=== PATIENT | female | born 2005 | race Asian ===

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

== ENCOUNTER 2024-05-10 02:21 | Emergency (ER) | payer OTHER, SELFPAY ==
[2024-05-10 02:21] VITALS: BP 131/88; PULSE 89; RESP 16; TEMP 36.9; O2SAT 100; BMI 20.3
--- NOTE | 2024-05-10 03:05 | EDS_ITS ---
HPI HPI - GI History of Present Illness Chief Complaint: Abd Pain Informant: patient Narrative Narrative: 19-year-old female has been having epigastric and left upper quadrant discomfort and bloating off and on for the past 1.5 weeks, present Saturday night 3 AM. She states is worse tonight. Mainly bloating. The pain is mostly been in the mornings before she eats. Last for less than an hour. No nausea or vomiting. She has a history of chronic constipation, she sometimes has a bowel movement once a week, she had a little one earlier, made some of the bloating less. She feels like she has had some swelling in her left upper quadrant tonight, that has been off and on for a week as well. She denies any problems urinating. Denies . No history of any surgeries in her abdomen. This the first time she has had this evaluated. She had some of these pains off and on before 1.5 weeks ago but it would come and go and was less consistent than now. She does have a history of a stomach ulcer and was H. pylori positive, she thinks this feels different. The bloating is worse directly after eating. PFSH PFSH Medical History Oral ulcer History of Crohn's disease H pylori ulcer Gastric ulcer Abdominal pain H pylori ulcer Piercing Infected pierced ear Pierced navel infection Wears glasses Depression Anxiety Restless legs Back pain Migraine headache Syncope Rectal bleeding Heartburn Asthma Non-smoker Home Medications ?Medication ?Instructions ?Recorded ?Last Taken ?Type dicyclomine 20 mg tablet 20 mg PO Q6H PRN PRN abdomin al 05/10/24 Unknown Rx discomfort #20 tabs Allergy/AdvReac Type Severity Reaction Status Date / Time adhesive tape Allergy Itching Verified 05/10/24 02:21 ciprofloxacin (From Ciprodex) Allergy Swelling Verified 05/10/24 02:21 dexamethasone (From Ciprodex) Allergy Swelling Verified 05/10/24 02:21 Surgical History History of esophagogastroduodenoscopy (EGD) Social History Smoking Status: Never smoker ROS ROS ED Constitutional Constitutional ED: Denies chills or fever(s) Eyes Eyes: Denies change in vision or diplopia ENT ENT ED: Denies rhinorrhea or sore throat Cardiovascular Cardiovascular: Denies chest pain or palpitations Respiratory/Chest Respiratory/Chest: Denies cough or dyspnea Gastrointestinal Gastrointestinal: Reports as per HPI, abdominal pain and constipation; Denies diarrhea, nausea or vomiting Genitourinary Genitourinary ED: Denies dysuria or hematuria Musculoskeletal Musculoskeletal: Denies back pain or neck pain Integumentary Denies abscess or rash Neurologic Neurologic: Denies headache(s), paresthesias or weakness Psychiatric Psychiatric: Denies anxiety or suicidal thoughts EXAM Physical Exam Const Vital Signs: 05/10/24 02:21 Temperature 98.4 F Temperature Source Oral Pulse Rate 89 Respiratory Rate 16 Blood Pressure 131/88 H Blood Pressure Mean 102 Pulse Ox 100 Positive well nourished and well developed Constitutional Narrative: Well-appearing in no distress General Appearance ED: well developed and NAD HEENT Reports moist mucous membranes normocephalic and atraumatic Eyes PERRL and EOMs intact bilaterally Neck full ROM and supple Resp normal respiratory effort and clear to auscultation bilaterally Cardio regular rate, regular rhythm and no murmurs GI non-distended GI Narrative: There is no swelling. She points over the left lower rib cage which is nontender and not swollen or erythematous. Abdomen is flat. Mild tenderness in the left upper quadrant and epigastrium, no guarding or rebound. No other areas of tenderness. Auscultation: normoactive bowel sounds Palpation: soft Back/Spine no CVA tenderness General Back: other FROM Extremity normal to inspection General Extremety ED: Negative for edema, pulses abnormal or tenderness General Extremity: Negative for edema or pulses abnormal Neuro oriented x3, CN's II-XII intact bilaterally and no sensory deficits noted Sensorium / Orientation: awake and alert Motor Exam: strength 5/5 throughout Skin no rashes or lesions noted and no wounds MDM MDM MDM Narrative Medical decision making narrative: I advised this patient that I do not think she needs advanced imaging of the abdomen/pelvis tonight. This sounds like a functional intestinal issue of some sort. Peptic ulcer disease is not out of the question, she is not having any melena, nausea, vomiting making this less likely. In looking at her history which she did not tell me, she has a history of terminal ileitis and has been diagnosed with irritable bowel syndrome with constipation, which I mentioned to her as a possibility here as well. I am happy to run some blood work which I did, and give her Toradol, GI cocktail, pantoprazole, and dicyclomine in the meantime; this helped some. She is comfortable, her vital signs are normal, and her labs are reviewed and unremarkable except for mild hypokalemia which may or may not be related. negative ruling out ectopic. Lipase normal ruling out pancreatitis. In discussing all of this with her, at this point she tells me that she did follow-up with Dr. Silva with GI, and she believes he gave her the diagnosis of IBS. I asked her if she was tried on Linzess, she states she was and she got sick on it so she stopped taking it not sure if it was the medication or not. She does not think she has it anymore. I would follow-up with GI for this, but in the meantime I will give her a prescription for dicyclomine and she is comfortable with that plan.-C Lab Data Attestation: I reviewed the patient's lab results. Labs: Laboratory Results - last 24 hr 05/10/24 02:29 WBC 9.7 RBC 4.42 Hgb 12.6 Hct 37.7 MCV 85.3 MCH 28.5 MCHC 33.4 RDW Std Deviation 38.9 RDW Coeff of Christie 12.6 Plt Count 316 MPV 9.8 Immature Gran % (Auto) 0.300 Neut % (Auto) 50.4 Lymph % (Auto) 42.0 H [place] % (Auto) 6.6 Eos % (Auto) 0.5 Baso % (Auto) 0.2 Absolute Neuts (auto) 4.9 Absolute Lymphs (auto) 4.09 Nucleated RBC % 0 Sodium 139 Potassium 3.2 L Chloride Direct 103 Carbon Dioxide 23.4 Anion Gap 13 BUN 7 Creatinine 0.62 L Estim Creat Clear Calc 103.10 Est GFR (MDRD) Non-Af 130 BUN/Creatinine Ratio 11.4 Glucose 95 Calcium 9.3 Total Bilirubin 0.25 AST 19 ALT 8 Alkaline Phosphatase 78 Total Protein 8.2 Albumin 4.4 Globulin 3.8 Albumin/Globulin Ratio 1.2 Lipase 19 Serum , Qual NEGATIVE Discharge Plan Triage Chief Complaint: Abd Pain ED Provider: Nestor Sr Dx/Rx/DC Orders Clinical Impression: Acute upper abdominal pain, Irritable bowel syndrome with constipation Instructions: ED Constipation (Adult), ED Irritable Bowel Syndrome Prescriptions: New dicyclomine 20 mg tablet 20 mg PO Q6H PRN PRN (Reason: abdominal discomfort) Qty: 20 0RF Primary Care Provider: Care Physician,No Primary Referrals: La Latif DO [Med Staff - Clinical Rehabilitation Coordinator] - Activity Restrictions/Additional Instructions: Consider trying to take care of your constipation to see if that helps your discomfort; 1 version is to dissolve about 1 cup of MiraLAX or generic equivalent in any liquid and drink over the course of the day. Another version is to buy a glass bottle of magnesium citrate and drink half of it along with plenty of fluids and expect to have a good bowel movement along with diarrhea in 6-12 hours. If it does not occur in 24 hours, you may repeat with the other half of the bottle. Print Language: British Disposition Disposition: Home, Self Care
[2024-05-10 03:11] LABS: Absolute Lymphocyte Count 4.09 X10^3/uL (0.83-4.51); Absolute Neutrophil Count 4.9 X10^3/uL (2.0-7.7); Basophil# 0.02 X10^3/uL; Basophil% 0.2 % (0-1); Eosinophil# 0.05 X10^3/uL; Eosinophils% 0.5 % (0-5); Hematocrit 37.7 % (37-47); Hemoglobin 12.6 g/dL (12.0-15.0); Lymphocyte # 4.09 X10^3/ul (0.83-4.51); Mean Corp Hgb Conc 33.4 g/dL (32-36); Mean Corpuscular Hgb 28.5 pg (27.0-32.0); Mean Corpuscular Volume 85.3 fL (81-99); Mean Platelet Vol. 9.8 fl (6.2-12.0); Monocyte# 0.64 X10^3/uL; Monocyte% 6.6 % (0-10); NRBC Flagged by Analyzer 0 % (0-5); Neutrophil # 4.91 X10^3/uL (2.7-7.7); Neutrophil % 50.4 % (47-70); Platelet Count 316 K/mm3 (150-450); RBC Distribution Width CV 12.6 % (11.6-14.6); RBC Distribution Width SD 38.9 fl (35.1-43.9); Red Blood Count 4.42 M/mm3 (4.2-5.4); White Blood Count 9.7 K/mm3 (4.4-11.0)
[2024-05-10] MEDS: Dicyclomine 10 MG Capsule 20 MG PO (03:11)
[2024-05-10] MEDS: Ketorolac 30 MG/ML Syringe IV (03:11)
[2024-05-10] MEDS: Pantoprazole Sodium 40 MG Tablet PO (03:11)
[2024-05-10] MEDS: Lidocaine 2% Viscous15 ML UDC 15 ML PO (03:11)
[2024-05-10] MEDS: Mag Hydrox/Al Hydrox/Simeth 30 ML UDC PO (03:11)
[2024-05-10 03:38] LABS: ALB/GLOB Ratio 1.2 RATIO (0.9-2.4); AST(SGOT) 19 U/L (<=31); Alanine Aminotransfer ALT/SGPT 8 U/L (<=34); Albumin, Serum 4.4 g/dL (3.5-5.0); Alkaline Phosphatase 78 U/L (35-104); Anion Gap 13 (5-15); BUN 7 mg/dL (4-19); BUN/Creat Ratio 11.4 RATIO (10-20); Calcium 9.3 mg/dL (7.6-11.0); Carbon Dioxide 23.4 mmol/L (22.0-29.0); Chloride 103 mmol/L (96-108); Creatinine, Serum 0.62 mg/dL (0.70-1.20); EST Glomerular Filtration Rate 130 (>60); Globulin 3.8 g/dL (2.2-4.2); Glucose 95 mg/dL (70-99); Lipase 19 U/L (13-75); Potassium 3.2 mmol/L (3.3-5.1); Protein, Total 8.2 g/dL (5.9-8.4); Sodium Level 139 mmol/L (133-145); Total Bilirubin 0.25 mg/dL (0.00-1.30)
[2024-05-10 04:12] LABS: Internal QC Validated? YES +Cl - CLEAR BKGD; Pregnancy, Serum, hCG Quali. NEGATIVE Negative
[2024-05-10 04:53] VITALS: BP 118/64; PULSE 61; RESP 18; O2SAT 98
== END 2024-05-10 04:56 | disposition home or self-care (01) ==
PROVIDERS: Emergency Provider Emergency Medicine; Visit Provider Emergency Medicine
DX: K58.9 Irritable bowel syndrome, unspecified (principal); R10.13 Epigastric pain
CPT/HCPCS: 80053; 83690; 84703; 85025; 96374; 96376; 99283; A4216

== ENCOUNTER → 2024-06-05 | Outpatient (CLI) | payer OTHER, SELFPAY ==
--- NOTE | 2024-06-05 12:48 | NM_ITS ---
PROCEDURE: GASTRIC EMPTYING STUDY 06/05/2024 REASON FOR EXAM: EARLY SATIETY History of Crohn's disease. Feels like stomach is swollen. COMPARISON: None. TECHNIQUE: Patient ingested 1.2 mCi of Technetium Sulfur Colloid in oatmeal. Anterior and posterior planar images of the upper abdomen were obtained for 60 minutes. Regions of interest were drawn, and a geometric mean was used to calculate a [id number]. Medications taken in the past 24 hours that may affect gastric emptying: None. FINDINGS: Half-life: 0 Gastroesophageal reflux: None. % Emptying 1 hour 21 % (normal 37-90%) NM/Gastric Emptying Study IMPRESSION: 1. MARKEDLY DELAYED GASTRIC EMPTYING. Reading Location: [place]
== END | disposition home or self-care (01) ==
DX: K58.1 Irritable bowel syndrome with constipation (principal); R10.10 Upper abdominal pain, unspecified
CPT/HCPCS: 78264; A9541

== ENCOUNTER → 2024-06-16 | Outpatient (CLI) | payer OTHER, SELFPAY ==
--- NOTE | 2024-06-16 10:20 | NM_ITS ---
PROCEDURE: GASTRIC EMPTYING STUDY - 4 HR 06/16/2024 REASON FOR EXAM: PROLONGED 1HR GET COMPARISON: 05/28/2024 gastric emptying study. TECHNIQUE: The patient ingested a standard meal of cooked egg whites mixed with 2 slices of, toasted white bread and 6 oz water. Anterior and posterior planar images of the upper abdomen were obtained for 1 minute immediately following the meal at 1h, 2h and 4h if more than 10% of the activity persisted within the stomach. Regions of interest were drawn, and a geometric mean was used to calculate a [id number]. Medications taken in the past 24 hours that may affect gastric emptying: None. RADIOPHARMACEUTICAL: 1.2 mCi Sulfur Colloid FINDINGS: Percent activity remaining in stomach: 1 hour 61 % (normal 37-90%) 2 hours: 29 % (normal 30-60%) 4 hours: 1 % (normal 0-10%) NM/Gastric Emptying Study - 4 HR IMPRESSION: Normal gastric emptying study. Reading Location: [place] [id number]
== END | disposition home or self-care (01) ==
LOC: NM 10:15
DX: K31.84 Gastroparesis (principal)
CPT/HCPCS: 78264; A9541

== ENCOUNTER → 2024-08-14 | Outpatient (CLI) | payer OTHER, SELFPAY ==
[2024-08-17 11:08] LABS: Anti-Centromere B Ab <0.2 AI (0.0-0.9); Anti-Chromatin <0.2 AI (0.0-0.9); Anti-Jo <0.2 AI (0.0-0.9); Anti-Scleroderma-70 AB <0.2 AI (0.0-0.9); Anti-dsDNA Ab <1 IU/mL (0-9); RNP Ab <0.2 AI (0.0-0.9); SJOGREN'S Anti-SS-A test < 0.2 AI (0.0-0.9); SJOGREN'S Anti-SS-B test < 0.2 AI (0.0-0.9); Smith Ab <0.2 AI (0.0-0.9)
[2024-08-17 17:08] LABS: ACCA 24 units (0-90); ALCA 9 units (0-60); AMCA 57 units (0-100); Cytoplasmic Ab (C-ANCA) <1:20 titer (Neg:<1:20); Perinuclear Ab (P-ANCA) <1:20 titer (Neg:<1:20); gASCA 22 units (0-50)
== END | disposition home or self-care (01) ==
LOC: LAB 11:35
DX: K59.00 Constipation, unspecified (principal); R10.9 Unspecified abdominal pain
CPT/HCPCS: 36415; 83516; 86036; 86037; 86225; 86235; 86671

== ENCOUNTER → 2024-08-17 | Outpatient (CLI) | payer OTHER, SELFPAY ==
--- NOTE | 2024-08-17 08:25 | US_ITS ---
PROCEDURE: ABDOMEN LIMITED 08/17/2024 REASON FOR EXAM: PALPABLE MASS LUQ ABDOMEN DISTAL RIB COMPARISON: None FINDINGS: Targeted sonogram of the left upper quadrant was performed. No sonographic abnormality is seen. US/Abdomen Limited IMPRESSION: No sonographic abnormality is seen. Reading Location: [place] [address]
== END | disposition home or self-care (01) ==
DX: R19.02 Left upper quadrant abdominal swelling, mass and lump (principal)
CPT/HCPCS: 76705

== ENCOUNTER → 2024-10-20 | Outpatient (CLI) | payer OTHER, SELFPAY ==
[2024-10-20 12:47] LABS: AST(SGOT) 19 U/L (<=31); Alanine Aminotransfer ALT/SGPT 9 U/L (<=34); Albumin, Serum 4.3 g/dL (3.5-5.0); Alkaline Phosphatase 66 U/L (35-104); Anion Gap 11 (5-15); BUN 10 mg/dL (4-19); BUN/Creat Ratio 15.2 RATIO (10-20); Calcium,Total 9.4 mg/dL (7.6-11.0); Carbon Dioxide 25.0 mmol/L (21.0-32.0); Chloride 103 mmol/L (98-108); Globulin 3.2 g/dL (2.2-4.2); Glucose 81 mg/dL (70-99); Potassium 3.7 mmol/L (3.3-5.1)
[2024-10-20 13:40] LABS: CRP < 3.00 mg/L (0.0-3.0)
[2024-10-21 16:09] LABS: Immunoglobulin A 157 mg/dL (87-352)
== END | disposition home or self-care (01) ==
LOC: LAB 11:11
DX: R10.13 Epigastric pain (principal); R11.0 Nausea; R19.7 Diarrhea, unspecified
CPT/HCPCS: 36415; 80053; 82784; 83516; 86140; 86255

== ENCOUNTER → 2024-10-26 | Outpatient (CLI) | payer OTHER, SELFPAY ==
--- OUTSIDE RECORDS SUMMARY | 2024-10-26 23:16 | XMS RPT_ITS | CCD ---
Author Organization [facility] Care Team Providers Care Quantity Surveyor Name Role Phone YUSRA WALLACE Unavailable Unavailabl e REJI LEE Unavailable Unavailable REJI LEE Unavailable Unavailable La Latif DO Unavailable Marifer Brock LPN Unavailable Unavailable Unavailable Unavailable Gravtre PETERS, Lauryn Unavailable Unavailable Kim Guerra MD Unavailable [phone] Lia PETERS Kendra Unavailable Unavailable Friend, Dr. Thomson Unavailable [phone] La Latif Primary Care Provider [phone] Dr. La Latif Referring Provider Dr. Regis Billingsley Attending Provider [phone] FriendDr. Thomson Attending Provider [phone] Thomson Other Provider [phone] Norma CORE WINDING OPERATOR, CORE WINDING OPERATOR-C Rhiannon Aguila Attending Provider [phone] La Latif DO Unavailable [phone] Kim Guerra MD Unavailable [phone] La Latif Primary Care Provider Dr. La Latif Referring Provider FriendDr. Thomson Attending Provider [phone] Simone Cardenas LPN Unavailable Unavailable Dr. La Latif Primary Care Provider [phone] Dr. La Latif Referring Provider Norma CROOK, CORE WINDING OPERATOR-C Rhiannon Aguila Attending Provider [phone] Alanna PETERS, Kayela Unavailable Unavailable Fran LINE ASSEMBLY UTILITY WORKER, Shelby Unavailable Unavailable Seese DO, Lalo Unavailable Reji Parrish Primary Care Provid er La Latif DO Attending Unavailable Bhavya REARDON, La Consulting Unavailable Slarb LINE ASSEMBLY UTILITY WORKER, Becca Unavailable Unavailable ELVER GROUP EXERCISE INSTRUCTOR-ADA ACCOMMODATION CONSULTANT, LYRIC Primary Care Physician ELVER GROUP EXERCISE INSTRUCTOR-ADA ACCOMMODATION CONSULTANT, LYRIC Attending Unavail able ELVER GROUP EXERCISE INSTRUCTOR-ADA ACCOMMODATION CONSULTANT, LYRIC Primary Care Unavail able Manjit Peña MD, Reji Black Primary Care Pro vider Remberto VELAZQUEZ, Dr. Baez Attending Provider Remberto VELAZQUEZ, Dr. Baez Emergency Provider Care Physician, No Primary Primary Care Provider Unavailable Dr. La Latif DO Referring Provider Dawson CORE WINDING OPERATOR-CXena Attending Provider Dawson CORE WINDING OPERATOR-CXena Referring Provider Care Physician, No Primary Referring Provider Un available Reji Parrish MD Primary Care Pro vider GALILEO, HUONG Referring Unavailable REJI PARRISH Primary Care Jayne vailable GALILEO, HUONG Attending Unavailable REJI PARRISH Primary Care Jayne vailable MARIA D EPPS Attending Unavailable REJI PARRISH Primary Care Jayne vailable JAMES, EDIN P Attending Unavailable JAMESVAZQUEZ SALESEL P Referring Unavailable REJI PARRISH Primary Care Jayne vailable JAMES, EDIN P Attending Unavailable REJI PARRISH Primary Care Jayne vailable JAMES, EDIN P Attending Unavailable REJI PARRISH Primary Care Jayne vailable JAMES, EDIN P Attending Unavailable JAMES, EDIN P Admitting Unavailable Xena Osman Attending Unavailable Xena Osman Referring Unavailable Care Physician, No Primary Primary Care Unava ilable Care Physician, No Primary Referring Unava ilable Xena Osman Attending Unavailable Care Physician, No Primary Primary Care Unava ilable La Latif Referring Unavailable Xena Osman Attending Unavailable Care Physician, No Primary Primary Care Unava ilable Care Physician, No Primary Referring Unava ilable Care Physician, No Primary Primary Care Unava ilable Osman, Xena Attending Unavailable Care Physician, No Primary Referring Unava ilable Osman, Xena Attending Unavailable Care Physician, No Primary Primary Care Unava ilable Osman, Xena Attending Unavailable Care Physician, No Primary Primary Care Unava ilable Osman, Xena Referring Unavailable Osman, Xena Attending Unavailable Care Physician, No Primary Primary Care Unava ilable Osman, Xena Referring Unavailable Nestor Sr Attending Unavailable Care Physician, No Primary Primary Care Unava ilable Osman, Xena Attending Unavailable Osman, Xean Referring Unavailable Care Physician, No Primary Primary Care Unava ilable Care Physician, No Primary Primary Care Provider Unavailable Dawson CORE WINDING OPERATOR-C, Xena Attending Provider [phone] Dawson CORE WINDING OPERATOR-C, Xena Referring Provider [phone] Allergies Allergy Classification Reported Allergen(s) Allergy Type Date of Onset Reaction(s) Facility Ciprofloxacin / Dexamethasone (3 sources) Ciprofloxacin / Dexamethasone; Translations: [Ciprodex *OTIC AGENTS*] Drug Allergy [facility] Work Phone: Comment on above: facial swelling (11 sources) ciprofloxacin / dexamethasone; Translations: [CIPROFLOXACIN-D EXAMETHASONE] Drug Allergy 02-10-20 16 Swelling [facility] Repository (1 source) Environmental allergy; Translations: [ENVIRONMENTAL] Propensity to adverse reactions (disorder) 02-10-20 16 AOF [facility] Repository (1 source) SKIN CLEANSER; Translations: [SKIN CLEANSER] Propensity to adverse reactions to drug (disorder) [facility] SKIN CLEANSER,GENERAL ; Translations: [SKIN CLEANSER,GENERAL ] Propensity to adverse reactions to drug (disorder) 04-09-19 [facility]) Ciprofloxacin / Dexamethasone; Translations: [Ciprodex *OTIC AGENTS*] Drug Allergy Weal (disorder) [facility] Work Phone: Comment on above: facial swelling (13 sources) Ciprofloxacin Drug Allergy 05-31-19 22 Swelling [facility] (20 sources) Dexamethasone; Translations: [DEXAMETHASONE] Drug Allergy 05-31-19 22 Swelling [facility] (5 sources) BANDAID Allergy to substance 05-31-19 Itching [facility] Work Phone: (9 sources) Adhesive Tape; Translations: [adhesive tape] Allergy to substance 02-07-20 Itching [facility] Comment on above: FROM BANDAID (8 sources) Adhesive agent; Translations: [ADHESIVE] Drug Allergy 02-07-20 Itching [facility] (7 sources) Latex Propensity to adverse reactions [facility] Ciprofloxacin Drug Allergy 08-21-19 [facility] (1 source) Dexamethasone Drug Allergy 08-21-19 [facility] Rep[facility] (1 source) Latex Drug allergy (disorder) 08-21-19 [facility] Repository Medications Current Medications Medication Drug Class(es) Dates Sig (Normalized) Sig (Original) dicyclomine hydrochloride 20 mg oral tablet (7 sources) Anticholinergic Start: 05-10-2024 take 1 tablet by mouth every six hours as needed Dicyclomine 20 mg tablet Active 20 mg PO EVERY 6 HOURS NEEDED as needed for abdominal discomfort May 10, 2024 1:00am famotidine 40 mg oral tablet (7 sources) Histamine-2 Receptor Antagonist Start: 05-11-2024 take 1 tablet by mouth at bedtime Famotidine 40 mg tablet Active 40 mg PO AT BEDTIME May 11, 2024 1:00am omeprazole 20 mg delayed release oral capsule (1 source) Proton Pump Inhibitor Start: 03-28-2023 omeprazole 20 mg oral delayed release capsule Dose : 20 mg = 1 cap(s), Oral, qDay, # 30 cap(s), 0 Refill(s), Pharmacy: [facility]/pharmacy #[id number], H/O gastric ulcer, 155, cm, 03/28/23 11:20:00 EST, Height, kg, 03/28/23 11:20:00 EST, Dosing Weight Start Date: 03/28/23 Status: Ordered ondansetron 4 mg disintegrating oral tablet (2 sources) Serotonin-3 Receptor Antagonist Start: 06-20-2021 take 4 mg by mouth every six hours Ondansetron Active 4 MG PO EVERY 6 HOURS June 20, 2021 4:06pm pantoprazole 40 mg delayed release oral tablet (19 sources) Proton Pump Inhibitor Start: 05-11-2024 take 1 tablet by mouth twice daily Pantoprazole 40 mg tablet,delayed release (DR/EC) Active 40 mg PO TWICE A DAY 60 2 May 11, 2024 1:00am Start: 06-13-2021 End: 06-27-2021 take 1 tablet by mouth twice daily Pantoprazole 40 mg tablet,delayed release (DR/EC) Discontinued 40 mg PO TWICE A DAY 28 14 0 June 13, 2021 12:00am June 26, 2021 12:00am June 27, 2021 12:03am polyethylene glycol 3350 47737 mg powder for oral solution (1 source) Osmotic Laxative Start: 03-28-2023 End: 03-28-2024 take 17 doses by mouth once daily MiraLax oral powder for reconstitution Dose : 17 gram(s) =, Oral, qDay, # 238 gram(s), 1 Refill(s), 03/28/24 11:30:00 PM EST, Pharmacy: [facility]/pharmacy #[id number], Constipation, 155, cm, 03/28/23 11:20:00 EST, Height, kg, 03/28/23 11:20:00 EST, Dosing Weight Start Date: 03/28/23 Stop Date: 03/28/24 Status: Ordered Completed/Discontinued Medications Medication Drug Class(es) Dates Sig (Normalized) Sig (Original) amoxicillin 500 mg oral capsule (12 sources) Penicillin-class Antibacterial Start: 06-13-2021 End: 06-27-2021 take 1 capsule by mouth twice daily Amoxicillin 500 mg capsule Discontinued 500 mg PO TWICE A DAY 28 14 0 June 13, 2021 12:00am June 26, 2021 12:00am June 27, 2021 12:03am atomoxetine 10 mg oral capsule (18 sources) Norepinephrine Reuptake Inhibitor Start: 06-28-2022 take 1 capsule by mouth once daily at mealtime atomoxetine 10 mg oral capsule 1 (one) capsule daily for 2 weeks then 25 mg for 0 days Quantity: 14 {Capsule} Refills: 0 Ordered: 28-Jun-2022 Kim Guerra MD Start : 28-Jun-2022 Active Comments: with food Start: 06-28-2022 take 1 capsule by [facility] once daily in the morning atomoxetine 25 mg oral capsule 1 (one) Capsule every morning for 2 weeks than 40 mg for 0 days Quantity: 14 {Capsule} Refills: 0 Ordered: 28-Jun-2022 Kim Guerra MD Start : 28-Jun-2022 Active Start: 06-28-2022 take 1 capsule by mo [facility] in the morning atomoxetine 40 mg oral capsule 1 (one) capsule in am for 0 days Quantity: 30 {Capsule} Refills: 0 Ordered: 28-Jun-2022 Kim Guerra MD Start : 28-Jun-2022 Active Comment on above: with food busPIRone hydrochloride 10 mg oral tablet (11 sources) Start: 3 End: 3 take 1 tablet by mouth twice daily busPIRone 10 mg oral tablet 1 (one) tablet bid for 0 days Quantity: 60 {Tablet} Refills: 1 Ordered: 16-May-2022 La Latif DO, DO, Kathleen Start : 18-Apr-2022 End : 16-May-2022 Discontinued Drospirenone-Ethinyl Estradiol 3-0.03 MG Oral Tablet (20 sources) Progestin, Estrogen Start: 2 take 1 tablet by mouth once daily Drospirenone-Ethinyl Estradiol 3-0.03 MG Oral Tablet 1 (one) Tablet qd for 30 days Quantity: 3 {Packet} Refills: 4 Ordered: 18-Dec-2021 La Latif DO, DO, Kathleen Start : 18-Dec-2021 Active Comments: Mail order. qty is for QS 90 day supply of tablet packets Start: 12-06-2021 take 1 tablet by [facility] once daily Drospirenone-Ethinyl Estradiol 3-0.03 MG Oral Tablet 1 (one) Tablet qd for 30 days Quantity: 30 {Tablet} Refills: 0 Ordered: 06-Dec-2021 La Latif DO, DO, Kathleen Start : 06-Dec-2021 Active Comments: Mail order. pt needs apt for more refills Start: 05-26-2021 End: 05-10-2024 Drospirenone-Estradiol 0.25- 0.5 mg Tablet Discontinued 1 {tbl} PO DAILY May 26, 2021 12:00am May 10, 2024 3:25am Start: 05-26-2021 take 1 tablet by [facility] once daily Drospirenone-Estradiol Active 1 TABLET PO DAILY May 25, 2021 11:00pm Start: 12-19-2020 take 1 tablet by [facility] once daily Drospirenone-Ethinyl Estradiol 3-0.03 MG Oral Tablet 1 (one) Tablet qd for 90 days Quantity: 90 {Tablet} Refills: 3 Ordered: 19-Dec-2020 La Latif DO, DO, Kathleen Start : 19-Dec-2020 Active Comments: Mail order. Start: 12-09-2019 End: 04-13-2024 take 1 tablet by mouth once daily Drospirenone-Ethinyl Estradiol 3-0.03 mg per tablet TAKE 1 TABLET BY MOUTH EVERY DAY 12/09/2019 04/13/2024 Discontinued (Course of therapy completed) Start: 12-09-2019 take 1 tablet by [facility] once daily Drospirenone-Ethinyl Estradiol 3-0.03 mg per tablet TAKE 1 TABLET BY MOUTH EVERY DAY 0 12/09/2019 Active Drospirenone-Eth inyl Estradiol 3-0.03 MG Oral Tablet (3-0.03 MG) Active Comments: regulate period Comment on above: regulate period Mail order. Mail order. pt needs apt for more refills Mail order. qty is f or QS 90 day supply of tablet packets TAKE 1 TABLET BY [facility] TH EVERY DAY FLUoxetine 20 mg oral capsule (20 sources) Serotonin Reuptake Inhibitor Start: End: take 1 capsule by mouth once daily Fluoxetine (Prozac) 20 mg Capsule Discontinued 20 mg PO DAILY May 26, 2021 12:00am May 10, 2024 3:25am Start: 09-13-2020 take 1 capsule by mo [facility] once daily PROzac 20 MG Oral Capsule 1 (one) Capsule daily for 90 days Quantity: 90 {Capsule} Refills: 3 Ordered: 13-Sep-2020 La Latif DO, DO, Kathleen Start : 13-Sep-2020 Active Comments: Mail order. Start: 04-28-2020 End: 05-29-2024 FLUoxetine (PROZAC) 20 mg ca psule 04/28/2020 05/29/2024 Discontinued Comment on above: F41.9 Mail order. Mail order. needs ap t for more refills lubiprostone 0.024 mg oral capsule (11 sources) Chloride Channel Activator Start: 07-07-19 End: 07-25-19 take 1 capsule by mouth twice daily Lubiprostone 24 mcg capsule Discontinued 24 ug PO TWICE A DAY 60 1 July 06, 2021 12:00am July 24, 2021 1:51pm metroNIDAZOLE 500 mg oral tablet (12 sources) Nitroimidazole Antimicrobial Start: 06-14-19 End: 06-28-19 take 1 tablet by mouth three times daily Metronidazole 500 mg tablet Discontinued 500 mg PO THREE TIMES A DAY 42 14 0 June 13, 2021 12:00am June 26, 2021 12:00am June 27, 2021 12:03am multivitamin tablet (3 sources) End: 05-30-19 take 1 tablet by mouth once daily multivitamin tablet Take 1 tablet by mouth once daily. 05/29/2024 Discontinued take 1 tablet by mouth once [facility] multivitamin tablet Take 1 tablet by mouth once daily. Active take 1 tablet by mouth once [facility] multivitamin tablet Take 1 tablet by mouth once daily. 0 Active Comment on above: Take 1 tablet by [place] once daily. plecanatide 3 mg oral tablet (10 sources) Start: 2 End: 2 take 1 tablet by mouth once daily Plecanatide (Trulance) 3 mg tablet Discontinued 3 mg PO DAILY 90 3 August 24, 2021 12:00am December 05, 2021 9:20am tried and failed oneyda marion sertraline 100 mg oral tablet (10 sources) Serotonin Reuptake Inhibitor Start: 3 take 1.5 tablets by mouth once daily sertraline 100 mg oral tablet 1.5 tablet qd for 0 days Quantity: 45 {Tablet} Refills: 1 Ordered: 28-Aug-2022 La Latif DO, DO, Kathleen Start : 28-Aug-2022 Active Comments: wean off Start: 06-28-2022 take 1.5 tablets by mouth once daily sertraline 100 mg oral tablet 1.5 tablet qd for 0 days Quantity: 45 {Tablet} Refills: 1 Ordered: 28-Jun-2022 Kim Guerra MD Start : 28-Jun-2022 Active Comments: wean off Start: 06-13-2022 take 1.5 tablets by mouth once daily sertraline 100 mg oral tablet 1.5 tablet qd for 0 days Quantity: 45 {Tablet} Refills: 1 Ordered: 13-Jun-2022 BhavyaLa bishop DO, DO, Kathleen Start : 13-Jun-2022 Active Start: 05-16-2022 take 1 tablet by [facility] once daily sertraline 100 mg oral tablet 1 (one) tablet qd for 0 days Quantity: 30 {Tablet} Refills: 1 Ordered: 16-May-2022 La Latif DO, DO, Kathleen Start : 16-May-2022 Active Comment on above: wean off sucralfate 1000 mg oral tablet (9 sources) Aluminum Complex Start: 09-15-2021 End: 10-09-2021 take 1 tablet by mouth three times daily 1 hour(s) before mealtime Sucralfate (Carafate) 1 gram tablet Discontinued 1 g PO before meals 90 0 September 15, 2021 12:00am October 09, 2021 9:39am Take three times a day, one hour before meals and two hours away from other medications. Problems Active Problems Problem Classification Problem Date Documented Da te Episodic/Chronic Abdominal pain (20 sources) Generalized abdominal pain; Translations: [Abdominal pain, diffuse] Onset: 05-11-2024 Resolved: 12-18-2021 09-01-2020 Episodic Anxiety disorders (20 sources) Anxiety; Translations: [Anxiety] 08-11-2020 Chronic Attention-deficit, conduct, and disruptive behavior disorders (14 sources) Attention deficit hyperactivity disorder, combined type; Translations: [Attention deficit hyperactivity disorder (ADHD), combined type] 06-28-2022 Chronic Blindness and vision defects (20 sources) Blurring of visual image; Translations: [Blurred vision, bilateral] 04-18-2022 Episodic Comment on above: rec eye exam she mary l set up -- eval dryness , pathology,will try wetting drops in meantime to see if helps Contraceptive and procreative management (20 sources) Patient encounter status; Translations: [ control counseling] 12-19-2020 Episodic Gastroduodenal ulcer (except hemorrhage) (20 sources) Peptic ulcer; Translations: [Peptic ulcer, site unspecified, unspecified as acute or chronic, without hemorrhage or perforation] Chronic Gastrointestinal hemorrhage (20 sources) Rectal hemorrhage; Translations: [Rectal bleed] Resolved: 12-18-2021 03-20-2021 Episodic Malaise and fatigue (20 sources) Fatigue; Translations: [Fatigue] 12-18-2021 Episodic Comment on above: not sexually active Nausea and vomiting (20 sources) Nausea; Translations: [Nausea] Resolved: 04-18-2022 04-18-2022 Episodic Noninfectious gastroenteritis (20 sources) Inflammatory bowel disease; Translations: [Noninfective gastroenteritis and colitis, unspecified] Episodic Nonmalignant breast conditions (3 sources) Lump in upper outer quadrant of right breast; Translations: [Unspecified lump in the right breast, upper outer quadrant] Onset: 07-01-2024 05-29-2024 Episodic Nutritional deficiencies (20 sources) Vitamin D deficiency; Translations: [Vitamin D deficiency] 04-17-2022 Chronic Nutritional deficiencies (20 sources) Cobalamin deficiency; Translations: [Vitamin B12 deficiency] 04-17-2022 Episodic Other disorders of stomach and duodenum (7 sources) Gastroparesis syndrome; Translations: [Gastroparesis] 06-08-2024 Episodic Other gastrointestinal disorders (20 sources) Irritable bowel syndrome characterized by constipation; Translations: [Irritable bowel syndrome with constipation] 08-18-2021 Chronic Other gastrointestinal disorders (5 sources) Irritable bowel syndrome with constipation; Translations: [Irritable bowel syndrome] Onset: 06-09-2024 Chronic Other gastrointestinal disorders (20 sources) Chronic constipation; Translations: [Constipation, chronic] 09-01-2020 Episodic Other gastrointestinal disorders (18 sources) Constipation; Translations: [Constipation, unspecified] 04-23-2021 Episodic Other gastrointestinal disorders (6 sources) Constipation, unspecified; Translations: [Constipation, unspecified] Onset: 08-19-2024 Episodic Other gastrointestinal disorders (10 sources) Abdominal mass; Translations: [Left upper quadrant abdominal swelling, mass and lump] 08-14-2024 Episodic Other gastrointestinal disorders (1 source) Left upper quadrant abdominal swelling, mass and lump; Translations: [Left upper quadrant abdominal swelling, mass and lump] Onset: 08-20-2024 Episodic Other gastrointestinal disorders (2 sources) Diarrhea; Translations: [Diarrhea, unspecified] 10-20-2024 Episodic Other hematologic conditions (20 sources) Increased globulin; Translations: [Elevated serum globulin level] 04-17-2022 Episodic Other nervous system disorders (16 sources) Unable to concentrate ; Translations: [Lack of concentration] 06-13-2022 Chronic Other nutritional; endocrine; and metabolic disorders (20 sources) Decreased body mass index; Translations: [Body mass index (BMI) of less than 5th percentile for age in patient 18 years to less than 21 years of age] 09-01-2020 Episodic Other nutritional; endocrine; and metabolic disorders (20 sources) Body mass index less than 20; Translations: [BMI less than 19,adult] Resolved: 08-20-2022 12-18-2021 Episodic Other screening for suspected conditions (not mental disorders or infectious disease) (7 sources) Cancer cervix screening status; Translations: [Encounter for screening for malignant neoplasm of cervix] Onset: 04-13-2024 04-13-2024 Episodic Other upper respiratory infections (1 source) Sore throat symptom; Translations: [Acute pharyngitis, unspecified] Episodic Regional enteritis and ulcerative colitis (13 sources) Terminal ileitis; Translations: [Crohn's disease of small intestine without complications] Chronic Residual codes; unclassified (20 sources) Non-smoker; Translations: [Non-smoker] 09-01-2020 Episodic Residual codes; unclassified (20 sources) Influenza vaccination declined; Translations: [Influenza vaccination declined (Renamed from Refused influenza vaccine)] 12-18-2021 Episodic Residual codes; unclassified (20 sources) Body mass index 20-24 - normal; Translations: [BMI 21.0-21.9, adult] Resolved: 08-20-2022 05-16-2022 Episodic Unclassified (20 sources) Unclassified (14 sources) Body mass index (BMI) of less than 5th percentile for age in patient 18 years to less than 21 years of age Unclassified (20 sources) Non-smoker Unclassified (14 sources) Constipation, chronic Unclassified (9 sources) Abdominal pain, diffuse Unclassified (5 sources) Rectal bleed Unclassified (5 sources) Abdominal pain, colicky Past or Other Problems Problem Classification Problem Date Documented Date Episodic/Chronic Immunizations and screening for infectious disease (1 source) Encounter for screening for human papillomavirus (HPV); Translations: [Encounter for screening for human papillomavirus (HPV)] Onset: 04-13-2024 Episodic Mood disorders (6 sources) Mood disorders Other disorders of stomach and duodenum (1 source) Gastroparesis; Translations: [Gastroparesis] Onset: 06-20-2024 Episodic Unclassified (6 sources) control counseling Unclassified (6 sources) Encounter for well adult exam with abnormal findings Unclassified (20 sources) Unspecified Diagnosis 03-20-2021 Results Test Name Value Interpretation Reference Range Facility Gastroenterology Visit Repor ton 08-20-2024 Gastroenterology Visit Report [facility] [address] [place] [address] OFFICE VISIT Date of Service: 08/20/24 MR#: [id number] Acct: [id number] Name: PEDRO CUEVAS Rep #: [id number] : 2005 Provider: ARNOLDO stevenson Age/Sex: 19/F Location: [facility] [place] Status: Signed Intake Vital Signs 05/10/24 02:21 Height 5 ft Intake Visit Reasons: US. Results. Chief Complaint: f/u endoscopy Allergies adhesive tape Allergy (Verified 08/20/24 09:32) Itching ciprofloxacin (From Ciprodex) Allergy (Verified 08/20/24 09:32) Swelling dexamethasone (From Ciprodex) Allergy (Verified 08/20/24 09:32) Swelling latex Adverse Reaction (Intermediate, Verified 08/20/24 09:32) Itching Medications ???Medication ???Instructions ???Recorded ???Confirmed ???Type dicyclomine 20 mg tablet 20 mg PO Q6H PRN PRN abdominal 05/0508/20/24 Rx discomfort #20 tabs famotidine 40 mg tablet 40 mg PO QHS #30 tabs 05/11/2403/04 Rx pantoprazole 40 mg tablet,delayed 40 mg PO BID #60 tabs 05/11/24 Rx release Nurse's Note: Patient is here for some results, states she is feeling about the same as to before her procedure. Question they have is wondering about the lump if it was the same kind of lump that was found on her breast or how they will know. [facility] Medical History Oral ulcer History of Crohn's disease H pylori ulcer Gastric ulcer Abdominal pain H pylori ulcer Piercing Infected pierced ear Pierced navel infection Wears glasses Depression Anxiety Restless legs Back pain Migraine headache Syncope Rectal bleeding Heartburn Asthma Non-smoker Surgical History History of esophagogastroduodenosc opy (EGD) Social History Smoking Status: Never smoker HPI HPI Chief Complaint: f/u endoscopy Details: PEDRO CUEVAS, is a 19 F who presents to the office today for FU. 12.05.21 Last OV 3.3. OV for ER FU 05/10 for abdominal pain: epigastric+LUQ+bloating x1.5wks; received Toradol, GI cocktail, pantoprazole, and dicyclomine. PMHx chr constipation,BM wkly,PUD w/H.pylori(resolved per repeat EGD in 08/2021), terminal ileitis, IBS-C. She reports worse abdominal pain in the mornings, states pain as burning and stabbing sensation. Denies knowing if eating makes the pain better or worse. She tried omeprazole OTC dosing for a week with no change in epigastric pain. She reports loose watery stool 1.5 weeks ago with low grade fever of 99.4 that accompanied abdominal distention. Discomfort was in RUQ of abdomen but presents more in the LUQ today as heaviness. She reports BM every 2 to 3 days with complete evacuation and states that she has early satiety, less than novel appetite and gets full on drinking water.. She denies difficulty chewing and swallowing, heartburn, reflux, nausea, vomiting, frequent throat clearing, cough, sinus drainage, excessive gas, hematochezia, and melena. IBS-C -- Trulance caused diarrhea. She tried and failed Linzess 290 mcg. She did not tolerate Amitiza 24 mcg twice daily, it was not effective and it made her queasy. Had work up for possible Crohn's, negative. Had CT enterography that was unremarkable. EGD 05/30/21-gastritis,non-b leeding ulcer;PATH:chronic gastritis,h.pylori NEG c-scope 05/30/21-redundant colon, congested mucosa at terminal ileum EGD 09/05/21-normal 3..25 GET 1hr- 79% remaining 4.8.25 GET 4hr- 1hr 61% remaining, 2hr 29%, 4hr 1% 6.. OV Continues to report daily epigastric abdominal pains, worse in the AM upon waking. She reports that she's taken herself off of the famotidine and pantoprazole because she didn't notice any change in symptoms. KUB not completed. GET 1hr and 4hr completed and reviewed. She reports experiencing nausea 1 to 2 times a week randomly, and having excessive gas with associated bloating. She states her BMs are now every other day, but she continues to strain to pass the firm formed stool. She denies difficulty chewing and swallowing, cough, throat clearing, sinus drainage, heartburn, reflux, emesis, diarrhea, hematochezia, and melena. She recently had a lumpectomy on 08.12.24 from her right breast, 3.1cm connective tissue. 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 She states shortly after finding lump in her right breast, she found a similar consistency mass to her LUQ abdomen. She also reports random joint pains to her left wrist without provocation. 08.17.24 Ltd Abd US No sonographic abnormality is seen 08.20.24 OV She presents for ultrasound results. She reports trying to increase dietary fiber and water intake. Her mother states they just did grocery shopping and bought low FODMAP foods as instructed. IBD panel negative. Abdominal ultrasound could (more content not included)... Normal [facility] CAROLYN Comprehensive Panelon ANTI-DNA (DS)AB <1 Normal 0-9 [facility] Comment on above: Result Comment: Nega tive <5 Equivocal 5 - 9 Positive >9 Performed By: #### L 3100.5440, L3300.1200, L2100.0000 #### [facility] [address] [place], [place], [id number] ANTI-SS-A < 0.2 Normal 0.0-0.9 [facility] Comment on above: Performed By: #### L 3100.5440, L3300.1200, L2100.0000 #### [facility] [address] [place], [address] ANTI-SS-B < 0.2 Normal 0.0-0.9 [facility] Comment on above: Performed By: #### L 3100.5440, L3300.1200, L2100.0000 #### [facility] [address] [place], [address] ANCAon 08-17-2024 Atypical pANCA <1:20 Normal Neg:<1:20 [facility] Comment on above: Result Comment: The atypical pANCA pattern has been observed in a significant percentage of patients with ulcerative colitis, primary sclerosing cholangitis and autoimmune hepatitis. Performed at: [facility] [id number] Hand Coremaker: Luis Carlos Helms MD, Phone: [phone] Performed at: [facility] [id number] Hand Coremaker: Claude Wynn PhD, Phone: [phone] Performed By: #### L 3100.5440, L3300.1200, L2100.0000 ####[facility] [address] [place], [address] Cytoplasmic Ab <1:20 Normal Neg:<1:20 [facility] Comment on above: Performed By: #### L 3100.5440, L3300.1200, L2100.0000 ####[facility] [address] [place], [address] Perinuclear Ab. <1:20 Normal Neg:<1:20 [facility] Comment on above: Result Comment: The presence of positive fluorescence exhibiting P-ANCA or C-ANCA patterns alone is not specific for the diagnosis of Willa's Granulomatosis (WG) or microscopic polyangiitis. Decisions about treatment should not be based solely on ANCA IFA results. The International ANCA [employer] Consensus recommends follow up testing of positive sera with both CO- 3 and MPO-ANCA enzyme immunoassays. As many as 5% serum samples are positive only by EIA. Ref. AM J Clin Pathol 1999;111:507-513. Performed By: #### L 3100.5440, L3300.1200, L2100.0000 ####[facility] [address] [place], [place], [address] Abdomen Limitedon 08-17-2024 Abdomen Limited [facility] Imaging Services [address] [place] [address] Abdomen Limited MR#: [id number] Acct: [id number] Name: PEDRO CUEVAS Rep #: [id number] : 2005 F 19 From: José Miguel navarro MD PCP: Care Physician,No Primary Status: REG CLI Study: Abdomen Limited Date of Exam: 08/17/24 Exam# [id number] Ordering Dr: Xena Osman PROCEDURE: ABDOMEN LIMITED 08/17/2024 REASON FOR EXAM: PALPABLE MASS LUQ ABDOMEN DISTAL RIB COMPARISON: None FINDINGS: Targeted sonogram of the left upper quadrant was performed. No sonographic abnormality is seen. US/Abdomen Limited IMPRESSION: No sonographic abnormality is seen. Reading Location: [place] [address] CC: CORE WINDING OPERATOR-Bhanu Osman; No Primary Care Physician Manager Float: Signed Normal [facility] L2100.0000on 08-17-2024 ACCA 24 units Normal 0-90 [facility] Comment on above: Result Comment: Nega tive: <80 Equivocal: 80-90 Positive: >90 Performed By: #### L 3100.5440, L3300.1200, L2100.0000 #### [facility] [address] [place], [address] ALCA 9 units Normal 0-60 [facility] Comment on above: Result Comment: Nega tive:<55 Equivocal: 55-60 Positive: >60 Performed By: #### L 3100.5440, L3300.1200, L2100.0000 #### [facility] [address] [place], [address] AMCA 57 units Normal 0-100 [facility] Comment on above: Result Comment: Nega tive: <90 Equivocal: 90-100 Positive: >100 This test was developed and its performance characteristics determined by [employer]. It has not been cleared or approved by the Food and Drug Administration. The FDA has determined that such clearance or approval is not necessary. Performed By: #### L 3100.5440, L3300.1200, L2100.0000 #### [facility] [address] [place], [address] Atypical pANCA Negative Normal Negative [facility] Comment on above: Performed By: #### L 3100.5440, L3300.1200, L2100.0000 #### [facility] [address] [place], [address] COMMENT Comment Normal . [facility] Comment on above: Result Comment: María Elena mariela is not suggestive of Inflammatory Bowel Disease Performed By: #### L 3100.5440, L3300.1200, L2100.0000 #### [facility] [address] [place], [address] Gema 22 units Normal 0-50 [facility] Comment on above: Result Comment: Nega tive: <45 Equivocal: 45-50 Positive: >50 Performed By: #### L 3100.5440, L3300.1200, L2100.0000 #### [facility] [address] [place], [address] Chitobioside IgA antibody as sayOrdered By: Xena Osman on 08-14-2024 Chitobioside IgA IA Qn 24 units 0-90 [facility] Comment on above: Negative: <80 Equivo shelley: 80-90 Positive: >90 Gastroenterology Visit Repor ton 08-14-2024 Gastroenterology Visit Report [facility]astroenterology [address] [place] [address] OFFICE VISIT Date of Service: 08/14/24 MR#: [id number] Acct: [id number] Name: PEDRO CUEVAS Rep #: [id number] : 2005 Provider: ARNOLDO stevenson Age/Sex: 19/F Location: [facility] [place] Status: Signed Intake Vital Signs 05/10/24 02:21 Height 5 ft Intake Visit Reasons: Test Result Chief Complaint: f/u endoscopy Allergies adhesive tape Allergy (Verified 08/14/24 10:59) Itching ciprofloxacin (From Ciprodex) Allergy (Verified 08/14/24 10:59) Swelling dexamethasone (From Ciprodex) Allergy (Verified 08/14/24 10:59) Swelling latex Adverse Reaction (Intermediate, Verified 08/14/24 10:59) Itching Medications ???Medication ???Instructions ???Recorded ???Confirmed ???Type dicyclomine 20 mg tablet 20 mg PO Q6H PRN PRN abdominal 05/0505/11/24 Rx discomfort #20 tabs famotidine 40 mg tablet 40 mg PO QHS #30 tabs 05/11/2406/02 Rx pantoprazole 40 mg tablet,delayed 40 mg PO BID #60 tabs 05/11/24 Rx release PFSH Medical History Oral ulcer History of Crohn's disease H pylori ulcer Gastric ulcer Abdominal pain H pylori ulcer Piercing Infected pierced ear Pierced navel infection Wears glasses Depression Anxiety Restless legs Back pain Migraine headache Syncope Rectal bleeding Heartburn Asthma Non-smoker Surgical History History of esophagogastroduodenosc opy (EGD) Social History Smoking Status: Never smoker HPI HPI Chief Complaint: f/u endoscopy Details: PEDRO CUEVAS, is a 19 F who presents to the office today for FU. 12.05.21 Last OV 3.3.25 OV for ER FU 05/10 for abdominal pain: epigastric+LUQ+bloating x1.5wks; received Toradol, GI cocktail, pantoprazole, and dicyclomine. PMHx chr constipation,BM wkly,PUD w/H.pylori(resolved per repeat EGD in 08/2021), terminal ileitis, IBS-C. She reports worse abdominal pain in the mornings, states pain as burning and stabbing sensation. Denies knowing if eating makes the pain better or worse. She tried omeprazole OTC dosing for a week with no change in epigastric pain. She reports loose watery stool 1.5 weeks ago with low grade fever of 99.4 that accompanied abdominal distention. Discomfort was in RUQ of abdomen but presents more in the LUQ today as heaviness. She reports BM every 2 to 3 days with complete evacuation and states that she has early satiety, less than novel appetite and gets full on drinking water.. She denies difficulty chewing and swallowing, heartburn, reflux, nausea, vomiting, frequent throat clearing, cough, sinus drainage, excessive gas, hematochezia, and melena. IBS-C -- Trulance caused diarrhea. She tried and failed Linzess 290 mcg. She did not tolerate Amitiza 24 mcg twice daily, it was not effective and it made her queasy. Had work up for possible Crohn's, negative. Had CT enterography that was unremarkable. EGD 05/30/21-gastritis,non-b leeding ulcer;PATH:chronic gastritis,h.pylori NEG c-scope 05/30/21-redundant colon, congested mucosa at terminal ileum EGD 09/05/21-normal 3.28.25 GET 1hr- 79% remaining 4.8.25 GET 4hr- 1hr 61% remaining, 2hr 29%, 4hr 1% 6.6.25 OV Continues to report daily epigastric abdominal pains, worse in the AM upon waking. She reports that she's taken herself off of the famotidine and pantoprazole because she didn't notice any change in symptoms. KUB not completed. GET 1hr and 4hr completed and reviewed. She reports experiencing nausea 1 to 2 times a week randomly, and having excessive gas with associated bloating. She states her BMs are now every other day, but she continues to strain to pass the firm formed stool. She denies difficulty chewing and swallowing, cough, throat clearing, sinus drainage, heartburn, reflux, emesis, diarrhea, hematochezia, and melena. She recently had a lumpectomy on 08.12.24 from her right breast, 3.1cm connective tissue. 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 She states shortly after finding lump in her right breast, she found a similar consistency mass to her LUQ abdomen. She also reports random joint pains to her left wrist without provocation. ROS Const Constitutional: Positive for fatigue; No chills, fever(s) or weight change Eyes Eyes: No change in vision ENT ENT: No abnormal hearing or difficulty swallowing Resp Respiratory: No cough Cardio Cardiology: No chest pain at rest, chest pain with exertion or leg pain with exertion Gastro GI: Positive for abdominal pain, bloating, constipation, excessive flatus and nausea/dyspepsia; No belching, change in bowel habits, change in stool character, coffee ground emesis, cramping, diarrhea, heartburn, difficulty swall (more content not included)... Normal [facility] Laboratory - Miscellaneous t estsOrdered By: Xena Osman on 08-14-2024 Laboratory comment [place] (Report) Comment . [facility] Comment on above: Pattern is not sugge stive of Inflammatory Bowel Disease Laminaribioside carbohydrate IgG antibody assayOrdered By: Xena Osman on 08-14-2024 Laminaribioside IgG IA Qn 9 units 0-60 [facility] Comment on above: Negative:<55 Equivoc al: 55-60 Positive: >60 Serum DNA double strand anti body assay (units/volume)Ordered By: Xena Osman on 08-14-2024 DNA double strand Ab Qn (S) [IU]/mL 0-9 [facility] Comment on above: Negative <5 Equivoca l 5 - 9 Positive >9 Serum Scl-70 antibody assay (units/volume)Ordered By: Xena Osman on 08-14-2024 SCL-70 extractable nuclear Ab Qn (S) TNP [facility] Comment on above: Test not performed SCL-70 extractable nuclear Ab Qn (S) <0.2 AI 0.0-0.9 [facility] Comment on above: Previous reported re sult: TNP AIEdited by: TOMMY on 08/17/24:1108 AMENDED REPORT 08/17/24 1108 ANTISCLER previously reported as: Test not performed Serum classic neutrophil cyt oplasmic antibody assay (units/volume)Ordered By: Xena Osman on 08-14-2024 Neutrophil cytoplasmic Ab.classic Qn (S) <1:20 titer Neg:<1:20 [facility] Serum or plasma mannobioside IgG antibody assay by immunoassay (units/volume)Ordered By: Xena Osman on 08-14-2024 Mannobioside IgG IA Qn 57 units 0-100 [facility] Comment on above: Negative: <90 Equivo shelley: 90-100 Positive: >100 This test was developed and its performance characteristics determined by [employer]. It has not been cleared or approved by the Food and Drug Administration. The FDA has determined that such clearance or approval is not necessary. Serum perinuclear neutrophil cytoplasmic antibody titer by immunofluorescenceOrdered By: Xena Osman on 08-14-2024 Neutrophil cytoplasmic Ab.perinuclear IF (S) [Titer] <1:20 titer Neg:<1:20 [facility] Comment on above: The presence of posi tive fluorescence exhibiting P-ANCA orC-ANCA patterns alone is not specific for the diagnosis ofWegener's Granulomatosis (WG) or microscopic polyangiitis.Decisions about treatment should not be based solely onANCA IFA results. The International ANCA Group Consensusrecommends follow up testing of positive sera with both CO-3 and MPO-ANCA enzyme immunoassays. As many as 5% serumsamples are positive only by EIA. Ref. AM J Clin Anotpq6915;111:507-513. ANES POSTPROC EVALon 025 ANES POSTPROC EVAL HNO ID: [id number] Author: MELY WHELAN MD Service: ? Author Type: Anesthesiologist Type: Anesthesia Postprocedure Evaluation Filed: 08/12/2024 16:50 Note Text: POST ANESTHESIA EVALUATION NOTE : 2005 Procedure Summary Date: 08/12/24 Room / Location: SD OR / SD OR Anesthesia Start: 1216 Anesthesia Stop: 1319 Procedure: EXCISION BENIGN LESION BREAST 1.1 TO 2.0 CM (Right) Diagnosis: Abnormal mammogram (Abnormal mammogram [R92.8]) Surgeons: Edin Ramirez MD Responsible Provider: Mely Whelan MD Anesthesia Type: general ASA Status: 2 Anesthesia Type: general Airway Type: LMA Last Vitals Vitals Value Taken Time BP 108/63 08/12/24 1413 Temp 36.8 ?C (98.2 ?F) 08/12/24 1326 HR SpO2 69 08/12/24 1413 Resp 16 08/12/24 1413 SpO2 99 % 08/12/24 1413 Post Anesthesia Patient Status Patient Evaluation: bedside. Anticipated Disposition: phase 2 then home. Neurological Status: aware and responsive. Pulmonary Status: breathing comfortably on room air Airway Control: returned to baseline unsupported. Cardiovascular Status: stable. Pain Management: clinically adequate Postoperative Hydration: acceptable. Intraoperative Events: no significant anesthesia events Post Operative Nausea/Vomiting Status: no significant post operative nausea or vomiting Recommendation: continue current plan of care. Anesthesia Observations No Documentation SIGNATURE: Mely Whelan MD PATIENT NAME: Pedro Cuevas DATE: August 12, 2024 TIME: 4:50 PM CSN: [id number] [facility] ANES PRE-OPon 08-12-2024 ANES PRE-OP HNO ID: [id number] Author: MELY WHELAN MD Service: ? Author Type: Anesthesiologist Type: Anesthesia Preprocedure Evaluation Filed: 08/12/2024 11:36 Note Text: ANESTHESIOLOGY DAY OF SURGERY NOTE : 2005 Procedure Information Date/Time: 08/12/24 1156 Procedure: EXCISION BENIGN LESION BREAST 1.1 TO 2.0 CM (Right) Location: SD OR06 / SD OR Surgeons: Edin Ramirez MD Estimated body mass index is 19.88 kg/m? as calculated from the following: Height as of 04/13/24: 152.4 cm (5'). Weight as of 08/10/24: 46.2 kg (101 lb 12.8 oz). Most recent hematocrit and potassium results: Hematocrit 38.3 11/05/2018 Relevant Problems No relevant active problems I - PHYSICAL EVALUATION AIRWAY Patient intubated: No. Tracheostomy tube not present Mallampati: II. TM distance: >3 FB. Neck ROM: full ROM without neurological symptoms. Mouth opening: adequate. Short neck: no. Thick neck: no DENTAL Dental findings: teeth intact. Additional exam findings: yes. CARDIOVASCULAR Rhythm: regular PULMONARY Breath sounds clear to auscultation. II - ANESTHESIA PLAN ASA Score: 2 Anesthetic Plan: general Airway type: LMA The patient is not a current smoker. NPO Status: adequate Beta Destini Monitoring Plan Monitoring plan: standard ASA. Post Procedure Analgesic Plan Postoperative analgesic plan: multimodal analgesia. Informed Consent Anesthetic risks, benefits, alternatives, personnel and consent discussed: yes. Patient / Responsible Alliance Party agrees to proceed: yes Patient / Surrogate agrees to blood products: Yes DNR status not reviewed with patient and/or family prior to surgery. Significant changes in the patient condition since the History and Physical, not otherwise documented in primary service progress note: no. Potential Anesthesia issues that may suggest increased risk of complications or contraindication to planned procedure: none. Vitals Value Taken Time BP 119/70 08/12/24 1055 Pulse Resp 16 08/12/24 1055 Temp 37.1 ?C (98.8 ?F) 08/12/24 1055 SpO2 100 % 08/12/24 1055 Facility-Administered Medications as of 08/12/2024 Medication Dose Route Frequency [COMPLETED] acetaminophen 650 mg tab(s) (TYLENOL) 650 mg ORAL Pre-Op Once [COMPLETED] promethazine 12.5 mg tab(s) (PHENERGAN) 12.5 mg ORAL Pre-Op Once Outpatient Medications as of 08/12/2024 Medication Sig Ibuprofen 200 mg cap Take by mouth every 6 hours as needed. I have interviewed and examined the patient. I have reviewed the medical record and/or the pre-anesthesia evaluation, pertinent labs, and test results. This contains updated information obtained within 48 hours of Surgery/Procedure. SIGNATURE: Mely Whelan MD PATIENT NAME: Pedro Cuevas DATE: August 12, 2024 TIME: 11:35 AM CSN: [id number] [facility] PRE-OP HNO ID: [id number] Author: MELY WHELAN MD Service: ? Author Type: Anesthesiologist Type: Anesthesia Preprocedure Evaluation Filed: 09/23/2024 09:01 Note Text: ANESTHESIOLOGY DAY OF SURGERY NOTE : 2005 Procedure Information Date/Time: 08/12/24 1156 Procedure: EXCISION BENIGN LESION BREAST 1.1 TO 2.0 CM (Right) Location: SD OR06 / SD OR Surgeons: Edin Ramirez MD Estimated body mass index is 19.88 kg/m? as calculated from the following: Height as of 04/13/24: 152.4 cm (5'). Weight as of 08/10/24: 46.2 kg (101 lb 12.8 oz). Most recent hematocrit and potassium results: Hematocrit 38.3 11/05/2018 Relevant Problems No relevant active problems Adult - Exam and Plan Vitals Value Taken Time BP 119/70 08/12/24 1055 Pulse Resp 16 08/12/24 1055 Temp 37.1 ?C (98.8 ?F) 08/12/24 1055 SpO2 100 % 08/12/24 1055 Facility-Administered Medications as of 08/12/2024 Medication Dose Route Frequency - [COMPLETED] acetaminophen 650 mg tab(s) (TYLENOL) 650 mg ORAL Pre-Op Once - [COMPLETED] promethazine 12.5 mg tab(s) (PHENERGAN) 12.5 mg ORAL Pre-Op Once Outpatient Medications as of 08/12/2024 Medication Sig - Ibuprofen 200 mg cap Take by mouth every 6 hours as needed. I have interviewed and examined the patient. I have reviewed the medical record and/or the pre-anesthesia evaluation, pertinent labs, and test results. This contains updated information obtained within 48 hours of Surgery/Procedure. SIGNATURE: Mely Whelan MD PATIENT NAME: Pedro Cuevas DATE: August 12, 2024 TIME: 11:23 AM CSN: [id number] Normal [facility] HISTORY PHYSICALon HISTORY PHYSICAL HNO ID: [id number] Author: EDIN RAMIREZ MD Service: General Surgery Author Type: Physician Type: H&P Filed: 08/12/2024 11:49 Note Text: HISTORY AND PHYSICAL - BREAST COMPLAINT Pedro Cuevas 2005 REFERRING PHYSICIAN: Reji Peña MD, MD CHIEF COMPLAINT: Abnormal mammogram (primary encounter diagnosis) HPI: The patient is a 19 year old female with a complaint of a palpable breast mass. The patient notes a mass in the upper outer quadrant of her right breast. The patient has noticed this mass for 4 mo. The patient had a mammogram with ultrasound on 07/01/2024 which demonstrated 3.1 cm mass at the 9 o'clock position +4 cm. She does perform a self breast exam routinely. She notes no skin changes. She denies nipple discharge. She notes no axillary masses. She notes no family history of breast problems. She notes no significant breast trauma or breast difficulties in the past. Patient underwent an ultrasound-guided right needle core biopsy Right breast, core biopsy - Fibroepithelial lesion, PAST MEDICAL HISTORY No past medical history on file. PAST SURGICAL HISTORY PAST SURGICAL HISTORY Procedure Laterality Date COLONOSCOPY SCREENING 2021 EGD W/O [facility] SPEC VARICIES INJ 2021 CURRENT MEDICATIONS No current outpatient medications on file. No current facility-administered medications for this visit. ALLERGIES: Adhesive, Ciprodex [Ciprofloxacin-Dexameth asone], and Dexamethasone PERSONAL HISTORY: SOCIAL HISTORY Social History Tobacco Use Smoking status: Never Smokeless tobacco: Never Vaping Use Vaping status: Never Used Substance Use Topics Alcohol use: Yes Comment: occasional Drug use: Never FAMILY HISTORY: FAMILY HISTORY FAMILY HISTORY Adopted: Yes REVIEW OF SYMPTOMS: The review of systems data was entered by the nurse and reviewed by me There are no exam notes on file for this visit. PHYSICAL EXAMINATION: General: The patient is 19 year old female, well nourished, well hydrated in no acute distress. The patient is oriented to time, place, and person. VITALS: Blood pressure 115/75, pulse 78, resp. rate 14, weight 46.9 kg (103 lb 8 oz), last menstrual period 05/09/2024, SpO2 99%. Body mass index is 20.21 kg/m?. HEENT: Normal cephalic, ataumatic, pupils are equally round, sclera are anicteric, mucous membranes are moist, oropharynx is clear. Neck has no masses, asymmetry or lymphadenopathy. Thyroid is unremarkable. Respiratory: Clear to auscultation and percussion. Normal respiratory excursion and pattern. Cardiac: Examination is regular rate and rhythm. Abdominal exam: Soft, nontender, with no palpable masses. No hepatosplenomegaly. No palpable hernias. Rectal exam: exam deferred Extremities: no clubbing, cyanosis or edema. No adenopathy. Breast: Visual inspection reveals no retractions, nipple inversion, or skin changes. Palpation of the right breast reveals firm mass 9 o'clock position right breast upper outer quadrant. Palpation of the left breast reveals no dominant or suspicious masses. Axillary exam demonstrates no suspicious masses in either the left or right axilla. There is no nipple discharge expressed from either the left or right breast. LABORATORY VALUES: As Noted RADIOLOGIC STUDIES: As Noted Assessment IMPRESSION: Abnormal mammogram (primary encounter diagnosis) PLAN: I plan to perform a excisional right breast biopsy. the planned surgical procedure was discussed extensively with the patient. The risks, benefits, anticipated outcomes and possible complications were mentioned. My staff has also explained the procedure in understandable terms and the patient was given the option to take printed material concerning the planned procedure. The patient had the opportunity to ask questions concerning the planned procedure. The patient freely consents to the planned procedure. Diagnoses: (R92.8) Abnormal mammogram (primary encounter diagnosis) My findings have been communicated to Dr. Reji Peña MD, MD via shared medical record. This note will be forwarded to Dr. Reji Peña MD, MD. Return to Clinic: The patient is instructed to follow-up with me after the testing has been completed. Edin Ramirez III, MD UPDATED HISTORY AND PHYSICAL EXAMINATION SERVICE DATE: 08/12/2024 SERVICE TIME: 11:49 AM PHYSICAL EXAM MUST BE COMPLETED ON ADMISSION The History and Physical (completed in the past 30 days) has been reviewed and the patient has been examined. The contents accurately reflect the patient's condition with the following additions or revisions since the HANDP was completed. Examination indicates no changes. This HANDP can be found in the attached. SIGNATURE: Edin Ramirez III, MD PATIENT NAME: Pedro Cuevas DATE: August 12, 2024 TIME: 11:49 AM [facility] OPERATIVE NOon 08-12-2024 OPERATIVE NO HNO ID: [id number] Author: EDIN RAMIREZ MD Service: General Surgery Author Type: Physician Type: Operative Report Filed: 08/12/2024 13:16 Note Text: OPERATIVE/PROCEDURE REPORT LOG ID: [id number] SURGERY/PROCEDURE DATE: 08/12/2024 INCISION/PROCEDURE START TIME: 12:35 PM INCISION CLOSE/PROCEDURE END TIME: 1:10 PM SURGEON(S)/PROCEDURALIS T(S) AND TREATER HELPER(S): Surgeons and Role: * Edin Ramirez MD - Primary Physician Studio Director: Jackelin Barber PA-C SURGERY/PROCEDURE(S): Excisional right breast biopsy ANESTHESIA: General SURGERY/PROCEDURE DETAILS: Patient brought the operating room. Placed in the supine position. Under excellent general anesthetic the right breast was sterilely prepped and draped in the usual fashion. The lateral aspect of the circumareolar area was injected with local. Incision was made around the circumareolar area. I used electrocautery dissected all the way down to this fibroepithelial lesion. I was able to remove it in its entirety. I used electrocautery for good hemostasis. I sent it to pathology the size of it measured 3.5 x 2 cm. The wound was then brought together in layers deep layer 2-0 Vicryl deep dermals of 3-0 Vicryl then a running 4-0 Monocryl on the skin. Dermabond was applied. Sterile dressings were applied. The patient tolerated the procedure well. Jackelin Barber PA-C was my paraprofessional education assistant. She assisted with retraction, visualization and performed skin closure. No additional surgeons or qualified residents were available. PRE-OP/PRE-PROCEDURE DIAGNOSIS: Fibroepithelial lesion right breast, abnormal mammogram POST-OP/POST-PROCEDURE DIAGNOSIS: Same as Preop ESTIMATED BLOOD LOSS: < 20 mls SPECIMENS: 3.5 x 2 cm fibroepithelial lesion to right breast IMPLANTABLE DEVICES: NONE DRAINS: None COMPLICATIONS: None CLOSURE TECHNIQUE: Primary PARTICIPATION IN SURGERY/PROCEDURE: I/primary surgeon/proceduralist performed the procedure with assistance. SIGNATURE: Edin Ramirez III, MD PATIENT NAME: Pedro Cuevas DATE: August 12, 2024 TIME: 1:07 PM [facility] Pathology biopsy report [place] (Tiss)on 08-12-2024 AP DISCLAIMER [facility] Comment on above: Order Comment: Speci men Type: TISSUE SPECIMEN Ordering Facility: [facility] Address: [address] [place], [place] [address] Result Comment: Melissa Garcia Test (LDT) Disclaimer: Performance characteristics of immunohistochemical, immunofluorescent, and chromogenic in-situ hybridization tests have been determined by the performing laboratory within [facility]'s [facility]ier Gallardo Pathology and Laboratory Medicine Department ([facility], [facility], [facility], [facility], [facility], [facility], or [facility]) in a manner consistent with CLIA requirements. One or more of these tests may not have been cleared or approved by the FDA. RT-PLM is regulated under CLIA as qualified to perform high-complexity testing. These tests are used for clinical purposes. These should not be regarded as investigational or for research. Positive and negative controls stain appropriately. Performed By: #### 6 6121-5 #### [facility] CLIA [id number] [address] [place] [address] STATES OF [place] [facility] CLIA [id number] [address] [facility] CLIA [id number] [address] [place] [address] STATES OF [place] CASE REPORT Normal [facility] Comment on above: Order Comment: Speci men Type: TISSUE SPECIMEN Ordering Facility: [facility] Address: [address] [place] [address] Result Comment: [facility]urg [facility] Pathology Report Case: [id number] Authorizing Provider: Edin Ramirez MD Collected: 08/12/2024 12:36 PM Ordering Location: [facility] Surgery Received: 08/12/2024 01:49 PM Pathologist: Lola Fitch MD Specimen: Breast, Right, Lumpectomy, excision right breast biopsy Performed By: #### 6 6121-5 #### [facility] CLIA [id number] [address] [place] [address] STATES OF [place] [facility] CLIA [id number] [address] LAB CLIA [id number] [address] [place] [address] [place] CLINICAL HISTORY Normal [facility] Comment on above: Order Comment: Speci men Type: TISSUE SPECIMEN Ordering Facility: [facility] Address: [address] [place] [address] Result Comment: Pre- op diagnosis: Abnormal mammogram [R92.8] Performed By: #### 6 6121-5 #### [facility] CLIA [id number] [address] [place] [address] OF [place] [facility] CLIA [id number] [address] LAB CLIA [id number] [address] [place] [address] OF [place] DIAGNOSIS COMMENT A. 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 Selected matos reviewed by Drs. Souza and Aquiles via e-pathology. [facility] Comment on above: Order Comment: Speci men Type: TISSUE SPECIMEN Ordering Facility: [facility] Address: [address] [place] [address] Performed By: #### 6 6121-5 #### [facility] CLIA [id number] [address] [place] [address] LABORATORY CLIA [id number] [address] LAB CLIA [id number] [address] [place] [address] OF [place] FINAL DIAGNOSIS [facility] Comment on above: Order Comment: Speci men Type: TISSUE SPECIMEN Ordering Facility: [facility] Address: [address] [place] [address] Result Comment: A. R ight breast mass, excision: - Cellular fibroadenoma. See Comment. at 1303 EDT Performed By: #### 6 6121-5 #### [facility] CLIA [id number] [address] [place] [address] OF [place] [facility] CLIA [id number] [address] STATES OF [place] [facility] CLIA [id number] [address] [place] [address] OF [place]EN FINAL PERFORMING LAB [facility] Comment on above: Order Comment: Speci men Type: TISSUE SPECIMEN Ordering Facility: [facility] Address: [address] [place] [address] Result Comment: Diag nostic interpretation performed at: [facility], [address] [place] [address] CLIA# [id number] Air Valve Repairer: Swetha Lind MD Performed By: #### 6 6121-5 #### [facility] CLIA [id number] [address] [place] [address] LABORATORY CLIA [id number] [address] LAB CLIA [id number] [address] [place] [address] OF [place]EVEN GROSS DESCRIPTION Normal [facility] Comment on above: Order Comment: Speci men Type: TISSUE SPECIMEN Ordering Facility: [facility] Address: [address] [place] [address] Result Comment: Marifer annt, Right, Lumpectomy Printed 3 received in formalin, labeled as right breast excision biopsy is a single unoriented white-mckeon nodular tissue weighing 10.0 g and measuring 3.2 x 2.8 x 2.1 cm. The outer surface of the specimen is inked black. Noted on the outer surface protruding from the specimen is a metallic clip. The specimen is x-rayed within surgical pathology to reveal a single ribbon clip. The specimen is serially sectioned perpendicular to the long axis (9 slices) to reveal white-mckeon gritty, rubbery cut surfaces. It extends to all margins. No uninvolved breast parenchyma is present. The time the specimen was removed from the patient is 1246 hrs. on 08/12/2024. The time the specimen was placed in formalin is 1320 hrs. on the same day. Police And Fire Dispatcher sections are submitted as follows: A1 slice 2, tissue containing clip A2 slice 5 A3 slice 9, perpendicular The remainder of the specimen is entirely submitted in cassettes A4-A9 per the request of Dr. Lola Fitch as follows: A4 slice 1, perpendicular A5 slice 3 A6 slice 4 A7 slice 6 A8 slice 7 A9 slice 8 CG August 12, 2024 5:05 PM CG August 14, 2024 10:55 AM Gross examination performed at [facility], [address] [place] [address] Performed By: #### 6 6121-5 #### [facility] CLIA [id number] [address] [place] [address] STATES [place] [facility] CLIA [id number] [address] [place] [facility] CLIA [id number] [address] [place] [address] OF [facility] CNOVon 08-10-2024 CNOV Office Visit (GENSWS ) PEDRO CUEVAS ([id number]) 1 F Date Time Provider Department 08/10/24 1:00 PM EDIN RAMIREZ During your visit today, we recorded the following information about you: Pulse Respiration Blood pressure Weight 74/minute 12/minute 118/76 46.2 kg Edin Ramirez MD 08/11/2024 1:56 PM Signed HISTORY AND PHYSICAL - BREAST COMPLAINT Pedro Cuevas 2005 REFERRING PHYSICIAN: Reji Peña MD, MD CHIEF COMPLAINT: Abnormal mammogram (primary encounter diagnosis) HPI: The patient is a 19 year old female with a complaint of a palpable breast mass. The patient notes a mass in the upper outer quadrant of her right breast. The patient has noticed this mass for 4 mo. The patient had a mammogram with ultrasound on 07/01/2024 which demonstrated 3.1 cm mass at the 9 o'clock position +4 cm. She does perform a self breast exam routinely. She notes no skin changes. She denies nipple discharge. She notes no axillary masses. She notes no family history of breast problems. She notes no significant breast trauma or breast difficulties in the past. Patient underwent an ultrasound-guided right needle core biopsy Right breast, core biopsy - Fibroepithelial lesion, PAST MEDICAL HISTORY No past medical history on file. PAST SURGICAL HISTORY PAST SURGICAL HISTORY Procedure Laterality Date COLONOSCOPY SCREENING 2021 EGD W/O BRSH SPEC VARICIES INJ 2021 CURRENT MEDICATIONS No current outpatient medications on file. No current facility-administered medications for this visit. ALLERGIES: Adhesive, Ciprodex [Ciprofloxacin-Dexameth asone], and Dexamethasone PERSONAL HISTORY: SOCIAL HISTORY Social History Tobacco Use Smoking status: Never Smokeless tobacco: Never Vaping Use Vaping status: Never Used Substance Use Topics Alcohol use: Yes Comment: occasional Drug use: Never FAMILY HISTORY: FAMILY HISTORY FAMILY HISTORY Adopted: Yes REVIEW OF SYMPTOMS: The review of systems data was entered by the nurse and reviewed by me There are no exam notes on file for this visit. PHYSICAL EXAMINATION: General: The patient is 19 year old female, well nourished, well hydrated in no acute distress. The patient is oriented to time, place, and person. VITALS: Blood pressure 115/75, pulse 78, resp. rate 14, weight 46.9 kg (103 lb 8 oz), last menstrual period 05/09/2024, SpO2 99%. Body mass index is 20.21 kg/m?. HEENT: Normal cephalic, ataumatic, pupils are equally round, sclera are anicteric, mucous membranes are moist, oropharynx is clear. Neck has no masses, asymmetry or lymphadenopathy. Thyroid is unremarkable. Respiratory: Clear to auscultation and percussion. Normal respiratory excursion and pattern. Cardiac: Examination is regular rate and rhythm. Abdominal exam: Soft, nontender, with no palpable masses. No hepatosplenomegaly. No palpable hernias. Rectal exam: exam deferred Extremities: no clubbing, cyanosis or edema. No adenopathy. Breast: Visual inspection reveals no retractions, nipple inversion, or skin changes. Palpation of the right breast reveals firm mass 9 o'clock position right breast upper outer quadrant. Palpation of the left breast reveals no dominant or suspicious masses. Axillary exam demonstrates no suspicious masses in either the left or right axilla. There is no nipple discharge expressed from either the left or right breast. LABORATORY VALUES: As Noted RADIOLOGIC STUDIES: As Noted Assessment IMPRESSION: Abnormal mammogram (primary encounter diagnosis) PLAN: I plan to perform a excisional right breast biopsy. the planned surgical procedure was discussed extensively with the patient. The risks, benefits, anticipated outcomes and possible complications were mentioned. My staff has also explained the procedure in understandable terms and the patient was given the option to take printed material concerning the planned procedure. The patient had the opportunity to ask questions concerning the planned procedure. The patient freely consents to the planned procedure. Diagnoses: (R92.8) Abnormal mammogram (primary encounter diagnosis) My findings have been communicated to Dr. Reji Peña MD, MD via shared medical record. This note will be forwarded to Dr. Reji Peña MD, MD. Return to Clinic: The patient is instructed to follow-up with me after the testing has been completed. Edin Ramirez III, MD Referring Provider: EDIN RAMIREZ [[id number]] Allergies As of Date: 08/10/2024 Noted Allergy Reaction ADHESIVE 02/06/2022 9 - Itching CIPRODEX (CIPROFLOXACIN-DEXAMETH A*10/27/2016 7 - Swelling DEXAMETHASONE 05/30/2021 7 - Swelling Date Reviewed: 08/10/2024 Reviewed by: Luli Alston RN - Fully Assessed Reason for Visit: Consult [173] Cmt: For removal of breast tumo (more content not included)... Normal [facility] 07-21-2024 CNPN Telephone (GENSWS) PEDRO CUEVAS ([id number]) 1 F Date Time Provider Department 07/21/24 EDIN RAMIREZ GENSWS During your visit today, we recorded the following information about you: Lyric Pacheco RN 07/21/2024 10:29 AM Signed Patient states that she has received the results of her breast biopsy via [employer] and has some questions. She would like someone from the office to call her back to review the results with her. Please call patient back at: [phone] Melody Mathur LPN 07/27/2024 1:44 PM Signed Patient called into office requesting results from breast core biopsy. Please advise. CHRISTIE Palma Billie, RN 07/28/2024 9:35 AM Signed Gave results and phone number to Dr Ramirez to return patients call.Mohamud Louise RN Allergies As of Date: 07/21/2024 Noted Allergy Reaction ADHESIVE 02/06/2022 9 - Itching CIPRODEX (CIPROFLOXACIN-DEXAMETH A*10/27/2016 7 - Swelling DEXAMETHASONE 05/30/2021 7 - Swelling Date Reviewed: 07/13/2024 Reviewed by: Mohamud Louise RN - Fully Assessed Reason for Visit: Results [95] Prescriptions as of 08/18/2024 - Ibuprofen 200 mg cap Take by mouth every 6 hours as needed. Problem List As Of Date: 07/21/2024 (None) Encounter Status:Closed by LYRIC PACHECO on 08/18/24 Normal [facility] CNOVon 07-13-2024 CNOV Office Visit (MAU ) PEDRO CUEVAS ([id number]) 1 F Date Time Provider Department 07/13/24 1:30 PM EDIN RAMIREZ During your visit today, we recorded the following information about you: Mohamud Louise RN 07/13/2024 1:49 PM Signed The following instructions are important for you related to your office visit today with the [facility] General Surgeons. Instructions After OFFICE BASED BREAST BIOPSY Please do not take aspirin or other blood thinners for the next few days. After the procedure, Steri-Strips and a dressing will be placed on your small incision. The dressing may be removed in two to three days after the procedure. The Steri-Strips should be left in place until they fall off. If you have bleeding from the biopsy site, hold pressure with a clean gauze. If the bleeding continues, contact our office immediately. I recommend taking Advil or Tylenol for the discomfort. You should wear a comfortable but somewhat tight fitting bra. If you have significant bruising, an ice pack may improve your discomfort. Please contact office in 10 days if you haven't heard from us. If you note any additional difficulties, questions, or concerns, you should contact our office immediately @ [phone] and ask to be transferred to the General Surgery department. Mohamud Louise RN 07/13/2024 1:48 PM Signed UNIVERSAL PROTOCOL / SAFETY CHECKLIST Procedure to be Performed: Ultrasound Guided Needle Core Biopsy right breast Sign In: A Moment of CARE was completed. Appropriate PPE (Personal Protective Equipment) worn by all providers involved with the procedure. Special equipment utilized ultrasound. Patient/Surrogate Stated/Verified: Patient name, Date of , Relevant allergies, and The intended procedure Time Out: Relevant labs, photos, and/or imaging studies have been reviewed. Intended patient and procedure match the source document(s) (e.g. consent, HANDP, associated studies [imaging, pathology]) match the intended patient and procedure. Consent obtained and matches the intended procedure. Yes. Correct side/site has been marked and visible. Medications required for this procedure are verified. Fire risk assessed and is not applicable. Implants: breast tissue marker Sign Out: Specimens are all correctly labeled and sent. All instruments, equipment, possible retained foreign bodies are accounted for. Yes. The post-procedure plan of care has been communicated to the patient or surrogate. Edin Ramirez MD 07/13/2024 2:04 PM Signed Preoperative diagnosis: Right breast mass Postoperative diagnosis: The same Procedure: Ultrasound-guided needle core biopsy of abnormal mammogram to right breast Surgeon: James Procedure: Ultrasound of the right breast at the 9 o'clock position revealed the lesion in question. I prepped the skin with Betadine. I injected 1% lidocaine plain. Skin khari was made. I injected local down to the lesion. Under ultrasound guidance 2 needle core biopsies of this lesion were obtained. Under ultrasound guidance a small titanium clip was placed. Steri-Strips were applied sterile dressings were applied and the patient tolerated the procedure well. No postoperative mammogram was obtained Allergies As of Date: 07/13/2024 Noted Allergy Reaction ADHESIVE 02/06/2022 9 - Itching CIPRODEX (CIPROFLOXACIN-DEXAMETH A*10/27/2016 7 - Swelling DEXAMETHASONE 05/30/2021 7 - Swelling Date Reviewed: 07/13/2024 Reviewed by: Mohamud Louise RN - Fully Assessed Reason for Visit: Procedure [88] Cmt: Right breast bx Primary Visit Diagnosis:Abnormal mammogram [R92.8] Order(s):US BREAST BIOPSY RIGHT (POC) SURG USE ONLY [[id number]] Order #: [id number]. #:[id number]: 1 SURGICAL PATHOLOGY [[id number]] Order #: [id number]. #:[id number] Problem List As Of Date: 07/13/2024 (None) Other instructions from your clinician: The following instructions are important for you related to your office visit today with the [facility] General Surgeons. Instructions After OFFICE BASED BREAST BIOPSY Please do not take aspirin or other blood thinners for the next few days. After the procedure, Steri-Strips and a dressing will be placed on your small incision. The dressing may be removed in two to three days after the procedure. The Steri-Strips should be left in place until they fall off. If you have bleeding from the biopsy site, hold pressure with a clean gauze. If the bleeding continues, contact our office immediately. I recommend taking Advil or Tylenol for the discomfort. You should wear a comfortable but somewhat tight fitting bra. If you have significant bruising, an ice pack may improve your discomfort. Please contact office in 10 days if you haven't heard from us. If you note any additional difficulties, questions, or gonzales (more content not included)... Normal [facility] Pathology biopsy report [place] (Tiss)on 07-13-2024 AP DISCLAIMER Normal [facility] Comment on above: Order Comment: Speci men Type: TISSUE SPECIMENOrdering Facility: [facility] Address: [address] [place] [address] Result Comment: Melissa Garcia Test (LDT) Disclaimer: Performance characteristics of immunohistochemical, immunofluorescent, and chromogenic in-situ hybridization tests have been determined by the performing laboratory within [facility]'s Olivier Gallardo Pathology and Laboratory Medicine Department ([facility], [facility], [facility], [facility], [facility], [facility], or [facility]) in a manner consistent with CLIA requirements. One or more of these tests may not have been cleared or approved by the FDA. RT-PLM is regulated under CLIA as qualified to perform high-complexity testing. These tests are used for clinical purposes. These should not be regarded as investigational or for research. Positive and negative controls stain appropriately. Performed By: #### 6 6121-5 ####[facility] [id number] [address] [place] [address] [facility] CASE REPORT Normal [facility] Comment on above: Order Comment: Speci men Type: TISSUE SPECIMENOrdering Facility: [facility] Address: [address] [place] [address] Result Comment: Surg [facility] Pathology Report Case: [id number] Authorizing Provider: Edin Ramirez MD Collected: 07/13/2024 01:47 PM Ordering Location: General Surgery Received: 07/13/2024 04:10 PM Pathologist: Bruno Aguirre MD Specimen: Breast, Right, Core Biopsy, right Performed By: #### 6 6121-5 ####[facility] [id number] [address] [place] [address] [facility] CLINICAL HISTORY Normal [facility] Comment on above: Order Comment: Speci men Type: TISSUE SPECIMENOrdering Facility: [facility] Address: [address] [place] [address] Result Comment: righ t breast core biopsy Comment: right Performed By: #### 6 6121-5 ####[facility] [id number] [address] [place] [address] [facility] FINAL DIAGNOSIS Normal [facility] Comment on above: Order Comment: Speci men Type: TISSUE SPECIMENOrdering Facility: [facility] Address: [address] [place] [address] Result Comment: Righ t breast, core biopsy - Fibroepithelial lesion, (please see comment). PJM/macho/07/15/24 at 1154 EDT Performed By: #### 6 6121-5 ####[facility] [id number] [address] [place] [address] [facility] FINAL PERFORMING LAB Normal [facility] Comment on above: Order Comment: Speci men Type: TISSUE SPECIMENOrdering Facility: [facility] Address: [address] [place] [address] Result Comment: Diag nostic interpretation performed at: [facility], [address] [place] [address], [facility] [place] [address] CLIA# [id number] Air Valve Repairer: Maximus Weinstein MD Performed By: #### 6 [id number] ####[facility] LABCLIA [id number] [address] OF [facility]OSS DESCRIPTION Normal [facility] Comment on above: Order Comment: Speci men Type: TISSUE SPECIMENOrdering Facility: [facility] Address: [address] [place] [address] Result Comment: Marifer watson, Right, Core Biopsy Received in formalin labeled as ???right breast??? are two segments of cylindrical tissue aggregating to 1.9 x 0.4 x 0.2 cm, mckeon-yellow and of a rubbery consistency. The specimen was removed from the patient at 13: 47 on 07/13/2024. On the same day, the specimen was placed in formalin at an unspecified time. Totally submitted in formalin in one cassette. DL July 13, 2024 10:57 PM Gross examination performed at [facility], [address] [place] [address] Performed By: #### 6 [id number] ####[facility] LABCLIA [id number] STATES OF STEVEN US BREAST BIOPSY RIGHT (POC) SURG USE ONLYon 07-13-2024 [facility] CNOVon 07-07-2024 CNOV Office Visit (GENSWS ) PEDRO CUEVAS ([id number]) 1 F Date Time Provider Department 07/07/24 1:00 PM EDIN RAMIREZ During your visit today, we recorded the following information about you: Pulse Respiration Blood pressure Weight 78/minute 14/minute 115/75 46.9 kg Luli Alston, RN 07/07/2024 1:15 PM Signed REVIEW OF SYSTEMS: General: The patient notes fatigue, denies weight loss, denies weight gain, denies feeling hot, and denies feelings of cold. Eyes: The patient denies glaucoma, denies eye injury/surgery, wears glasses or contacts. Ear/Nose/Throat: The patient denies allergies, denies hayfever, denies ear infections, and denies bloody noses. Cardiovascular: The patient denies chest pain, denies heart disease, denies high blood pressure,denies cardiac stent, denies prior heart attack, denies irregular heart beat, denies high cholesterol, denies poor circulation, denies heart failure, other cardiac issues, denies claudication, denies cold feet, denies peripheral arterial stent. Respiratory: The patient denies tuberculosis, denies pneumonia, denies frequent cough, denies pulmonary embolism, denies shortness of breath, and denies coughing up blood. Gastrointestinal: The patient denies difficulty swallowing, notes acid reflux, notes ulcers, denies vomiting, denies jaundice/hepatitis, denies gallbladder problems, denies black or tarry stools, denies hemorrhoids, denies bleeding from rectum, denies diverticulitis, notes constipation, notes diarrhea, denies loss of stool control, and denies hernias. Kidney/Bladder: The patient denies kidney stones, denies urine infections, and denies bloody urine. Skin: The patient denies a history of skin cancer, denies bleeding/changing moles, and denies a history of skin rash. Neurologic: The patient denies a history of epilepsy/convulsions, denies headaches, denies head/spinal injuries, and denies stroke/TIA. Psychiatric: The patient denies psychiatric medications, notes depression denies substance abuse. Endocrine: The patient denies thyroid disorders, denies diabetes, and denies hormonal problems. Hematologic: The patient denies a history of bruising, denies bleeding, and denies anemia, denies blood clots. Infections: The patient denies a history of measles and mumps, denies rheumatic fever, and denies sexually transmitted diseases. Musculoskeletal: The patient denies back pain/injury, denies back problems, denies sciatica, denies knee/foot trouble, denies arthritis, or denies gout. When was patient's last Mammogram screening? N/A Last Colonoscopy: 2021 RADHA Obrien Daniel P, MD 07/07/2024 1:15 PM Signed HISTORY AND PHYSICAL - BREAST COMPLAINT Pedro Cuevas 2005 REFERRING PHYSICIAN: Reji Peña MD, MD CHIEF COMPLAINT: Abnormal mammogram (primary encounter diagnosis) HPI: The patient is a 19 year old female with a complaint of a palpable breast mass. The patient notes a mass in the upper outer quadrant of her right breast. The patient has noticed this mass for 4 mo. The patient had a mammogram with ultrasound on 07/01/2024 which demonstrated 3.1 cm mass at the 9 o'clock position +4 cm. She does perform a self breast exam routinely. She notes no skin changes. She denies nipple discharge. She notes no axillary masses. She notes no family history of breast problems. She notes no significant breast trauma or breast difficulties in the past. The patient is being seen by me today at the request of Dr. Reji Peña MD, MD for my opinion and advice regarding Abnormal mammogram (primary encounter diagnosis). No past medical history on file. PAST SURGICAL HISTORY Procedure Laterality Date COLONOSCOPY SCREENING 2021 EGD W/O [facility] SPEC VARICIES INJ 2021 No current outpatient medications on file. No current facility-administered medications for this visit. ALLERGIES: Adhesive, Ciprodex [Ciprofloxacin-Dexameth asone], and Dexamethasone PERSONAL HISTORY: Social History Tobacco Use Smoking status: Never Smokeless tobacco: Never Vaping Use Vaping status: Never Used Substance Use Topics Alcohol use: Yes Comment: occasional Drug use: Never FAMILY HISTORY: FAMILY HISTORY Adopted: Yes REVIEW OF SYMPTOMS: The review of systems data was entered by the nurse and reviewed by me There are no exam notes on file for this visit. PHYSICAL EXAMINATION: General: The patient is 19 year old female, well nourished, well hydrated in no acute distress. The patient is oriented to time, place, and person. VITALS: Blood pressure 115/75, pulse 78, resp. rate 14, weight 46.9 kg (103 lb 8 oz), last menstrual period 05/09/2024, SpO2 99%. Body mass index is 20.21 kg/m?. HEENT: Normal cephalic, ataumatic, pupils are equally round, sclera are anicteric, mucous membranes are moist, orophary (more content not included)... Normal [facility] [employer] BREAST LTD RTon 07-01 [facility] [employer] BREAST LTD RT * * *Final Report* * * DATE OF EXAM: Jul 01 2024 1:32PM [id number] - [facility] [employer] BREAST [employer] RT / PROCEDURE REASON: Mass of upper outer quadrant of right breast * * * * Physician Interpretation * * * * [place] [address] #[id number] - [facility] [employer] BREAST [employer] RT HISTORY: 19 year-old patient seen for diagnostic evaluation of a palpable abnormality in the right breast. Patient states no personal history of breast cancer. COMPARISON STUDIES: No prior imaging studies are available for comparison. ULTRASOUND TECHNIQUE: Targeted ultrasound of the indicated area was performed. Pompa scale images were saved. ULTRASOUND FINDINGS: There is an oval parallel mass with circumscribed margins measuring 3.1 x 1.8 x 2.9 cm in the right breast at 9 o'clock, 4 cm from the nipple. Internal echotexture is hypoechoic. This resembles a fibroadenoma. IMPRESSION: The 3.1 cm oval parallel mass in the right breast at 9 o'clock, 4 cm from the nipple is suspicious for malignancy. This resembles a fibroadenoma. Ultrasound-guided biopsy is recommended. BI-RADS Category 4A: Suspicious - Low suspicion for malignancy Interpreting Radiologist: Edin Stokes M.D. Electronically signed on: 07/01/2024 Manager Float: PAPI Transcribe Date/Time: Jul 01 2024 1:21P Dictated by : EDIN STOKES MD This examination was interpreted and the report reviewed and electronically signed by: EDIN STOKES MD on Jul 01 2024 1:44PM EST [id number] Normal [facility] Gastric Emptying Study - 4 H Mauricio 06-16-2024 Gastric Emptying Study - 4 HR [facility] Imaging Services [address] [facility] [place] [address] Gastric Emptying Study - 4 HR MR#: [id number] Acct: [id number] Name: PEDRO CUEVAS Rep #: [id number] : 2005 F 19 From: Indra Grijalva MD PCP: Care Physician,No Primary Status: REG CLI Study: Gastric Emptying Study - 4 HR Date of Exam: Exam# [id number] Ordering Dr: Xena Osman PROCEDURE: GASTRIC EMPTYING STUDY - 4 HR 06/16/2024 REASON FOR EXAM: PROLONGED 1HR GET COMPARISON: 05/28/2024 gastric emptying study. TECHNIQUE: The patient ingested a standard meal of cooked egg whites mixed with 2 slices of, toasted white bread and 6 oz water. Anterior and posterior planar images of the upper abdomen were obtained for 1 minute immediately following the meal at 1h, 2h and 4h if more than 10% of the activity persisted within the stomach. Regions of interest were drawn, and a geometric mean was used to calculate a [id number]. Medications taken in the past 24 hours that may affect gastric emptying: None. RADIOPHARMACEUTICAL: 1.2 mCi Sulfur Colloid FINDINGS: Percent activity remaining in stomach: 1 hour 61 % (normal 37-90%) 2 hours: 29 % (normal 30-60%) 4 hours: 1 % (normal 0-10%) NM/Gastric Emptying Study - 4 HR IMPRESSION: Normal gastric emptying study. Reading Location: [place] [address] CC: ARNOLDO Osman; No Primary Care Physician Manager Float: Signed Normal [facility] Gastric Emptying Studyon Gastric Emptying Study [facility] Imaging Services [address] [place], [place] [id number] Gastric Emptying Study MR#: [id number] Acct: [id number] Name: PEDRO CUEVAS Rep #: [id number] : 2005 F 19 From: Indra Grijalva MD PCP: Care Physician,No Primary Status: REG CLI Study: Gastric Emptying Study Date of Exam: 06/05/24 Exam# [id number] Ordering Dr: Xena Osman ADDENDUM by Dr. Indra Grijalva MD on 06/07/24 at 2243 Impression 1. There is 79% gastric retention at 60 minutes, within the NORMAL range. Reading Location: [place] 06/07/24 2244 Date cc: ARNOLDO Osman; No Primary Care Physician * Signed PROCEDURE: GASTRIC EMPTYING STUDY 06/05/2024 REASON FOR EXAM: EARLY SATIETY History of Crohn's disease. Feels like stomach is swollen. COMPARISON: None. TECHNIQUE: Patient ingested 1.2 mCi of Technetium Sulfur Colloid in oatmeal. Anterior and posterior planar images of the upper abdomen were obtained for 60 minutes. Regions of interest were drawn, and a geometric mean was used to calculate a [id number]. Medications taken in the past 24 hours that may affect gastric emptying: None. FINDINGS: Half-life: 0 Gastroesophageal reflux: None. % Emptying 1 hour 21 % (normal 37-90%) NM/Gastric Emptying Study IMPRESSION: 1. MARKEDLY DELAYED GASTRIC EMPTYING. Reading Location: [place] CC: ARNOLDO Osman; No Primary Care Physician Manager Float: Signed Normal [facility] CNOVon 05-29-2024 CNOV Office Visit (OBGYWM ) PEDRO CUEVAS ([id number]) 1 F Date Time Provider Department 05/29/24 10:00 AM HUONG GURROLA OBGYWM During your visit today, we recorded the following information about you: Blood pressure Weight Last Period 118/62 46.2 kg 05/09/24 Huong Gurrola APRN.ADA ACCOMMODATION CONSULTANT 05/29/2024 10:27 AM Signed Patient declined body engineer. Pedro Cuevas is a 19 year old female who presents for problem visit (RT) breast lump for 3 month(s). HPI: Patient reported (RT) breast lump has increased in size, denied pain, nipple discharge with visit. 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 No pertinent past medical history. PAST SURGICAL HISTORY Procedure Laterality Date COLONOSCOPY SCREENING 2021 EGD W/O [facility] SPEC VARICIES INJ 2021 FAMILY HISTORY Adopted: Yes Social History Tobacco Use Smoking status: Never Smokeless tobacco: Never Vaping Use Vaping status: Never Used Substance Use Topics Alcohol use: Yes Comment: occasional Drug use: Never Current Outpatient Medications Medication Sig FLUoxetine (PROZAC) 20 mg capsule (Patient not taking: Reported on 07/15/2022) multivitamin tablet Take 1 tablet by mouth once daily. (Patient not taking: Reported on 04/13/2024) No current facility-administered medications for this visit. Allergies As of Date: 05/29/2024 Allergen Noted Reaction ADHESIVE 02/06/2022 Itching CIPRODEX [CIPROFLOXACIN-DEXAMETH A*10/27/2016 Swelling DEXAMETHASONE 05/30/2021 Swelling Fully Assessed 04/13/2024 REVIEW OF SYSTEMS See HPI. Expanded ROS: N/A Allergies and current medication updated:Yes SENSITIVE EXAM: The sensitive examination was discussed with the Patient or Patient's Authorized Police And Fire Dispatcher. As applicable, any other physician, advance practice provider, medical student, or other health professional student that will be observing or involved in the sensitive examination for educational or training purposes was discussed with the Patient or Authorized Police And Fire Dispatcher. The Patient or Authorized Police And Fire Dispatcher has agreed to proceed with the sensitive examination. (Sensitive examination includes inspection and/or palpation of the breasts, pelvis, prostate and anorectal regions). EXAM: BP 118/62 Wt 101 lb 12.8 oz (46.2kg) LMP 05/09/2024 GENERAL: pleasant, female in no apparent distress HEENT: Normocephalic, atraumatic, mucus membranes moist, and no lesions BREAST: soft, non-tender, symmetric, normal nipple-areolar complex, no lymphadenopathy, no nipple discharge, and dominant mass in the right outer quadrant- 3 x 3 cm mobile mass CHEST: Normal inspiratory effort NEURO: alert and oriented x3,exam grossly non-focal EXTREMITIES: normal ASSESSMENT AND PLAN: Assessment AND Plan Mass of upper outer quadrant of right breast Orders: [employer] RIGHT; Future Huong Gurrola APRN.CNP Medical Decision Making: Problems: Moderate: New problem with uncertain prognosis Data: Unique test(s) ordered: 1 Risk: Low: Low risk from testing/treatment Medical Decision Making Level: 3 - Low Allergies As of Date: 05/29/2024 Noted Allergy Reaction ADHESIVE 02/06/2022 9 - Itching CIPRODEX (CIPROFLOXACIN-DEXAMETH A*10/27/2016 7 - Swelling DEXAMETHASONE 05/30/2021 7 - Swelling Date Reviewed: 04/13/2024 Reviewed by: Maria D Epps MD - Fully Assessed Reason for Visit: Problem Visit [Other] Primary Visit Diagnosis:Mass of upper outer quadrant of right breast [N63.11] Order(s):[employer] RIGHT [[id number]] Order #: [id number] FUTURE Problem List As Of Date: 05/29/2024 (None) Medications Discontinued During This Encounter Prescriptions - FLUoxetine (PROZAC) 20 mg capsule (Discontinued) Reported on 07/15/2022 - multivitamin tablet (Discontinued) Reported on 04/13/2024 Encounter Status:Closed by HUONG GURROLA on 05/29/24 Normal [facility] Gastroenterology Visit Repor ton 05-11-2024 Gastroenterology Visit Report [facility] Gastroenterology [address] [place] [address] OFFICE VISIT Date of Service: 05/11/24 MR#: [id number] Acct: [id number] Name: PEDRO CUEVAS Rep #: [id number] : 2005 Provider: ARNOLDO stevenson Age/Sex: 19/F Location: [facility] Status: Signed Intake Vital Signs 12/05/21 09:04 05/10/24 02:21 Height 5 ft 1 in 5 ft Intake Visit Reasons: Abdominal pain w/fever 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 Required: No Is patient in pain?: No Allergies adhesive tape Allergy (Verified 05/11/24 10:28) Itching ciprofloxacin (From Ciprodex) Allergy (Verified 05/11/24 10:28) Swelling dexamethasone (From Ciprodex) Allergy (Verified 05/11/24 10:28) Swelling latex Adverse Reaction (Intermediate, Verified 05/11/24 10:28) Itching Medications ???Medication ???Instructions ???Recorded ???Confirmed ???Type dicyclomine 20 mg tablet 20 mg PO Q6H PRN PRN abdominal 05/0505/11/24 Rx discomfort #20 tabs famotidine 40 mg tablet 40 mg PO QHS #30 tabs 05/11/2406/02 Rx pantoprazole 40 mg tablet,delayed 40 mg PO BID #60 tabs 05/11/24 Rx release PFSH Medical History Oral ulcer History of Crohn's disease H pylori ulcer Gastric ulcer Abdominal pain H pylori ulcer Piercing Infected pierced ear Pierced navel infection Wears glasses Depression Anxiety Restless legs Back pain Migraine headache Syncope Rectal bleeding Heartburn Asthma Non-smoker Surgical History History of esophagogastroduodenosc opy (EGD) Social History Smoking Status: Never smoker HPI HPI Details: PEDRO CUEVAS, is a 19 F who presents to the office today for FU after ER visit 05/10 for abdominal pain: epigastric+LUQ+bloating x1.5wks; received Toradol, GI cocktail, pantoprazole, and dicyclomine. PMHx chr constipation,BM wkly,PUD w/H.pylori(resolved per repeat EGD in 08/2021), terminal ileitis, IBS-C. EGD 12/12/21-normal EGD 05/30/21-gastritis,non-b leeding ulcer;PATH:chronic gastritis,h.pylori NEG c-scope 05/30/21-redundant colon, congested mucosa at terminal ileum IBS-C -- Trulance caused diarrhea. She tried and failed Linzess 290 mcg. She did not tolerate Amitiza 24 mcg twice daily, it was not effective and it made her queasy. Had work up for possible Crohn's, negative. Had CT enterography that was unremarkable. She reports worse abdominal pain in the mornings, states pain as burning and stabbing sensation. Denies knowing if eating makes the pain better or worse. She tried omeprazole OTC dosing for a week with no change in epigastric pain. She reports loose watery stool 1.5 weeks ago with low grade fever of 99.4 that accompanied abdominal distention. Discomfort was in RUQ of abdomen but presents more in the LUQ today as heaviness. She reports BM every 2 to 3 days with complete evacuation and states that she has early satiety, less than novel appetite and gets full on drinking water.. She denies difficulty chewing and swallowing, heartburn, reflux, nausea, vomiting, frequent throat clearing, cough, sinus drainage, excessive gas, hematochezia, and melena. ROS Const Constitutional: Positive for fatigue and fever(s) (low grade); No chills or weight change Eyes Eyes: No blurry vision or change in vision ENT ENT: No abnormal hearing or difficulty swallowing Resp Respiratory: No cough Cardio Cardiology: No chest pain at rest or chest pain with exertion Gastro GI: Positive for abdominal pain, bloating, constipation, diarrhea, heartburn and nausea/dyspepsia; No belching, change in bowel habits, change in stool character, coffee ground emesis, cramping, difficulty swallowing, feeling full early, excessive flatus, incontinent of stools, Vomiting blood/hematemesis, Blood in stool, loose stools, Black,tarry stools, pain with swallowing, vomiting or other Genitourinary-Female: No difficulty urinating Musc Musculoskeletal: Positive for back pain, muscle cramps and restless legs; No abnormal gait or joint pain Skin Skin: No yellowing of the eye or itchy eyes Neuro Neurology: Positive for restless legs; No abnormal gait or abnormal hearing Psych Psychiatric: Positive for anxiety, Positive for depression, Positive for inattentiveness and Positive for obsessions/compulsions Endo Endocrine: Positive for fatigue; No weight change Aller/Imm Allergy/Immunologic: No food intolerance or itchy eyes Al/Lymp Hematologic/Lymphatic: No easy bleeding or easy bruising Exam Const General: cooperative, healthy appearing, comfortable, no acute distress, well developed and well groomed Nutritional Appearance: average body habitus Orientation: alert and oriented x3 HENMT Head: normal to inspection Ears: heari (more content not included)... Normal [facility] Absolute lymphocyte countOrd ered By: Nestor Sr on 05-10-2024 Lymphocytes Auto (Unsp spec) [#/Vol] 4.09 10*3/uL 0.83-4.51 [facility] Absolute neutrophil countOrd ered By: Nestor Sr on 05-10-2024 Neutrophils (Bld) [#/Vol] 4.9 10*3/uL 2.0-7.7 [facility] Automated lymphocyte count a s percentage of total leukocytesOrdered By: Nestor Sr on 05-10-2024 Lymphocytes/100 WBC Auto (Unsp spec) 42.0 % High 19-41 [facility] BUN/creatinine ratioOrdered By: Nestor Sr on 05-10-2024 Urea nitrogen/Creatinine [Mass ratio] 11.4 mg/mg 10-20 [facility] Basophil percentageOrdered B y: Nestor Sr on 05-10-2024 Basophils/100 WBC (Bld) 0.2 % 0-1 [facility] Beta HCG ( test) Ql Ordered By: Nestor Sr on 05-10-2024 Serum Test, Qualitative Negative [facility] Bilirubin, totalOrdered By: Nestor Sr on 05-10-2024 Bilirubin [Mass/Vol] 0.25 mg/dL 0.00-1.30 [facility] CBC W/Diff, Automatedon Absolute Lymph 4.09 X10 3/uL Normal 0.83-4.51 [facility] Comment on above: Performed By: #### L 700.6800, L100.0100, L500.4050, L501.2450 #### [facility] [address] [place], [place], [id number] Absolute Neut 4.9 X10 3/uL Normal 2.0-7.7 [facility] Comment on above: Performed By: #### L 700.6800, L100.0100, L500.4050, L501.2450 #### [facility] [address] [place], [address] Basophils/100 WBC (Bld) 0.2 % Normal 0-1 [facility] Comment on above: Performed By: #### L 700.6800, L100.0100, L500.4050, L501.2450 #### [facility] [address] [place], [address] Eosinophils/100 WBC (Bld) 0.5 % Normal 0-5 [facility] Comment on above: Performed By: #### L 700.6800, L100.0100, L500.4050, L501.2450 #### [facility] [address] [place], [address] Erythrocyte distribution width (RBC) [Ratio] 12.6 % Normal 11.6-14.6 [facility] Comment on above: Performed By: #### L 700.6800, L100.0100, L500.4050, L501.2450 #### [facility] [address] [place], [address] Hematocrit (Bld) [Volume fraction] 37.7 % Normal 37-47 [facility] Comment on above: Performed By: #### L 700.6800, L100.0100, L500.4050, L501.2450 #### [facility] [address] [place], [address] Hemoglobin (Bld) [Mass/Vol] 12.6 g/dL Normal 12.0-15.0 [facility] Comment on above: Performed By: #### L 700.6800, L100.0100, L500.4050, L501.2450 #### [facility] [address] [place], [address] IG% 0.300 Normal 0.0-0.9 [facility] Comment on above: Result Comment: IG% - Immature Granulocytes (promyelocytes, myelocytes and metamyelocytes) > 1% indicates that a LEFT SHIFT is Present. Performed By: #### L 700.6800, L100.0100, L500.4050, L501.2450 #### [facility] [address] [place], [address] Lymphocytes/100 WBC (Bld) 42.0 % High 19-41 [facility] Comment on above: Performed By: #### L 700.6800, L100.0100, L500.4050, L501.2450 #### [facility] [address] [place], [address] MCH (RBC) [Entitic mass] 28.5 pg Normal 27.0-32.0 [facility] Comment on above: Performed By: #### L 700.6800, L100.0100, L500.4050, L501.2450 #### [facility] [address] [place], [address] MCHC (RBC) [Mass/Vol] 33.4 g/dL Normal 32-36 [facility] Comment on above: Performed By: #### L 700.6800, L100.0100, L500.4050, L501.2450 #### [facility] [address] [place], [address] MCV (RBC) [Entitic vol] 85.3 fL Normal 81-99 [facility] Comment on above: Performed By: #### L 700.6800, L100.0100, L500.4050, L501.2450 #### [facility] [address] [place], [address] Monocytes/100 WBC (Bld) 6.6 % Normal 0-10 [facility] Comment on above: Performed By: #### L 700.6800, L100.0100, L500.4050, L501.2450 #### [facility] [address] [place], [address] Neutrophils/100 WBC (Bld) 50.4 % Normal 47-70 [facility] Comment on above: Performed By: #### L 700.6800, L100.0100, L500.4050, L501.2450 #### [facility] [address] [place], [address] Nucleated RBC (Bld) [#/Vol] 0 10*3/uL Normal 0-5 [facility] Comment on above: Performed By: #### L 700.6800, L100.0100, L500.4050, L501.2450 #### [facility] [address] [place], [address] Platelet mean volume (Bld) [Entitic vol] 9.8 fL Normal 6.2-12.0 [facility] Comment on above: Performed By: #### L 700.6800, L100.0100, L500.4050, L501.2450 #### [facility] [address] [place], [address] Platelets (Bld) [#/Vol] 316 10*3/uL Normal 150-450 [facility] Comment on above: Performed By: #### L 700.6800, L100.0100, L500.4050, L501.2450 #### [facility] [address] [place], [address] RBC (Bld) [#/Vol] 4.42 10*6/uL Normal 4.2-5.4 [facility] Comment on above: Performed By: #### L 700.6800, L100.0100, L500.4050, L501.2450 #### [facility] [address] [place], [address] RDW SD 38.9 fl Normal 35.1-43.9 [facility] Comment on above: Performed By: #### L 700.6800, L100.0100, L500.4050, L501.2450 #### [facility] [address] [place], [address] WBC (Bld) [#/Vol] 9.7 10*3/uL Normal 4.4-11.0 [facility] Comment on above: Performed By: #### L 700.6800, L100.0100, L500.4050, L501.2450 #### [facility] [address] [place], [address] Carbon dioxide measurementOr dered By: Nestor Sr on 05-10-2024 CO2 [Moles/Vol] 23.4 mmol/L 22.0-29.0 [facility] Chloride measurementOrdered By: Nestor Sr on 05-10-2024 Chloride [Moles/Vol] 103 mmol/L 96-108 [facility] Comprehensive Metabolic Prof ilon 05-10-2024 Albumin [Mass/Vol] 4.4 g/dL Normal 3.5-5.0 [facility] Comment on above: Performed By: #### L 700.6800, L100.0100, L500.4050, L501.2450 #### [facility] [address] [place], [address] Albumin/Globulin [Mass ratio] 1.2 {ratio} Normal 0.9-2.4 [facility] Comment on above: Performed By: #### L 700.6800, L100.0100, L500.4050, L501.2450 #### [facility] [address] [place], [address] ALK PHOS 78 U/L Normal 35-104 [facility] Comment on above: Performed By: #### L 700.6800, L100.0100, L500.4050, L501.2450 #### [facility] [address] [place], [address] ALT [Catalytic activity/Vol] 8 U/L Normal <=34 [facility] Comment on above: Performed By: #### L 700.6800, L100.0100, L500.4050, L501.2450 #### [facility] [address] [place], [address] Anion gap [Moles/Vol] 13 mmol/L Normal 5-15 [facility] Comment on above: Performed By: #### L 700.6800, L100.0100, L500.4050, L501.2450 #### [facility] [address] [place], [address] AST [Catalytic activity/Vol] 19 U/L Normal <=31 [facility] Comment on above: Performed By: #### L 700.6800, L100.0100, L500.4050, L501.2450 #### [facility] [address] [place], [address] Bilirubin [Mass/Vol] 0.25 mg/dL Normal 0.00-1.30 [facility] Comment on above: Performed By: #### L 700.6800, L100.0100, L500.4050, L501.2450 #### [facility] [address] [place], [address] BUN/CRE 11.4 RATIO Normal 10-20 [facility] Comment on above: Performed By: #### L 700.6800, L100.0100, L500.4050, L501.2450 #### [facility] [address] [place], [address] Calcium [Mass/Vol] 9.3 mg/dL Normal 7.6-11.0 [facility] Comment on above: Performed By: #### L 700.6800, L100.0100, L500.4050, L501.2450 #### [facility] [address] [place], [address] Chloride [Moles/Vol] 103 mmol/L Normal 96-108 [facility] Comment on above: Performed By: #### L 700.6800, L100.0100, L500.4050, L501.2450 #### [facility] [address] [place], [address] CO2 [Moles/Vol] 23.4 mmol/L Normal 22.0-29.0 [facility] Comment on above: Performed By: #### L 700.6800, L100.0100, L500.4050, L501.2450 #### [facility] [address] [place], [address] Creatinine [Mass/Vol] 0.62 mg/dL Low 0.70-1.20 [facility] Comment on above: Performed By: #### L 700.6800, L100.0100, L500.4050, L501.2450 #### [facility] [address] [place], [address] ECRCL 103.10 ml/min Normal 50-250 [facility] Comment on above: Performed By: #### L 700.6800, L100.0100, L500.4050, L501.2450 #### [facility] [address] [place], [address] GFR/1.73 sq M.predicted among non-blacks MDRD (S/P/Bld) [Vol rate/Area] 130 mL/min/{1.73_m2} Normal >60 [facility] Comment on above: Result Comment: mL/m in/1.73m2 CKD-EPI Creatinine Equation (2020) Performed By: #### L 700.6800, L100.0100, L500.4050, L501.2450 #### [facility] [address] [place], [address] Globulin (S) [Mass/Vol] 3.8 g/dL Normal 2.2-4.2 [facility] Comment on above: Performed By: #### L 700.6800, L100.0100, L500.4050, L501.2450 #### [facility] [address] [place], [address] Glucose [Mass/Vol] 95 mg/dL Normal 70-99 [facility] Comment on above: Performed By: #### L 700.6800, L100.0100, L500.4050, L501.2450 #### [facility] [address] [place], [address] Potassium [Moles/Vol] 3.2 mmol/L Low 3.3-5.1 [facility] Comment on above: Performed By: #### L 700.6800, L100.0100, L500.4050, L501.2450 #### [facility] [address] [place], [address] Sodium [Moles/Vol] 139 mmol/L Normal 133-145 [facility] Comment on above: Performed By: #### L 700.6800, L100.0100, L500.4050, L501.2450 #### [facility] [address] [place], [address] T PROT 8.2 g/dL Normal 5.9-8.4 [facility] Comment on above: Performed By: #### L 700.6800, L100.0100, L500.4050, L501.2450 #### [facility] [address] [place], [address] Urea nitrogen [Mass/Vol] 7 mg/dL Normal 4-19 [facility] Comment on above: Performed By: #### L 700.6800, L100.0100, L500.4050, L501.2450 #### [facility] [address] [place], [address] Emergency Department Summary on 05-10-2024 Emergency Department Summary [facility] Medical Records Department [address] [place] [address] Emergency Department Summary 05/10/24 MR#: [id number] Acct: [id number] Name: PEDRO CUEVAS Rep #: [id number] : 2005 19 From: Nestor Sr MD PCP: Care Physician,No Primary Status:REG ER Location: ED HPI HPI - GI History of Present Illness Chief Complaint: Abd Pain Informant: patient Narrative Narrative: 19-year-old female has been having epigastric and left upper quadrant discomfort and bloating off and on for the past 1.5 weeks, present Saturday night 3 AM. She states is worse tonight. Mainly bloating. The pain is mostly been in the mornings before she eats. Last for less than an hour. No nausea or vomiting. She has a history of chronic constipation, she sometimes has a bowel movement once a week, she had a little one earlier, made some of the bloating less. She feels like she has had some swelling in her left upper quadrant tonight, that has been off and on for a week as well. She denies any problems urinating. Denies . No history of any surgeries in her abdomen. This the first time she has had this evaluated. She had some of these pains off and on before 1.5 weeks ago but it would come and go and was less consistent than now. She does have a history of a stomach ulcer and was H. pylori positive, she thinks this feels different. The bloating is worse directly after eating. PFSH PFSH Medical History Oral ulcer History of Crohn's disease H pylori ulcer Gastric ulcer Abdominal pain H pylori ulcer Piercing Infected pierced ear Pierced navel infection Wears glasses Depression Anxiety Restless legs Back pain Migraine headache Syncope Rectal bleeding Heartburn Asthma Non-smoker Home Medications ???Medication ???Instructions ???Recorded ???Last Taken ???Type dicyclomine 20 mg tablet 20 mg PO Q6H PRN PRN abdominal 03/ 02/25 Unknown Rx discomfort #20 tabs Allergy/AdvReac Type Severity Reaction Status Date / Time adhesive tape Allergy Itching Verified 05/10/24 02:21 ciprofloxacin (From Ciprodex) Allergy Swelling Verified 05/10/24 02:21 dexamethasone (From Ciprodex) Allergy Swelling Verified 05/10/24 02:21 Surgical History History of esophagogastroduodenosc opy (EGD) Social History Smoking Status: Never smoker ROS ROS ED Constitutional Constitutional ED: Denies chills or fever(s) Eyes Eyes: Denies change in vision or diplopia ENT ENT ED: Denies rhinorrhea or sore throat Cardiovascular Cardiovascular: Denies chest pain or palpitations Respiratory/Chest Respiratory/Chest: Denies cough or dyspnea Gastrointestinal Gastrointestinal: Reports as per HPI, abdominal pain and constipation; Denies diarrhea, nausea or vomiting Genitourinary Genitourinary ED: Denies dysuria or hematuria Musculoskeletal Musculoskeletal: Denies back pain or neck pain Integumentary Denies abscess or rash Neurologic Neurologic: Denies headache(s), paresthesias or weakness Psychiatric Psychiatric: Denies anxiety or suicidal thoughts EXAM Physical Exam Const Vital Signs: 05/10/24 02:21 Temperature 98.4 F Temperature Source Oral Pulse Rate 89 Respiratory Rate 16 Blood Pressure 131/88 H Blood Pressure Mean 102 Pulse Ox 100 Positive well nourished and well developed Constitutional Narrative: Well-appearing in no distress General Appearance ED: well developed and NAD HEENT Reports moist mucous membranes normocephalic and atraumatic Eyes PERRL and EOMs intact bilaterally Neck full ROM and supple Resp normal respiratory effort and clear to auscultation bilaterally Cardio regular rate, regular rhythm and no murmurs GI non-distended GI Narrative: There is no swelling. She points over the left lower rib cage which is nontender and not swollen or erythematous. Abdomen is flat. Mild tenderness in the left upper quadrant and epigastrium, no guarding or rebound. No other areas of tenderness. Auscultation: normoactive bowel sounds Palpation: soft Back/Spine no CVA tenderness General Back: other FROM Extremity normal to inspection General Extremety ED: Negative for edema, pulses abnormal or tenderness General Extremity: Negative for edema or pulses abnormal Neuro oriented x3, CN's II-XII intact bilaterally and no sensory deficits noted Sensorium / Orientation: awake and alert Motor Exam: strength 5/5 throughout Skin no rashes or lesions noted and no wounds MDM MDM MDM Narrative Medical decision making narrative: I advised this patient that I do not think she needs advanced imaging of the abdomen/pelvis tonight. This sounds like a functional int (more content not included)... Normal [facility] Eosinophil percentageOrdered By: Nestor Sr on 05-10-2024 Eosinophils/100 WBC (Bld) 0.5 % 0-5 [facility] Erythrocyte distribution wid th ratioOrdered By: Nestor Sr on 05-10-2024 Erythrocyte distribution width (RBC) [Ratio] 12.6 % 11.6-14.6 [facility] Erythrocyte distribution wid th standard deviationOrdered By: Nestor Sr on 05-10-2024 Erythrocyte distribution width (RBC) [Entitic vol] 38.9 fL 35.1-43.9 [facility] Erythrocyte distribution width (RBC) [Ratio] 38.9 fl 35.1-43.9 [facility] Estimation of creatinine cecil aranceOrdered By: Nestor Sr on 05-10-2024 Estimated Creatinine Clearance Calc 103.10 ml/min 50-250 [facility] GFR/1.73 sq M.predicted salomón g non-blacks MDRD (S/P/Bld) [Vol rate/Area]Ordered By: Nestor Sr on 05-10-2024 Estimated GFR (MDRD) Non-Af Amer 130 >60 [facility] Comment on above: mL/min/1.73m2 CKD-EP I Creatinine Equation (2020) Glomerular filtration rate ( GFR) estimation/1.73 sq m using serum, plasma, or whole bOrdered By: Nestor Sr on 05-10-2024 GFR/1.73 sq M.predicted among non-blacks MDRD (S/P/Bld) [Vol rate/Area] 130 mL/min/{1.73_m2} >60 [facility] Comment on above: mL/min/1.73m2 CKD-EP I Creatinine Equation (2020) Hematocrit Auto (Bld) [Volum e fraction]Ordered By: Nestor Sr on 05-10-2024 Hematocrit (Bld) [Volume fraction] 37.7 % 37-47 [facility] Hemoglobin measurementOrdere d By: Nestor Sr on 05-10-2024 Hemoglobin (Bld) [Mass/Vol] 12.6 g/dL 12.0-15.0 [facility] Immature granulocytes/100 WB C Auto (Bld)Ordered By: Nestor Sr on 05-10-2024 Immature granulocytes/100 WBC (Bld) 0.300 % 0.0-0.9 [facility] Comment on above: IG% - Immature Granu locytes (promyelocytes, myelocytes and metamyelocytes) > 1% indicates that a LEFT SHIFT is Present. Laboratory - Chemistry and C hemistry - challengeOrdered By: Nestor Sr on 05-10-2024 AST [Catalytic activity/Vol] 19 U/L <32 [facility] Lipaseon 05-10-2024 Lipase [Catalytic activity/Vol] 19 U/L Normal 13-75 [facility] Comment on above: Result Comment: Miriam diaz note: LIPASE revised reference range effective 22. New Lipase methodology. Expected to produce lower values than the previous assay method. NEW Reference Range: 13 - 75 U/L Performed By: #### L 700.6800, L100.0100, L500.4050, L501.2450 #### [facility] [address] [place], [address] Lipase measurementOrdered By : Nestor Sr on 05-10-2024 Lipase [Catalytic activity/Vol] 19 U/L 13-75 [facility] Comment on above: Please note:LIPASE r evised reference range effective 22. New Lipase methodology. Expected to produce lower values than the previous assay method. NEW Reference Range: 13 - 75 U/L Lymphocytes Auto (Unsp spec) [#/Vol]Ordered By: Nestor Sr on 05-10-2024 Lymphocytes (Bld) [#/Vol] 4.09 10*3/uL 0.83-4.51 [facility] Lymphocytes/100 WBC Auto (Un sp spec)Ordered By: Nestor Sr on 05-10-2024 Lymphocytes/100 WBC (Bld) 42.0 % High 19-41 [facility] MCV (mean corpuscular volume ) determinationOrdered By: Nestor Sr on 05-10-2024 MCV (RBC) [Entitic vol] 85.3 fL 81-99 [facility] Mean corpuscular hemoglobin (MCH) determinationOrdered By: Nestor Sr on 05-10-2024 MCH (RBC) [Entitic mass] 28.5 pg 27.0-32.0 [facility] Mean corpuscular hemoglobin concentration (MCHC) determinationOrdered By: Nestor Sr on 05-10-2024 MCHC (RBC) [Mass/Vol] 33.4 g/dL 32-36 [facility] Mean platelet volume determi nationOrdered By: Nestor Sr on 05-10-2024 Platelet mean volume (Bld) [Entitic vol] 9.8 fL 6.2-12.0 [facility] Monocyte percentageOrdered B y: Nestor Sr on 05-10-2024 Monocytes/100 WBC (Bld) 6.6 % 0-10 [facility] Neutrophil percentageOrdered By: Nestor Sr on 05-10-2024 Neutrophils/100 WBC (Bld) 50.4 % 47-70 [facility] Nucleated red blood cell per centageOrdered By: Nestor Sr on 05-10-2024 Nucleated RBC/100 WBC (Bld) [Ratio] 0 % 0-5 [facility] Platelet countOrdered By: Amanda Sr on 05-10-2024 Platelets (Bld) [#/Vol] 316 10*3/uL 150-450 [facility] ,Serum,hCG Quali.on 05-10-2024 HCG, SERUM QUAL Negative Normal [facility] Comment on above: Performed By: #### L 700.6800, L100.0100, L500.4050, L501.2450 #### [facility] [address] [place], [place], [address] RBC Auto (Bld) [#/Vol]Ordere d By: Nestor Sr on 05-10-2024 RBC (Bld) [#/Vol] 4.42 10*6/uL 4.2-5.4 [facility] Serum beta-hCG test, qualita tiveOrdered By: Nestor Sr on 05-10-2024 Beta HCG ( test) Ql Negative [facility] Serum creatinine measurement (mass/volume)Ordered By: Nestor Sr on 05-10-2024 Creatinine [Mass/Vol] 0.62 mg/dL Low 0.70-1.20 [facility] Serum globulin measurementOr dered By: Nestor Sr on 05-10-2024 Globulin (S) [Mass/Vol] 3.8 g/dL 2.2-4.2 [facility] Serum glucose measurement (m ass/volume)Ordered By: Nestor Sr on 05-10-2024 Glucose [Mass/Vol] 95 mg/dL 70-99 [facility] Serum or plasma alanine myers otransferase (ALT) measurementOrdered By: Nestor Sr on 05-10-2024 ALT [Catalytic activity/Vol] 8 U/L <35 [facility] Serum or plasma albumin denisha urement (mass/volume)Ordered By: Nestor Sr on 05-10-2024 Albumin [Mass/Vol] 4.4 g/dL 3.5-5.0 [facility] Serum or plasma albumin/glob ulin mass ratioOrdered By: Nestor Sr on 05-10-2024 Albumin/Globulin [Mass ratio] 1.2 {ratio} 0.9-2.4 [facility] Serum or plasma alkaline miguel sphatase measurementOrdered By: Nestor Sr on 05-10-2024 ALP [Catalytic activity/Vol] 78 U/L 35-104 [facility] Serum or plasma anion gap de termination (moles/volume)Ordered By: Nestor Sr on 05-10-2024 Anion gap [Moles/Vol] 13 mmol/L 5-15 [facility] Serum or plasma calcium denisha urement (mass/volume)Ordered By: Nestor Sr on 05-10-2024 Calcium [Mass/Vol] 9.3 mg/dL 7.6-11.0 [facility] Serum or plasma potassium me asurementOrdered By: Nestor Sr on 05-10-2024 Potassium [Moles/Vol] 3.2 mmol/L Low 3.3-5.1 [facility] Serum or plasma sodium measu rement (moles/volume)Ordered By: Nestor Sr on 05-10-2024 Sodium [Moles/Vol] 139 mmol/L 133-145 [facility] Serum or plasma urea nitroge n measurement (mass/volume)Ordered By: Nestor Sr on 05-10-2024 Urea nitrogen [Mass/Vol] 7 mg/dL 4-19 [facility] Total proteinOrdered By: Solomon Sr on 05-10-2024 Protein [Mass/Vol] 8.2 g/dL 5.9-8.4 [facility] White blood cell (WBC) count Ordered By: Nestor Sr on 05-10-2024 WBC (Bld) [#/Vol] 9.7 10*3/uL 4.4-11.0 [facility] CNOVon 04-13-2024 CNOV Office Visit (OBGYWM ) PEDRO CUEVAS ([id number]) 1 F Date Time Provider Department 04/13/24 2:20 PM MARIA D EPPS During your visit today, we recorded the following information about you: Blood pressure Weight Height Last Period 100/60 46.3 kg 1.524 m 04/06/24 Maria D Epps MD 04/13/2024 2:40 PM Signed Assistant Refinery Operator offered: Patient declines. Pedro is a 19 year old who presents for an annual gynecologic exam with complaints, pain lump in outer right breast . First notice 2 months ago. Tender just before and during periods. Not changing in size. Does drink a moderated amount of caffeine. Works at [employer] Still get period: Yes LMP: 04/06/2024 Menses: irregular Menstrual flow: Moderate Bleeding amount bothersome: No Sexually active: No Contraception: Abstinence HPV vaccine: Yes HPV:N/A Last pap smear: never Last mammogram: never Sexually active: not currently. No male partners OB History No obstetric history on file. 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 No pertinent past medical history. PAST SURGICAL HISTORY Procedure Laterality Date COLONOSCOPY SCREENING 2021 EGD W/O BRSH SPEC VARICIES INJ 2021 FAMILY HISTORY Adopted: Yes SOCIAL HISTORY Social History Tobacco Use Smoking status: Never Smokeless tobacco: Never Vaping Use Vaping status: Never Used Substance Use Topics Alcohol use: Yes Comment: occasional Drug use: Never REVIEW OF SYSTEMS Abdomen: No abdominal pain, nausea, vomiting, diarrhea, or constipation. No bloating, early satiety, indigestion, or increased flatulence. Bladder: No dysuria, gross hematuria, urinary frequency, urinary urgency, or incontinence. Breast: No nipple d/c, overlying skin changes, redness or skin retraction and Breast lump(s) noted. Allergies and current medication updated:Yes SENSITIVE EXAM: The sensitive examination was discussed with the Patient or Patient's Authorized Police And Fire Dispatcher. As applicable, any other physician, advance practice provider, medical student, or other health professional student that will be observing or involved in the sensitive examination for educational or training purposes was discussed with the Patient or Authorized Police And Fire Dispatcher. The Patient or Authorized Police And Fire Dispatcher has agreed to proceed with the sensitive examination. (Sensitive examination includes inspection and/or palpation of the breasts, pelvis, prostate and anorectal regions). EXAM: BP 100/60 Ht 5' 0 (1.52m) Wt 102 lb (46.3kg) LMP 04/06/2024 BMI 19.92 kg/(m2). GENERAL: pleasant, female in no apparent distress HEENT: Normocephalic, atraumatic, mucus membranes moist, and no lesions NECK: Supple, full range of motion, no adenopathy, and thyroid normal DERMATOLOGY: Normal, without lesions, non-icteric, and non-hirsute BREAST: soft, non-tender, symmetric, no dominant mass, normal nipple-areolar complex, no lymphadenopathy, no nipple discharge, and 2 cm mobile nodule on outer breast. Non tender today CHEST: Normal inspiratory effort ABDOMEN: soft, non-tender, and no masses PELVIC: external genitalia normal, normal Bartholin's glands, urethra, Huey's glands, no vulvar lesions, no cervical lesions, good vaginal support, physiologic discharge present, normal appearing perineal body and perianal region BIMANUAL: uterus normal size, shape and consistency, no adnexal masses, and non-tender RECTOVAGINAL: deferred. NEURO: alert and oriented x3,exam grossly non-focal EXTREMITIES: normal ASSESSMENT/PLAN: 1) Health maintenance: Pap done with reflex HPV. Decrease caffeine intake. Vitamin E and primrose oil to help with breast tenderness 2) Contraception: none. Contraceptive options reviewed and information provided. 3) STD screening: Declined STD check. 4) Follow up one year or sooner as needed Maria D Epps MD Allergies As of Date: 04/13/2024 Noted Allergy Reaction CIPRODEX (CIPROFLOXACIN-DEXAMETH A*10/27/2016 7 - Swelling Date Reviewed: 04/13/2024 Reviewed by: Maria D Epps MD - Fully Assessed Reason for Visit: Well Woman [1463] Primary Visit Diagnosis:Encounter for gynecological examination (general) (routine) without abnormal findings [Z01.419] Other Visit Diagnoses:Screening for cervical cancer [Z12.4] Encounter for screening for human papillomavirus (HPV) [Z11.51] Order(s):PAP TEST [LIU5900] Order #: [id number]. #:[id number] Prescriptions as of 04/13/2024 - FLUoxetine (PROZAC) 20 mg capsule - multivitamin tablet Take 1 tablet by mouth once daily. Problem List As Of Date: 04/13/2024 (None) Medications Discontinued During This Encounter Prescrip (more content not included)... Normal [facility] PAP TESTon 04-13-2024 ADEQUACY Normal [facility] Comment on above: Order Comment: Speci men Type: FLUID SPECIMENOrdering Facility: [facility] Address: [address] [place] [address] Result Comment: Sati sfactory for interpretation. No endocervical component Performed By: #### L [id number] ####[facility]ORATORYCLIA [id number] [address] LABCLIA [id number] [place] [address] [place] CASE REPORT Normal [facility] Comment on above: Order Comment: Speci men Type: FLUID SPECIMENOrdering Facility: [facility] Address: [address] [place] [address] Result Comment: Gyne cologic Cytology Report Case: [id number] Authorizing Provider: Maria D Epps MD Collected: 04/13/2024 02:37 PM Ordering Location: OB/Gynecology Received: 04/13/2024 04:33 PM First Screen: Elinor Hernández, CT, ASCP Pathologist: Swetha Lind MD Specimen: Pap Test, ThinPrep, Cervix Performed By: #### L [id number] ####[facility]ORATORYCLIA [id number] [place] [address] [place] [facility] LABCLIA [id number] [place] [address] [place] CLINICAL HISTORY, CYTOLOGY, PRESCHOOL DISABILITY TEACHER First Pap Smear Normal [facility] Comment on above: Order Comment: Speci men Type: FLUID SPECIMENOrdering Facility: [facility] Address: [address] [place] [address] Performed By: #### L [id number] ####[facility] LABORATORYCLIA [id number] [place] [address] [place] [facility] LABCLIA [id number] [place] [address] [place] FINAL PERFORMING LAB Normal [facility] Comment on above: Order Comment: Speci men Type: FLUID SPECIMENOrdering Facility: [facility] Address: [address] [place] [address] Result Comment: Tech nical component, gynaecological oncologist screening performed at [facility], [address], [place] [id number] CLIA# [id number] Diagnostic interpretation performed at [facility], [address], [place] [id number] CLIA# [id number] Air Valve Repairer: Swetha Lind M.D. Performed By: #### L [id number] ####[facility]ORATORYCLIA [id number] [address] LABCLIA [id number] [place] [address] [place] INTERPRETATION, CYTOLOGY, PRESCHOOL DISABILITY TEACHER Normal [facility] Comment on above: Order Comment: Speci men Type: FLUID SPECIMENOrdering Facility: [facility] Address: [address] [place] [address] Result Comment: Nega tive for intraepithelial lesion or malignancy. at 0924 EST Performed By: #### L [id number] ####[facility] LABORATORYCLIA [id number] [address] LABCLIA [id number] [address] STATES OF [facility] 04/06/2024 Normal [facility] Comment on above: Order Comment: Speci men Type: FLUID SPECIMENOrdering Facility: [facility] Address: [address] [place] [address] Performed By: #### L [id number] ####[facility]ATORYCLIA [id number] [address] LABCLIA [id number] [address] [place] PAP DISCLAIMER COMMENT The Pap Smear is a screening test for cervical cancer. False negative results occur with all screening tests, emphasizing the need for rescreening at recommended intervals, and clinical correlation. Normal [facility] Comment on above: Order Comment: Speci men Type: FLUID SPECIMENOrdering Facility: [facility] Address: [address] [place] [address] Performed By: #### L [id number] ####[facility]ORATORYCLIA [id number] [address] LABCLIA [id number] [place] [address] [place] PAP ENTERPRISE APPLICATION ANALYST COMMENT This specimen has be en analyzed by the ThinPrep Imaging System, an automated imaging and review system, which assists the laboratory in evaluating cells on ThinPrep Pap tests. Following automated imaging, selected matos from every slide are reviewed by a gynaecological oncologist. Normal [facility] Comment on above: Order Comment: Speci men Type: FLUID SPECIMENOrdering Facility: [facility] Address: [address] [place] [address] Performed By: #### L [id number] ####[facility]ORATORYCLIA [id number] [address] LABCLIA [id number] [address] [place] .Auto Diffon 03-28-2023 Basophil, Absolute 0.0 10 3/mcL Normal 0.0-0.3 [facility] ([place]) Comment on above: Performed By: #### C BC, CMP, LIPID, ANEU, ADIFF, GFR #### [address] [address] Basophils/100 WBC (Bld) 0.4 % Normal 0.0-2.5 [facility] ([place]) Comment on above: Performed By: #### C BC, CMP, LIPID, ANEU, ADIFF, GFR #### [address] [address] Eosinophil, Absolute 0.0 10 3/mcL Normal 0.0-0.7 [facility] ([place]) Comment on above: Performed By: #### C BC, CMP, LIPID, ANEU, ADIFF, GFR #### [address] [address] Eosinophils/100 WBC (Bld) 0.4 % Normal 0.0-6.0 [facility] ([place]) Comment on above: Performed By: #### C BC, CMP, LIPID, ANEU, ADIFF, GFR #### [address] [address] Lymphocyte, Absolute 2.3 10 3/mcL Normal 0.9-4.3 [facility] ([place]) Comment on above: Performed By: #### C BC, CMP, LIPID, ANEU, ADIFF, GFR #### [address] [address] Lymphocytes/100 WBC (Bld) 33.7 % Normal 20.0-40.0 [facility] ([place]) Comment on above: Performed By: #### C BC, CMP, LIPID, ANEU, ADIFF, GFR #### [address] [address] Monocyte, Absolute 0.4 10 3/mcL Normal 0.1-1.4 [facility] ([place]) Comment on above: Performed By: #### C BC, CMP, LIPID, ANEU, ADIFF, GFR #### [address] [address] Monocytes/100 WBC (Bld) 5.4 % Normal 2.0-13.0 [facility] ([place]) Comment on above: Performed By: #### C BC, CMP, LIPID, ANEU, ADIFF, GFR #### [address] [address] Neutrophils/100 WBC (Bld) 60.1 % Normal 50.0-75.0 [facility] ([place]) Comment on above: Performed By: #### C BC, CMP, LIPID, ANEU, ADIFF, GFR #### [address] [address] .GFRon 03-28-2023 GFR >60 Normal [facility] ([place]) Comment on above: Result Comment: GFR Population mean for , Non- Americans Ages 20-29 = 116 mL/min/1.73 sq.m. Ages 30-39 = 107 mL/min/1.73 sq.m. Ages 40-49 = 99 mL/min/1.73 sq.m. Ages 50-59 = 93 mL/min/1.73 sq.m. Ages 60-69 = 85 mL/min/1.73 sq.m. Ages 70+ = 75 mL/min/1.73 sq.m. Chronic Kidney Disease: Less than 60 mL/min/1.73 square meters End Stage Renal Disease: Less than 15 mL/min/1.73 square meters Performed By: #### C BC, CMP, LIPID, ANEU, ADIFF, GFR #### [address] [address] GFR Non- >60 Normal [facility] ([place]) Comment on above: Result Comment: GFR Population mean for , Non- Americans Ages 20-29 = 116 mL/min/1.73 sq.m. Ages 30-39 = 107 mL/min/1.73 sq.m. Ages 40-49 = 99 mL/min/1.73 sq.m. Ages 50-59 = 93 mL/min/1.73 sq.m. Ages 60-69 = 85 mL/min/1.73 sq.m. Ages 70+ = 75 mL/min/1.73 sq.m. Chronic Kidney Disease: Less than 60 mL/min/1.73 square meters End Stage Renal Disease: Less than 15 mL/min/1.73 square meters Performed By: #### C BC, CMP, LIPID, ANEU, ADIFF, GFR #### [place] [address] .NEUABSon 03-28-2023 Neutrophil, Absolute 4.2 10 3/mcL Normal 2.3-8.1 [facility] ([place]) Comment on above: Performed By: #### C BC, CMP, LIPID, ANEU, ADIFF, GFR #### [address] [address] CBCon 03-28-2023 Erythrocyte distribution width (RBC) [Ratio] 13.5 % Normal 11.5-15.5 [facility] ([place]) Comment on above: Performed By: #### C BC, CMP, LIPID, ANEU, ADIFF, GFR #### [address] [address] Hematocrit (Bld) [Volume fraction] 39.1 % Normal 34.0-46.0 [facility] ([place]) Comment on above: Performed By: #### C BC, CMP, LIPID, ANEU, ADIFF, GFR #### [address] [address] Hgb 12.9 G/dL Normal 12.0-16.0 [facility] ([place]) Comment on above: Performed By: #### C BC, CMP, LIPID, ANEU, ADIFF, GFR #### [place] [address] MCH (RBC) [Entitic mass] 28.1 pg Normal 27.0-33.0 [facility] ([place]) Comment on above: Performed By: #### C BC, CMP, LIPID, ANEU, ADIFF, GFR #### [place] [address] MCHC 32.9 G/dL Normal 32.0-36.0 [facility] ([place]) Comment on above: Performed By: #### C BC, CMP, LIPID, ANEU, ADIFF, GFR #### [place] [address] MCV (RBC) [Entitic vol] 85.4 fL Normal 80.0-99.0 [facility] ([place]) Comment on above: Performed By: #### C BC, CMP, LIPID, ANEU, ADIFF, GFR #### [place] [address] Platelet 296 10 3/mcL Normal 150-450 [facility] ([place]) Comment on above: Performed By: #### C BC, CMP, LIPID, ANEU, ADIFF, GFR #### [place] [address] Platelet mean volume (Bld) [Entitic vol] 8.2 fL Normal 6.6-10.5 [facility] ([place]) Comment on above: Performed By: #### C BC, CMP, LIPID, ANEU, ADIFF, GFR #### [place] [address] RBC 4.58 10 6/mcL Normal 4.10-5.30 [facility] ([place]) Comment on above: Performed By: #### C BC, CMP, LIPID, ANEU, ADIFF, GFR #### [place] [address] WBC 7.0 10 3/mcL Normal 4.5-10.8 [facility] ([place]) Comment on above: Performed By: #### C BC, CMP, LIPID, ANEU, ADIFF, GFR #### [address] [address] CMPon 03-28-2023 Albumin Level 4.0 G/dL Normal 3.2-4.8 [facility] ([place]) Comment on above: Performed By: #### C BC, CMP, LIPID, ANEU, ADIFF, GFR #### [address] [address] Albumin/Globulin [Mass ratio] 1.0 {ratio} Normal 0.9-1.6 [facility] ([place]) Comment on above: Performed By: #### C BC, CMP, LIPID, ANEU, ADIFF, GFR #### [address] [address] ALP [Catalytic activity/Vol] 85 U/L Normal 28-126 [facility] ([place]) Comment on above: Performed By: #### C BC, CMP, LIPID, ANEU, ADIFF, GFR #### [address] [address] ALT [Catalytic activity/Vol] 8 U/L Low 10-49 [facility] ([place]) Comment on above: Performed By: #### C BC, CMP, LIPID, ANEU, ADIFF, GFR #### [address] [address] AST [Catalytic activity/Vol] 18 U/L Normal 8-34 [facility] ([place]) Comment on above: Performed By: #### C BC, CMP, LIPID, ANEU, ADIFF, GFR #### [address] [address] Bili Total 0.50 mg/dL Normal 0.20-1.20 [facility] ([place]) Comment on above: Result Comment: Use of this assay is not recommended for patients undergoing treatment with eltrombopag due to the potential for falsely elevated results. Performed By: #### C BC, CMP, LIPID, ANEU, ADIFF, GFR #### [address] [address] BUN/Creatinine Ratio 22.8 ratio High 10.0-22.0 [facility] ([place]) Comment on above: Performed By: #### C BC, CMP, LIPID, ANEU, ADIFF, GFR #### [address] [address] Calcium [Mass/Vol] 9.6 mg/dL Normal 8.7-10.4 [facility] ([place]) Comment on above: Performed By: #### C BC, CMP, LIPID, ANEU, ADIFF, GFR #### [address] [address] Chloride [Moles/Vol] 109 mmol/L Normal 98-110 [facility] ([place]) Comment on above: Performed By: #### C BC, CMP, LIPID, ANEU, ADIFF, GFR #### [address] [address] CO2 [Moles/Vol] 28 mmol/L Normal 22-32 [facility] ([place]) Comment on above: Performed By: #### C BC, CMP, LIPID, ANEU, ADIFF, GFR #### [address] [address] Creatinine [Mass/Vol] 0.57 mg/dL Normal 0.50-1.20 [facility] ([place]) Comment on above: Performed By: #### C BC, CMP, LIPID, ANEU, ADIFF, GFR #### [address] [address] Electrolyte Balance 3.0 mEq/L Low 4.0-15.0 [facility] ([place]) Comment on above: Performed By: #### C BC, CMP, LIPID, ANEU, ADIFF, GFR #### [address] [address] Globulin 3.9 G/dL High 1.5-3.8 [facility] ([place]) Comment on above: Performed By: #### C BC, CMP, LIPID, ANEU, ADIFF, GFR #### [place] [id number] Glucose [Mass/Vol] 87 mg/dL Normal 70-110 [facility] ([place]) Comment on above: Performed By: #### C BC, CMP, LIPID, ANEU, ADIFF, GFR #### [address] [address] Potassium [Moles/Vol] 4.5 mmol/L Normal 3.5-5.0 [facility] ([place]) Comment on above: Performed By: #### C BC, CMP, LIPID, ANEU, ADIFF, GFR #### [address] [address] Sodium [Moles/Vol] 140 mmol/L Normal 136-145 [facility] ([place]) Comment on above: Performed By: #### C BC, CMP, LIPID, ANEU, ADIFF, GFR #### [address] [address] Total Protein 7.9 G/dL Normal 5.7-8.2 [facility] ([place]) Comment on above: Result Comment: No te - New Reference Range in effect 19 Performed By: #### C BC, CMP, LIPID, ANEU, ADIFF, GFR #### [address] [address] Urea nitrogen [Mass/Vol] 13.0 mg/dL Normal 8.0-22.0 [facility] ([place]) Comment on above: Performed By: #### C BC, CMP, LIPID, ANEU, ADIFF, GFR #### [address] [address] LABORATORYOrdered By: SYSTEM SYSTEM on 03-28-2023 Albumin BCP dye [Mass/Vol] 4.0 G/dL Normal 3.2 - 4.8 G/dL ADM SS Albumin/Globulin [Mass ratio] 1.0 {ratio} Normal 0.9 - 1.6 ratio ADM SS ALP [Catalytic activity/Vol] 85 U/L Normal 28 - 126 U/L ADM SS ALT No additional P-5'-P [Catalytic activity/Vol] 8 U/L Low 10 - 49 U/L ADM SS AST [Catalytic activity/Vol] 18 U/L Normal 8 - 34 U/L ADM SS Basophils (Bld) [#/Vol] 0.0 103/mcL Normal 0.0 - 0.3 10^3/mcL AH Workflow SS Basophils/100 WBC (Bld) 0.4 % Normal 0.0 - 2.5 % AH Workflow SS Bilirubin [Mass/Vol] 0.50 mg/dL Normal 0.20 - 1.20 mg/dL ADM SS Comment on above: Interpretive Data: U se of this assay is not recommended for patients undergoing treatment with eltrombopag due to the potential for falsely elevated results. Calcium [Mass/Vol] 9.6 mg/dL Normal 8.7 - 10. 4 mg/dL ADM SS Chloride [Moles/Vol] 109 mmol/L Normal 98 - 11 0 mEq/L ADM SS CO2 [Moles/Vol] 28 mmol/L Normal 22 - 32 mEq/L ADM SS Creatinine [Mass/Vol] 0.57 mg/dL Normal 0.50 - 1.20 mg/dL ADM SS Electrolyte Balance 3.0 mEq/L Low 4.0 - 15 .0 mEq/L ADM SS Eosinophils (Bld) [#/Vol] 0.0 103/mcL Normal 0.0 - 0.7 10^3/mcL Workflow SS Eosinophils/100 WBC (Bld) 0.4 % Normal 0.0 - 6.0 % Workflow SS Erythrocyte distribution width (RBC) [Ratio] 13.5 % Normal 11.5 - 15.5 % Workflow SS GFR/1.73 sq M.predicted among blacks MDRD (S/P/Bld) [Vol rate/Area] ml/min/1.73sqm Invalid Interpretation Code Chemistry S Comment on above: Interpretive Data: GFR Population mean for , Non- Americans Ages 20-29 = 116 mL/min/1.73 sq.m. Ages 30-39 = 107 mL/min/1.73 sq.m. Ages 40-49 = 99 mL/min/1.73 sq.m. Ages 50-59 = 93 mL/min/1.73 sq.m. Ages 60-69 = 85 mL/min/1.73 sq.m. Ages 70+ = 75 mL/min/1.73 sq.m. Chronic Kidney Disease: Less than 60 mL/min/1.73 square meters End Stage Renal Disease: Less than 15 mL/min/1.73 square meters GFR/1.73 sq M.predicted among non-blacks MDRD (S/P/Bld) [Vol rate/Area] ml/min/1.73sqm Invalid Interpretation Code Chemistry S Comment on above: Interpretive Data: GFR Population mean for , Non- Americans Ages 20-29 = 116 mL/min/1.73 sq.m. Ages 30-39 = 107 mL/min/1.73 sq.m. Ages 40-49 = 99 mL/min/1.73 sq.m. Ages 50-59 = 93 mL/min/1.73 sq.m. Ages 60-69 = 85 mL/min/1.73 sq.m. Ages 70+ = 75 mL/min/1.73 sq.m. Chronic Kidney Disease: Less than 60 mL/min/1.73 square meters End Stage Renal Disease: Less than 15 mL/min/1.73 square meters Globulin 3.9 G/dL High 1.5 - 3.8 G/dL AH ADM SS Glucose [Mass/Vol] 87 mg/dL Normal 70 - 110 mg/dL ADM SS Hematocrit (Bld) [Volume fraction] 39.1 % Normal 34.0 - 46.0 % AH Workflow SS Hemoglobin (Bld) [Mass/Vol] 12.9 G/dL Normal 12.0 - 16.0 G/dL AH Workflow SS Lymphocytes (Bld) [#/Vol] 2.3 103/mcL Normal 0.9 - 4.3 10^3/mcL AH Workflow SS Lymphocytes/100 WBC (Bld) 33.7 % Normal 20.0 - 40.0 % AH Workflow SS MCH (RBC) [Entitic mass] 28.1 pg Normal 27.0 - 33.0 pg AH Workflow SS MCHC 32.9 G/dL Normal 32.0 - 36.0 G/dL AH Workflow SS MCV (RBC) [Entitic vol] 85.4 fL Normal 80.0 - 99.0 fL AH Workflow SS Monocytes (Bld) [#/Vol] 0.4 103/mcL Normal 0.1 - 1.4 10^3/mcL AH Workflow SS Monocytes/100 WBC (Bld) 5.4 % Normal 2.0 - 13.0 % AH Workflow SS Neutrophils (Bld) [#/Vol] 4.2 103/mcL Normal 2.3 - 8.1 10^3/mcL AH Workflow SS Neutrophils/100 WBC (Bld) 60.1 % Normal 50.0 - 75.0 % AH Workflow SS Platelet mean volume (Bld) [Entitic vol] 8.2 fL Normal 6.6 - 10.5 fL AH Workflow SS Platelets (Bld) [#/Vol] 296 103/mcL Normal 150 - 450 10^3/mcL AH Workflow SS Potassium [Moles/Vol] 4.5 mmol/L Normal 3.5 - 5.0 mEq/L ADM SS Protein [Mass/Vol] 7.9 G/dL Normal 5.7 - 8.2 G/dL ADM SS Comment on above: Interpretive Data: * *Note - New Reference Range in effect 19 RBC (Bld) [#/Vol] 4.58 106/mcL Normal 4.10 - 5.30 10^6/mcL Workflow SS Sodium [Moles/Vol] 140 mmol/L Normal 136 - 145 mEq/L ADM SS TSH Qn 0.739 mIU/mL Normal 0.480 - 4.170 mIU/mL ADM SS Comment on above: Interpretive Data: * *Note - New Reference Range in effect 19 Urea nitrogen [Mass/Vol] 13.0 mg/dL Normal 8.0 - 22.0 mg/dL ADM SS Urea nitrogen/Creatinine [Mass ratio] 22.8 ratio High 10.0 - 22.0 ratio ADM SS WBC (Bld) [#/Vol] 7.0 103/mcL Normal 4.5 - 10.8 10^3/mcL Workflow SS LABORATORYOrdered By: Bradford Fowler on 03-28-2023 Cholesterol [Mass/Vol] 186 mg/dL Normal 50 - 199 mg/dL ADM SS Comment on above: Interpretive Data: C holesterol Reference Interval: Less than 200 Desirable 200-239 Borderline high risk 240 and above High risk Cholesterol in HDL [Mass/Vol] 84 mg/dL High 40 - 59 mg/dL ADM SS Cholesterol in LDL [Mass/Vol] 90 mg/dL Normal 0 - 129 mg/dL ADM SS Triglyceride [Mass/Vol] 62 mg/dL Normal 3 - 149 mg/dL ADM SS LIPIDon 03-28-2023 Cholesterol [Mass/Vol] 186 mg/dL Normal 50-199 [facility] ([place]) Comment on above: Result Comment: Chol esterol Reference Interval: Less than 200 Desirable 200-239 Borderline high risk 240 and above High risk Performed By: #### C BC, CMP, LIPID, ANEU, ADIFF, GFR #### [address] [address] Cholesterol in HDL [Mass/Vol] 84 mg/dL High 40-59 [facility] ([place]) Comment on above: Performed By: #### C BC, CMP, LIPID, ANEU, ADIFF, GFR #### [address] [address] Cholesterol in LDL [Mass/Vol] 90 mg/dL Normal 0-129 [facility] ([place]) Comment on above: Performed By: #### C BC, CMP, LIPID, ANEU, ADIFF, GFR #### [address] [address] Triglyceride [Mass/Vol] 62 mg/dL Normal 3-149 A [facility] ([place]) Comment on above: Performed By: #### C BC, CMP, LIPID, ANEU, ADIFF, GFR #### [address] [address] TSHon 03-28-2023 TSH 0.739 mIU/mL Normal 0.480-4.17 0 [facility] ([place]) Comment on above: Result Comment: No te - New Reference Range in effect 19 Performed By: #### T SH #### [address] [address] XR ABDOMEN SERIES W/CHEST 1 VIEWon 03-28-2023 XR ABDOMEN SERIES W/CHEST 1 VIEW ORIGINAL EXAMINATION: TWO XRAY VIEWS OF THE ABDOMEN AND SINGLE XRAY VIEW OF THE CHEST03/28/2023 12:56 pm ABDOMEN, AAS COMPARISON: None HISTORY: ORDERING SYSTEM PROVIDED HISTORY: Reason for Exam: pain FINDINGS: CHEST: The cardiomediastinal contours are normal. There is no consolidation, vascular congestion, pleural effusion, or pneumothorax. ABDOMEN: The abdominal bowel gas pattern is nonobstructive. Moderate stool seen in the colon. No dilated bowel or air-fluid levels are identified. No pneumoperitoneum. Dextroconvex curvature seen of the thoracolumbar spine. Growth centers at the iliac crests are unfused. IMPRESSION: 1. No acute cardiopulmonary process. 2. Nonobstructive bowel gas pattern. Moderate stool in the colon Interpreted by: Edward Moore MD Preliminary Report By: Edward Moore MD Electronically signed By Edward Moore MD Dictated Date: 03/28/2023 2:04:20 PM Prelim Date: 03/28/2023 2:05:37 PM Sign Date: 03/28/2023 2:05:37 PM Ordering Provider: LYRIC RAYA [facility] ([place]) STREP A MOLECULAR (POC)on Procedural Control Valid [facility] Strep A (POCT) Negative Negative [facility] Laboratory - Chemistry and C hemistry - challengeOrdered By: Dr. Latif on 05-14-2022 Cobalamin (Vitamin B12) [Mass/Vol] 1053 pg/mL 211-911 [facility] No Panel InformationOrdered By: Dr. Latif on 05-14-2022 Vitamin D 25-Hydroxy 34.9 ng/mL [facility] Comment on above: Vitamin D 25(OH) Sta tus Range Deficiency <20 ng/mL (50nmol/L) Insufficiency 20 - 30 ng/mL (50 - 75 nmol/L) Sufficiency 30 - 100 ng/mL (75 - 250 nmol/L) Toxicity >100 ng/mL (>250 nmol/L) Serum Protein Electrophoresi s (SPEP) (60389)Ordered By: Highway Administrative Engineer on 01-25-2022 Albumin [Mass/Vol] 3.8 g/dL Normal 2.9-4.4 [facility]; [facility] Work Phone: Comment on above: PATIENT NOT FASTINGP ERFORMED BY: АНДРЕЙ [id number] [facility] [id number] Albumin/Globulin [Mass ratio] 0.9 {ratio} Normal 0.7-1.7 [facility]; [facility] Work Phone: Comment on above: PATIENT NOT FASTINGP ERFORMED BY: [email or web address] [place] [facility] SystemsNov[facility] [id number] Alpha 1 globulin Elph [Mass/Vol] 0.3 g/dL Normal 0.0-0.4 [facility]; [facility] Work Phone: Comment on above: PATIENT NOT FASTINGP ERFORMED BY: АНДРЕЙ [facility] [id number] [address]ley RoadDublin [place] [id number] Alpha 2 globulin Elph [Mass/Vol] 1.0 g/dL Normal 0.4-1.0 [facility]; [facility] Work Phone: Comment on above: PATIENT NOT FASTINGP ERFORMED BY: CB [facility] [id number] [address]ley RoadDublin [place] [id number] Beta globulin Elph [Mass/Vol] 1.3 g/dL Normal 0.7-1.3 [facility]; [facility] Work Phone: Comment on above: PATIENT NOT FASTINGP ERFORMED BY: [facility] [id number] [address]ley RoadDuin [place] [id number] Gamma globulin Elph [Mass/Vol] 1.8 g/dL Normal 0.4-1.8 [facility]; [facility] Work Phone: Comment on above: PATIENT NOT FASTINGP ERFORMED BY: [facility] [id number] [facility] [place] [id number] Globulin (S) [Mass/Vol] 4.4 g/dL Abnormal 2.2-3.9 C o[facility]rehens[facility]; [facility] Work Phone: Comment on above: PATIENT NOT FASTINGP ERFORMED BY: CB [facility] [id number] [facility] [place] [id number] Laboratory comment [place] (Report) [facility] Normal [facility]; [facility] Work Phone: Comment on above: Protein electrophore sis scan will follow via computer, mail, orcourier delivery. PATIENT NOT FASTINGP ERFORMED BY: [facility] Xirrky5[address] RoadDublin [place] [id number] Laboratory report . Normal Compreh [facility]; [facility] Work Phone: Comment on above: PATIENT NOT FASTINGP ERFORMED BY: CB [facility] [id number] [facility] [place] [id number] Protein [Mass/Vol] 8.2 g/dL Normal 6.0-8.5 [facility]; [facility] Work Phone: Comment on above: PATIENT NOT FASTINGP ERFORMED BY: CB [facility] [id number] [address] [facility] HospitalDublin [place] [id number] Protein.monoclonal Elph [Mass/Vol] Not Observed Normal [facility]; [facility] Work Phone: Comment on above: PATIENT NOT FASTINGP ERFORMED BY: CB [facility] [id number] [address] [facility] [place] [id number] Basophil percentageOrdered B y: Dr. Latif on 01-18-2022 Bilirubin [Mass/Vol] 0.20 mg/dL 0.20-1.00 [facility] Comment on above: For patients on eltr ombopag therapy, use of Dimension [place] TBIL is not recommended. Chloride [Moles/Vol] 107 mmol/L 98-107 [facility] Glucose [Mass/Vol] 87 mg/dL 74-106 [facility] Potassium [Moles/Vol] 3.8 mmol/L 3.5-5.1 [facility] Protein [Mass/Vol] 8.3 g/dL 6.4-8.2 [facility] Sodium [Moles/Vol] 140 mmol/L 136-145 [facility] WBC (Bld) [#/Vol] 6.4 10*3/uL 4.5-13.0 [facility] Blood erythrocytes count (nu mber/volume)Ordered By: Dr. Latif on 01-18-2022 RBC (Bld) [#/Vol] 4.32 10*6/uL 4.1-4.8 [facility] Blood hemoglobin measurement (mass/volume)Ordered By: Dr. Latif on 01-18-2022 Hemoglobin (Bld) [Mass/Vol] 12.2 g/dL 12.0-15.0 [facility] Blood platelet mean volumeOr dered By: Dr. Latif on 01-18-2022 Platelet mean volume (Bld) [Entitic vol] 10.1 fL 6.2-12.0 [facility] Determination of erythrocyte mean corpuscular volume (MCV)Ordered By: Dr. Latif on 01-18-2022 MCV (RBC) [Entitic vol] 85.2 fL 78-96 [facility] Erythrocyte sedimentation ra teOrdered By: Dr. Latif on 01-18-2022 ESR (Bld) [Velocity] 28 mm/h 0-30 [facility] Hematocrit Auto (Bld) [Volum e fraction]Ordered By: Dr. Latif on 01-18-2022 Hematocrit (Bld) [Volume fraction] 36.8 % 37-46 [facility] Laboratory - Chemistry and C hemistry - challengeOrdered By: Dr. Latif on 01-18-2022 ALP [Catalytic activity/Vol] 60 U/L 47-119 [facility] ALT [Catalytic activity/Vol] 14 U/L 13-56 [facility] CO2 [Moles/Vol] 24.0 mmol/L 21.0-32.0 [facility] Cobalamin (Vitamin B12) [Mass/Vol] 370 pg/mL 211-911 [facility] Globulin (S) [Mass/Vol] 4.9 g/dL 2.2-4.2 [facility] Urea nitrogen/Creatinine [Mass ratio] 19.0 mg/mg 10-20 [facility] Laboratory - Hematology and Cell countsOrdered By: Dr. Latif on 01-18-2022 Erythrocyte distribution width (RBC) [Entitic vol] 40.6 fL 35.1-43.9 [facility] Erythrocyte distribution width (RBC) [Ratio] 13.1 % 11.6-14.6 [facility] MCH (RBC) [Entitic mass] 28.2 pg 25.0-35.0 [facility] MCHC Auto (RBC) [Mass/Vol]Or dered By: Dr. Latif on 01-18-2022 MCHC (RBC) [Mass/Vol] 33.2 g/dL 32-36 [facility] No Panel InformationOrdered By: Dr. Latif on 01-18-2022 Anti-Nuclear Antibody Screen Negative Negative [facility] Comment on above: Performed at: [address], [place], [place] [id number] Director: Claude Wynn PhD, Phone: [phone] Estimated GFR (MDRD) Amer 156 mL/min >60 [facility] Comment on above: GFR Calc Estimated GFR (MDRD) Non-Af Amer 129 mL/min >60 [facility] Comment on above: Non- GFR Calc Thyroid Stimulating Hormone (TSH) 1.07 uIU/mL 0.358-3.74 [facility] Vitamin D 25-Hydroxy 11.2 ng/mL [facility] Comment on above: Vitamin D 25(OH) Sta tus Range Deficiency <20 ng/mL (50nmol/L) Insufficiency 20 - 30 ng/mL (50 - 75 nmol/L) Sufficiency 30 - 100 ng/mL (75 - 250 nmol/L) Toxicity >100 ng/mL (>250 nmol/L) Platelets bldOrdered By: Dr. Latif on 01-18-2022 Platelets (Bld) [#/Vol] 363 10*3/uL 150-450 [facility] Serum or plasma C reactive p rotein measurement (mass/volume)Ordered By: Dr. Latif on 01-18-2022 CRP [Mass/Vol] mg/L 0.0-3.0 [facility] Comment on above: C-Reactive Protein ( CRP) provides useful information for thediagnosis, therapy and monitoring of inflammatory processesand associated diseases. For the evaluation of Relative Riskfor Cardiovascular Disease, a High Sensitivity CRP (HSCRP)should be ordered. Serum or plasma albumin denisha urement (mass/volume)Ordered By: Dr. Latif on 01-18-2022 Albumin [Mass/Vol] 3.4 g/dL 3.2-5.0 [facility] Serum or plasma albumin/glob ulin mass ratioOrdered By: Dr. Latif on 01-18-2022 Albumin/Globulin [Mass ratio] 0.7 {ratio} 0.9-2.4 [facility] Serum or plasma calcium denisha urement (mass/volume)Ordered By: Dr. Latif on 01-18-2022 Calcium [Mass/Vol] 8.8 mg/dL 8.5-10.1 [facility] Serum or plasma creatinine m easurement (mass/volume)Ordered By: Dr. Latif on 01-18-2022 Creatinine [Mass/Vol] 0.63 mg/dL 0.55-1.02 [facility] Comment on above: The validity of the calculated GFR & GFRAA in patients over 70 years has not been determined. Clinical correlation is essential. Serum or plasma urea nitroge n measurement (mass/volume)Ordered By: Dr. Latif on 01-18-2022 Urea nitrogen [Mass/Vol] 12 mg/dL 7-18 [facility] Thin prep Papanicolaou smear with manual screeningOrdered By: Dr. Latif on 01-18-2022 Thin prep Papanicolaou smear with manual screening 18 U/L 15-37 [facility] Thin prep Papanicolaou smear with manual screening 9 5-15 [facility] Laboratory - Chemistry and C hemistry - challengeon 09-05-2021 HCG ( test) Ql (U) Negative [facility] Work Phone: Comment on above: Very dilute urine sp ecimens, as indicated by a low specificgravity, may not contain outside sales representative levels of hCG. If is still suspected, a first morning urinespecimen should be collected 48 hours later and tested. Serum or plasma gastrin denisha urement (mass/volume)on 08-17-2021 Gastrin [Mass/Vol] 26 pg/mL 0-115 [facility] Work Phone: Comment on above: Siemens Immulite 200 0 Immunochemiluminometric assay (ICMA)Values obtained with different assay methods or kits cannotbe used interchangeably. Results cannot be interpreted asabsolute evidence of the presence or absence of malignantdisease.Performed at: BN - [facility] [address] [id number] Director: Luis Carlos Helms MD, Phone: [phone] Stool Helicobacter pylori an tigen detection by immunoassayon 08-17-2021 H. pylori Ag IA Ql (Stl) Negative Negative [facility] Work Phone: Comment on above: Performed at: [facility] - [facility] [address] [id number] Director: Luis Carlos Helms MD, Phone: [phone] Absolute lymphocyte counton 06-13-2021 Lymphocytes Auto (Unsp spec) [#/Vol] 2.45 10*3/uL 0.83-4.51 [facility] Work Phone: Basophil percentageon 2021 Basophil percentage < 0.2 AI 0.0-0.9 [facility] Work Phone: Basophils/100 WBC (Bld) 0.5 % 0-1 [facility] Work Phone: Bilirubin [Mass/Vol] 0.20 mg/dL 0.20-1.00 [facility] Work Phone: Comment on above: For patients on eltr ombopag therapy, use of Dimension [place] TBIL is not recommended. Chloride [Moles/Vol] 107 mmol/L 98-107 [facility] Work Phone: Eosinophils/100 WBC (Bld) 0.8 % 0-3 [facility] Work Phone: Glucose [Mass/Vol] 81 mg/dL 74-106 [facility] Work Phone: Neutrophils (Bld) [#/Vol] 3.7 10*3/uL 2.0-7.7 [facility] Work Phone: Neutrophils/100 WBC (Bld) 56.0 % 34-64 [facility] Work Phone: Potassium [Moles/Vol] 3.9 mmol/L 3.5-5.1 [facility] Work Phone: Protein [Mass/Vol] 8.6 g/dL 6.4-8.2 [facility] Work Phone: Sodium [Moles/Vol] 136 mmol/L 136-145 [facility] Work Phone: WBC (Bld) [#/Vol] 6.6 10*3/uL 4.5-13.0 [facility] Work Phone: Blood erythrocytes count (nu mber/volume)on 06-13-2021 RBC (Bld) [#/Vol] 4.39 10*6/uL 4.1-4.8 [facility] Work Phone: Blood hemoglobin measurement (mass/volume)on 06-13-2021 Hemoglobin (Bld) [Mass/Vol] 12.0 g/dL 12.0-15.0 [facility] Work Phone: Blood lymphocytes/100 leukoc yteson 06-13-2021 Lymphocytes/100 WBC (Bld) 37.3 % 25-45 [facility] Work Phone: Blood monocytes/100 leukocyt eson 06-13-2021 Monocytes/100 WBC (Bld) 5.2 % 3-6 [facility] Work Phone: Blood platelet mean volumeon 06-13-2021 Platelet mean volume (Bld) [Entitic vol] 10.0 fL 6.2-12.0 [facility] Work Phone: Determination of erythrocyte mean corpuscular volume (MCV)on 06-13-2021 MCV (RBC) [Entitic vol] 83.4 fL 78-96 [facility] Work Phone: Erythrocyte sedimentation ra emperatriz 06-13-2021 ESR (Bld) [Velocity] 14 mm/h 0-30 [facility] Work Phone: Giardia lamblia ag stool EIA on 06-13-2021 G. lamblia Ag IA Ql (Stl) Negative Negative [facility] Work Phone: Comment on above: Performed at: [address] [id number] Director: Claude Wynn PhD, Phone: [phone] Hematocrit Auto (Bld) [Volum e fraction]on 06-13-2021 Hematocrit (Bld) [Volume fraction] 36.6 % 37-46 [facility] Work Phone: Iron measurement (mass/mass) on 06-13-2021 Iron (Unsp spec) [Mass/Mass] 81 ug/dL 50-170 [facility] Work Phone: Laboratory - Chemistry and C hemistry - challengeon 06-13-2021 ALP [Catalytic activity/Vol] 66 U/L 47-119 [facility] Work Phone: ALT [Catalytic activity/Vol] 13 U/L 13-56 [facility] Work Phone: CO2 [Moles/Vol] 27.0 mmol/L 21.0-32.0 [facility] Work Phone: Globulin (S) [Mass/Vol] 5.2 g/dL 2.2-4.2 [facility] Work Phone: Urea nitrogen/Creatinine [Mass ratio] 16.4 mg/mg 10-20 [facility] Work Phone: Laboratory - Hematology and Cell countson 06-13-2021 Erythrocyte distribution width (RBC) [Entitic vol] 37.9 fL 35.1-43.9 [facility] Work Phone: Erythrocyte distribution width (RBC) [Ratio] 12.4 % 11.6-14.6 [facility] Work Phone: Immature granulocytes/100 WBC (Bld) 0.200 % 0.0-0.9 [facility] Work Phone: Comment on above: IG% - Immature Granu locytes (promyelocytes, myelocytes and metamyelocytes) > 1% indicates that a LEFT SHIFT is Present. MCH (RBC) [Entitic mass] 27.3 pg 25.0-35.0 [facility] Work Phone: Nucleated RBC/100 WBC (Bld) [Ratio] 0 % 0-5 [facility] Work Phone: MCHC Auto (RBC) [Mass/Vol]on 06-13-2021 MCHC (RBC) [Mass/Vol] 32.8 g/dL 32-36 [facility] Work Phone: No Panel Informationon 06-13 Enteric Bacteriology [facility] Work Phone: Stool Calprotectin 73 ug/g 0-120 [facility] Work Phone: Comment on above: Concentration Interp retation Follow-Up<16 - 50 ug/g Normal None>50 -120 ug/g Borderline Re-evaluate in 4-6 weeks >120 ug/g Abnormal Repeat as clinically indicatedPerformed at: - [facility] [address] [id number] Director: Luis Carlos Helms MD, Phone: [phone] Centromere B Antibody <0.2 AI 0.0-0.9 [facility] Work Phone: Estimated GFR (MDRD) Amer 133 mL/min >60 [facility] Work Phone: Comment on above: GFR Calc Estimated GFR (MDRD) Non-Af Amer 110 mL/min >60 [facility] Work Phone: Comment on above: Non- GFR Calc Miscellaneous Test See comment Wo[facility] Work Phone: Comment on above: Scanned image report available in EMR MICROPHONE OPERATOR Antibody <0.2 AI 0.0-0.9 [facility] Work Phone: Thyroid Stimulating Hormone (TSH) 1.16 uIU/mL 0.358-3.74 [facility] Work Phone: Total Iron Binding Capacity 462 ug/dL 250-450 [facility] Work Phone: Platelets bldon 06-13-2021 Platelets (Bld) [#/Vol] 336 10*3/uL 150-450 [facility] Work Phone: Serum DNA double strand anti body assay (units/volume)on 06-13-2021 DNA double strand Ab Qn (S) [IU]/mL 0-9 [facility] Work Phone: Comment on above: Negative <5 Equivoca l 5 - 9 Positive >9 Serum Maria Guadalupe-1 antibody assay (u nits/volume)on 06-13-2021 Maria Guadalupe-1 extractable nuclear Ab Qn (S) <0.2 AI 0.0-0.9 [facility] Work Phone: Serum Scl-70 extractable nuc lear antibody assay (units/volume)on 06-13-2021 SCL-70 extractable nuclear Ab Qn (S) <0.2 AI 0.0-0.9 [facility] Work Phone: Serum Mathur extractable nucl ear antibody detectionon 06-13-2021 Mathur extractable nuclear Ab Ql (S) <0.2 AI 0.0-0.9 [facility] Work Phone: Serum or plasma C reactive p rotein measurement (mass/volume)on 06-13-2021 CRP [Mass/Vol] 4.23 mg/L 0.0-3.0 [facility] Work Phone: Comment on above: C-Reactive Protein ( CRP) provides useful information for thediagnosis, therapy and monitoring of inflammatory processesand associated diseases. For the evaluation of Relative Riskfor Cardiovascular Disease, a High Sensitivity CRP (HSCRP)should be ordered. Serum or plasma albumin denisha urement (mass/volume)on 06-13-2021 Albumin [Mass/Vol] 3.4 g/dL 3.2-5.0 [facility] Work Phone: Serum or plasma albumin/glob ulin mass ratioon 06-13-2021 Albumin/Globulin [Mass ratio] 0.7 {ratio} 0.9-2.4 [facility] Work Phone: Serum or plasma calcium denisha urement (mass/volume)on 06-13-2021 Calcium [Mass/Vol] 9.1 mg/dL 8.5-10.1 [facility] Work Phone: Serum or plasma creatinine m easurement (mass/volume)on 06-13-2021 Creatinine [Mass/Vol] 0.73 mg/dL 0.55-1.02 [facility] Work Phone: Comment on above: The validity of the calculated GFR & GFRAA in patients over 70 years has not been determined. Clinical correlation is essential. Serum or plasma ferritin svetlana surement (mass/volume)on 06-13-2021 Ferritin [Mass/Vol] 23 ng/mL 8-252 [facility] Work Phone: Serum or plasma iron saturat ion measurement (mass fraction)on 06-13-2021 Iron saturation [Mass fraction] 17.5 % 15.0-55.0 [facility] Work Phone: Serum or plasma urea nitroge n measurement (mass/volume)on 06-13-2021 Urea nitrogen [Mass/Vol] 12 mg/dL 7-18 [facility] Work Phone: Thin prep Papanicolaou smear with manual screeningon 06-13-2021 Thin prep Papanicolaou smear with manual screening 15 U/L 15-37 [facility] Work Phone: Thin prep Papanicolaou smear with manual screening 2 5-15 [facility] Work Phone: Laboratory - Chemistry and C hemistry - challengeon 05-30-2021 HCG ( test) Ql (U) Negative [facility] Work Phone: Comment on above: Very dilute urine sp ecimens, as indicated by a low specificgravity, may not contain outside sales representative levels of hCG. If is still suspected, a first morning urinespecimen should be collected 48 hours later and tested. CAROLYN (ANTINUCLEAR ANTIBODY) ( [id number])Ordered By: Highway Administrative Engineer on 09-01-2020 Nuclear Ab Ql (S) Negative Normal Compreh ens[facility]; [facility] Work Phone: Comment on above: PATIENT NOT FASTINGP ERFORMED BY: [email or web address] [place] [id number] C-REACTIVE PROTEIN ([id number])Or dered By: Highway Administrative Engineer on 09-01-2020 CRP [Mass/Vol] 2 mg/L Normal 0-9 Comprehens la nena [facility]; [facility] Work Phone: Comment on above: PATIENT NOT FASTINGP ERFORMED BY: [email or web address] [place] [id number] CBC (Auto) ([id number])Ordered By : Highway Administrative Engineer on 09-01-2020 Erythrocyte distribution width (RBC) [Ratio] 12.8 % Normal 11.7-15.4 [facility]; [facility] Work Phone: Comment on above: PATIENT NOT FASTINGP ERFORMED BY: CB [facility] [id number] [address] RoadDublin [place] [id number]; OV 7 Hematocrit (Bld) [Volume fraction] 39.7 % Normal 34.0-46.6 [facility]; [facility] Work Phone: Comment on above: PATIENT NOT FASTINGP ERFORMED BY: CB [facility] [id number] [address] RoadDublin [place] [id number]; OV 7/15 Hemoglobin (Bld) [Mass/Vol] 13.1 g/dL Normal 11.1-15.9 [facility]; [facility] Work Phone: Comment on above: PATIENT NOT FASTINGP ERFORMED BY: CB [facility] [id number] [address] RoadDublin [place] [id number]; OV 715 MCH (RBC) [Entitic mass] 27.1 pg Normal 26.6-33.0 [facility]; [facility] Work Phone: Comment on above: PATIENT NOT FASTINGP ERFORMED BY: CB [facility] [id number] [address] RoadDublin [place] [id number]; OV 7/15 MCHC (RBC) [Mass/Vol] 33.0 g/dL Normal 31.5-35.7 [facility] prehensive Internal Medicine; [facility] Work Phone: Comment on above: PATIENT NOT FASTINGP ERFORMED BY: CB [facility] [id number] [address] RoadDublin [place] [id number]; OV 7/15 MCV (RBC) [Entitic vol] 82 fL Normal 79-97 C omprehensive [facility]; [facility] Work Phone: Comment on above: PATIENT NOT FASTINGP ERFORMED BY: CB [facility] [id number] [address] RoadDublin [place] [id number]; OV 7/15 Platelets (Bld) [#/Vol] 399 10*3/uL Normal 150-450 [facility]; [facility] Work Phone: Comment on above: PATIENT NOT FASTINGP ERFORMED BY: CB [facility] [id number] [address] RoadDublin [place] [id number]; OV 09/22 RBC (Bld) [#/Vol] 4.83 10*6/uL Normal 3.77-5.28 Compr ehensive [facility]; [facility] Work Phone: Comment on above: PATIENT NOT FASTINGP ERFORMED BY: CB [facility] [id number] [address] RoadDublin [place] [id number]; OV 7 WBC (Bld) [#/Vol] 5.0 10*3/uL Normal 3.4-10.8 Compre [facility]; [facility] Work Phone: Comment on above: PATIENT NOT FASTINGP ERFORMED BY: CB [facility] [id number] [address] RoadDublin [place] [id number]; OV 09/22 Celiac Disease Comphrehensiv e Profile ([id number])Ordered By: Highway Administrative Engineer on 09-01-2020 Endomysium IgA Ql (S) Negative Normal Com prehensive [facility]; [facility] Work Phone: Comment on above: PATIENT NOT FASTINGP ERFORMED BY: CB [facility] [id number] [address] RoadDublin [place] [id number] Gliadin peptide IgA Qn (S) 3 {units} Normal 0-19 [facility]; [facility] Work Phone: Comment on above: Negative 0 - 19 Weak Positive 20 - 30 Moderate to Strong Positive >30 PATIENT NOT FASTINGP ERFORMED BY: CB [facility] [id number] [address] RoadDublin [place] [id number] Gliadin peptide IgG Qn (S) 2 {units} Normal 0-19 [facility]; [facility] Work Phone: Comment on above: Negative 0 - 19 Weak Positive 20 - 30 Moderate to Strong Positive >30 PATIENT NOT FASTINGP ERFORMED BY: CB [facility] [id number] [address]Dublin [place] [id number] IgA [Mass/Vol] 160 mg/dL Normal 87-352 Comprehens la nena [facility]; [facility] Work Phone: Comment on above: PATIENT NOT FASTINGP ERFORMED BY: АНДРЕЙ [facility] [id number] [address] [facility] [place] [id number] tTG IgA Qn (S) <2 Normal 0-3 [facility]; [facility] Work Phone: Comment on above: Negative 0 - 3 Weak Positive 4 - 10 Positive >10 . Tissue Transglutaminase (tTG) has been identified as the endomysial antigen. Studies have demonstr- ated that endomysial IgA antibodies have over 99% specificity for gluten sensitive enteropathy. PATIENT NOT FASTINGP ERFORMED BY: АНДРЕЙ [facility] [id number] [address] [facility] [id number] tTG IgG Qn (S) <2 Normal 0-5 [facility]; [facility] Work Phone: Comment on above: Negative 0 - 5 Weak Positive 6 - 9 Positive >9 PATIENT NOT FASTINGP ERFORMED BY: АНДРЕЙ [facility] [id number] [facility] [id number] Metabolic Panel, [facility] ve ([id number])Ordered By: Highway Administrative Engineer on 09-01-2020 Albumin [Mass/Vol] 4.7 g/dL Normal 3.9-5.0 [facility]; [facility] Work Phone: Comment on above: PATIENT NOT FASTINGP ERFORMED BY: АНДРЕЙ [facility] [id number] [address] [facility] [id number] Albumin/Globulin [Mass ratio] 1.2 {ratio} Normal 1.2-2.2 [facility]; [facility] Work Phone: Comment on above: PATIENT NOT FASTINGP ERFORMED BY: АНДРЕЙ [facility] [id number] [address] [facility]in [place] [id number] ALP [Catalytic activity/Vol] 71 U/L Normal 50-113 [facility]; [facility] Work Phone: Comment on above: PATIENT NOT FASTINGP ERFORMED BY: АНДРЕЙ [facility] [id number] [address] [facility] [id number] ALT [Catalytic activity/Vol] 11 U/L Normal 0-24 [facility]; [facility] Work Phone: Comment on above: PATIENT NOT FASTINGP ERFORMED BY: CB [facility] [id number] [address]Dublin [place] [id number] AST [Catalytic activity/Vol] 19 U/L Normal 0-40 [facility]; [facility] Work Phone: Comment on above: PATIENT NOT FASTINGP ERFORMED BY: CB [facility] [id number] [address]Dublin [place] [id number] Bilirubin [Mass/Vol] 0.2 mg/dL Normal 0.0-1.2 Comp rehensive [facility] Medicine; [facility] Work Phone: Comment on above: PATIENT NOT FASTINGP ERFORMED BY: CB [facility] [id number] [address]Dublin [place] [id number] Calcium [Mass/Vol] 9.6 mg/dL Normal 8.9-10.4 [facility]; [facility] Work Phone: Comment on above: PATIENT NOT FASTINGP ERFORMED BY: CB [facility] [id number] [address]Dublin [place] [id number] Chloride [Moles/Vol] 103 mmol/L Normal 96-106 [facility]; [facility] Work Phone: Comment on above: PATIENT NOT FASTINGP ERFORMED BY: CB [facility] [id number] [address] [place] [id number] CO2 [Moles/Vol] 22 mmol/L Normal 20-29 [facility]; [facility] Work Phone: Comment on above: PATIENT NOT FASTINGP ERFORMED BY: CB [facility] [id number] [address]Dublin [place] [id number] Creatinine [Mass/Vol] 0.75 mg/dL Normal 0.57-1.00 [facility]; [facility] Work Phone: Comment on above: PATIENT NOT FASTINGP ERFORMED BY: CB [facility] [id number] [address]Dublin [place] [id number] Globulin (S) [Mass/Vol] 3.8 g/dL Normal 1.5-4.5 [facility]; [facility] Work Phone: Comment on above: PATIENT NOT FASTINGP ERFORMED BY: АНДРЕЙ [facility] Maynard6370 [address]Dublin [place] [id number] Glucose [Mass/Vol] 85 mg/dL Normal 65-99 [facility]parkive [facility]; [facility] Work Phone: Comment on above: PATIENT NOT FASTINGP ERFORMED BY: CB [facility] Yasddp12[address] RoadDublin [place] [id number] Potassium [Moles/Vol] 4.3 mmol/L Normal 3.5-5.2 [facility]; [facility] Work Phone: Comment on above: PATIENT NOT FASTINGP ERFORMED BY: АНДРЕЙ Bishoplin[address]Dublin [place] [id number] Protein [Mass/Vol] 8.5 g/dL Normal 6.0-8.5 [facility]; [facility] Work Phone: Comment on above: PATIENT NOT FASTINGP ERFORMED BY: АНДРЕЙ LabCosrinivasa BishopDdfuep9[address]Dublin [place] [id number] Sodium [Moles/Vol] 138 mmol/L Normal 134-144 [facility]; [facility] Work Phone: Comment on above: PATIENT NOT FASTINGP ERFORMED BY: АНДРЕЙ LabDora Unvzip[address]Dublin [place] [id number] Urea nitrogen [Mass/Vol] 10 mg/dL Normal 5-18 [facility]; [facility] Work Phone: Comment on above: PATIENT NOT FASTINGP ERFORMED BY: АНДРЕЙ [facility] [id number]Dublin [place] [id number] Urea nitrogen/Creatinine [Mass ratio] 13 mg/mg Normal 10-22 [facility]; [facility] Work Phone: Comment on above: PATIENT NOT FASTINGP ERFORMED BY: АНДРЕЙ [facility] [id number]Dublin [place] [id number] Sed Rate Erythrocyte (69811) Ordered By: Highway Administrative Engineer on 09-01-2020 ESR (Bld) [Velocity] 32 mm/h Normal 0-32 Comp rehensive Internal Medicine; [facility] Work Phone: Comment on above: PATIENT NOT FASTINGP ERFORMED BY: [id number] [facility] [id number] TSH ([id number])Ordered By: Zak m Computer Typesetter Keyliner on 09-01-2020 TSH Qn 1.320 {uIU/mL} Normal 0.450-4.50 0 [facility]; [facility] Work Phone: Comment on above: PATIENT NOT FASTINGP ERFORMED BY: [facility] [id number] [facility] EnergyNov[facility] [id number] Progress Noteon 10-12-2019 Pie Cutter Authentication Interface Message Text Patient ID: Pedro Cuevas is a 14 y.o. female. Her chief complaint(s) include: 14 YEAR WELL CHILD (periods) Assessment 1. Encounter for routine child health examination without abnormal findings 2. Exercise counseling 3. Encounter for dietary counseling and surveillance 4. Need for vaccination 5. Dysmenorrhea in adolescent 6. Adjustment disorder with anxiety Plan Pedro was seen today for 14 year well child. Diagnoses and all orders for this visit: Encounter for routine child health examination without abnormal findings - Hearing Screening - PHQ9 Assessment With Score - Health Risk Assessment - CRAFFT Exercise counseling Encounter for dietary counseling and surveillance Need for vaccination - Hepatitis A Ped/Adol <= 18y - Meningococcal ACWY (MENACTRA) Dysmenorrhea in adolescent - drospirenone-ethinyl estradiol (CAMILO) 3-0.03 MG per tablet; Take 1 Tab by mouth daily for 360 days Adjustment disorder with anxiety - FLUoxetine (PROZAC) 10 MG capsule; Take 1 Cap (10 mg) by mouth daily Return in about 1 year (around 10/11/2020) for well check. Discussed restarting prozac. Discussed anxiety and starting better coping skills. Discussed school this coming year. The use of the oral contraceptive has been fully discussed with the patient. This includes the proper method to initiate (i.e. Saturday start after next normal menstrual onset) and continue the pills, the need for regular compliance to ensure adequate contraceptive effect, the physiology which make the pill effective, the instructions for what to do in event of a missed pill, and warnings about anticipated minor side effects such as breakthrough spotting, nausea, breast tenderness, weight changes, acne, headaches, etc. She has been told of the more serious potential side effects such as ID, stroke, and deep vein thrombosis, all of which are very unlikely. She has been asked to report any signs of such serious problems immediately. She should back up the pill with a condom during any cycle in which antibiotics are prescribed, and during the first cycle as well. The need for additional protection, such as a condom, to prevent exposure to sexually transmitted diseases has also been discussed- the patient has been clearly reminded that OCP's cannot protect her against diseases such as HIV and others. She understands and wishes to take the medication as prescribed Subjective HPI Comments: Not taking medicine. Anxiety seemed to get worse with covid. Stopped taking it 01/2019. 35-42 Lots of clotting sometimes. Lots of cramping. Changing every 2-4 hours. Taking tylenol She is accompanied by her mother. 14 YEAR WELL CHILD Home: Pedro eats meals with family, has an adult to turn to for help and is permitted and able to make independent decisions. Education: Pedro is in 11th grade and is meeting expectations, is in gifted program, is doing well, is adjusting adequately and earns A's & B's. Eating: Pedro limits fast food and has a calcium source. Pedro does not eat regular meals including fruits and vegetables, does not eat breakfast and does not drink non-sweetened liquids. Activities & Sports: Pedro performs at least 1 hour of physical activity daily and has drivers license. Pedro has no friends. Recreational sports: permit. Drugs: Pedro does not use tobacco, does not use drugs, does not use alcohol and does not vape. Safety: Pedro has a violence free home, has peer relationships free from violence and uses seat belt. Pedro does not use phone/text while driving. Sex: The patient has never had a sexual partner. The patient has never had sex. Suicidality: Pedro has anxiety. Pedro has no problems with sleep, has no depression, has no suicidal ideation and has no homicidal ideation. Menstruation Last Menstrual period: LMP from Vitals Patient's last menstrual period was 09/30/2019 (exact date).. Menstruation: irregular periods and moderate cramping Output Urine and Stool Pattern: Urine and Stool Pattern: Normal stool pattern, normal urine pattern. Sleep Sleeping Difficulty: no difficulty sleeping Hours of sleep at a time: 7 Teen Anticipatory Guidance The following anticipatory guidance was reviewed during the visit: Nutrition: limit junk food/fast food and soft drinks. Safety: home safety. Social: avoid or limit screen time and bullying. Health: age appropriate dental care, avoid situations where drugs and alcohol are present, identify adult who can give accurate information about sex, practice abstinence- the safest way to prevent and STDs, puberty/sexual development/contracepti ons/STDs, talk with trusted adult if feeling sad or nervous, be responsible for attendance/ homework/ course selection, learn about self and strengths, limit sun exposure/use sunscreen and self breast exam. Screenings Previous Vaccine Reactions: No. Life events information was reviewed-no referral needed Hearing Vision Concerns: Patient wears glasses or contact lenses. The caregiver has no concerns about the patient's hearing. The caregiver has no concerns about the patient's vision. Patient is being seen by writing center director or civil engineer. Anxiety Onset: Gradual Characterized by: Anxiety Course: Gradually Worsening Symptoms: feeling anxious and feeling nervous Symptoms: no visual hallucinations and no auditory hallucinations Associated Symptoms: no increased sleep and no decreased sleep Contributing Factors: change in family situation Contributing Factors comment: Covid Previous Treatments: SSRI Current Treatments: None HEEADSS: Home: Pedro eats meals with family, has an adult to turn to for help and is permitted and able to make independent decisions. Education: She is in 11th grade and is meeting expectations, is in gifted program, is doing well, is adjusting adequately and earns A's & B's. Eating: Pedro limits fast food and has a calcium source. Pedro no eats regular meals including fruits and vegetables, no eats breakfast and does not drink non-sweetened liquids. Activities & Sports: She performs at least 1 hour of physical activity daily and has drivers license. She has no friends. Recreational sports: permit. Drugs: She does not use tobacco, does not use drugs, does not use alcohol and does not vape. Safety: She has a violence free home, has peer relationships free from violence and uses seat belt. She does not use phone/text while driving. Suicidality: She has anxiety. Follow-Up: not taking medication as prescribed Medication side effects: no dry mouth, no constipation, no GI distress and no restlessness Starting PHQ-9 Score: 10 Primary Care Review of Systems Objective Vital Signs 10/12/19 1104 BP: 125/78 Pulse: 82 Weight: (!) 42.2 kg Height: 154 cm Body mass index is 17.79 kg/m . Physical Exam Constitutional: She appears well. She is active. No distress. HENT: Head: Atraumatic. Ears: Right Ear: Tympanic membrane and external ear normal. Left Ear: Tympanic membrane and external ear normal. Nose: Nose normal. Mouth/Throat: Mucous membranes are moist. Dentition is normal. Oropharynx is clear. Eyes: Conjunctivae and EOM are normal. No strabismus. Pupils are equal, round, and reactive to light. Neck: Normal range of motion. Neck supple. Thyroid normal. Cardiovascular: Normal rate, regular rhythm, S1 normal and S2 normal. Pulses are palpable. Heart murmur not heard. Pulmonary/Chest: Breath sounds normal. No respiratory distress. Exhibits no deformity. Abdominal: Soft. Bowel sounds are normal. She exhibits no distension and no mass. There is no hepatosplenomegaly. There is no abdominal tenderness. Musculoskeletal: Normal range of motion. Back: She exhibits no scoliosis. Neurological: She is alert. She has normal strength. She exhibits normal muscle tone. Gait normal. Skin: Skin is warm and not pale. Findings: No rash. Vitals reviewed: Blood pressure 125/78, pulse 82, height 154 cm, weight (!) 42.2 kg, last menstrual period 09/30/2019. Pedro Cuevas is a 14 y.o. female patient. Health Risk Assessment - CRAFFT Authorized by: Reji Parrish MD CRAFFT Results: 1. Drink more than a few sips of beer, wine, or any drink containing alcohol? Put 0 if none.: 0 2. Use any marijuana (weed, oil, or hash by smoking, vaping, or in food) or synthetic marijuana (like K2, Spice)? Put 0 if none.: 0 3. Use anything else to get high (like other illegal drugs, prescription or [id number] medications, and things that you sniff, mathur, or vape)? Put 0 if none.: 0 4. Use any tobacco or nicotine products (for example, cigarettes, e-cigarettes, hookahs or smokeless tobacco)?: 0 5. Have you ever ridden in a CAR driven by someone (including yourself) who was high or had been using alcohol or drugs?: No Electronically signed by: Reji Peña MD [facility] Progress Noteon 11-21-2018 Pie Cutter Authentication Interface Message Text Patient ID: Pedro Cuevas is a 13 y.o. female. Her chief complaint(s) include: Follow Up (Left underam lymph node swelling) Assessment 1. Lymph node enlargement 2. Hematuria, microscopic Plan Pedro was seen today for follow up. Diagnoses and all orders for this visit: Lymph node enlargement Hematuria, microscopic - Urinalysis, Complete [Chemistry & Micro] (Lab Collect); Future No follow-ups on file. Discussed monitoring closely. Discussed ultrasound of axilla. Subjective HPI Comments: Patient had lymph node swelling for a long time. Did not get larger. Patient seen for back ache, fever and headache a couple weeks ago. All cleared at this time. Did notice trace blood in urine. Today noticed lymph node in L axilla. Sore. Not red. She is accompanied by her mother. Follow Up This problem is new. The duration has been 2 weeks. The onset has been acute. The course is improving. The patient's symptoms have included no fever, no congestion, no cough, no headaches, no diarrhea, no rash and no vomiting. The previous interventions do not include medications. Primary Care Review of Systems Objective Vital Signs 11/21/18 1458 Temp: 36.6 C (97.9 F) TempSrc: Temporal Weight: 42.5 kg There is no height or weight on file to calculate BMI. Physical Exam Constitutional: She appears well. She is active. No distress. HENT: Head: Atraumatic. Right Ear: Tympanic membrane and external ear normal. Left Ear: Tympanic membrane and external ear normal. Nose: Nose normal. Mouth/Throat: Mucous membranes are moist. Dentition is normal. Eyes: Conjunctivae and EOM are normal. Pupils are equal, round, and reactive to light. Neck: Neck supple. Neck adenopathy (mobile) present. Cardiovascular: Normal rate, regular rhythm, S1 normal and S2 normal. Pulses are palpable. Pulmonary/Chest: Effort normal and breath sounds normal. Abdominal: Soft. Bowel sounds are normal. She exhibits no distension and no mass. There is no tenderness. Musculoskeletal: No deformity. Lymphadenopathy: She has axillary adenopathy (L minimally tender, mobile). Neurological: She is alert. She has normal strength. She exhibits normal muscle tone. Skin: No rash noted. There is no cyanosis or pallor. Skin is warm. Vitals reviewed: Temperature 36.6 C (97.9 F), temperature source Temporal, weight 42.5 kg. Normal [facility] Crithidia Ab Titer (IFA)on Crithidia Ab Titer (IFA) <1:10 Normal TTL10 [facility] Comment on above: Result Comment: The reference range is <1:10 IgGon 12-13-2016 IgG 1550 mg/dL High 697-1042 [facility] IgMon 12-13-2016 IgM 169 mg/dL High 33-68 [facility] Basic Metabolic Panelon 10-0 Calcium 9.4 mg/dL Normal 8-10.5 [facility] Chloride 103 mmol/L Normal 95-106 [facility] CO2 27 mmol/L Normal 24-35 [facility] Creatinine 0.58 mg/dL Normal 0.40-1.10 [facility] Glucose mass conc 82 mg/dL Normal 60-115 [facility] Potassium molar conc 3.7 mmol/L Normal 3.7-5.6 [facility] Sodium 142 mmol/L Normal 135-145 [facility] Urea nitrogen 16 mg/dL Normal 5-18 [facility] CBC Auto Diff Reflex Manualo n 12-12-2016 Basophils/100 WBC Auto (Bld) 0 % Normal 0-1 [facility] Differential Type Automated Normal [facility] Eosinophils/100 leukocytes 1 % Normal 1-4 [facility] Erythrocyte distribution width Auto Ratio (RBC) 12.8 % Normal 10-14.1 [facility] Erythrocytes (RBC) 4.21 10*6/uL Normal 4.1-5.1 [facility] Hematocrit (HCT) 35.2 % Low 36-48 [facility] Hemoglobin mass conc (Bld) 11.7 g/dL Low 12-16 [facility] Lymphocytes/100 leukocytes 47 % Normal 28-48 [facility] MCH 27.8 pg Normal 25-35 [facility] MCHC mass conc (RBC) 33.2 % Normal 31.0-37.0 [facility] 83.6 fL Normal 78-102 [facility] Monocytes/100 leukocytes 7 % Normal 2-8 [facility] Neutrophils 3.41 10*3/mm3 Normal [facility] Comment on above: Result Comment: Auto mated Absolute Neutrophil Count (ANC) is directly measured using a hematology instrument. ANC determined from manual differential cell count may differ. Neutrophils/100 leukocytes 45 % Normal 39-75 [facility] Platelet mean volume (PMV) 10.2 fL Normal 9.3-13.0 [facility] Platelets 312 10*3/uL Normal 140-440 [facility] WBC (Leukocytes) 7.6 10*3/uL Normal 4.5-13.5 [facility] ESRon 12-12-2016 Erythrocyte sedimentation rate 30 mm/h High 0-13 [facility] Protein/Creatinine Ratioon 1 Creatinine, Urine 145.4 mg/dL Normal [facility] Protein, Urine 8.1 mg/dL Normal [facility] Protein/Creat Ratio Result 0.06 mg Prot/mg Creat Normal 0.04-0.38 [facility] Urinalysis w/ Reflex Culture on 12-12-2016 Bilirubin (total) Negative Normal NEG [facility] Epithelial Cells, Squamous 1 /HPF Normal [facility] Erythrocytes (RBC) 3 /HPF High 0-2 [facility] Glucose mass conc Negative Normal NEG [facility] Microscopic, Urine Microscopic Normal [facility] Occult Blood Negative Normal NEG [facility] pH of blood 6.0 [pH] Normal 4.5-8.0 [facility] Protein Negative Normal NEG [facility] Specific [place], Urine 1.027 Normal 1.00 7-1.03 0 [facility] Specimen Appearance Clear Normal [facility] Specimen Color Yellow Normal [facility] Urine, ketones presence Negative Normal NEG N [facility] Urine, leukocyte esterase presence Negative Normal NEG [facility] Urine, mucus presence in sediment Present Normal [facility] Urine, nitrite presence Negative Normal NEG N [facility] Urine, urobilinogen Negative Normal <1.1 [facility] WBC (Leukocytes) 10*3/uL Normal <6 [facility] Source Clean catch midstrea m urine Normal [facility] Vitamin D 25 Hydroxyon 12-12 Vitamin D 25 Hydroxy 27 ng/mL Low 30-120 [facility] Comment on above: Result Comment: Effe ctive July 25, 2016, Vitamin D results are generated off a re-standardized assay which may result in lower results, especially for values >50 ng/mL. Please contact Laboratory Client Services at with any questions. (NOTE) <20 considered deficient. 21-29 considered insufficient. Reference ranges are based on Endocrine Society criteria. Vital Signs Date Time Vital Sign Value Performing Clinician Facility 10-16-2024 10:06040 Body height 152.4 cm No Primary Care Physician [facility] 08-10-2024 12:55-0400 Body mass index (BMI) [Ratio] 19.88 kg/m2 Edin Ramirez MD Work Phone: [facility] 08-10-2024 12:55-0400 Body weight 46.18 kg Edin Ramirez MD Work Phone: [facility] 08-10-2024 12:55-0400 Diastolic blood pressure 76 mm[Hg] Edin Ramirez MD Work Phone: [facility] 08-10-2024 12:55-0400 Heart rate 74 /min Edin Ramirez MD Work Phone: [facility] 08-10-2024 12:55-0400 Respiratory rate 12 /min Edin Ramirez MD Work Phone: [facility] 08-10-2024 12:55-0400 SaO2% (BldA) [Mass fraction] 96 % Edin Ramirez MD Work Phone: [facility] 08-10-2024 12:55-0400 Systolic blood pressure 118 mm[Hg] Edin Ramriez MD Work Phone: [facility] 07-07-2024 12:55-0400 Body mass index (BMI) [Ratio] 20.21 kg/m2 Edin Ramirez MD Work Phone: [facility] 07-07-2024 12:55-0400 Body weight 46.95 kg Edin Ramirez MD Work Phone: [facility] 07-07-2024 12:55-0400 Diastolic blood pressure 75 mm[Hg] Edin Ramirez MD Work Phone: [facility] 07-07-2024 12:55-0400 Heart rate 78 /min Edin Ramirez MD Work Phone: [facility] 07-07-2024 12:55-0400 Respiratory rate 14 /min Edin Ramirez MD Work Phone: [facility] 07-07-2024 12:55-0400 SaO2% (BldA) [Mass fraction] 99 % Edin Ramirez MD Work Phone: [facility] 07-07-2024 12:55-0400 Systolic blood pressure 115 mm[Hg] Edin Ramirez MD Work Phone: [facility] 05-29-2024 09:59-0400 Body mass index (BMI) [Ratio] 19.88 kg/m2 Huogn Williams GROUP EXERCISE INSTRUCTOR.ADA ACCOMMODATION CONSULTANT Work Phone: [facility] 05-29-2024 09:59-0400 Body weight 46.18 kg Huong Galileo GROUP EXERCISE INSTRUCTOR.ADA ACCOMMODATION CONSULTANT Work Phone: [facility] 05-29-2024 09:59-0400 Diastolic blood pressure 62 mm[Hg] Huong Williams GROUP EXERCISE INSTRUCTOR.ADA ACCOMMODATION CONSULTANT Work Phone: [facility] 05-29-2024 09:59-0400 Systolic blood pressure 118 mm[Hg] Huong Galileo GROUP EXERCISE INSTRUCTOR.ADA ACCOMMODATION CONSULTANT Work Phone: [facility] 05-10-2024 04:53-0500 Diastolic blood pressure 64 mm[Hg] Dr. Nestor Sr MD Work Phone: [facility] 05-10-2024 04:53-0500 Heart rate 61 /min Dr. Nestor Sr MD Work Phone: [phone] [place] [address] 05-10-2024 04:53-0500 Respiratory rate 18 /min Dr. Nestor Sr MD Work Phone: [facility] 05-10-2024 04:53-0500 SaO2% (BldA) [Mass fraction] 98 % Dr. Nestor Sr MD Work Phone: [facility] 05-10-2024 04:53-0500 Systolic blood pressure 118 mm[Hg] Dr. Nestor Sr MD Work Phone: [phone] [place] [address] 05-10-2024 02:21-0500 Body height 152.[address] Nestor Sr MD Work Phone: [facility] 05-10-2024 02:21-0500 Body mass index (BMI) [Ratio] 20.3 kg/m2 Dr. Nestor Sr MD Work Phone: [facility] 05-10-2024 02:21-0500 Body temperature 98.4 [degF] Dr. Nestor Sr MD Work Phone: [facility] 05-10-2024 02:21-0500 Body weight 47.[address] Nestor Sr MD Work Phone: [facility] 04-13-2024 14:11-0500 Body height 152.4 cm Maria D Epps MD Work Phone: [facility] 04-13-2024 14:11-0500 Body mass index (BMI) [Ratio] 19.92 kg/m2 Maria D Epps MD Work Phone: [facility] 04-13-2024 14:11-0500 Body weight 46.27 kg Maria D Epps MD Work Phone: [facility] 04-13-2024 14:11-0500 Diastolic blood pressure 60 mm[Hg] Maria D Epps MD Work Phone: [facility] 04-13-2024 14:11-0500 Systolic blood pressure 100 mm[Hg] Maria D Epps MD Work Phone: [facility] 07-15-2022 12:20-0400 Body temperature 97.39 [degF] Randal Tip GROUP EXERCISE INSTRUCTOR.ADA ACCOMMODATION CONSULTANT Work Phone: [facility] 07-15-2022 12:20-0400 Body weight 48.99 kg Randal Tip GROUP EXERCISE INSTRUCTOR.ADA ACCOMMODATION CONSULTANT Work Phone: [facility] 07-15-2022 12:20-0400 Diastolic blood pressure 70 mm[Hg] Randal Tip GROUP EXERCISE INSTRUCTOR.ADA ACCOMMODATION CONSULTANT Work Phone: [facility] 07-15-2022 12:20-0400 Heart rate 88 /min Randal Tip GROUP EXERCISE INSTRUCTOR.ADA ACCOMMODATION CONSULTANT Work Phone: [facility] 07-15-2022 12:20-0400 Respiratory rate 16 /min Randal Tip GROUP EXERCISE INSTRUCTOR.ADA ACCOMMODATION CONSULTANT Work Phone: [facility] 07-15-2022 12:20-0400 SaO2% (BldA) [Mass fraction] 99 % Randal Tip GROUP EXERCISE INSTRUCTOR.ADA ACCOMMODATION CONSULTANT Work Phone: [facility] 07-15-2022 12:20-0400 Systolic blood pressure 108 mm[Hg] Randal Tip GROUP EXERCISE INSTRUCTOR.ADA ACCOMMODATION CONSULTANT Work Phone: [facility] 06-28-2022 11:40-0400 Body height 152.4 cm Shelby Peters LPN [facility]; [facility] Work Phone: 06-28-2022 11:40-0400 Body mass index (BMI) [Ratio] 20.6 kg/m2 Shelby Peters LPN [facility]; [facility] Work Phone: 06-28-2022 11:40-0400 Body surface area Derived from formula 1.42 m2 Shelby Peters LPN [facility]; [facility] Work Phone: 06-28-2022 11:40-0400 Body temperature 97.9 [degF] Shelby Peters LPN [facility]; [facility] Work Phone: 06-28-2022 11:40-0400 Body weight 47.85 kg Shelby Peters LPN [facility]; [facility] Work Phone: 06-28-2022 11:40-0400 Diastolic blood pressure 80 mm[Hg] Shelby Peters LPN [facility]; [facility] Work Phone: Comment on above: Patient Position: Sitting; Cuff Location : Left Arm; Cuff Size: Standard 06-28-2022 11:40-0400 Heart rate 86 /min Shelby Peters LPN [facility]; [facility] Work Phone: Comment on above: Pattern: Regular 06-28-2022 11:40-0400 Respiratory rate 16 /min Shelby Peters LPN [facility]; [facility] Work Phone: Comment on above: Pattern: Unlabored 06-28-2022 11:40-0400 SaO2% (BldA) [Mass fraction] 99 % Shelby Peters LPN [facility]; [facility] Work Phone: Comment on above: Room air 06-28-2022 11:40-0400 Systolic blood pressure 120 mm[Hg] Shelby Peters LPN [facility]; [facility] Work Phone: Comment on above: Patient Position: Sitting; Cuff Location : Left Arm; Cuff Size: Standard 06-13-2022 11:47-0400 Body height 152.4 cm [facility]; [facility] Work Phone: 06-13-2022 11:47-0400 Body mass index (BMI) [Ratio] 20.9 kg/m2 [facility]; [facility] Work Phone: 06-13-2022 11:47-0400 Body surface area Derived from formula 1.43 m2 [facility]; [facility] Work Phone: 06-13-2022 11:47-0400 Body temperature 97.7 [degF] [facility]; [facility] Work Phone: 06-13-2022 11:47-0400 Body weight 48.54 kg Sam [facility]; [facility] Work Phone: 06-13-2022 11:47-0400 Diastolic blood pressure 68 mm[Hg] [facility]; [facility] Work Phone: Comment on above: Patient Position: Sitting; Cuff Location : Left Arm; Cuff Size: Standard 06-13-2022 11:47-0400 Heart rate 81 /[facility]; [facility] Work Phone: Comment on above: Pattern: Regular 06-13-2022 11:47-0400 Respiratory rate 16 /min [facility]; [facility] Work Phone: Comment on above: Pattern: Unlabored 06-13-2022 11:47-0400 SaO2% (BldA) [Mass fraction] 97 % [facility]; [facility] Work Phone: Comment on above: Room air 06-13-2022 11:47-0400 Systolic blood pressure 110 mm[Hg] [facility]; [facility] Work Phone: Comment on above: Patient Position: Sitting; Cuff Location : Left Arm; Cuff Size: Standard 05-16-2022 09:42-0500 Body height 152.4 cm Shelby Peters [facility]; [facility] Work Phone: 05-16-2022 09:42-0500 Body mass index (BMI) [Ratio] 21.14 kg/m2 Shelby Peters [facility]; [facility] Work Phone: 05-16-2022 09:42-0500 Body surface area Derived from formula 1.44 m2 Shelby Peters LPN [facility]; [facility] Work Phone: 05-16-2022 09:42-0500 Body temperature 97.9 [degF] Shelby Peters LPN [facility]; [facility] Work Phone: 05-16-2022 09:42-0500 Body weight 49.1 kg Shelby Peters LPN [facility]; [facility] Work Phone: 05-16-2022 09:42-0500 Diastolic blood pressure 72 mm[Hg] Shelby Peters LPN [facility]; [facility] Work Phone: Comment on above: Patient Position: Sitting; Cuff Location : Left Arm; Cuff Size: Standard 05-16-2022 09:42-0500 Heart rate 76 /min Shelby Peters LPN [facility]; [facility] Work Phone: Comment on above: Pattern: Regular 05-16-2022 09:42-0500 Respiratory rate 16 /min Shelby Peters LPN [facility]; [facility] Work Phone: Comment on above: Pattern: Unlabored 05-16-2022 09:42-0500 SaO2% (BldA) [Mass fraction] 99 % Shelby Peters LPN [facility]; [facility] Work Phone: Comment on above: Room air 05-16-2022 09:42-0500 Systolic blood pressure 102 mm[Hg] Shelby Peters LPN [facility]; [facility] Work Phone: Comment on above: Patient Position: Sitting; Cuff Location : Left Arm; Cuff Size: Standard 04-18-2022 13:23-0500 Body height 152.4 cm [facility]; [facility] Work Phone: 04-18-2022 13:23-0500 Body mass index (BMI) [Ratio] 19.92 kg/m2 [facility]; [facility] Work Phone: 04-18-2022 13:23-0500 Body surface area Derived from formula 1.4 m2 Sam Mondragon [facility]; [facility] Work Phone: 04-18-2022 13:23-0500 Body temperature 97.2 [degF] Sam Mondragon [facility]; [facility] Work Phone: 04-18-2022 13:23-0500 Body weight 46.27 kg Sam Mondragon [facility]; [facility] Work Phone: 04-18-2022 13:23-0500 Diastolic blood pressure 66 mm[Hg] Sam Mondragon [facility]; [facility] Work Phone: Comment on above: Patient Position: Sitting; Cuff Location : Left Arm; Cuff Size: Standard 04-18-2022 13:23-0500 Heart rate 90 /min Sam Mondragon [facility]; [facility] Work Phone: Comment on above: Pattern: Regular 04-18-2022 13:23-0500 Respiratory rate 16 /min Sam Mondragon [facility]; [facility] Work Phone: Comment on above: Pattern: Unlabored 04-18-2022 13:23-0500 SaO2% (BldA) [Mass fraction] 99 % Sam Mondragon [facility]; [facility] Work Phone: Comment on above: Room air 04-18-2022 13:23-0500 Systolic blood pressure 112 mm[Hg] Sam Mondragon [facility]; [facility] Work Phone: Comment on above: Patient Position: Sitting; Cuff Location : Left Arm; Cuff Size: Standard 01-25-2022 09:45-0500 Body height 152.4 cm Sam Mondragon [facility]; [facility] Work Phone: 01-25-2022 09:45-0500 Body mass index (BMI) [Ratio] 19.92 kg/m2 [facility]; [facility] Work Phone: 01-25-2022 09:45-0500 Body surface area Derived from formula 1.4 m2 Sam Mondragon [facility]; [facility] Work Phone: 01-25-2022 09:45-0500 Body temperature 97.1 [degF] Sam Mondragon [facility]; [facility] Work Phone: 01-25-2022 09:45-0500 Body weight 46.27 kg Sam Mondragon [facility]; [facility] Work Phone: 01-25-2022 09:45-0500 Diastolic blood pressure 68 mm[Hg] [facility]; [facility] Work Phone: Comment on above: Patient Position: Sitting; Cuff Location : Left Arm; Cuff Size: Standard 01-25-2022 09:45-0500 Heart rate 73 /min Sam Mondragon [facility]; [facility] Work Phone: Comment on above: Pattern: Regular 01-25-2022 09:45-0500 Respiratory rate 16 /min Sam Mondragon [facility]; [facility] Work Phone: Comment on above: Pattern: Unlabored 01-25-2022 09:45-0500 SaO2% (BldA) [Mass fraction] 98 % [facility]; [facility] Work Phone: Comment on above: Room air 01-25-2022 09:45-0500 Systolic blood pressure 114 mm[Hg] Sam Mondragon [facility]; [facility] Work Phone: Comment on above: Patient Position: Sitting; Cuff Location : Left Arm; Cuff Size: Standard 12-18-2021 14:36-0400 Body height 152.4 cm [facility]; [facility] Work Phone: 12-18-2021 14:36-0400 Body mass index (BMI) [Ratio] 19.92 kg/m2 Lauryn [facility]; [facility] Work Phone: 12-18-2021 14:36-0400 Body surface area Derived from formula 1.4 m2 Lauryn Conteh CMA [facility]; [facility] Work Phone: 12-18-2021 14:36-0400 Body temperature 97.3 [degF] Lauryn Conteh CMA [facility]; [facility] Work Phone: Comment on above: Method: Infrared 12-18-2021 14:36-0400 Body weight 46.27 kg Lauryn Conteh CMA [facility]; [facility] Work Phone: 12-18-2021 14:36-0400 Diastolic blood pressure 78 mm[Hg] Lauryn Conteh CMA [facility]; [facility] Work Phone: Comment on above: Patient Position: Sitting; Cuff Location : Left Arm; Cuff Size: Standard 12-18-2021 14:36-0400 Heart rate 82 /min Lauryn Conteh [facility] RN [facility]; [facility] Work Phone: Comment on above: Pattern: Regular 12-18-2021 14:36-0400 Respiratory rate 18 /min Lauryn Conteh CMA [facility]; [facility] Work Phone: Comment on above: Pattern: Unlabored 12-18-2021 14:36-0400 SaO2% (BldA) [Mass fraction] 98 % Lauryn Conteh [facility]; [facility] Work Phone: Comment on above: Room air 12-18-2021 14:36-0400 Systolic blood pressure 103 mm[Hg] Lauryn Conteh CMA [facility]; [facility] Work Phone: Comment on above: Patient Position: Sitting; Cuff Location : Left Arm; Cuff Size: Standard 12-05-2021 09:04-0400 Body height 154.[address] La Latif Work Phone: [facility] Work Phone: 12-05-2021 09:04-0400 Body mass index (BMI) [Percentile] Per age and sex 18.2 % Dr. La Latif Work Phone: [facility] Work Phone: 12-05-2021 09:04-0400 Body mass index (BMI) [Ratio] 19.1 kg/m2 Dr. La Latif Work Phone: [facility] Work Phone: 12-05-2021 09:04-0400 Body weight 45.[address] La Latif Work Phone: [facility] Work Phone: 12-05-2021 09:04-0400 Diastolic blood pressure 76 mm[Hg] Dr. La Latif Work Phone: [facility] Work Phone: 12-05-2021 09:04-0400 Heart rate 73 /min Dr. La Latif Work Phone: [facility] Work Phone: 12-05-2021 09:04-0400 SaO2% (BldA) [Mass fraction] 98 % Dr. La Latif Work Phone: [facility] Work Phone: 12-05-2021 09:04-0400 Systolic blood pressure 109 mm[Hg] Dr. La Latif Work Phone: [facility] Work Phone: 10-09-2021 09:27-0400 Body mass index (BMI) [Percentile] Per age and sex 12.9 % Dr. La Latif Work Phone: [facility] Work Phone: 10-09-2021 09:27-0400 Body mass index (BMI) [Ratio] 18.6 kg/m2 Dr. La Latfi Work Phone: [facility] Work Phone: 10-09-2021 09:27-0400 Body weight 44.[address] La Latif Work Phone: [facility] Work Phone: 10-09-2021 09:27-0400 Diastolic blood pressure 74 mm[Hg] Dr. La Latif Work Phone: [facility] Work Phone: 10-09-2021 09:27-0400 Heart rate 79 /min Dr. La Latif Work Phone: [facility] Work Phone: 10-09-2021 09:27-0400 SaO2% (BldA) [Mass fraction] 98 % Dr. La aLtif Work Phone: [facility] Work Phone: 10-09-2021 09:27-0400 Systolic blood pressure 110 mm[Hg] Dr. La Latif Work Phone: [facility] Work Phone: 09-05-2021 14:15-0400 Body temperature 97.6 [degF] Dr. La Latif Work Phone: [facility] Work Phone: 09-05-2021 14:15-0400 Diastolic blood pressure 68 mm[Hg] Dr. La Latif Work Phone: [facility] Work Phone: 09-05-2021 14:15-0400 Heart rate 76 /min Dr. La Latif Work Phone: [facility] Work Phone: 09-05-2021 14:15-0400 Respiratory rate 16 /min Dr. La Latif Work Phone: [facility] Work Phone: 09-05-2021 14:15-0400 SaO2% (BldA) [Mass fraction] 100 % Dr. La Latif Work Phone: [facility] Work Phone: 09-05-2021 14:15-0400 Systolic blood pressure 100 mm[Hg] Dr. La Latif Work Phone: [facility] Work Phone: 09-05-2021 12:56-0400 Body height 154.[address] La Latif Work Phone: [facility] Work Phone: 09-05-2021 12:56-0400 Body mass index (BMI) [Percentile] Per age and sex 10.1 % Dr. La Latif Work Phone: [facility] Work Phone: 09-05-2021 12:56-0400 Body mass index (BMI) [Ratio] 18.3 kg/m2 Dr. La Latif Work Phone: [facility] Work Phone: 09-05-2021 12:56-0400 Body weight 43.[address] La Latif Work Phone: [facility] Work Phone: 08-17-2021 14:02-0400 Body mass index (BMI) [Percentile] Per age and sex 8.4 % Dr. La Latif Work Phone: [facility] Work Phone: 08-17-2021 14:02-0400 Body mass index (BMI) [Ratio] 18.1 kg/m2 Dr. aL Latif Work Phone: [facility] Work Phone: 08-17-2021 14:02-0400 Body weight 43.[address] La Latif Work Phone: [facility] Work Phone: 08-17-2021 14:02-0400 Diastolic blood pressure 73 mm[Hg] Dr. La Latif Work Phone: [facility] Work Phone: 08-17-2021 14:02-0400 Heart rate 65 /min Dr. La Latif Work Phone: [facility] Work Phone: 08-17-2021 14:02-0400 SaO2% (BldA) [Mass fraction] 99 % Dr. La Latif Work Phone: [facility] Work Phone: 08-17-2021 14:02-0400 Systolic blood pressure 108 mm[Hg] Dr. La Latif Work Phone: [facility] Work Phone: 08-17-2021 14:02-0400 Body height 154.[address] La Latif Work Phone: [facility] Work Phone: 08-17-2021 14:02-0400 Body mass index (BMI) [Ratio] 18.1 kg/m2 Dr. La Latif Work Phone: [facility] Work Phone: 08-17-2021 14:02-0400 Body weight 43.[address] La Latif Work Phone: [facility] Work Phone: 08-17-2021 14:02-0400 Diastolic blood pressure 73 mm[Hg] Dr. La Latif Work Phone: [facility] Work Phone: 08-17-2021 14:02-0400 Heart rate 65 /min Dr. La Latif Work Phone: [facility] Work Phone: 08-17-2021 14:02-0400 SaO2% (BldA) [Mass fraction] 99 % Dr. La Latif Work Phone: [facility] Work Phone: 08-17-2021 14:02-0400 Systolic blood pressure 108 mm[Hg] Dr. La Latif Work Phone: [facility] Work Phone: 07-06-2021 14:12-0400 Body mass index (BMI) [Percentile] Per age and sex 22.1 % Dr. La Latif Work Phone: [facility] Work Phone: 07-06-2021 14:12-0400 Body mass index (BMI) [Ratio] 19.3 kg/m2 Dr. La Latif Work Phone: [facility] Work Phone: 07-06-2021 14:12-0400 Body weight 46.[address] La Latif Work Phone: [facility] Work Phone: 07-06-2021 14:12-0400 Diastolic blood pressure 67 mm[Hg] Dr. La Latif Work Phone: [facility] Work Phone: 07-06-2021 14:12-0400 Heart rate 83 /min Dr. La Latif Work Phone: [facility] Work Phone: 07-06-2021 14:12-0400 SaO2% (BldA) [Mass fraction] 97 % Dr. La Latif Work Phone: [facility] Work Phone: 07-06-2021 14:12-0400 Systolic blood pressure 107 mm[Hg] Dr. La Latif Work Phone: [facility] Work Phone: 07-06-2021 14:12-0400 Body mass index (BMI) [Ratio] 19.3 kg/m2 Dr. La Latif Work Phone: [facility] Work Phone: 07-06-2021 14:12-0400 Body weight 46.[address] La Latif Work Phone: [facility] Work Phone: 07-06-2021 14:12-0400 Diastolic blood pressure 67 mm[Hg] Dr. La Latif Work Phone: [facility] Work Phone: 07-06-2021 14:12-0400 Heart rate 83 /min Dr. La Latif Work Phone: [facility] Work Phone: 07-06-2021 14:12-0400 SaO2% (BldA) [Mass fraction] 97 % Dr. La Latif Work Phone: [facility] Work Phone: 07-06-2021 14:12-0400 Systolic blood pressure 107 mm[Hg] Dr. La Latif Work Phone: [facility] Work Phone: 06-13-2021 09:18-0400 Body mass index (BMI) [Percentile] Per age and sex 19.7 % Dr. La Latif Work Phone: [facility] Work Phone: 06-13-2021 09:18-0400 Body mass index (BMI) [Ratio] 19.1 kg/m2 Dr. La Latif Work Phone: [facility] Work Phone: 06-13-2021 09:18-0400 Body weight 45.[address] La Latif Work Phone: [facility] Work Phone: 06-13-2021 09:18-0400 Diastolic blood pressure 70 mm[Hg] Dr. La Latif Work Phone: [facility] Work Phone: 06-13-2021 09:18-0400 Heart rate 69 /min Dr. La Latif Work Phone: [facility] Work Phone: 06-13-2021 09:18-0400 SaO2% (BldA) [Mass fraction] 96 % Dr. La Latif Work Phone: [facility] Work Phone: 06-13-2021 09:18-0400 Systolic blood pressure 102 mm[Hg] Dr. La Latif Work Phone: [facility] Work Phone: 06-13-2021 09:18-0400 Body height 154.[address] La Latif Work Phone: [facility] Work Phone: 06-13-2021 09:18-0400 Body mass index (BMI) [Ratio] 19.1 kg/m2 Dr. La Latif Work Phone: [facility] Work Phone: 06-13-2021 09:18-0400 Body weight 45.[address] La Latif Work Phone: [facility] Work Phone: 06-13-2021 09:18-0400 Diastolic blood pressure 70 mm[Hg] Dr. La Latif Work Phone: [facility] Work Phone: 06-13-2021 09:18-0400 Heart rate 69 /min Dr. La Latif Work Phone: [facility] Work Phone: 06-13-2021 09:18-0400 SaO2% (BldA) [Mass fraction] 96 % Dr. La Latif Work Phone: [facility] Work Phone: 06-13-2021 09:18-0400 Systolic blood pressure 102 mm[Hg] Dr. La Latif Work Phone: [facility] Work Phone: 05-30-2021 14:22-0400 Body temperature 98.2 [degF] Dr. La Latif Work Phone: [facility] Work Phone: 05-30-2021 14:22-0400 Diastolic blood pressure 77 mm[Hg] Dr. La Latif Work Phone: [facility] Work Phone: 05-30-2021 14:22-0400 Heart rate 68 /min Dr. La Latif Work Phone: [facility] Work Phone: 05-30-2021 14:22-0400 Respiratory rate 16 /min Dr. La Latif Work Phone: [facility] Work Phone: 05-30-2021 14:22-0400 SaO2% (BldA) [Mass fraction] 100 % Dr. La Latif Work Phone: [facility] Work Phone: 05-30-2021 14:22-0400 Systolic blood pressure 107 mm[Hg] Dr. La Latif Work Phone: [facility] Work Phone: 05-30-2021 12:44-0400 Body height 154.[address] La Latif Work Phone: [facility] Work Phone: 05-30-2021 12:44-0400 Body mass index (BMI) [Percentile] Per age and sex 10.8 % Dr. La Latif Work Phone: [facility] Work Phone: 05-30-2021 12:44-0400 Body mass index (BMI) [Ratio] 18.3 kg/m2 Dr. La Latif Work Phone: [facility] Work Phone: 05-30-2021 12:44-0400 Body weight 43.[address] La Latif Work Phone: [facility] Work Phone: 03-20-2021 11:04-0500 Body height 152.4 cm Lauryn Conteh [facility]; [facility] Work Phone: 03-20-2021 11:04-0500 Body mass index (BMI) [Ratio] 19.14 kg/m2 Lauryn Conteh [facility]; [facility] Work Phone: 03-20-2021 11:04-0500 Body surface area Derived from formula 1.38 m2 Lauryn Conteh [facility]; [facility] Work Phone: 03-20-2021 11:04-0500 Body temperature 97.3 [degF] Lauryn Conteh [facility]; [facility] Work Phone: Comment on above: Method: Infrared 03-20-2021 11:04-0500 Body weight 44.45 kg Lauryn Conteh [facility]; [facility] Work Phone: 03-20-2021 11:04-0500 Diastolic blood pressure 62 mm[Hg] Lauryn Conteh [facility]; [facility] Work Phone: Comment on above: Patient Position: Sitting; Cuff Location : Left Arm; Cuff Size: Standard 03-20-2021 11:04-0500 Heart rate 83 /min Lauryn Conteh [facility]; [facility] Work Phone: Comment on above: Pattern: Regular 03-20-2021 11:04-0500 Respiratory rate 18 /min Lauryn Conteh [facility] C[facility] RN [facility]; [facility] Work Phone: Comment on above: Pattern: Unlabored 03-20-2021 11:04-0500 SaO2% (BldA) [Mass fraction] 96 % Lauryn Conteh [facility]; [facility] Work Phone: Comment on above: Room air 03-20-2021 11:04-0500 Systolic blood pressure 103 mm[Hg] Lauryn Conteh [facility]; [facility] Work Phone: Comment on above: Patient Position: Sitting; Cuff Location : Left Arm; Cuff Size: Standard 12-19-2020 14:55-0400 Body height 152.4 cm Kendra Fitzgerald [facility]; [facility] Work Phone: Comment on above: patient unable to take vitals 12-19-2020 14:55-0400 Body mass index (BMI) [Ratio] 18.16 kg/m2 Kendra Fitzgerald [facility]; [facility] Work Phone: Comment on above: patient unable to take vitals 12-19-2020 14:55-0400 Body surface area Derived from formula 1.35 m2 [facility]; [facility] Work Phone: Comment on above: patient unable to take vitals 12-19-2020 14:55-0400 Body weight 42.18 kg Kendra [facility] [facility]; [facility] Work Phone: Comment on above: patient unable to take vitals 09-01-2020 09:23-0400 Body height 152.4 cm Lauryn Conteh [facility] Comprehensive [facility] Medicine; [facility] Work Phone: 09-01-2020 09:23-0400 Body mass index (BMI) [Ratio] 18.16 kg/m2 Lauryn Conteh [facility] Medicine; [facility] Work Phone: 09-01-2020 09:23-0400 Body surface area Derived from formula 1.35 m2 Lauryn Conteh [facility] Comprehensive [facility] Medicine; [facility] Work Phone: 09-01-2020 09:23-0400 Body temperature 97.2 [degF] Lauryn Conteh [facility] Comprehensiv e Internal Medicine; [facility] Work Phone: Comment on above: Method: Infrared 09-01-2020 09:23-0400 Body weight 42.18 kg Lauryn Conteh [facility] Comprehensive [facility] Medicine; [facility] Work Phone: 09-01-2020 09:23-0400 Diastolic blood pressure 62 mm[Hg] Lauryn Conteh [facility] C[facility] RN [facility]; [facility] Work Phone: Comment on above: Patient Position: Sitting; Cuff Location : Left Arm; Cuff Size: Standard 09-01-2020 09:23-0400 Heart rate 70 /min Lauryn Conteh [facility] Comprehensive [facility] Medicine; [facility] Work Phone: Comment on above: Pattern: Regular 09-01-2020 09:23-0400 Respiratory rate 16 /min Lauryn Conteh CMA Comprehensiv e Internal Medicine; [facility] Work Phone: Comment on above: Pattern: Unlabored 09-01-2020 09:23-0400 SaO2% (BldA) [Mass fraction] 98 % Lauryn Conteh [facility]; [facility] Work Phone: Comment on above: Room air 09-01-2020 09:23-0400 Systolic blood pressure 101 mm[Hg] Lauryn Conteh [facility] Comprehensive [facility] Medicine; [facility] Work Phone: Comment on above: Patient Position: Sitting; Cuff Location : Left Arm; Cuff Size: Standard Encounters Encounter Date Encounter Type Care Provider Facility Start: 10-20-2024 End: 10-20-2024 ambulatory No Primary Care Physician Facility:[facility] [place] Start: 10-20-2024 End: 10-20-2024 Patient encounter procedure Xena MCLAUGHLIN -[facility] Work Phone: Start: 08-20-2024 End: 08-20-2024 Patient encounter procedure Xena MCLAUGHLIN -[facility] Work Phone: Start: 08-20-2024 End: 08-20-[address] Nestor Sr MD Work Phone: [facility] Work Phone: Start: 08-17-2024 End: 08-17-[address] Nestor Sr MD Work Phone: [facility] Work Phone: Start: 08-17-2024 End: 08-17-2024 Patient encounter procedure Xena MCLAUGHLIN -[facility] Work Phone: Start: 08-17-2024 End: 08-17-2024 ambulatory Xena Osman Facility:[facility] Start: 08-14-2024 End: 08-14-2024 Patient encounter procedure Xena MCLAUGHLIN -[facility] Work Phone: Start: 08-14-2024 End: 08-14-[address] Nestor Sr MD Work Phone: [facility] Work Phone: Start: 08-14-2024 End: 08-14-2024 ambulatory Xena Osman Facility:[facility] Start: 08-12-2024 End: 08-12-2024 ambulatory EDIN RAMIREZ Facility:[facility] Start: 08-10-2024 End: 08-10-2024 Patient encounter procedure Edin Ramirez MD Work Phone: General Surgery Comment on above: Abnormal mammogram ( Primary Dx) Start: 08-10-2024 End: 08-10-2024 ambulatory EDIN RAMIREZ Facility:[facility] Start: 07-21-2024 End: 08-18-2024 Telephone encounter Edin Ramirez MD Work Phone: General Surgery Comment on above: Results Start: 07-13-2024 End: 07-13-2024 Patient encounter procedure Edin Ramirez MD Work Phone: General Surgery Comment on above: Abnormal mammogram ( Primary Dx) Start: 07-13-2024 End: 07-13-2024 ambulatory EDIN RAMIREZ Facility:[facility] Start: 07-07-2024 End: 07-07-2024 Patient encounter procedure Edin Ramirez MD Work Phone: General Surgery Comment on above: Abnormal mammogram ( Primary Dx) Start: 07-07-2024 End: 07-07-2024 ambulatory EDIN RAMIREZ Facility:[facility] Start: 07-01-2024 ambulatory [facility] Facility: [facility] Start: 06-16-2024 End: 06-16-[address] Nestor Sr MD Work Phone: [facility] Work Phone: Start: 06-16-2024 End: 06-16-2024 Patient encounter procedure Xena PITTMANC -Nuclear Medicine, [facility] Work Phone: Start: 06-16-2024 End: 06-16-2024 ambulatory Xena Osman Facility:[facility] Start: 06-05-2024 End: 06-05-[address] Nestor Sr MD Work Phone: [facility] Work Phone: Start: 06-05-2024 End: 06-05-2024 Patient encounter procedure Xena PITTMANC -Nuclear Medicine, [facility] Work Phone: Start: 06-05-2024 End: 06-05-2024 ambulatory Xena Osman Facility:[facility] Start: 05-29-2024 End: 05-29-2024 ambulatory HUONG [place] Facility:[facility] Start: 05-29-2024 End: 05-29-2024 Patient encounter procedure Huong Williams GROUP EXERCISE INSTRUCTOR.ADA ACCOMMODATION CONSULTANT Work Phone: OB/Gynecology Comment on above: Mass of upper outer quadrant of right breast (Primary Dx) Start: 05-11-2024 End: 05-11-2024 Patient encounter procedure Xena PITTMANC -[facility] Work Phone: Start: 05-11-2024 End: 05-11-2024 ambulatory La Latif Facility:[facility] [place] Start: 05-10-2024 End: 05-10-2024 Emergency department patient visit Dr. Nestor Sr MD -Emergency Department Work Phone: Start: 04-26-2024 End: 06-26-2024 Follow-up encounter Maria D Epps MD Work Phone: OB/Gynecology Start: 04-13-2024 End: 04-13-2024 Initial preventive medicine new pt age 18-39yrs Maria D Epps MD Work Phone: OB/Gynecology Comment on above: Encounter for gyneco logical examination (general) (routine) without abnormal findings (Primary Dx); Screening for cervical cancer; Encounter for screening for human papillomavirus (HPV) Start: 04-13-2024 End: 04-13-2024 Patient encounter status Maria D Epps MD Work Phone: [facility] Start: 04-13-2024 End: 04-13-2024 ambulatory MARIA D EPPS Facility:[facility] Start: 04-13-2024 Encounter for gynecological examination (general) (routine) without abnormal findings MARIA D EPPS [facility] Start: 03-28-2023 End: 03-29-2023 ambulatory LYRIC RAYA GROUP EXERCISE INSTRUCTOR-ADA ACCOMMODATION CONSULTANT Facility:[facility] Start: 03-28-2023 End: 03-28-2023 Patient encounter procedure LYRIC RAYA GROUP EXERCISE INSTRUCTOR-ADA ACCOMMODATION CONSULTANT [facility] Start: 08-20-2022 Review La Fearo n DO Work Phone: [facility] Start: 07-18-2022 ambulatory La Bhavya DO Comp re[facility]ive Internal Med Start: 07-15-2022 End: 07-15-2022 Patient encounter procedure Randal Whelan APRN.ADA ACCOMMODATION CONSULTANT Work Phone: [facility] Comment on above: Sore throat (Primary Dx) Start: 06-28-2022 End: 06-28-2022 Office outpatient visit 25 minutes La Bhavya DO Work Phone: [facility] Start: 06-13-2022 Review La Fearo n DO Work Phone: [facility] Start: 06-13-2022 End: 06-13-2022 Office outpatient visit 10 minutes La Bhavya DO Work Phone: [facility] Start: 05-16-2022 End: 05-16-2022 Office outpatient visit 10 minutes La Bhavya DO Work Phone: [facility] Start: 05-14-2022 End: 05-14-2022 ambulatory [facility] Work Phone: Start: 05-14-2022 End: 05-14-2022 Patient encounter procedure [facility] Start: 04-18-2022 End: 04-18-2022 Office outpatient visit 15 minutes La Bhavya DO Work Phone: [facility] Start: 01-31-2022 End: 02-05-2022 Office outpatient visit 5 minutes La Bhavya DO Work Phone: [facility] Start: 01-25-2022 End: 01-25-2022 Office outpatient visit 15 minutes La Bhavya DO Work Phone: [facility] Start: 01-18-2022 End: 01-18-[address] La Latif Work Phone: [facility] Work Phone: Start: 01-18-2022 End: 01-18-[address] La Latif Work Phone: [facility] Start: 12-18-2021 Review La Vieirao n DO Work Phone: [facility] Start: 12-18-2021 End: 12-18-2021 Office outpatient visit 15 minutes La Bhavya DO Work Phone: [facility] Start: 12-05-2021 End: 12-05-[address] La Latif Work Phone: [facility] Start: 10-09-2021 End: 10-09-[address] La Latif Work Phone: [facility] Start: 09-05-2021 Non-patient / Non-visit Dr. Kevin Latif Work Phone: [facility] Start: 09-05-2021 End: 09-05-2021 Admission to same day surgery center Dr. La Latif Work Phone: [facility]-Endoscopy Start: 08-21-2021 End: 08-21-[address] La Latif Work Phone: [facility]-Laboratory, Specimen Start: 08-17-2021 End: 08-17-[address] La Latif Work Phone: [facility] Start: 07-21-2021 End: 07-21-[address] La Latif Work Phone: [facility] Start: 07-06-2021 End: 07-06-[address] La Latif Work Phone: [facility] Start: 06-13-2021 End: 06-13-[address] La Latif Work Phone: [facility]-Laboratory Start: 06-13-2021 End: 06-13-[address] La Latif Work Phone: [facility] Start: 05-30-2021 Non-patient / Non-visit Dr. Kevin Latif Work Phone: [facility] Start: 05-30-2021 End: 05-30-2021 Admission to same day surgery center Dr. La Latif Work Phone: [facility]-Endoscopy Start: 04-20-2021 End: 04-20-[address] La Latif Work Phone: [facility] Start: 03-20-2021 End: 03-20-2021 Phone Encounter La Bhavya DO Work Phone: [facility] Start: 03-20-2021 End: 03-20-[address] La Latif Work Phone: [facility] Start: 03-20-2021 End: 03-20-2021 Office outpatient visit 15 minutes La Bhavya DO Work Phone: [facility] Start: 12-19-2020 End: 12-19-2020 Patient encounter status La Bhavya DO Work Phone: [facility] Start: 12-19-2020 End: 12-19-2020 Periodic preventive med est patient 18-39 yrs La Latif DO Work Phone: [facility] Start: 09-01-2020 End: 09-05-2020 Office outpatient visit 15 minutes La Latif DO Work Phone: [facility] Start: 08-11-2020 End: 08-11-2020 Annotation/Addendum La Latif DO Work Phone: [facility] Start: 12-12-2016 End: 12-12-2016 [facility] Patient encounter status River Latif DO Work Phone: [facility]; [facility] Work Phone: Patient encounter status Lauryn Drummond MA [facility]; [facility] Work Phone: Patient encounter status Lauryn Drummond MA [facility]; [facility] Work Phone: Patient encounter status Sam Drummond MA [facility]; [facility] Work Phone: Patient encounter status Sam Drummond MA [facility]; [facility] Work Phone: Patient encounter status Sam Drummond MA [facility]; [facility] Work Phone: Patient encounter status Shelby Murray [facility]; [facility] Work Phone: Procedures Date Procedure Procedure Detail Performing Clinician Start: 08-17-[address] Nestor Sr MD Work Phone: Start: 08-14-[address] Nestor Sr MD Work Phone: Comment on above: *Additional results available. Contact l aboratory/see report*The atypical pANCA pattern has been observed in asignificant percentage of patients with ulcerative colitis,primary sclerosing cholangitis and autoimmune hepatitis.Performed at: - [facility] [id number] Director: Luis Carlos Helms MD, Phone: [phone] at: [facility] [id number] Director: Claude Wynn PhD, Phone: [phone] Start: 08-14-2024 Antibody to centromere measurement Dr. Nestor Sr MD Work Phone: Comment on above: Test not performed Previous reported re sult: TNP AIEdited by: TOMMY on 08/17/24:1108 AMENDED REPORT 08/17/24 1108 ANTI-CENT B previously reported as: Test not performed Start: 08-14-2024 Antibody to extractable nuclear antigen measurement Dr. Nestor Sr MD Work Phone: Comment on above: Test not performed Previous reported re sult: TNP AIEdited by: TOMMY on 08/17/24:1108 AMENDED REPORT 08/17/24 1108 MATHUR Ab previously reported as: Test not performed Start: 08-14-2024 Antibody to MARIA GUADALUPE-[address] Nestor Sr MD Work Phone: Comment on above: Test not performed Previous reported re sult: TNP AIEdited by: TOMMY on 08/17/24:1108 AMENDED REPORT 08/17/24 1108 ANTI-MARIA GUADALUPE previously reported as: Test not performed Start: 08-14-2024 Antibody to lupus La protein measurement Dr. Nestor Sr MD Work Phone: Start: 08-14-2024 Antibody to SS-A measurement Dr. Nestor Sr MD Work Phone: Start: 08-14-[address] Nestor Sr MD Work Phone: Comment on above: Test not performed Previous reported re sult: TNP AIEdited by: TOMMY on 08/17/24:1108 AMENDED REPORT 08/17/24 1108 ANTICHROMATIN previously reported as: Test not performed Start: 08-14-2024 Measurement of fungal antibody Dr. Joanne Sr MD Work Phone: Comment on above: Negative: <45 Equivocal: 45-50 Positive: >50 Start: 08-14-2024 MICROPHONE OPERATOR antibody [address] Nestor Sr MD Work Phone: Comment on above: Test not performed Previous reported re sult: TNP AIEdited by: TOMMY on 08/17/24:1108 AMENDED REPORT 08/17/24 110 MICROPHONE OPERATOR Ab previously reported as: Test not performed Start: 07-13-2024 US BREAST BIOPSY RIGHT (POC) SURG USE ONLY Edin Ramirez MD Work Phone: Start: 06-16-[address] Nestor Sr MD Work Phone: Start: 06-05-2024 [address] gastric emptying study Dr. Nestor Sr MD Work Phone: Start: 05-10-[address] Joanne Sr MD Work Phone: Start: 07-15-2022 STREP A MOLECULAR (POC) Randal Whelan APRN.CNP Work Phone: Start: 12-05-2021 End: 12-05-2021 Gastroenterology Visit Report Procedure Note: See Note ; NOTES: [facility] [address] [place] [address] OFFICE VISIT Date of Service: 12/05/21 MR#: [id number] Acct: [id number] Name: PEDRO CUEVAS Rep #: [id number] : 2005 Provider: ARNOLDO Green Age/Sex: 16/F Location: [facility] [place] Status: Signed Intake Vital Signs 12/05/21 09:04 Height 5 ft 1 in Weight: 101 lb BMI 19.1 BP 109/76 L Blood Pressure Location Rt brachial Position Sitting Pulse 73 Pulse Oximetry (%) 98 Oxygen Delivery Method room air Intake Visit Reasons: 2 MO FU Allergies ciprofloxacin [From Ciprodex] Allergy (Verified 12/05/21 09:02) Swelling dexamethasone [From Ciprodex] Allergy (Verified 12/05/21 09:02) Swelling BANDAID Allergy (Uncoded 12/05/21 09:02) Itching Medications drospirenone 0.25 mg-estradiol 0.5 mg tablet 1 tab PO DAILY 05/26/21 [History Confirmed 12/05/21] fluoxetine 20 mg capsule (Prozac) 20 mg PO DAILY 05/26/21 [History Confirmed 12/05/21] PFSH Medical History Abdominal pain Anxiety Asthma Back pain Depression Gastric ulcer H pylori ulcer H pylori ulcer Heartburn History of Crohn's disease Infected pierced ear Migraine headache Non-smoker Oral ulcer Pierced navel infection Piercing Rectal bleeding Restless legs Syncope Wears glasses Surgical History History of esophagogastroduodenoscopy (EGD) Social History Smoking Status: Never smoker HPI HPI Details: PEDRO CUEVAS, is a 16 F who presents to the office today for f/u IBS w/ constipation. She had tried and failed Trulance, Amitiza and Linzess. At last visit we discussed trying nightly miralax, and maybe prunes and/or mineral oil--she didn't need to try any of those measures. Currently no treatment for the bowels. She is having BM every other day, not having to strain. Some bloating but not bothersome. Definitely less abd pain now. Her only concern today is fatigue. IBS-C -- Trulance caused diarrhea. She tried and failed linzess 290 mcg. She did not tolerate Amitiza 24 mcg twice daily, it was not effective and it made her queasy. Abd pain, intermittent, can last all day. Feels like gas pains. Not spasms. No epigastric pain. Hx gastric ulcer/H pylori -- resolved per repeat EGD in 08/2021 We worked her up for possible Crohn's, negative w/u.??? We did CT enterography that was unremarkable.??? On colonoscopy she had terminal ileitis. 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 The Prometheus test results were not consistent with IBD. ROS Const Constitutional: Positive for fatigue ENT ENT: No difficulty swallowing Cardio Cardiology: Positive for leg pain with exertion Gastro GI: Positive for abdominal pain, bloating, heartburn, excessive flatus and nausea/dyspepsia; No belching, change in bowel habits, change in stool character, coffee ground emesis, constipation, cramping, diarrhea, difficulty swallowing, feeling full early, incontinent of stools, Vomiting blood/hematemesis, Blood in stool, loose stools, Black,tarry stools, pain with swallowing, vomiting or other Musc Musculoskeletal: Positive for restless legs and leg pain with exertion; No joint pain Skin Skin: No yellowing of the eye or itchy eyes Neuro Neurology: Positive for restless legs Psych Psychiatric: Positive for anxiety, No depression, Positive for Compulsive Behavior, Positive for hyperactivity, Positive for inattentiveness and Positive for obsessions/compulsions Endo Endocrine: Positive for fatigue Aller/Imm Allergy/Immunologic: No itchy eyes Al/Lymp Hematologic/Lymphatic: No easy bleeding or easy bruising Exam Const General: cooperative, comfortable and no acute distress Nutritional Appearance: thin Orientation: alert, awake and oriented x3 Quality Reporting Tobacco Screening ([facility] 138) Smoking Status: Never smoker Assessment and Plan Assessment and Plan (1) Irritable bowel syndrome with constipation: Status: Acute Plan: Pedro's main concern today is fatigue; I told her I would send my note to Dr Latif, and encouraged her to schedule an appt with Dr Latif IBS better now w/o taking any meds--having regular BM and no significant pain She can f/u prn Medications: Discontinued plecanatide (Trulance) tried and failed amitiza, linzess Discontinued Reason: Pt no longer taking 3 mg PO DAILY 90 tabs 3RF Coding Level of Care Code Off vis,est,level 2 Diagnoses Irritable bowel syndrome with constipation K58.1 12/05/21 0924 <Electronically signed by Rhiannon MCLAUGHLIN> Date Rhiannon MCLAUGHLIN Cosigner Signature: Date (if applicable) CC: Dr. La Latif, DO La Latif DO Work Phone: Start: 10-09-2021 End: 10-09-2021 Gastroenterology Visit Report Procedure Note: See Note ; NOTES: [facility] [address] [place] [address] OFFICE VISIT Date of Service: 10/09/21 MR#: [id number] Acct: [id number] Name: PEDRO CUEVAS Rep #: [id number] : 2005 Provider: ARNOLDO Green Age/Sex: 16/F Location: [facility] [place].[facility] Status: Signed Intake Vital Signs 08/17/21 14:02 09/05/21 12:56 10/09/21 09:27 Height 5 ft 1 in 5 ft 1 in 5 ft 1 in Weight: 98 lb 6 oz BMI 18.6 BP 110/74 Blood Pressure Location Rt brachial Position Sitting Pulse 79 Pulse Oximetry (%) 98 Oxygen Delivery Method room air Intake Visit Reasons: FU Chief Complaint: f/u endoscopy Allergies ciprofloxacin [From Ciprodex] Allergy (Verified 10/09/21 09:26) Swelling dexamethasone [From Ciprodex] Allergy (Verified 10/09/21 09:26) Swelling BANDAID Allergy (Uncoded 10/09/21 09:26) Itching Medications drospirenone 0.25 mg-estradiol 0.5 mg tablet 1 tab PO DAILY 05/26/21 [History Confirmed 10/09/21] fluoxetine 20 mg capsule (Prozac) 20 mg PO DAILY 05/26/21 [History Confirmed 10/09/21] plecanatide 3 mg tablet (Trulance) 3 mg PO DAILY #90 tabs 08/24/21 [Rx Confirmed 10/09/21] PFSH Medical History Abdominal pain Anxiety Asthma Back pain Depression Gastric ulcer H pylori ulcer H pylori ulcer Heartburn History of Crohn's disease Infected pierced ear Migraine headache Non-smoker Oral ulcer Pierced navel infection Piercing Rectal bleeding Restless legs Syncope Wears glasses Surgical History History of esophagogastroduodenoscopy (EGD) Social History Smoking Status: Never smoker HPI HPI Chief Complaint: f/u endoscopy Details: PEDRO CUEVAS, is a 16 F who presents to the office today for f/u EGD. This was a repeat EGD to f/u gastric ulcer. The gastric ulcer has resolved; normal appearance of esophagus, stomach and duodenum. Biopsy negative for H pylori. Her prior EGD in 05/2021 was positive for H pylori, we treated that. Biopsy positive for chronic gastritis. She was prescribed sucralfate 3 wks ago but has significant worsening of constipation so we'll stop it. She ran out of Trulance, but it caused diarrhea so not a viable assisted option for treating her constipation. IBS-C -- Trulance caused diarrhea. She tried and failed linzess 290 mcg. She did not tolerate Amitiza 24 mcg twice daily, it was not effective and it made her queasy. Abd pain , intermittent, can last all day. Feels like gas pains. Not spasms. No epigastric pain. We worked her up for possible Crohn's, negative w/u.??? We did CT enterography that was unremarkable.??? On colonoscopy she had terminal ileitis. 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 The Prometheus test results were not consistent with IBD. She graduated from high school, is working at [employer], plans to work for a year before going back to school. 09/05/21 EGD Impression: ? - Normal esophagus. ? - Normal stomach. Biopsied. ? - Normal second portion of the duodenum. MICROSCOPIC DIAGNOSIS Gastric greater curvature, biopsy: Chronic gastritis Negative H Pylorir ROS Const Constitutional: Positive for fatigue ENT ENT: No difficulty swallowing Gastro GI: Positive for abdominal pain, bloating, change in bowel habits, constipation, diarrhea, heartburn, excessive flatus and nausea/dyspepsia; No belching, change in stool character, coffee ground emesis, cramping, difficulty swallowing, feeling full early, incontinent of stools, Vomiting blood/hematemesis, Blood in stool, loose stools, Black,tarry stools, pain with swallowing, vomiting or other Musc Musculoskeletal: Positive for back pain and restless legs; No joint pain Skin Skin: No yellowing of the eye or itchy eyes Neuro Neurology: Positive for restless legs Psych Psychiatric: Positive for anxiety, Positive for depression, Positive for Compulsive Behavior, Positive for hyperactivity and Positive for inattentiveness Endo Endocrine: Positive for fatigue Aller/Imm Allergy/Immunologic: No itchy eyes Al/Lymp Hematologic/Lymphatic: No easy bleeding or easy bruising Exam Const General: cooperative, healthy appearing and comfortable Nutritional Appearance: thin Quality Reporting Tobacco Screening ([facility] 138) Smoking Status: Never smoker Assessment and Plan Assessment and Plan (1) Irritable bowel syndrome with constipation: Status: Acute Plan: We reviewed her repeat EGD results, everything normal in appearance, gastric ulcer has healed, H pylori is resolved. D/c sucralfate since it exacerbated her constipation. She didn't tolerate Trulance which was the most recent medication we tried for IBS???C. She also tried and failed Amitiza and Linzess. She we will try nightly MiraLAX 1/2-1 capful mixed in water or juice, and she can also take prunes at that time or 1 teaspoon of oil such as mineral oil, castor oil, or olive oil. She can let me know how that regimen works in a couple of weeks, and we can tailor it depending on efficacy. We will plan on office follow-up in 2 months. We could consider a sits marker study in order to see if this is more of a pelvic floor issue versus slow transit. Medications: Discontinued sucralfate (Carafate) Take three times a day, one hour before meals and two hours away from other medications. Discontinued Reason: Order Changed 1 g PO QAC 90 tabs 0RF Coding Level of Care Code Off vis,est,level 3 Diagnoses Irritable bowel syndrome with constipation K58.1 10/09/21 1113 <Electronically signed by Rhiannon Green NP CORE WINDING OPERATOR-C> Date Rhiannon Green NP CORE WINDING OPERATOR-C Cosigner Signature: Date (if applicable) CC: Dr. La Latif, DO La Latif DO Work Phone: Start: 09-05-2021 End: 12-12-2021 EGD Report Comments: See Note; NOTES: [facility] Medical Records Department [address] [place] [address] EGD Report MR#: [id number] Acct: [id number] Name: PEDRO CUEVAS Rep #: [id number] : 2005 16 From: Berto Friend DO PCP: Dr. La Latif DO Status:[facility] Patient Name: Pedro Cuevas Procedure Date: 09/05/2021 1:41 PM Date of : 2005 Age: 16 Procedure: Upper GI endoscopy Indications: Epigastric abdominal pain, Chronic gastric ulcer Providers: Berto Silva DO Referring MD: La Latif Medicines: Monitored Anesthesia Care Patient Profile: This is an 16 year old female. Refer to note in patient chart for documentation of history and physical. Patient has symptoms of chronic chest pain. Complications: No immediate complications. Procedure: Pre-Anesthesia Assessment: - Prior to the procedure, a History and Physical was performed, and patient medications and allergies were reviewed. The patient is competent. The risks and benefits of the procedure and the sedation options and risks were discussed with the patient. All questions were answered and informed consent was obtained. Patient identification and proposed procedure were verified by the physician in the pre-procedure area. Mental Status Examination: alert and oriented. Airway Examination: normal oropharyngeal airway and neck mobility. Respiratory Examination: clear to auscultation. CV Examination: normal. Prophylactic Antibiotics: The patient does not require prophylactic antibiotics. Prior Anticoagulants: The patient has taken no previous anticoagulant or antiplatelet agents. ASA Grade Assessment: II - A patient with mild systemic disease. After reviewing the risks and benefits, the patient was deemed in satisfactory condition to undergo the procedure. The anesthesia plan was to use moderate sedation / analgesia (conscious sedation). Immediately prior to administration of medications, the patient was re-assessed for adequacy to receive sedatives. The heart rate, respiratory rate, oxygen saturations, blood pressure, adequacy of pulmonary ventilation, and response to care were monitored throughout the procedure. The physical status of the patient was re-assessed after the procedure. After obtaining informed consent, the endoscope was passed under direct vision. Throughout the procedure, the patient's blood pressure, pulse, and oxygen saturations were monitored continuously. The gastroscope was introduced through the mouth, and advanced to the second part of duodenum. The upper GI endoscopy was accomplished without difficulty. The patient tolerated the procedure well. Scope In: 1:48:47 PM Scope Out: 1:53:59 PM Total Procedure Duration Time 0 hours 5 minutes 12 seconds Findings: The examined esophagus was normal. The entire examined stomach was normal. Biopsies were taken with a cold forceps for histology. Verification of patient identification for the specimen was done. Estimated blood loss was minimal. The second portion of the duodenum was normal. Impression: - Normal esophagus. - Normal stomach. Biopsied. - Normal second portion of the duodenum. Recommendation: - Discharge patient to home. - Resume previous diet. - Continue present medications. - Await pathology results. Procedure Code(s): --- Professional --- 29299, Esophagogastroduodenoscopy, flexible, transoral; with biopsy, single or multiple CPT copyright 2017 [employer]. All rights reserved. The codes documented in this report are preliminary and upon high climber review may be revised to meet current compliance requirements. Berto Silva DO 09/05/2021 2:01:09 PM This report has been signed electronically. Number of Addenda: 0 Note Initiated On: 09/05/2021 1:41 PM 09/05/21 1401 Date Berto Silva DO Cosigner Signature: Date (if indicated) CC: Dr. La Latif DO; Berto Silva DO Date Dictated: 09/05/21 1341 Date Transcribed: Manager Float: VALENTINA Signed La Latif DO Work Phone: Start: 09-05-[address] La Latif Work Phone: Start: 09-05-2021 End: 09-05-2021 History and Physical Exam Comments: See Note; NOTES: [facility] Medical Records Department [address] [place] [address] History Physical Exam 09/05/21 1335 MR#: [id number] Acct: [id number] Name: MASONPEDRO ERIC CHANTE Rep #: [id number] : 2005 16 From: Berto Silva DO PCP: Dr. La Latif DO Status:[facility] Location: [place] [address] History and Physical Date of Admission: 09/05/21 Details: PEDRO CUEVAS, is an 16 F who presents to the office today for f/u constipation IBS-C -- She didn't oyster picker samples of trulance since she was busy with high school graduation, however she will try them now.??? She tried and failed linzess 290 mcg. She did not tolerate Amitiza 24 mcg twice daily, it was not effective and it made her queasy. She notes increased diarrhea, loose stool that seems to be in addition to constipation. Increased abd pain, intermittent, can last all day. Feels like gas pains. Not spasms. No epigastric pain. We worked her up for possible Crohn's, negative w/u.??? We did CT enterography that was unremarkable.??? On colonoscopy she had terminal ileitis. 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 The Prometheus test results were not consistent with IBD. Needs EGD to f/u gastric ulcer, was positive for H pylori which we treated. Need to test for cure of H pylori.??? We still need to get her gastrin level. She graduated from high school, is working at [employer], plans to work for a year before going back to school. 05/30/21 EGD and Colonoscopy Impression: ? - Normal esophagus. ? - Gastritis. ? - Non-bleeding gastric ulcer with no stigmata ? of bleeding. Biopsied. ? - Normal first portion of the duodenum. ? Biopsied. Impression: ? - Decreased sphincter tone found on digital ? rectal exam. ? - Redundant colon. ? - Congested mucosa in the terminal ileum. ? Biopsied. MICROSCOPIC DIAGNOSIS A.??? Gastric ulcer, biopsy:Moderate gastritis.See microscopic description and comment. B.??? Terminal ileum, biopsy:Focal chronic active enteritis.See microscopic description and comment. B.??? The specimen shows fragments of small intestinal mucosa with acute and chronic inflammatory cells infiltrate in the lamina propria, .??? A few granulomas are also noted.??? Mild granular distortion is also present C.??? Colon, random biopsy:Fragments of colonic mucosa, no pathologic diagnosis H pylori positive ROS Const Constitutional: Positive for fatigue ENT ENT: No difficulty swallowing Gastro GI: Positive for abdominal pain, bloating, change in bowel habits, constipation, diarrhea, heartburn and excessive flatus; No belching, change in stool character, coffee ground emesis, cramping, difficulty swallowing, feeling full early, incontinent of stools, Vomiting blood/hematemesis, Blood in stool, loose stools, Black,tarry stools, nausea/dyspepsia, pain with swallowing, vomiting or other Musc Musculoskeletal: Positive for back pain and restless legs; No joint pain Skin Skin: No yellowing of the eye or itchy eyes Neuro Neurology: Positive for restless legs Psych Psychiatric: Positive for anxiety, Positive for depression, Positive for Compulsive Behavior, Positive for hyperactivity and Positive for obsessions/compulsions Endo Endocrine: Positive for fatigue Aller/Imm Allergy/Immunologic: No itchy eyes Al/Lymp Hematologic/Lymphatic: No easy bleeding or easy bruising Exam Const General: cooperative, comfortable, well developed and well groomed Quality Reporting Tobacco Screening ([facility] 138) Smoking Status: Never smoker Assessment and Plan Assessment and Plan (1) H pylori ulcer: ?Status:???Acute (2) Irritable bowel syndrome with constipation: ?Status:???Acute (3) Gastric ulcer: ?Status:???Acute ?Plan - Rhiannon Green CORE WINDING OPERATOR, CORE WINDING OPERATOR-C: 16 yr old female with IBS-Constipation, hx of gastric ulcer with H pylori. Test for cure of H pylori, check gastrin level, schedule repeat EGD to ensure resolution of ulcer, f/u 2 wks after EGD. Try Trulance, samples provided, she'll call me with update in about a week. Tried and failed amitiza and linzess. I have re-examined the patient. There are no clinical changes since date of exam. 09/05/21 1336 <Electronically signed by Berto Silva DO> Cosigner Signature (if applicable): CC: Dr. La Latif DO; Berto Silva DO Signed La Latif DO Work Phone: Start: 08-17-2021 End: 08-18-2021 Gastroenterology Visit Report Comments: See Note; NOTES: [facility] Gastroenterology [address] [place] [address] OFFICE VISIT Date of Service: 08/17/21 MR#: [id number] Acct: [id number] Name: MASONPEDRO LAINEZA Rep #: [id number] : 2005 Provider: ARNOLDO Green Age/Sex: 16/F Location: [facility] [place] Status: Signed Intake Vital Signs 08/17/21 14:02 Height 5 ft 1 in Weight: 96 lb BMI 18.1 BP 108/73 L Blood Pressure Location Lt radial Position Sitting Pulse 65 Pulse Oximetry (%) 99 Intake Visit Reasons: 6 WK FU Allergies ciprofloxacin [From Ciprodex] Allergy (Verified 08/17/21 14:02) Swelling dexamethasone [From Ciprodex] Allergy (Verified 08/17/21 14:02) Swelling BANDAID Allergy (Uncoded 08/17/21 14:02) Itching Medications drospirenone-estradiol 1 tab PO DAILY 05/26/21 [History Confirmed 08/17/21] fluoxetine [Prozac] 20 mg PO DAILY 05/26/21 [History Confirmed 08/17/21] ondansetron 4 mg disintegrating tablet 4 mg PO Q6H PRN #28 tab 06/20/21 [Rx Confirmed 08/17/21] PFSH Medical History (Updated 08/18/21 @ 10:07 by Rhiannon Green CORE WINDING OPERATOR, ARMAAN-C) Abdominal pain Anxiety Asthma Back pain Depression Gastric ulcer H pylori ulcer Heartburn Infected pierced ear Migraine headache Non-smoker Pierced navel infection Piercing Rectal bleeding Restless legs Syncope Wears glasses Surgical History No history of previous surgery Social History Smoking Status: Never smoker HPI HPI Details: PEDRO CUEVAS, is an 16 F who presents to the office today for f/u constipation IBS-C -- She didn't oyster picker samples of trulance since she was busy with high school graduation, however she will try them now. She tried and failed linzess 290 mcg. She did not tolerate Amitiza 24 mcg twice daily, it was not effective and it made her queasy. She notes increased diarrhea, loose stool that seems to be in addition to constipation. Increased abd pain, intermittent, can last all day. Feels like gas pains. Not spasms. No epigastric pain. We worked her up for possible Crohn's, negative w/u. We did CT enterography that was unremarkable. On colonoscopy she had terminal ileitis. 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 The Prometheus test results were not consistent with IBD. Needs EGD to f/u gastric ulcer, was positive for H pylori which we treated. Need to test for cure of H pylori. We still need to get her gastrin level. She graduated from high school, is working at [employer], plans to work for a year before going back to school. 05/30/21 EGD and Colonoscopy Impression: - Normal esophagus. - Gastritis. - Non-bleeding gastric ulcer with no stigmata of bleeding. Biopsied. - Normal first portion of the duodenum. Biopsied. Impression: - Decreased sphincter tone found on digital rectal exam. - Redundant colon. - Congested mucosa in the terminal ileum. Biopsied. MICROSCOPIC DIAGNOSIS A. Gastric ulcer, biopsy:Moderate gastritis.See microscopic description and comment. B. Terminal ileum, biopsy:Focal chronic active enteritis.See microscopic description and comment. B. The specimen shows fragments of small intestinal mucosa with acute and chronic inflammatory cells infiltrate in the lamina propria, . A few granulomas are also noted. Mild granular distortion is also present C. Colon, random biopsy:Fragments of colonic mucosa, no pathologic diagnosis H pylori positive ROS Const Constitutional: Positive for fatigue ENT ENT: No difficulty swallowing Gastro GI: Positive for abdominal pain, bloating, change in bowel habits, constipation, diarrhea, heartburn and excessive flatus; No belching, change in stool character, coffee ground emesis, cramping, difficulty swallowing, feeling full early, incontinent of stools, Vomiting blood/hematemesis, Blood in stool, loose stools, Black,tarry stools, nausea/dyspepsia, pain with swallowing, vomiting or other Musc Musculoskeletal: Positive for back pain and restless legs; No joint pain Skin Skin: No yellowing of the eye or itchy eyes Neuro Neurology: Positive for restless legs Psych Psychiatric: Positive for anxiety, Positive for depression, Positive for Compulsive Behavior, Positive for hyperactivity and Positive for obsessions/compulsions Endo Endocrine: Positive for fatigue Aller/Imm Allergy/Immunologic: No itchy eyes Al/Lymp Hematologic/Lymphatic: No easy bleeding or easy bruising Exam Const General: cooperative, comfortable, well developed and well groomed Quality Reporting Tobacco Screening ([facility] 138) Smoking Status: Never smoker Assessment and Plan Assessment and Plan (1) H pylori ulcer: Status: Acute (2) Irritable bowel syndrome with constipation: Status: Acute (3) Gastric ulcer: Status: Acute Plan - Rhiannon Green CORE WINDING OPERATOR, CORE WINDING OPERATOR-C: 16 yr old female with IBS-Constipation, hx of gastric ulcer with H pylori. Test for cure of H pylori, check gastrin level, schedule repeat EGD to ensure resolution of ulcer, f/u 2 wks after EGD. Try Trulance, samples provided, she'll call me with update in about a week. Tried and failed amitiza and linzess. Coding Level of Care Code Off vis,est,level 3 Diagnoses H pylori ulcer K27.9; B96.81 Irritable bowel syndrome with constipation K58.1 Gastric ulcer K25.9 08/18/21 1014 <Electronically signed by Rhiannon Green CORE WINDING OPERATOR CORE WINDING OPERATOR-C> Date Rhiannon Green CORE WINDING OPERATOR CORE WINDING OPERATOR-C Cosigner Signature: Date (if applicable) CC: Dr. La Latif, DO La Latif DO Work Phone: Start: 07-21-2021 End: 07-22-2021 Abdomen/Pelvis WITH Contrast Comments: See Note; NOTES: [facility] Imaging Services [address] [place] [address] Abdomen/Pelvis WITH Contrast MR#: [id number] Acct: [id number] Name: MASONPEDRO SHARIF Rep #: [id number] : 2005 F 16 From: Daniel Sharma PCP: Dr. La Latif, Status: REG CLI Study: Abdomen/Pelvis WITH Contrast Date of Exam: Exam# [id number] Ordering Dr: Rhiannon Green NP CORE WINDING OPERATOR-C STUDY: CT ENTEROGRAPHY WITH CONTRAST REASON FOR EXAM: Female, 16 years old. terminal ileitis, cryptitis, abd pain -- enterography RADIATION DOSAGE (If Supplied By Facility): CTDIvol = ( 8.75 ) mGy, DLP = ( 595.09 ) mGycm TECHNIQUE: Transaxial images were obtained from the dome of the diaphragm to the symphysis pubis with oral contrast. 450ml of Volumen was administered orally at 60 minutes and 40 minutes and 225ml of Volumen was administered 20 minutes and 10 minutes prior to scanning, to a total of 1,350ml. Oral and IV BREEZA NEUTRAL and 75mL Isovue-370 was administered intravenously. Sagittal and coronal images were reconstructed. TECHNICAL QUALITY: Image Quality: Satisfactory Small Bowel Distension: Adequate. Individualized dose optimization techniques were used for this CT. COMPARISON: None. FINDINGS: Bowel: Bowel wall thickening: Absent. Skip lesions: None. Vascularity: Normal. Enhancement: Normal. Fistula: None. Abscess: None. Other Findings: The lung bases are unremarkable. The visualized portions of the heart are within normal limits Normal liver. Normal gallbladder and extrahepatic biliary system. Normal spleen. Normal pancreas. Normal bilateral adrenal glands. Normal right kidney. Normal left kidney. Normal visualized stomach. Normal colon. The appendix is visualized and appears normal. Normal abdominal aorta. Normal interior vena cava. Normal retroperitoneum. Normal urinary bladder. Normal abdominal wall. Normal osseous structures. CT/Abdomen/Pelvis WITH Contrast IMPRESSION: Normal CT enterography. Electronically Signed: Daniel Morrison MD at 7:29 EDT , CC: CORE WINDING OPERATORLance Green; Dr. La Latif DO Manager Float: Signed La Latif DO Work Phone: Start: 07-21-2021 Computed tomography of abdomen and pelvis with contrast Dr. La Latif Work Phone: Start: 07-06-2021 End: 07-06-2021 Gastroenterology Visit Report Comments: See Note; NOTES: [facility] Gastroenterology [address] [place] [address] OFFICE VISIT Date of Service: 07/06/21 MR#: [id number] Acct: [id number] Name: PEDRO CUEVAS Rep #: [id number] : 2005 Provider: ARNOLDO Green Age/Sex: 16/F Location: [facility] [place] Status: Signed Intake Vital Signs 07/06/21 14:12 Height 5 ft 1 in Weight: 102 lb BMI 19.3 BP 107/67 L Blood Pressure Location Lt brachial Position Sitting Pulse 83 Pulse Oximetry (%) 97 Oxygen Delivery Method room air Intake Visit Reasons: 2 WK FU Allergies ciprofloxacin [From Ciprodex] Allergy (Verified 07/06/21 14:17) Swelling dexamethasone [From Ciprodex] Allergy (Verified 07/06/21 14:17) Swelling BANDAID Allergy (Uncoded 07/06/21 14:17) Itching Medications drospirenone-estradiol 1 tab PO DAILY 05/26/21 [History Confirmed 07/06/21] fluoxetine [Prozac] 20 mg PO DAILY 05/26/21 [History Confirmed 07/06/21] ondansetron 4 mg disintegrating tablet 4 mg PO Q6H PRN #28 tab 06/20/21 [Rx Confirmed 07/06/21] lubiprostone 24 mcg capsule 24 mcg PO BID #60 cap 07/06/21 [Rx Confirmed 07/06/21] PFSH Medical History (Updated 07/06/21 @ 14:57 by Rhiannon Green CORE WINDING OPERATOR, CORE WINDING OPERATOR-C) Abdominal pain Anxiety Asthma Back pain Depression H pylori ulcer Heartburn Infected pierced ear Migraine headache Non-smoker Pierced navel infection Piercing Rectal bleeding Restless legs Syncope Wears glasses Surgical History No history of previous surgery Social History Smoking Status: Never smoker HPI HPI Details: PEDRO CUEVAS, is a 16 F who presents to the office today for possible Crohn's disease and s/p treatment for H pylori She established w/ our office in 04/2021 for intermittent blood per rectum since 2018 and chronic constipation. 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 The Prometheus test results were not consistent with IBD. Imaging so far is abd x-rays showing abundance of fecal material throughout. Her chronic constipation is slightly better since taking antibiotics for H pylori that was found on biopsy of gastric ulcer. She tolerated the treatment for H pylori but had some nausea and vomiting. Having a BM daily since the treatment, but usually only has BM 1-2x per week. She failed the 290 mcg dose of Linzess. 05/30/21 EGD and Colonoscopy Impression: - Normal esophagus. - Gastritis. - Non-bleeding gastric ulcer with no stigmata of bleeding. Biopsied. - Normal first portion of the duodenum. Biopsied. Impression: - Decreased sphincter tone found on digital rectal exam. - Redundant colon. - Congested mucosa in the terminal ileum. Biopsied. MICROSCOPIC DIAGNOSIS A. Gastric ulcer, biopsy:Moderate gastritis.See microscopic description and comment. B. Terminal ileum, biopsy:Focal chronic active enteritis.See microscopic description and comment. B. The specimen shows fragments of small intestinal mucosa with acute and chronic inflammatory cells infiltrate in the lamina propria, . A few granulomas are also noted. Mild granular distortion is also present C. Colon, random biopsy:Fragments of colonic mucosa, no pathologic diagnosis H pylori positive ROS Const Constitutional: Positive for fatigue Gastro GI: Positive for abdominal pain, bloating, change in bowel habits, constipation, excessive flatus and nausea/dyspepsia Musc Musculoskeletal: Positive for restless legs Neuro Neurology: Positive for restless legs Endo Endocrine: Positive for fatigue Exam Const General: comfortable, well developed and well groomed Resp Effort Inspection: normal respiratory effort GI Inspection: normal to inspection Psych Mental Status: mental status grossly normal Mood: congruent mood Quality Reporting Tobacco Screening ([facility] 138) Smoking Status: Never smoker Assessment and Plan Assessment and Plan (1) Terminal ileitis: Status: Acute (2) Abdominal pain: Status: Acute (3) Intestinal cryptitis: Status: Acute (4) H pylori ulcer: Status: Acute Orders: Orders: Abdomen/Pelvis WITH Contrast Today K50.00, R10.9, K52.89 Plan - Rhiannon Green CORE WINDING OPERATOR, CORE WINDING OPERATOR-C: Discussed with Pedro and her mom the evidence that leads in the direction of Crohn's disease, but we need to get imaging still--CT enteroscopy is ordered. We will call her w/ results. We discussed we might need to do capsule endoscopy. In the meantime, for chronic constipation/IBS-C we will next try Amitiza 24 mcg bid. She completed treatment for H pylori, we can test for cure of H pylori at least 4 wks after end of treatment. She will need a repeat EGD to ensure healing of the gastric ulcer. Plan Details Other Medications: New: lubiprostone 24 mcg PO BID 60 caps 1RF Coding Level of Care Code Off vis,est,level 4 Diagnoses Terminal ileitis K50.00 Abdominal pain R10.9 Intestinal cryptitis K52.89 H pylori ulcer K27.9; B96.81 07/06/21 1524 <Electronically signed by Rhiannon Green NP CORE WINDING OPERATOR-C> Date Rhiannon Green NP CORE WINDING OPERATOR-C Cosigner Signature: Date (if applicable) CC: Dr. La Latif, DO La Latif DO Work Phone: Start: 06-13-[address] La Latif Work Phone: Start: 06-13-[address] La Latif Work Phone: Start: 06-13-2021 End: 06-13-[address] La Latif Work Phone: Start: 06-13-2021 End: 06-13-[address] [address] parasites [address] La Latif Work Phone: Start: 06-13-2021 End: 06-13-2021 Gastroenterology Visit Report Comments: See Note; NOTES: [facility] Gastroenterology [address] [place] [address] OFFICE VISIT Date of Service: 06/13/21 MR#: [id number] Acct: [id number] Name: PEDRO CUEVAS Rep #: [id number] : 2005 Provider: ARNOLDO Green Age/Sex: 16/F [facility] [facility] Status: Signed Intake Vital Signs 06/13/21 09:18 Height 5 ft 1 in Weight: 101 lb BMI 19.1 BP 102/70 L Blood Pressure Location Rt brachial Position Sitting Pulse 69 Pulse Oximetry (%) 96 Oxygen Delivery Method room air Intake Visit Reasons: 2 Week f/u Allergies ciprofloxacin [From Ciprodex] Allergy (Verified 05/30/21 12:44) Swelling dexamethasone [From Ciprodex] Allergy (Verified 05/30/21 12:44) Swelling BANDAID Allergy (Uncoded 05/30/21 12:44) Itching Medications drospirenone-estradiol 1 tab PO DAILY 05/26/21 [History Confirmed 06/13/21] fluoxetine [Prozac] 20 mg PO DAILY 05/26/21 [History Confirmed 06/13/21] amoxicillin 500 mg capsule 500 mg PO BID 14 Days #28 cap 06/13/21 [Rx Confirmed 06/13/21] metronidazole 500 mg tablet 500 mg PO TID 14 Days #42 tab 06/13/21 [Rx Confirmed 06/13/21] pantoprazole 40 mg tablet,delayed release 40 mg PO BID 14 Days #28 tab 06/13/21 [Rx Confirmed 06/13/21] PFSH Medical History (Updated 06/13/21 @ 09:51 by Rhiannon Green CORE WINDING OPERATOR, CORE WINDING OPERATOR-C) Anxiety Asthma Back pain Depression H pylori ulcer Heartburn Infected pierced ear Migraine headache Non-smoker Pierced navel infection Piercing Rectal bleeding Restless legs Syncope Wears glasses Surgical History (Reviewed 06/13/21 @ 09:24 by Rhiannon Green CORE WINDING OPERATOR, CORE WINDING OPERATOR-C) No history of previous surgery Social History Smoking Status: Never smoker HPI HPI Details: PEDRO CUEVAS, is a 16 F who presents to the office today for f/u EGD and colonoscopy which were done for lower GI bleeding and constipation. 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 She was referred by PCP for evaluation of lower abdominal pain, constipation primarily with some infrequent diarrhea, bloating and intermittent rectal bleeding. Onset many years with bleeding onset 2018. BM frequency 2-3 days or 1-2 times a week with straining and pain with defecation. Has attempted fiber supplement with worsening of bleeding. Also attempted dairy which improved discomfort but did not change stools. Laxatives attempted with onset of diarrhea. Gluten avoidance which was not noted to be helpful. X-Ray of abd 03.20.21 found abundance of fecal material throughout colon without additional acute or chronic disease. Medical history includes anxiety and depression, she takes medication and feels she is doing well this these. 05/30/21 EGD and Colonoscopy Impression: - Normal esophagus. - Gastritis. - Non-bleeding gastric ulcer with no stigmata of bleeding. Biopsied. - Normal first portion of the duodenum. Biopsied. Impression: - Decreased sphincter tone found on digital rectal exam. - Redundant colon. - Congested mucosa in the terminal ileum. Biopsied. MICROSCOPIC DIAGNOSIS A. Gastric ulcer, biopsy:Moderate gastritis.See microscopic description and comment. B. Terminal ileum, biopsy:Focal chronic active enteritis.See microscopic description and comment. C. Colon, random biopsy:Fragments of colonic mucosa, no pathologic diagnosis H pylori positive ROS Const Constitutional: Positive for fatigue ENT ENT: No difficulty swallowing Gastro GI: Positive for abdominal pain, bloating, change in bowel habits, constipation, heartburn, excessive flatus and Blood in stool; No belching, change in stool character, coffee ground emesis, cramping, diarrhea, difficulty swallowing, feeling full early, incontinent of stools, Vomiting blood/hematemesis, loose stools, Black,tarry stools, nausea/dyspepsia, pain with swallowing, vomiting or other Musc Musculoskeletal: Positive for restless legs; No joint pain Skin Skin: Positive for dry skin; No yellowing of the eye or itchy eyes Neuro Neurology: Positive for restless legs Psych Psychiatric: Positive for anxiety, Positive for depression, Positive for difficulty concentrating, Positive for Compulsive Behavior and Positive for hyperactivity Endo Endocrine: Positive for fatigue Aller/Imm Allergy/Immunologic: No itchy eyes Al/Lymp Hematologic/Lymphatic: No easy bleeding or easy bruising Exam Const General: cooperative, comfortable and well groomed Nutritional Appearance: thin Quality Reporting Tobacco Screening (CMS 138) Smoking Status: Never smoker Assessment and Plan Assessment and Plan (1) IBD (inflammatory bowel disease): Status: Acute Orders: Orders: Comprehensive Metabolic Profil Today Thyroid Stim Hormone (TSH) Today CBC W/Diff, Automated Today Miscellaneous Lab Procedure Today CRP Today Ferritin Today Iron+Iron Binding Capacity Today Erythrocyte Sed Rate Today CAROLYN Comprehensive Panel Today Calprotectin, Stool Today Ova and Parasites 8623 Today CDIFF (PCR) Today ENTERIC PATHOGEN PANEL STOOL Today Stool Lactoferrin/WBC Today Giardia Lamblia, Stool EIA Today Plan - Rhiannon Green CORE WINDING OPERATOR, CORE WINDING OPERATOR-C: Long discussion with pt and her mom Kelly about endoscopy/pathology results Labs: Prometheus for IBD, inflammatory markers in blood and stool, stool for infection, eval for anemia, thyroid Discussed strong suspicion for Crohn's disease with histologic findings in terminal ileum on endoscopy If Crohn's ruled in, then we will need to test for immunity of hep B, MMR etc and check Quantiferon TB; consider if imaging needed Recommend Crohn's and Colitis Foundation website f/u 2 wks to go over results, discuss diagnosis more, and treatment options (2) Constipation: Status: Acute Plan - Rhiannon Green CORE WINDING OPERATOR, CORE WINDING OPERATOR-C: Lifelong constipation. Failed highest dose of linzess 290 mcg daily. We can try samples of lubiprostone (Amitiza) 8 mcg bid, can provide at f/u visit, she will have completed treatment for H pylori by then. (3) H pylori ulcer: Status: Acute Plan - Rhiannon Green CORE WINDING OPERATOR, CORE WINDING OPERATOR-C: Discussed diagnosis, treatment with PPI, 2 antibiotics, and OTC pepto bismol 1 chewable tablet QID x 2 wks Will need repeat EGD to ensure healing of gastric ulcer Can test for cure of H pylori at least 4 wks after end of treatment Plan Details Other Medications: New: pantoprazole 40 mg PO BID 14 days 28 tabs 0RF amoxicillin 500 mg PO BID 14 days 28 caps 0RF metronidazole 500 mg PO TID 14 days 42 tabs 0RF Coding Level of Care Code Off vis,est,level 4 Diagnoses IBD (inflammatory bowel disease) K52.9 Constipation K59.00 H pylori ulcer K27.9; B96.81 06/13/21 1244 <Electronically signed by Rhiannon Green NP CORE WINDING OPERATOR-C> Date Rhiannon Green NP CORE WINDING OPERATOR-C Cosigner Signature: Date (if applicable) CC: Dr. La Latif, DO La Latif DO Work Phone: Start: 05-30-2021 End: 12-06-2021 Colonoscopy Report Comments: See Note; NOTES: [facility] Medical Records Department [address] [place] [id number] Colonoscopy Report MR#: [id number] Acct: [id number] Name: PEDRO CUEVAS Rep #: [id number] : 2005 16 From: Berto Silva DO PCP: Dr. La Latif DO Status:[facility] Patient Name: Pedro Cuevas Procedure Date: 05/30/2021 1:37 PM Date of : 2005 Age: 16 Procedure: Colonoscopy Indications: Lower abdominal pain Providers: Berto Sivla DO Referring MD: La Latif Medicines: See the Anesthesia note for documentation of the administered medications Patient Profile: This is an 16 year old female. Refer to note in patient chart for documentation of history and physical. Patient has symptoms of acute epigastric abdominal pain. Last Colonoscopy: none. The patient's first colonoscopy is today. Complications: No immediate complications. Procedure: Pre-Anesthesia Assessment: - Prior to the procedure, a History and Physical was performed, and patient medications and allergies were reviewed. The risks and benefits of the procedure and the sedation options and risks were discussed with the patient. All questions were answered and informed consent was obtained. Patient identification and proposed procedure were verified by the physician in the pre-procedure area. Mental Status Examination: alert and oriented. Airway Examination: normal oropharyngeal airway and neck mobility. Respiratory Examination: clear to auscultation. CV Examination: normal. Prophylactic Antibiotics: The patient does not require prophylactic antibiotics. Prior Anticoagulants: The patient has taken no previous anticoagulant or antiplatelet agents. ASA Grade Assessment: II - A patient with mild systemic disease. After reviewing the risks and benefits, the patient was deemed in satisfactory condition to undergo the procedure. The anesthesia plan was to use moderate sedation / analgesia (conscious sedation). Immediately prior to administration of medications, the patient was re-assessed for adequacy to receive sedatives. The heart rate, respiratory rate, oxygen saturations, blood pressure, adequacy of pulmonary ventilation, and response to care were monitored throughout the procedure. The physical status of the patient was re-assessed after the procedure. After I obtained informed consent, the scope was passed under direct vision. Throughout the procedure, the patient's blood pressure, pulse, and oxygen saturations were monitored continuously. The Colonoscope was introduced through the anus and advanced to the terminal ileum. The colonoscopy was performed without difficulty. The patient tolerated the procedure well. The quality of the bowel preparation was good. Moderate Sedation: Moderate (conscious) sedation was administered by the endoscopy nurse and supervised by the endoscopist. The following parameters were monitored: oxygen saturation, heart rate, blood pressure, and response to care. Total physician intraservice time was 15 minutes. Scope In: 1:42:04 PM Scope Withdrawal Time 0 hours 10 minutes 49 seconds Scope Out: 2:01:44 PM Total Procedure Duration Time 0 hours 19 minutes 40 seconds Findings: The digital rectal exam findings include decreased sphincter tone. The sigmoid colon was mildly redundant. Biopsies for histology were taken with a cold forceps from the ascending colon, right colon, left colon, transverse colon, right transverse colon, left transverse colon, descending colon, sigmoid colon and rectum for evaluation of microscopic colitis. Verification of patient identification for the specimen was done. Estimated blood loss was minimal. A localized area of the terminal ileum was congested. Biopsies were taken with a cold forceps for histology. Verification of patient identification for the specimen was done. Estimated blood loss was minimal. Impression: - Decreased sphincter tone found on digital rectal exam. - Redundant colon. - Congested mucosa in the terminal ileum. Biopsied. Recommendation: - Written discharge instructions were provided to the patient. - The signs and symptoms of potential delayed complications were discussed with the patient. - Patient has a contact number available for emergencies. - Return to normal activities tomorrow. - Resume previous diet. - Continue present medications. - Await pathology results. - Repeat colonoscopy is recommended for surveillance. The colonoscopy date will be determined after pathology results from today's exam become available for review. Procedure Code(s): --- Professional --- 14225, Colonoscopy, flexible; with biopsy, single or multiple 04792, 59, Moderate sedation services provided by the same physician or other qualified health landcare facilitator performing the diagnostic or therapeutic service that the sedation supports, requiring the presence of an independent trained observer to assist in the monitoring of the patient's level of consciousness and physiological status; initial 15 minutes of intraservice time, patient age 5 years or older CPT copyright 2017 [employer]. All rights reserved. The codes documented in this report are preliminary and upon high climber review may be revised to meet current compliance requirements. Berto Silva DO 05/30/2021 2:23:36 PM This report has been signed electronically. Number of Addenda: 0 Note Initiated On: 05/30/2021 1:37 PM 05/30/21 1423 Date Berto Silva DO Cosigner Signature: Date (if indicated) CC: Dr. La Latif DO; Berto Silva DO Date Dictated: 05/30/21 1337 Date Transcribed: Manager Float: VALENTINA Signed La Latif DO Work Phone: Start: 05-30-2021 End: 12-06-2021 EGD Report Comments: See Note; NOTES: [facility] Medical Records Department [address] [place] [address] EGD Report MR#: [id number] Acct: [id number] Name: PEDRO CUEVAS Rep #: [id number] : 2005 16 From: Berto Silva DO PCP: Dr. La Latif DO Status:[facility] Patient Name: Pedro Cuevas Procedure Date: 05/30/2021 1:25 PM Date of : 2005 Age: 16 Procedure: Upper GI endoscopy Indications: Epigastric abdominal pain Providers: Berto Silva DO Referring MD: La Latif Medicines: General Anesthesia, See the Anesthesia note for documentation of the administered medications Patient Profile: This is an 16 year old female. Refer to note in patient chart for documentation of history and physical. Patient has symptoms of acute epigastric abdominal pain. Complications: No immediate complications. Procedure: Pre-Anesthesia Assessment: - Prior to the procedure, a History and Physical was performed, and patient medications and allergies were reviewed. The risks and benefits of the procedure and the sedation options and risks were discussed with the patient. All questions were answered and informed consent was obtained. Patient identification and proposed procedure were verified by the physician in the pre-procedure area. Mental Status Examination: alert and oriented. Airway Examination: normal oropharyngeal airway and neck mobility. Respiratory Examination: clear to auscultation. CV Examination: normal. Prophylactic Antibiotics: The patient does not require prophylactic antibiotics. Prior Anticoagulants: The patient has taken no previous anticoagulant or antiplatelet agents. ASA Grade Assessment: II - A patient with mild systemic disease. After reviewing the risks and benefits, the patient was deemed in satisfactory condition to undergo the procedure. The anesthesia plan was to use moderate sedation / analgesia (conscious sedation). Immediately prior to administration of medications, the patient was re-assessed for adequacy to receive sedatives. The heart rate, respiratory rate, oxygen saturations, blood pressure, adequacy of pulmonary ventilation, and response to care were monitored throughout the procedure. The physical status of the patient was re-assessed after the procedure. After obtaining informed consent, the endoscope was passed under direct vision. Throughout the procedure, the patient's blood pressure, pulse, and oxygen saturations were monitored continuously. The Colonoscope was introduced through the mouth, and advanced to the second part of duodenum. The upper GI endoscopy was accomplished without difficulty. The patient tolerated the procedure well. Moderate Sedation: Moderate (conscious) sedation was administered by the endoscopy nurse and supervised by the endoscopist. The patient's oxygen saturation, heart rate, blood pressure and response to care were monitored. Total physician intraservice time was 15 minutes. Scope In: 1:29:41 PM Scope Out: 1:37:13 PM Total Procedure Duration Time 0 hours 7 minutes 32 seconds Findings: The examined esophagus was normal. Diffuse moderate inflammation characterized by congestion (edema) was found in the stomach. One non-bleeding superficial gastric ulcer with no stigmata of bleeding was found in the gastric body. The lesion was 3 mm in largest dimension. This was biopsied with a cold forceps for histology. Verification of patient identification for the specimen was done. Estimated blood loss was minimal. The first portion of the duodenum was normal. Biopsies were taken with a cold forceps for histology. Verification of patient identification for the specimen was done. Estimated blood loss was minimal. Impression: - Normal esophagus. - Gastritis. - Non-bleeding gastric ulcer with no stigmata of bleeding. Biopsied. - Normal first portion of the duodenum. Biopsied. Recommendation: - Discharge patient to home. - Resume previous diet. - Continue present medications. - Await pathology results. Procedure Code(s): --- Professional --- 38276, Esophagogastroduodenoscopy, flexible, transoral; with biopsy, single or multiple 35666, 59, Moderate sedation services provided by the same physician or other qualified health landcare facilitator performing the diagnostic or therapeutic service that the sedation supports, requiring the presence of an independent trained observer to assist in the monitoring of the patient's level of consciousness and physiological status; initial 15 minutes of intraservice time, patient age 5 years or older CPT copyright 2017 [employer]. All rights reserved. The codes documented in this report are preliminary and upon high climber review may be revised to meet current compliance requirements. Berto Silva DO 05/30/2021 2:17:05 PM This report has been signed electronically. Number of Addenda: 0 Note Initiated On: 05/30/2021 1:25 PM 05/30/21 1417 Date Berto Silva DO Vikigner Signature: Date (if indicated) CC: Dr. La Latif DO; Berto Silva DO Date Dictated: 05/30/21 1325 Date Transcribed: Manager Float: VALENTINA Signed La Latif DO Work Phone: Start: 05-30-2021 End: 05-30-2021 History and Physical Exam Comments: See Note; NOTES: [facility] Medical Records Department [address] [place] [address] History Physical Exam 05/30/21 1312 MR#: [id number] Acct: [id number] Name: PEDRO CUEVAS Rep #: [id number] : 2005 16 From: Berto Silva DO PCP: Dr. La Latif DO Status:[facility] Location: [place] [address] History and Physical Date of Admission: 05/30/21 PEDRO CUEVAS, is a 16 F who presents to the office today for lower GI bleeding and constipation. She was referred by PCP for evaluation of lower abdominal pain, constipation primarily with some infrequent diarrhea, bloating and intermittent rectal bleeding. Onset many years with bleeding onset 2018. BM frequency 2-3 days or 1-2 times a week with straining and pain with defecation. Has attempted fiber supplement with worsening of bleeding. Also attempted dairy which improved discomfort but did not change stools. Laxatives attempted with onset of diarrhea. Gluten avoidance which was not noted to be helpful. X-Ray of abd 03.20.21 found abundance of fecal material throughout colon without additional acute or chronic disease. Medical history includes anxiety and depression, she takes medication and feels she is doing well this these. ROS Gastro GI: Positive for change in stool character, constipation and Blood in stool Exam Const General: cooperative and comfortable Nutritional Appearance: average body habitus and well nourished HENIN Head: normal to inspection Ears: hearing grossly normal bilaterally Nose: external nose normal Face and sinus: normal facial exam Mouth: oral mucosae normal Throat: posterior oropharynx normal Eyes General: appearance normal, both eyes and all related structures Neck Neck: normal visual inspection Chest Chest palpation inspection: normal inspection of the chest and normal palpation of entire chest wall Resp Effort Inspection: normal respiratory effort Auscultation: Bilateral: Clear to Auscultation Cardio Palpation: normal PMI Rate: regular rate Rhythm: regular rhythm GI Inspection: normal to inspection Auscultation: normal bowel sounds Percussion: normal to percussion Palpation: no hepatosplenomegaly Skin General: no rashes or lesions noted Neuro General: patient alert Extrem General: normal to inspection Psych Affect: normal affect Quality Reporting Tobacco Screening ([facility] 138) Smoking Status: Never smoker Assessment and Plan Assessment and Plan (1) Constipation: Status: Acute Plan - Dr. Berto Silva DO: The differential diagnosis for her constipation does include slow transit constipation versus pelvic floor dysfunction(this is less likely in a young female who has not had any pelvic surgeries or pr egnancies), chronic idiopathic constipation. We will evaluate her lower GI tract for any structural abnormalities. She does have very small caliber stools and I suspect she has elements of anal stenosis. I did not do a physical examination due to the fact that she did not want to do it at this time. That is very understandable. We will do it under anesthesia when she undergoes a colonoscopy. I suspect that she does have a small anal fissure. I will give her Linzess 145 mcg once a day to see how her motility of her lower GI tract responds. Plan Details Additional Comments: Colonoscopy. Linzess 145mcg. I have re-examined the patient. There are no clinical changes since date of exam. 05/30/21 1313 <Electronically signed by Berto Silva DO> Cosigner Signature (if applicable): CC: Dr. La Latif DO; Berto Silva DO Signed La Latif DO Work Phone: Start: 05-30-[address] La Latif Work Phone: Start: 04-20-2021 End: 04-23-2021 Gastroenterology Visit Report Comments: See Note; NOTES: [facility] [address] [place] [address] OFFICE VISIT Date of Service: 04/20/21 MR#: [id number] Acct: [id number] Name: PEDRO CUEVAS Rep #: [id number] : 2005 Provider: Berto Silva DO Age/Sex: 16/F Location: [facility] [place] Status: Signed Intake Intake Visit Reasons: disscuss possible colonoscopy PFSH Social History Smoking Status: Never smoker HPI HPI Details: PEDRO CUEVAS, is a 16 F who presents to the office today for lower GI bleeding and constipation. She was referred by PCP for evaluation of lower abdominal pain, constipation primarily with some infrequent diarrhea, bloating and intermittent rectal bleeding. Onset many years with bleeding onset 2018. BM frequency 2-3 days or 1-2 times a week with straining and pain with defecation. Has attempted fiber supplement with worsening of bleeding. Also attempted dairy which improved discomfort but did not change stools. Laxatives attempted with onset of diarrhea. Gluten avoidance which was not noted to be helpful. X-Ray of abd 03.20.21 found abundance of fecal material throughout colon without additional acute or chronic disease. Medical history includes anxiety and depression, she takes medication and feels she is doing well this these. ROS Gastro GI: Positive for change in stool character, constipation and Blood in stool Exam Const General: cooperative and comfortable Nutritional Appearance: average body habitus and well nourished [facility] Head: normal to inspection Ears: hearing grossly normal bilaterally Nose: external nose normal Face and sinus: normal facial exam Mouth: oral mucosae normal Throat: posterior oropharynx normal Eyes General: appearance normal, both eyes and all related structures Neck Neck: normal visual inspection Chest Chest palpation inspection: normal inspection of the chest and normal palpation of entire chest wall Resp Effort Inspection: normal respiratory effort Auscultation: Bilateral: Clear to Auscultation Cardio Palpation: normal PMI Rate: regular rate Rhythm: regular rhythm GI Inspection: normal to inspection Auscultation: normal bowel sounds Percussion: normal to percussion Palpation: no hepatosplenomegaly Skin General: no rashes or lesions noted Neuro General: patient alert Extrem General: normal to inspection Psych Affect: normal affect Quality Reporting Tobacco Screening ([facility] 138) Smoking Status: Never smoker Assessment and Plan Assessment and Plan (1) Constipation: Status: Acute Plan - Dr. Thomson Friend, DO: The differential diagnosis for her constipation does include slow transit constipation versus pelvic floor dysfunction(this is less likely in a young female who has not had any pelvic surgeries or pregnancies), chronic idiopathic constipation. We will evaluate her lower GI tract for any structural abnormalities. She does have very small caliber stools and I suspect she has elements of anal stenosis. I did not do a physical examination due to the fact that she did not want to do it at this time. That is very understandable. We will do it under anesthesia when she undergoes a colonoscopy. I suspect that she does have a small anal fissure. I will give her Linzess 145 mcg once a day to see how her motility of her lower GI tract responds. Plan Details Additional Comments: Colonoscopy. Linzess 145mcg. Coding Level of Care Code Off vis,new,level 3 Diagnoses Constipation K59.00 04/23/21 1556 <Electronically signed by Berto Silva DO> Date Berto Silva DO Cosigner Signature: Date (if applicable) CC: DO La Brock DO Work Phone: Start: 03-20-2021 End: 03-20-2021 [facility] Comments: See Note; NOTES: [facility] [address] [place] [address] [facility] MR#: [id number] Acct: [id number] Name: PEDRO CUEVAS Rep #: [id number] : 2005 F 15 From: José Miguel navarro MD PCP: Dr. La Latif DO Status: DEP AMB Study: [facility] Date of Exam: 03/20/21 Exam# [id number] Ordering Dr: La Latif DO STUDY: X-RAY - ACUTE ABDOMINAL SERIES REASON FOR EXAM: Female, 15 years old. Constipation and abdominal discomfort. TECHNIQUE: Single view of the chest. Supine, and erect view(s) of the abdomen were obtained. COMPARISON: None. FINDINGS: The lungs are clear and expanded. Normal size heart. Normal mediastinum and oswaldo. Normal visualized pulmonary arteries. Normal visualized aortic arch and descending thoracic aorta. There is an abundance of fecal material throughout the colon. The soft tissue structures of the abdomen and pelvis are unremarkable. Normal visualized osseous structures. RAD/[facility] IMPRESSION: Large amount of fecal material is seen in the colon. Electronically Signed: José Miguel Tom MD at 13:08 EST , Service support , CC: Dr. La Latif DO Manager Float: Signed La Latif DO Work Phone: Start: 03-20-2021 Diagnostic radiography of abdomen Dr. La Latif Work Phone: [facility] OR parasites identification Dr. La Latif Work Phone: Plan of Treatment Date Care Activity Detail Author Start: 04-13-2027 Screening for malignant neoplasm of cervix Cervical Cancer Screening [facility] Start: 05-22-2025 Urine microalbumin profile DTaP,Tdap,Td Vaccine (7 - Td or Tdap) [facility] Start: 11-09-2024 Influenza vaccination Influenza Vaccine (Season Ended) [facility] Start: 08-14-2024 [facility] Start: 08-12-2024 End: 08-12-2024 Admission to same day surgery center 08/12/2024 11:56 AM EDT - 08/12/2024 1:10 PM EDT Surgery [facility] [address] [place] [address] Edin Ramirez MD [address] [place] [address] EXCISION BENIGN LESION BREAST 1.1 TO 2.0 CM [facility] Comment on above: EXCISION BENIGN LESION BREAST 1.1 TO 2.0 CM Start: 08-12-2024 End: 08-12-2024 Anesthesia consultation 08/12/2024 11:56 AM EDT Anesthesia Event [facility] [address] [place] [address] Lorie Bradley, LATRELL [facility] Start: 08-12-2024 End: 08-12-2024 Exc b9 lesion mrgn xcp sk tg t/a/l 1.1-2.0 cm EXCISION BENIGN LESION BREAST 1.1 TO 2.0 CM Abnormal mammogram 08/12/2024 11:56 AM EDT [facility] OR Start: 08-12-2024 Subsequent hospital visit by physician 08/12/2024 11:56 AM EDT Hospital Encounter [facility] [address] [place] [address] Edin Ramirez MD [address] [place] [address] Abnormal mammogram [R92.8] [facility] Comment on above: Abnormal mammogram [R92.8] Start: 07-13-2024 End: 07-13-2024 Patient encounter procedure 07/13/2024 1:30 PM EDT Office Visit General Surgery [address] [place] [address] Edin Ramirez MD [address] [place] [address] us right breast bx General Surgery Comment on above: us right breast bx Start: 07-01-2024 End: 07-01-2024 Patient encounter procedure Radiology Comment on above: Dx: Mass of upper outer quadrant of righ t breast [N63.11] Start: 05-10-2024 [facility] Start: 05-10-2024 [facility] Start: 2024 Screening for malignant neoplasm of cervix Cervical Cancer Screening [facility] Start: 11-10-2023 Covid-19 Vaccine ( season) Covid-19 Vaccine ( season) [facility] Start: 11-10-2023 Influenza vaccination Influenza Vaccine (#1) [facility] Start: 11-09-2022 Influenza vaccination INFLUENZA (Season Ended) [facility] Start: 08-20-2022 Procedure Education Eprescribed prescriptions (G8553) [facility] Work Phone: Start: 06-28-2022 Procedure Education Eprescribed prescriptions (G8553) [facility] Work Phone: Start: 06-13-2022 Procedure Education Eprescribed prescriptions (G8553) [facility] Work Phone: Start: 06-13-2022 Provider Instructions for Treatment Follow up in 4 weeks [facility] Work Phone: Start: 05-16-2022 Procedure Education Eprescribed prescriptions (G8553) [facility] Work Phone: Start: 05-16-2022 Provider Instructions for Treatment Follow up in 4 weeks [facility] Work Phone: Start: 05-14-2022 Urine protein electrophoresis [facility] Start: 04-18-2022 Procedure Education Eprescribed prescriptions (G8553) [facility] Work Phone: Start: 04-18-2022 Provider Instructions for Treatment [facility] Work Phone: Start: 2022 Urine microalbumin profile DTAP,TDAP,TD (1 - Tdap) [facility] Start: 03-11-2022 DEPRESSION ASSESSMENT DEPRESSION ASSESSMENT [facility] Start: 01-25-2022 Procedure Education Eprescribed prescriptions (G8553) [facility] Work Phone: Start: 01-25-2022 Provider Instructions for Treatment Reviewed Lab [facility] Work Phone: Start: 01-25-2022 Protein electrophoretic fractj&quantj serum Urine Protein Electrophoresis (UPEP) (65534) [facility] Work Phone: Start: 01-25-2022 Cyanocobalamin vitamin b-12 VITAMIN B-12 (CYANOCOBALAMIN) (75044) [facility]; [facility] Work Phone: Start: 01-25-2022 25 hydroxy includes fractions if performed CALCIFEDIOL (14809) [facility] Work Phone: Start: 12-18-2021 25 hydroxy includes fractions if performed CALCIFIDIOL (42724) VIT D 25 [facility]; [facility] Work Phone: Start: 12-18-2021 Cyanocobalamin vitamin b-12 VITAMIN B-12 (CYANOCOBALAMIN) (54635) [facility]; [facility] Work Phone: Start: 12-18-2021 Assay of thyroid stimulating hormone tsh TSH (94622) [facility]; [facility] Work Phone: Start: 12-18-2021 Sedimentation rate rbc non-automated SED RATE ERYTHROCYTE (38484) [facility]; [facility] Work Phone: Start: 12-18-2021 Comprehensive metabolic panel METABOLIC PANEL, COMPREHENSIVE (89520) [facility] Work Phone: Start: 12-18-2021 C-reactive protein C-REACTIVE PROTEIN (21694) [facility]; [facility] Work Phone: Start: 12-18-2021 Blood count complete automated CBC (AUTO) (21849) [facility] Work Phone: Start: 12-18-2021 Antinuclear antibodies carolyn CAROLYN (ANTINUCLEAR ANTIBODY) (39788) [facility]; [facility] Work Phone: Start: 12-18-2021 Procedure Education Eprescribed prescriptions (G8553) [facility]; [facility] Work Phone: Start: 12-18-2021 Provider Instructions for Treatment *fatigue education [facility] Work Phone: Start: 09-05-2021 Patient discharge [facility] Work Phone: Start: 05-30-2021 Colonoscopy w/biopsy single/multiple COLONOSCOPY AND BIOPSY [facility] Work Phone: Start: 05-30-2021 Egd transoral biopsy single/multiple EGD BIOPSY SINGLE/MULTIPLE [facility] Work Phone: Start: 05-30-2021 Patient discharge [facility] Work Phone: Start: 2021 Anxiety Screening Anxiety Screening [facility] Start: 2021 CHLAMYDIA SCREENING (18-24) CHLAMYDIA SCREENING (18-24) [facility] Start: 2021 Depression Screening Depression Screening [facility] Start: 2021 GC (GONORRHEA) SCREENING (18-24) GC (GONORRHEA) SCREENING (18-24) [facility] Start: 2021 HEPATITIS C SCREENING HEPATITIS C SCREENING [facility] Start: 2021 Hepatitis C screening Hepatitis C Screening [facility] Start: 2021 HIV SCREENING HIV SCREENING [facility] Start: 2021 HIV screening HIV Screening [facility] Start: 2021 Screening for Chlamydia trachomatis Chlamydia Screening (18) [facility] Start: 03-20-2021 Procedure Education Eprescribed prescriptions (G8553) [facility] Work Phone: Start: 03-20-2021 Provider Instructions for Treatment Reviewed Lab [facility]; [facility] Work Phone: Start: 12-19-2020 Procedure Education Eprescribed prescriptions (G8553) [facility]; [facility] Work Phone: Start: 09-01-2020 Procedure Education Eprescribed prescriptions (G8553) [facility]; [facility] Work Phone: Start: 09-01-2020 Provider Instructions for Treatment *Abd Pain Red Flags [facility]; [facility] Work Phone: Start: 08-25-2020 COVID-19 VACCINE (3 - Booster for Pfizer series) COVID-19 VACCINE (3 - Booster for Pfizer series) [facility] Start: 2019 Meningococcal B Vaccine (1 of 2 - Standard) Meningococcal B Vaccine (1 of 2 - Standard) [facility] Start: 2019 Meningococcal B Vaccine: Consider Based On Risk (1 of 2 - Patient Seeks Protection) Meningococcal B Vaccine: Consider Based On Risk (1 of 2 - Patient Seeks Protection) [facility] Start: 2017 PEDS TO ADULT TRANSITION ANNUAL ASSESSMENT PEDS TO ADULT TRANSITION ANNUAL ASSESSMENT [facility] Start: 2015 PEDS TO ADULT TRANSITION INITIAL DISCUSSION PEDS TO ADULT TRANSITION INITIAL DISCUSSION [facility] Start: 2014 HPV VACCINE (1 - 2-dose series) HPV VACCINE (1 - 2-dose series) [facility] Start: 2013 MENINGOCOCCAL B: Consider based on risk (1 of 2 - Risk Bexsero 2-dose series) MENINGOCOCCAL B: Consider based on risk (1 of 2 - Risk Bexsero 2-dose series) [facility] Start: 2003 HEPATITIS B (1 of 3 - 3-dose series) HEPATITIS B (1 of 3 - 3-dose series) [facility] Albumin/Globulin [Ma ss Ratio] in Serum or Plasma by Electrophoresis [facility] Antibody to lupus La protein measurement [facility] Antibody to SS-A measurement [facility] C reactive protein [Mass/volume] in Serum or Plasma [facility] Celiac disease screen [facility] Chitobioside IgA Ab [Units/volume] in Serum or Plasma by Immunoassay [facility] Comprehensive metabo lic 2000 panel - Serum or Plasma [facility] DNA double strand Ab [Units/volume] in Serum [facility] Elastase.pancreatic [Presence] in Stool [facility] Electrophoresis: albumin [facility] Electrophoresis: [id number] [facility] Electrophoresis: [id number] [facility] Electrophoresis: anibal ma globulin [facility] Fluid sample globuli n level [facility] Globulin measurement [facility] Helicobacter pylori Ag [Presence] in Stool by Immunoassay [facility] Laminaribioside IgG Ab [Units/volume] in Serum or Plasma by Immunoassay [facility] Mannobioside IgG Ab [Units/volume] in Serum or Plasma by Immunoassay [facility] Measurement of funga l antibody [facility] Measurement of monoc lonal protein concentration [facility] Neutrophil cytoplasm ic Ab.classic [Units/volume] in Serum [facility] Neutrophil cytoplasm ic Ab.perinuclear.atypical [Titer] in Serum by Immunofluorescence [facility] P-ANCA measurement [facility] PAP TEST PAP TEST Lab [facility] Encounter for gynecological examination (general) (routine) without abnormal findings Screening for cervical cancer Encounter for screening for human papillomavirus (HPV) 04/13/2024 2:37 PM EST [facility] Work Phone: Patient Education ED Constipatio n (Adult) ED Irritable Bowel Syndrome [facility] Work Phone: Patient referral [facility] Work Phone: Protein [Mass/volume ] in Urine [facility] Protein electrophore sis panel - Serum or Plasma [facility] Protein measurement [facility] Protein measurement, urine [facility] Serum protein electrophoresis [facility] Tissue Pathology bio psy report SURGICAL PATHOLOGY Lab Routine Abnormal mammogram 07/13/2024 1:47 PM EDT [facility] Work Phone: Total globulins measurement [facility] Urine albumin measurement [facility] US Abdomen limited [facility] End: 06-28-2025 US Breast - right limited US BREAST LTD RIGHT Radiology Routine Mass of upper outer quadrant of right breast 1 Occurrences starting 05/29/2024 until 06/28/2025 [facility] Work Phone: Comment on above: 1 Occurrences starting 05/29/2024 until 06/28/2025 XR Abdomen Single view [facility] Work Phone: [facility] Work Phone: [facility] Work Phone: [facility] Work Phone: Immunizations Immunization Date Immunization Notes Care Provider Anupama fleming 06-30-2020 SARS-CoV-2 mRNA (tozinameran) vaccine LYRIC OLVERAARD [employer] EXERCISE INSTRUCTOR-ADA ACCOMMODATION CONSULTANT [facility] Comment on above: Result Comment: 2023: TPVALL 06-09-2020 COVID-19 (Pfizer) La wong DO Work Phone: [facility] Work Phone: Comment on above: Result Comment: 2023: TPVALL 10-12-2019 hepatitis A vaccine, pediatric dosage, unspecified formulation LYRIC OLVERAARD [employer]ERCISE INSTRUCTOR-ADA ACCOMMODATION CONSULTANT [facility] 10-12-2019 hepatitis A vaccine, pediatric/adolescent dosage, 2 dose schedule Maria D Epps MD Work Phone: [facility] 10-12-2019 meningococcal polysaccharide (groups A, C, Y and W-135) diphtheria toxoid conjugate vaccine (MCV4P) LYRIC RAYA [employer] EXERCISE INSTRUCTOR-ADA ACCOMMODATION CONSULTANT [facility] 04-05-2017 hepatitis A vaccine, pediatric dosage, unspecified formulation LYRIC OLVERAARD [employer] EXERCISE INSTRUCTOR-ADA ACCOMMODATION CONSULTANT [facility] 04-05-2017 hepatitis A vaccine, pediatric/adolescent dosage, 2 dose schedule Maria D Epps MD Work Phone: [facility] 04-05-2017 Human Papillomavirus 9-valent vaccine Maria D Epps MD Work Phone: [facility] 04-05-2017 Human Papillomavirus Quadval LYRIC OLVERAARD [employer] EXERCISE INSTRUCTOR-ADA ACCOMMODATION CONSULTANT [facility] 05-23-2015 Human Papillomavirus 9-valent vaccine Maria D Epps MD Work Phone: [facility] 05-23-2015 Human Papillomavirus Quadval LYRIC OLVERAARD [employer] EXERCISE INSTRUCTOR-ADA ACCOMMODATION CONSULTANT [facility] 05-23-2015 meningococcal polysaccharide (groups A, C, Y and W-135) diphtheria toxoid conjugate vaccine (MCV4P) LYRIC ELVER [facility] 05-23-2015 tetanus toxoid, redu larissa diphtheria toxoid, and acellular pertussis vaccine, adsorbed LYRIC RAYA [facility] 08-16-2008 diphtheria, tetanus toxoids and acellular pertussis vaccine, unspecified formulation Maria D Epps MD Work Phone: [facility] 08-16-2008 measles, mumps and rubella virus vaccine Maria D Epps MD Work Phone: [facility] 08-16-2008 measles/mumps/rubell a virus vaccine LYRIC RAYA [facility] 08-16-2008 poliovirus vaccine, inactivated LYRIC RAYA [facility] 08-16-2008 varicella virus vaccine CHRISTIE MORSE [facility] 02-05-2005 influenza virus vaccine, whole virus Maria D Epps MD Work Phone: [facility] 02-05-2005 influenza virus vaccine, unspecified formulation Maria D Epps MD Work Phone: [facility] 01-03-2005 influenza virus vaccine, whole virus Maria D Epps MD Work Phone: [facility] 10-04-2004 diphtheria, tetanus toxoids and acellular pertussis vaccine, unspecified formulation Maria D Epps MD Work Phone: [facility] 10-04-2004 haemophilus influenz ae type b vaccine, PRP-T conjugate LYRIC RAYA [facility] 10-04-2004 pneumococcal conjuga te vaccine, 7 valent Maria D Epps MD Work Phone: [facility] 05-12-2004 haemophilus influenz ae type b vaccine, PRP-T conjugate LYRIC RAYA [employer] EXERCISE INSTRUCTOR-ADA ACCOMMODATION CONSULTANT [facility] 04-21-2004 measles, mumps and rubella virus vaccine Maria D Epps MD Work Phone: [facility] 04-21-2004 measles/mumps/rubell a virus vaccine LYRIC RAYA [employer] EXERCISE INSTRUCTOR-ADA ACCOMMODATION CONSULTANT [facility] 04-21-2004 pneumococcal conjuga te vaccine, 7 valent Maria D Epps MD Work Phone: [facility] 04-21-2004 varicella virus vaccine CHRISTIEJANAE MORSE GROUP EXERCISE INSTRUCTOR-ADA ACCOMMODATION CONSULTANT [facility] 02-24-2004 poliovirus vaccine, inactivated LYRIC RAYA [employer] EXERCISE INSTRUCTOR-ADA ACCOMMODATION CONSULTANT [facility] 01-15-2004 meningococcal polysaccharide vaccine (MPSV4) Maria D Epps MD Work Phone: [facility] 2003 hepatitis B pediatri c vaccine LYRIC RAYA [employer] EXERCISE INSTRUCTOR-[facility] 2003 hepatitis B vaccine, pediatric or pediatric/adolescent dosage Maria D Epps MD Work Phone: [facility] 2003 bacillus calmette-aman vaccine LYRIC RAYA [employer] EXERCISE INSTRUCTOR-ADA ACCOMMODATION CONSULTANT [facility] 2003 diphtheria, tetanus toxoids and acellular pertussis vaccine, unspecified formulation Maria D Epps MD Work Phone: [facility] 2003 poliovirus vaccine, inactivated LYRIC RAYA [employer] EXERCISE INSTRUCTOR-ADA ACCOMMODATION CONSULTANT [facility] 2003 diphtheria, tetanus toxoids and acellular pertussis vaccine, unspecified formulation Maria D Epps MD Work Phone: [facility] 2003 hepatitis B pediatri c vaccine LYRIC RAYA [employer] EXERCISE INSTRUCTOR-ADA ACCOMMODATION CONSULTANT [facility] 2003 hepatitis B vaccine, pediatric or pediatric/adolescent dosage Maria D Epps MD Work Phone: [facility] 2003 poliovirus vaccine, inactivated LYRIC ELVER [employer] EXERCISE INSTRUCTOR-ADA ACCOMMODATION CONSULTANT [facility] 2003 diphtheria, tetanus toxoids and acellular pertussis vaccine, unspecified formulation Maria D Epps MD Work Phone: [facility] 2003 hepatitis B pediatri c vaccine LYRIC ELVER [employer] EXERCISE INSTRUCTOR-ADA ACCOMMODATION CONSULTANT [facility] 2003 hepatitis B vaccine, pediatric or pediatric/adolescent dosage Maria D Epps MD Work Phone: [facility] 2003 poliovirus vaccine, inactivated LYRIC ELVER [employer] EXERCISE INSTRUCTOR-ADA ACCOMMODATION CONSULTANT [facility] Payers Date Payer Category Payer Self-pay [id number] 2019 Private Health Insurance MMO SUP ERMED O [id number] 2019 Unknown 2015 Unknown [id number] 2003 Unknown [id number] [id number] 2003 Unknown [id number]. 627 Unknown [id number]. 462 Unknown [id number]. 462 Unknown [id number]. 462 Unknown [id number]. 462 Unknown [id number]. 462 Unknown [id number]. 462 Unknown [id number]. 462 Unknown [id number]. 462 Unknown [id number]. 462 Social History Date Type Detail Facility Start: 04-13-2024 End: 05-29-2024 Caffeine Use Caffeine Use [facility] Work Phone: Comment on above: 1 per day Start: 05-26-2021 End: 12-05-2021 Tobacco smoking status MEIS Unknown if ever smoked [facility] Start: 2005 Sex Assigned At Female [facility] Start: 07-15-2022 End: 10-16-2024 Tobacco smoking status MEIS Never smoked tobacco [facility] Work Phone: Start: 07-15-2022 Tobacco use and exposure Smokeless tobacco non-user [facility] Work Phone: Start: 2005 Sex Assigned At Not on file [facility] Start: 04-13-2024 End: 07-09-2024 Alcoholic beverage intake Current drinker of alcohol (finding) [facility] Start: 04-13-2024 End: 05-29-2024 Tobacco use panel [facility] National Score (1-100), lower number is lower risk 64 [facility] Start: 04-13-2024 Alcohol Comment occasional [facility] Start: 06-09-2024 End: 06-20-2024 Sex Female (finding) [facility] Goals Date Patient Goal Desired Activity /State Mental Status Date Assessment Result Facility 09-05-2021 Cognitive function Touch/Shaking [facility] Work Phone: 05-30-2021 Cognitive function Voice/Name [facility] Work Phone: 05-30-2021 Cognitive function Patient Orien tation Person;Place;Time [facility] [facility] Work Phone: Clinical Notes 07-15-2022 to 08-17-2024 Note Date & Type Note Facility 08-17-2024 Radiology Diagnostic study note [facility] Imaging Services [address] [place], [place] [address] Abdomen Limited MR#: [id number] Acct: [id number] Name: PEDRO CUEVAS Rep #: [id number] : 2005 F 19 From: Dajuan Tom MD PCP: Care Physician,No Primary Status: REG CLI Study:Abdomen Limited Date of Exam: 12/03 Exam# [id number] Ordering Dr: Wang Osman PROCEDURE: ABDOMEN LIMITED 08/17/2024 REASON FOR EXAM: PALPABLE MASS LUQ ABDOMEN DISTAL RIB COMPARISON: None FINDINGS: Targeted sonogram of the left upper quadrant was performed. No sonographic abnormality is seen. US/Abdomen Limited IMPRESSION: No sonographic abnormality is seen. [facility]: ARNOLDO Osman; No Primary Care Physician ~ Manager Float: Signed [facility] 08-14-2024 Evaluation note Diagnosis Onset Date Resolution Abdominal mass, LUQ (left upper quadrant) acute August 14, 2024 10:51am Abdominal pain acute August 14, 2024 10:51am Constipation chronic August 14 10:51am Nausea chronic August 20 9:30am Abdominal pain acute October 10:16am Diarrhea acute October 20 10:16am Nausea chronic October 20 10:16am [facility] Work Phone: 1(956) 921-578206-04-2025 NoteHNO ID: [id number] Author: ?, ?, ? Service: Pharmacy Author Type: ? Type: Plan of Care Filed: 08/12/2024 14:36 Note Text: PHARMACY BEDSIDE DELIVERY SERVICE Patient Name: Pedro Cuevas The marked outpatient medications were Filled at: [facility] and delivered to the patient's bedside to pharm p/u Medication List START taking these medications oxyCODONE-acetaminophen 5-325 mg tablet Commonly known as: PERCOCET Take 1 tablet by mouth every 6 hours as needed for up to 5 days. X CONTINUE taking these medications Ibuprofen 200 mg Cap You might also be taking other medications not listed above. If you have questions about any of your other medications, talk to the person who prescribed them or your Primary Care Provider. 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 Author Type: Physician Type: Progress Notes Filed: 08/11/2024 13:56 Note Text: HISTORY AND PHYSICAL - BREAST COMPLAINT Pedro Cuevas 2005 REFERRING PHYSICIAN: Reji Peña MD, MD CHIEF COMPLAINT: Abnormal mammogram (primary encounter diagnosis) HPI: The patient is a 19 year old female with a complaint of a palpable breast mass. The patient notes a mass in the upper outer quadrant of her right breast. The patient has noticed this mass for 4 mo. The patient had a mammogram with ultrasound on 07/01/2024 which demonstrated 3.1 cm mass at the 9 o'clock position +4 cm. She does perform a self breast exam routinely. She notes no skin changes. She denies nipple discharge. She notes no axillary masses. She notes no family history of breast problems. She notes no significant breast trauma or breast difficulties in the past. Patient underwent an ultrasound-guided right needle core biopsy Right breast, core biopsy - Fibroepithelial lesion, PAST MEDICAL HISTORY No past medical history on file. PAST SURGICAL HISTORY PAST SURGICAL HISTORY Procedure Laterality Date [facility] CURRENT MEDICATIONS No current outpatient medications on file. No current facility-administered medications for this visit. ALLERGIES: Adhesive, Ciprodex [Ciprofloxacin-Dexamethasone], and Dexamethasone PERSONAL HISTORY: SOCIAL HISTORY Social History Tobacco Use Smoking status: Never Smokeless tobacco: Never Vaping Use Vaping status: Never Used Substance Use Topics Alcohol use: Yes Comment: occasional Drug use: Never FAMILY HISTORY: FAMILY HISTORY FAMILY HISTORY Adopted: Yes REVIEW OF SYMPTOMS: The review of systems data was entered by the nurse and reviewed by me There are no exam notes on file for this visit. PHYSICAL EXAMINATION: General: The patient is 19 year old female, well nourished, well hydrated in no acute distress. The patient is oriented to time, place, and person. VITALS: Blood pressure 115/75, pulse 78, resp. rate 14, weight 46.9 kg (103 lb 8 oz), last menstrual period 05/09/2024, SpO2 99%. Body mass index is 20.21 kg/m?. HEENT: Normal cephalic, ataumatic, pupils are equally round, sclera are anicteric, mucous membranes are moist, oropharynx is clear. Neck has no masses, asymmetry or lymphadenopathy. Thyroid is unremarkable. Respiratory: Clear to auscultation and percussion. Normal respiratory excursion and pattern. Cardiac: Examination is regular rate and rhythm. Abdominal exam: Soft, nontender, with no palpable masses. No hepatosplenomegaly. No palpable hernias. Rectal exam: exam deferred Extremities: no clubbing, cyanosis or edema. No adenopathy. Breast: Visual inspection reveals no retractions, nipple inversion, or skin changes. Palpation of the right breast reveals firm mass 9 o'clock position right breast upper outer quadrant. Palpation of the left breast reveals no dominant or suspicious masses. Axillary exam demonstrates no suspicious masses in either the left or right axilla. There is no nipple discharge expressed from either the left or right breast. LABORATORY VALUES: As Noted RADIOLOGIC STUDIES: As Noted Assessment IMPRESSION: Abnormal mammogram (primary encounter diagnosis) PLAN: I plan to perform a excisional right breast biopsy. the planned surgical procedure was discussed extensively with the patient. The risks, benefits, anticipated outcomes and possible complications were mentioned. My staff has also explained the procedure in understandable terms and the patient was given the option to take printed material concerning the planned procedure. The patient had the opportunity to ask questions concerning the planned procedure. The patient freely consents to the planned procedure. Diagnoses: (R92.8) Abnormal mammogram (primary encounter diagnosis) My findings have been communicated to Dr. Reji Peña MD, MD via shared medical record. This note will be forwarded to Dr. Reji Peña MD, MD. Return to Clinic: The patient is instructed to follow-up with me after the testing has been completed. Edin Ramirez III [facility]06-02-2025 History of Present illness Narrative* Edin Ramirez MD - 08/10/2024 1:13 PM EDT HISTORY AND PHYSICAL - BREAST COMPLAINT Pedro Cuevas 2005 REFERRING PHYSICIAN: Reji Peña MD, MD CHIEF COMPLAINT: Abnormal mammogram (primary encounter diagnosis) HPI: The patient is a 19 year old female with a complaint of a palpable breast mass. The patient notes a mass in the upper outer quadrant of her right breast. The patient has noticed this mass for 4 mo. The patient had a mammogram with ultrasound on 07/01/2024 which demonstrated 3.1 cm mass at the 9o'clock position +4 cm. She does perform a self breast exam routinely. She notes no skin changes. She denies nipple discharge. She notes no axillary masses. She notes no family history of breast problems. She notes no significant breast trauma or breast difficulties in the past. Patient underwent an ultrasound-guided right needle core biopsy Right breast, core biopsy - Fibroepithelial lesion, PAST MEDICAL HISTORY No past medical history on file. PAST SURGICAL HISTORY PAST SURGICAL HISTORY Procedure Laterality Date COLONOSCOPY SCREENING 2021 EGD W/O [facility] SPEC VARICIES INJ 2021 CURRENT MEDICATIONS No current outpatient medications on file. No current facility-administered medications for this visit. ALLERGIES: Adhesive, Ciprodex [Ciprofloxacin-Dexamethasone], and Dexamethasone PERSONAL HISTORY: SOCIAL HISTORY Social History Tobacco Use Smoking status: Never Smokeless tobacco: Never Vaping Use Vaping status: Never Used Substance Use Topics Alcohol use: Yes Comment: occasional Drug use: Never FAMILY HISTORY: FAMILY HISTORY FAMILY HISTORY Adopted: Yes REVIEW OF SYMPTOMS: The review of systems data was entered by the nurse and reviewed by me There are no exam notes on file for this visit. PHYSICAL EXAMINATION: General: The patient is 19 year old female, well nourished, well hydrated in no acute distress. Thepatient is oriented to time, place, and person. VITALS: Blood pressure 115/75, pulse 78, resp. rate 14, weight 46.9 kg (103 lb 8 oz), last menstrual period 05/09/2024, SpO2 99%. Body mass index is 20.21 kg/m . HEENT: Normal cephalic, ataumatic, pupils are equally round, sclera are anicteric, mucous membranesare moist, oropharynx is clear. Neck has no masses, asymmetry or lymphadenopathy. Thyroid is unremarkable. Respiratory: Clear to auscultation and percussion. Normal respiratory excursion and pattern. Cardiac: Examination is regular rate and rhythm. Abdominal exam: Soft, nontender, with no palpable masses. No hepatosplenomegaly. No palpable hernias. Rectal exam: exam deferred Extremities: no clubbing, cyanosis or edema. No adenopathy. Breast: Visual inspection reveals no retractions, nipple inversion, or skin changes. Palpation of the right breast reveals firm mass 9 o'clock position right breast upper outer quadrant. Palpation ofthe left breast reveals no dominant or suspicious masses. Axillary exam demonstrates no suspicious masses in either the left or right axilla. There is no nipple discharge expressed from either the left or right breast. LABORATORY VALUES: As Noted RADIOLOGIC STUDIES: As Noted Assessment IMPRESSION: Abnormal mammogram (primary encounter diagnosis) PLAN: I plan to perform a excisional right breast biopsy. the planned surgical procedure was discussed extensively with the patient. The risks, benefits, anticipated outcomes and possible complications were mentioned. My staff has also explained the procedure in understandable terms and the patientwas given the option to take printed material concerning the planned procedure. The patient had theopportunity to ask questions concerning the planned procedure. The patient freely consents to the planned procedure. Diagnoses: (R92.8) Abnormal mammogram (primary encounter diagnosis) My findings have been communicated to Dr. Reji Peña MD, MD via shared medical record. This note will be forwarded to Dr. Reji Peña MD, MD. Return to Clinic: The patient is instructed to follow-up with me after the testing has been completed. Edin Ramirez III, MD documented in this encounterAs[facility] Telephone encounter Note * Telephone Encounter - Mohamud Louise RN - 07/28/2024 9:35 AM EDT Gave results and phone number to Dr Ramirez to return patients call.Mohamud Louise RN [facility]05-20-2025 Miscellaneous Notes* Telephone Encounter - Mohamud Louise RN - 07/28/2024 9:35 AM EDT Gave results and phone number to Dr Ramirez to return patients call.Mohamud Louise RN * Telephone Encounter - Melody Mathur LPN - 07/27/2024 1:43 PM EDT Patient called into office requesting results from breast core biopsy. Please advise. Melody Mathur LPN * Telephone Encounter - Lyric Pacheco RN - 07/21/2024 10:25 AM EDT Patient states that she has received the results of her breast biopsy via mychart and has some questions. She would like someone from the office to call her back to review the results with her. Please call patient back at: [phone] documented in this encounterAshtabula [facility]05-19-2025 Telephone encounter Note * Telephone Encounter - Melody Mathur LPN - 07/27/2024 1:43 PM EDT Patient called into office requesting results from breast core biopsy. Please advise. Melody Mathur LPN [facility] Work Phone: 1(295) 924-337605-13-2025 Telephone encounter Note* Telephone Encounter - Lyric Pacheco RN - 07/21/2024 10:25 AM EDT Patient states that she has received the results of her breast biopsy via mychart and has some questions. She would like someone from the office to call her back to review the results with her. Please call patient back at: [phone] [facility]05-05-2025 NoteSelect slides have been reviewed in consultation with Dr. Souza, of the [facility] breast pathology department, who concurs. [facility] on above:Order Comment: Specimen Type: TISSUE SPECIMENOrdering Facility: [facility] Address: [address] [place], [place] [address]Performed By: #### [id number] ####[facility] LABCLIA [id number] [address]05-05-2025 NoteHNO ID: [id number] Author: EDIN RAMIREZ MD Service: ? Author Type: Physician Type: Progress Notes Filed: 07/13/2024 14:04 Note Text: Preoperative diagnosis: Right breast mass Postoperative diagnosis: The same Procedure: Ultrasound-guided needle core biopsy of abnormal mammogram to right breast Surgeon: James Procedure: Ultrasound of the right breast at the 9 o'clock position revealed the lesion in question. I prepped the skin with Betadine. I injected 1% lidocaine plain. Skin khari was made. I injected local down to the lesion. Under ultrasound guidance 2 needle core biopsies of this lesion were obtained. Under ultrasound guidance a small titanium clip was placed. Steri-Strips were applied sterile dressings were applied and the patient tolerated the procedure well. No postoperative mammogram was obtainedK[facility]25 History of Present illness Narrative* Edin Ramirez MD - 07/13/2024 1:38 PM EDT Preoperative diagnosis: Right breast mass Postoperative diagnosis: The same Procedure: Ultrasound-guided needle core biopsy of abnormal mammogram to right breast Surgeon: James Procedure: Ultrasound of the right breast at the 9 o'clock position revealed the lesion in question. I prepped the skin with Betadine. I injected 1% lidocaine plain. Skin khari was made. I injected local down to the lesion. Under ultrasound guidance 2 needle core biopsies of this lesion were obtained. Under ultrasound guidance a small titanium clip was placed. Steri-Strips were applied sterile dressings were applied and the patient tolerated the procedure well. No postoperative mammogram was obtained documented in this encounterAshtabula [facility] Center05-05-2025 NoteHNO ID: [id number] Author: MOHAMUD LOUISE RN Service: ? Author Type: Registered Nurse Type: Procedures Filed: 07/13/2024 13:48 Note Text: UNIVERSAL PROTOCOL / SAFETY CHECKLIST Procedure to be Performed: Ultrasound Guided Needle Core Biopsy right breast Sign In: A Moment of CARE was completed. Appropriate PPE (Personal Protective Equipment) worn by all providers involved with the procedure. Special equipment utilized ultrasound. Patient/Surrogate Stated/Verified: Patient name, Date of , Relevant allergies, and The intended procedure Time Out: Relevant labs, photos, and/or imaging studies have been reviewed. Intended patient and procedure match the source document(s) (e.g. consent, HANDP, associated studies [imaging, pathology]) match the intended patient and procedure. Consent obtained and matches the intended procedure. Yes. Correct side/site has been marked and visible. Medications required for this procedure are verified. Fire risk assessed and is not applicable. Implants: breast tissue marker Sign Out: Specimens are all correctly labeled and sent. All instruments, equipment, possible retained foreign bodies are accounted for. Yes. The post-procedure plan of care has been communicated to the patient or surrogate.[facility]05-05-20[facility] Procedure note* Mohamud Louise RN - 07/13/2024 1:28 PM EDT UNIVERSAL PROTOCOL / SAFETY CHECKLIST Procedure to be Performed: Ultrasound Guided Needle Core Biopsy right breast Sign In: A Moment of CARE was completed. Appropriate PPE (Personal Protective Equipment) worn by all providers involved with the procedure. Special equipment utilized ultrasound. Patient/Surrogate Stated/Verified: Patient name, Date of , Relevant allergies, and The intended procedure Time Out: Relevant labs, photos, and/or imaging studies have been reviewed. Intended patient and procedure match the source document(s) (e.g. consent, H&P, associated studies [imaging, pathology]) match the intended patient and procedure. Consent obtained and matches the intended procedure. Yes. Correct side/site has been marked and visible. Medications required for this procedure are verified. Fire risk assessed and is not applicable. Implants: breast tissue marker Sign Out: Specimens are all correctly labeled and sent. All instruments, equipment, possible retained foreign bodies are accounted for. Yes. The post-procedure plan of care has been communicated to the patient or surrogate. [facility]05-05-2025 Instructions* Patient Instructions* Mohamud Louise RN - 07/13/2024 1:28 PM EDT The following instructions are important for you related to your office visit today with the [facility] General Surgeons. Instructions After OFFICE BASED BREAST BIOPSY Please do not take aspirin or other blood thinners for the next few days. After the procedure, Steri-Strips and a dressing will be placed on your small incision. The dressing may be removed in two tothree days after the procedure. The Steri-Strips should be left in place until they fall off. If you have bleeding from the biopsy site, hold pressure with a clean gauze. If the bleeding continues, contact our office immediately. I recommend taking Advil or Tylenol for the discomfort. You should wear a comfortable but somewhat tight fitting bra. If you have significant bruising, an ice packmay improve your discomfort. Please contact office in 10 days if you haven't heard from us. If you note any additional difficulties, questions, or concerns, you should contact our office immediately @ [phone] and ask to be transferred to the General Surgery department. documented in this encounterAshtabula [facility]05-05-2025 Procedure note* Mohamud Louise RN - 07/13/2024 1:28 PM EDT UNIVERSAL PROTOCOL / SAFETY CHECKLIST Procedure to be Performed: Ultrasound Guided Needle Core Biopsy right breast Sign In: A Moment of CARE was completed. Appropriate PPE (Personal Protective Equipment) worn by all providers involved with the procedure. Special equipment utilized ultrasound. Patient/Surrogate Stated/Verified: Patient name, Date of , Relevant allergies, and The intended procedure Time Out: Relevant labs, photos, and/or imaging studies have been reviewed. Intended patient and procedure match the source document(s) (e.g. consent, H&P, associated studies [imaging, pathology]) match the intended patient and procedure. Consent obtained and matches the intended procedure. Yes. Correct side/site has been marked and visible. Medications required for this procedure are verified. Fire risk assessed and is not applicable. Implants: breast tissue marker Sign Out: Specimens are all correctly labeled and sent. All instruments, equipment, possible retained foreign bodies are accounted for. Yes. The post-procedure plan of care has been communicated to the patient or surrogate. documented in this encounterAshtabula [facility]04-29-2025 NoteHNO ID: [id number] Author: EDIN RAMIREZ MD Service: ? Author Type: Physician Type: Progress Notes Filed: 07/07/2024 13:15 Note Text: HISTORY AND PHYSICAL - BREAST COMPLAINT Pedro Aguila Mason 2005 REFERRING PHYSICIAN: Reji Peña MD, MD CHIEF COMPLAINT: Abnormal mammogram (primary encounter diagnosis) HPI: The patient is a 19 year old female with a complaint of a palpable breast mass. The patient notes a mass in the upper outer quadrant of her right breast. The patient has noticed this mass for 4 mo. The patient had a mammogram with ultrasound on 07/01/2024 which demonstrated 3.1 cm mass at the 9 o'clock position +4 cm. She does perform a self breast exam routinely. She notes no skin changes. She denies nipple discharge. She notes no axillary masses. She notes no family history of breast problems. She notes no significant breast trauma or breast difficulties in the past. The patient is being seen by me today at the request of Dr. Reji Peña MD, MD for my opinion and advice regarding Abnormal mammogram (primary encounter diagnosis). No past medical history on file. PAST SURGICAL HISTORY Procedure Laterality Date [facility]ING [facility] No current outpatient medications on file. No current facility-administered medications for this visit. ALLERGIES: Adhesive, Ciprodex [Ciprofloxacin-Dexamethasone], and Dexamethasone PERSONAL HISTORY: Social History Tobacco Use Smoking status: Never Smokeless tobacco: Never Vaping Use Vaping status: Never Used Substance Use Topics Alcohol use: Yes Comment: occasional Drug use: Never FAMILY HISTORY: FAMILY HISTORY Adopted: Yes REVIEW OF SYMPTOMS: The review of systems data was entered by the nurse and reviewed by me There are no exam notes on file for this visit. PHYSICAL EXAMINATION: General: The patient is 19 year old female, well nourished, well hydrated in no acute distress. The patient is oriented to time, place, and person. VITALS: Blood pressure 115/75, pulse 78, resp. rate 14, weight 46.9 kg (103 lb 8 oz), last menstrual period 05/09/2024, SpO2 99%. Body mass index is 20.21 kg/m?. HEENT: Normal cephalic, ataumatic, pupils are equally round, sclera are anicteric, mucous membranes are moist, oropharynx is clear. Neck has no masses, asymmetry or lymphadenopathy. Thyroid is unremarkable. Respiratory: Clear to auscultation and percussion. Normal respiratory excursion and pattern. Cardiac: Examination is regular rate and rhythm. Abdominal exam: Soft, nontender, with no palpable masses. No hepatosplenomegaly. No palpable hernias. Rectal exam: exam deferred Extremities: no clubbing, cyanosis or edema. No adenopathy. Breast: Visual inspection reveals no retractions, nipple inversion, or skin changes. Palpation of the right breast reveals firm mass 9 o'clock position right breast upper outer quadrant. Palpation of the left breast reveals no dominant or suspicious masses. Axillary exam demonstrates no suspicious masses in either the left or right axilla. There is no nipple discharge expressed from either the left or right breast. LABORATORY VALUES: As Noted RADIOLOGIC STUDIES: As Noted Assessment IMPRESSION: Abnormal mammogram (primary encounter diagnosis) PLAN: I plan to perform a ultrasound guided core biopsy of the right breast. The planned surgical procedure was discussed extensively with the patient. The risks, benefits, anticipated outcomes and possible complications were mentioned. My staff has also explained the procedure in understandable terms and the patient was given the option to take printed material concerning the planned procedure. The patient had the opportunity to ask questions concerning the planned procedure. The patient freely consents to the planned procedure. Diagnoses: (R92.8) Abnormal mammogram (primary encounter diagnosis) My findings have been communicated to Dr. Reji Peña MD, MD via shared medical record. This note will be forwarded to Dr. Reji Peña MD, MD. Return to Clinic: The patient is instructed to follow-up with me after the testing has been completed. Edin Ramirez III, [facility]04-29-2025 History of Present illness Narrative* Edin Ramirez MD - 07/07/2024 1:10 PM EDT HISTORY AND PHYSICAL - BREAST COMPLAINT Pedro Aguila Mason 2005 REFERRING PHYSICIAN: Reji Peña MD, MD CHIEF COMPLAINT: Abnormal mammogram (primary encounter diagnosis) HPI: The patient is a 19 year old female with a complaint of a palpable breast mass. The patient notes a mass in the upper outer quadrant of her right breast. The patient has noticed this mass for 4 mo. The patient had a mammogram with ultrasound on 07/01/2024 which demonstrated 3.1 cm mass at the 9o'clock position +4 cm. She does perform a self breast exam routinely. She notes no skin changes. She denies nipple discharge. She notes no axillary masses. She notes no family history of breast problems. She notes no significant breast trauma or breast difficulties in the past. The patient is being seen by me today at the request of Dr. Reji Peña MD, MD for my opinion and advice regarding Abnormal mammogram (primary encounter diagnosis). No past medical history on file. PAST SURGICAL HISTORY Procedure Laterality Date COLONOSCOPY SCREENING 2021 EGD W/O [facility] SPEC VARICIES INJ 2021 No current outpatient medications on file. No current facility-administered medications for this visit. ALLERGIES: Adhesive, Ciprodex [Ciprofloxacin-Dexamethasone], and Dexamethasone PERSONAL HISTORY: Social History Tobacco Use Smoking status: Never Smokeless tobacco: Never Vaping Use Vaping status: Never Used Substance Use Topics Alcohol use: Yes Comment: occasional Drug use: Never FAMILY HISTORY: FAMILY HISTORY Adopted: Yes REVIEW OF SYMPTOMS: The review of systems data was entered by the nurse and reviewed by me There are no exam notes on file for this visit. PHYSICAL EXAMINATION: General: The patient is 19 year old female, well nourished, well hydrated in no acute distress. Thepatient is oriented to time, place, and person. VITALS: Blood pressure 115/75, pulse 78, resp. rate 14, weight 46.9 kg (103 lb 8 oz), last menstrual period 05/09/2024, SpO2 99%. Body mass index is 20.21 kg/m . HEENT: Normal cephalic, ataumatic, pupils are equally round, sclera are anicteric, mucous membranesare moist, oropharynx is clear. Neck has no masses, asymmetry or lymphadenopathy. Thyroid is unremarkable. Respiratory: Clear to auscultation and percussion. Normal respiratory excursion and pattern. Cardiac: Examination is regular rate and rhythm. Abdominal exam: Soft, nontender, with no palpable masses. No hepatosplenomegaly. No palpable hernias. Rectal exam: exam deferred Extremities: no clubbing, cyanosis or edema. No adenopathy. Breast: Visual inspection reveals no retractions, nipple inversion, or skin changes. Palpation of the right breast reveals firm mass 9 o'clock position right breast upper outer quadrant. Palpation ofthe left breast reveals no dominant or suspicious masses. Axillary exam demonstrates no suspicious masses in either the left or right axilla. There is no nipple discharge expressed from either the left or right breast. LABORATORY VALUES: As Noted RADIOLOGIC STUDIES: As Noted Assessment IMPRESSION: Abnormal mammogram (primary encounter diagnosis) PLAN: I plan to perform a ultrasound guided core biopsy of the right breast. The planned surgical procedure was discussed extensively with the patient. The risks, benefits, anticipated outcomes and possible complications were mentioned. My staff has also explained the procedure in understandable terms and the patient was given the option to take printed material concerning the planned procedure. The patient had the opportunity to ask questions concerning the planned procedure. The patient freely consents to the planned procedure. Diagnoses: (R92.8) Abnormal mammogram (primary encounter diagnosis) My findings have been communicated to Dr. Reji Peña MD, MD via shared medical record. This note will be forwarded to Dr. Reji Peña MD, MD. Return to Clinic: The patient is instructed to follow-up with me after the testing has been completed. Edin Ramirez III, MD * Luli Alston, RN - 07/07/2024 12:58 PM EDT REVIEW OF SYSTEMS: General: The patient notes fatigue, denies weight loss, denies weight gain, denies feeling hot, anddenies feelings of cold. Eyes: The patient denies glaucoma, denies eye injury/surgery, wears glasses or contacts. Ear/Nose/Throat: The patient denies allergies, denies hayfever, denies ear infections, and denies bloody noses. Cardiovascular: The patient denies chest pain, denies heart disease, denies high blood pressure,denies cardiac stent, denies prior heart attack, denies irregular heart beat, denies high cholesterol, denies poor circulation, denies heart failure, other cardiac issues, denies claudication, denies cold feet, denies peripheral arterial stent. Respiratory: The patient denies tuberculosis, denies pneumonia, denies frequent cough, denies pulmonary embolism, denies shortness of breath, and denies coughing up blood. Gastrointestinal: The patient denies difficulty swallowing, notes acid reflux, notes ulcers, deniesvomiting, denies jaundice/hepatitis, denies gallbladder problems, denies black or tarry stools, denies hemorrhoids, denies bleeding from rectum, denies diverticulitis, notes constipation, notes diarrhea, denies loss of stool control, and denies hernias. Kidney/Bladder: The patient denies kidney stones, denies urine infections, and denies bloody urine. Skin: The patient denies a history of skin cancer, denies bleeding/changing moles, and denies a history of skin rash. Neurologic: The patient denies a history of epilepsy/convulsions, denies headaches, denies head/spinal injuries, and denies stroke/TIA. Psychiatric: The patient denies psychiatric medications, notes depression denies substance abuse. Endocrine: The patient denies thyroid disorders, denies diabetes, and denies hormonal problems. Hematologic: The patient denies a history of bruising, denies bleeding, and denies anemia, denies blood clots. Infections: The patient denies a history of measles and mumps, denies rheumatic fever, and denies sexually transmitted diseases. Musculoskeletal: The patient denies back pain/injury, denies back problems, denies sciatica, deniesknee/foot trouble, denies arthritis, or denies gout. When was patient's last Mammogram screening? N/A Last Colonoscopy: 2021 Luli Alston RN [facility] NoteHNO ID: [id number] Author: LULI ALSTON RN Service: ? Author Type: Registered Nurse Type: Progress Notes Filed: 07/07/2024 13:15 Note Text: REVIEW OF SYSTEMS: General: The patient notes fatigue, denies weight loss, denies weight gain, denies feeling hot, and denies feelings of cold. Eyes: The patient denies glaucoma, denies eye injury/surgery, wears glasses or contacts. Ear/Nose/Throat: The patient denies allergies, denies hayfever, denies ear infections, and denies bloody noses. Cardiovascular: The patient denies chest pain, denies heart disease, denies high blood pressure,denies cardiac stent, denies prior heart attack, denies irregular heart beat, denies high cholesterol, denies poor circulation, denies heart failure, other cardiac issues, denies claudication, denies cold feet, denies peripheral arterial stent. Respiratory: The patient denies tuberculosis, denies pneumonia, denies frequent cough, denies pulmonary embolism, denies shortness of breath, and denies coughing up blood. Gastrointestinal: The patient denies difficulty swallowing, notes acid reflux, notes ulcers, denies vomiting, denies jaundice/hepatitis, denies gallbladder problems, denies black or tarry stools, denies hemorrhoids, denies bleeding from rectum, denies diverticulitis, notes constipation, notes diarrhea, denies loss of stool control, and denies hernias. Kidney/Bladder: The patient denies kidney stones, denies urine infections, and denies bloody urine. Skin: The patient denies a history of skin cancer, denies bleeding/changing moles, and denies a history of skin rash. Neurologic: The patient denies a history of epilepsy/convulsions, denies headaches, denies head/spinal injuries, and denies stroke/TIA. Psychiatric: The patient denies psychiatric medications, notes depression denies substance abuse. Endocrine: The patient denies thyroid disorders, denies diabetes, and denies hormonal problems. Hematologic: The patient denies a history of bruising, denies bleeding, and denies anemia, denies blood clots. Infections: The patient denies a history of measles and mumps, denies rheumatic fever, and denies sexually transmitted diseases. Musculoskeletal: The patient denies back pain/injury, denies back problems, denies sciatica, denies knee/foot trouble, denies arthritis, or denies gout. When was patient's last Mammogram screening? N/A Last [facility]oscopy: [facility] NoteHNO ID: [id number] Author: ANIYA ROSA RDMS Service: ? Author Type: Auditing Coder Type: Progress Notes Filed: 07/01/2024 14:58 Note Text: Radiology Service Progress Note PATIENT NAME: Pedro Cuevas DATE OF SERVICE: July 01, 2024 TIME: 2:58 PM PATIENT IDENTITY VERIFICATION COMPLETED USING TWO (2) IDENTIFIERS: Name and Date of confirmed by patient verbally. FALL SCREENING: Has the patient had 2 falls in the last year or 1 fall with injury or currently using an Ambulatory Assistive Device (Walker, Cane, Wheelchair, Crutches, etc.)? No PATIENT GENDER DATA: Assigned female at . status: : No status: NO. PATIENT RELEVANT IMPLANT DATA REVIEWED: Not Applicable PATIENT PRESENTS WITH AN IMPLANTABLE OR ATTACHED APPLIED RESEARCH DIRECTOR: No RADIOLOGY DEPARTMENT: Ultrasound PERIPHERAL IV DATA: Not applicable SIGNED BY: Aniya Rosa RDMS July 01, 2024 2:58 [facility]04-10-2025 Nuclear medicine Diagnostic study note [facility] Imaging Services [address] [place] [address] Gastric Emptying Study - 4 HR MR#: [id number] Acct: [id number] Name: PEDRO CUEVAS Rep #: [id number] : 2005 F 19 From: Argelia Grijalva MD PCP: Care Physician,No Primary Status: REG CLI Study:Gastric Emptying Study - 4 HR Date of E xam: 06/16/24 Exam# [id number] Ordering Dr: Wang Osman CORE WINDING OPERATOR-C PROCEDURE: GASTRIC EMPTYING STUDY - 4 HR 06/16/2024 REASON FOR EXAM: PROLONGED 1HR GET COMPARISON: 05/28/2024 gastric emptying study. TECHNIQUE: The patient ingested a standard meal of cooked egg whites mixed with 2 slices of, toasted white bread and 6 oz water. Anterior and posterior planar images of the upper abdomen were obtained for 1 minute immediately following the meal at 1h, 2h and 4h if more than 10% of the activity persisted within the stomach. Regions of interest were drawn, and a geometric mean was used to calculate a [id number]. Medications taken in the past 24 hours that may affect gastric emptying: None. RADIOPHARMACEUTICAL: 1.2 mCi Sulfur Colloid FINDINGS: Percent activity remaining in stomach: 1 hour 61 % (normal 37-90%) 2 hours: 29 % (normal 30-60%) 4 hours: 1 % (normal 0-10%) NM/Gastric Emptying Study - 4 HR IMPRESSION: Normal gastric emptying study. Reading Location: [place] [address] CC: ARNOLDO Osman; No Primary Care Physician ~ Manager Float: Signed [facility]03-30-2025 Nuclear medicine Diagnostic study note [facility] Imaging Services [address] [place] [id number] Gastric Emptying Study MR#: [id number] Acct: [id number] Name: PEDRO CUEVAS Rep #: [id number] : 2005 F 19 From: Argelia Grijalva MD PCP: Care Physician,No Primary Status: REG CLI Study:Gastric Emptying Study Date of Exam: 06/05/24 Exam# [id number] Ordering Dr: Wang Osman CORE WINDING OPERATOR-C ADDENDUM by Dr. Indra Grijalva MD on 06/07/24 at 0425 Impression 1. There is 79% gastric retention at 60 minutes, within the NORMAL range. Reading Location: [place] 06/07/24 6368 Date cc: ARNOLDO Osman; No Primary Care Physician ~* Signed PROCEDURE: GASTRIC EMPTYING STUDY 06/05/2024 REASON FOR EXAM: EARLY SATIETY History of Crohn's disease. Feels like stomach is swollen. COMPARISON: None. TECHNIQUE: Patient ingested 1.2 mCi of Technetium Sulfur Colloid in oatmeal. Anterior and posterior planar images of the upper abdomen were obtained for 60 minutes. Regions of interest were drawn, and a geometric mean was used to calculate a gobx-[id number]-gimch. Medications taken in the past 24 hours that may affect gastric emptying: None. FINDINGS: Half-life: 0 Gastroesophageal reflux: None. % Emptying 1 hour 21 % (normal 37-90%) NM/Gastric Emptying Study IMPRESSION: 1. MARKEDLY DELAYED GASTRIC EMPTYING. Reading Location: [place] CC: ARNOLDO Osman; No Primary Care Physician ~ Manager Float: Signed [facility]03-21-2025 NoteHNO ID: [id number] Author: HUONG GURROLA APRN.ADA ACCOMMODATION CONSULTANT Service: ? Author Type: Nurse Practitioner Type: Progress Notes Filed: 05/29/2024 10:27 Note Text: Patient declined body engineer. Pedro Cuevas is a 19 year old female who presents for problem visit (RT) breast lump for 3 month(s). HPI: Patient reported (RT) breast lump has increased in size, denied pain, nipple discharge with visit. 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 No pertinent past medical history. PAST SURGICAL HISTORY Procedure Laterality Date COLONOSCOPY SCREENING 2021 EGD W/O [facility] SPEC VARICIES INJ 2021 FAMILY HISTORY Adopted: Yes Social History Tobacco Use Smoking status: Never Smokeless tobacco: Never Vaping Use Vaping status: Never Used Substance Use Topics Alcohol use: Yes Comment: occasional Drug use: Never Current Outpatient Medications Medication Sig FLUoxetine (PROZAC) 20 mg capsule (Patient not taking: Reported on 07/15/2022) multivitamin tablet Take 1 tablet by mouth once daily. (Patient not taking: Reported on 04/13/2024) No current facility-administered medications for this visit. Allergies As of Date: 05/29/2024 Allergen Noted Reaction ADHESIVE 02/06/2022 Itching CIPRODEX [CIPROFLOXACIN-DEXAMETHA*10/27/2016 Swelling DEXAMETHASONE 05/30/2021 Swelling Fully Assessed 04/13/2024 REVIEW OF SYSTEMS See HPI. Expanded ROS: N/A Allergies and current medication updated:Yes SENSITIVE EXAM: The sensitive examination was discussed with the Patient or Patient's Authorized Police And Fire Dispatcher. As applicable, any other physician, advance practice provider, medical student, or other health professional student that will be observing or involved in the sensitive examination for educational or training purposes was discussed with the Patient or Authorized Police And Fire Dispatcher. The Patient or Authorized Police And Fire Dispatcher has agreed to proceed with the sensitive examination. (Sensitive examination includes inspection and/or palpation of the breasts, pelvis, prostate and anorectal regions). EXAM: BP 118/62 Wt 101 lb 12.8 oz (46.2kg) LMP 05/09/2024 GENERAL: pleasant, female in no apparent distress HEENT: Normocephalic, atraumatic, mucus membranes moist, and no lesions BREAST: soft, non-tender, symmetric, normal nipple-areolar complex, no lymphadenopathy, no nipple discharge, and dominant mass in the right outer quadrant- 3 x 3 cm mobile mass CHEST: Normal inspiratory effort NEURO: alert and oriented x3,exam grossly non-focal EXTREMITIES: normal ASSESSMENT AND PLAN: Assessment AND Plan Mass of upper outer quadrant of right breast Orders: BREAST LTD RIGHT; Future Huong Gurrola APRN.CNP Medical Decision Making: Problems: Moderate: New problem with uncertain prognosis Data: Unique test(s) ordered: 1 Risk: Low: Low risk from testing/treatment Medical Decision Making Level: [facility] History of Present illness Narrative* Huong Gurrola APRN.CNP - 05/29/2024 9:53 AM EDT Patient declined body engineer. Pedro Cuevas is a 19 year old female who presents for problem visit (RT) breast lump for 3 month(s). HPI: Patient reported (RT) breast lump has increased in size, denied pain, nipple discharge with visit. 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 No pertinent past medical history. PAST SURGICAL HISTORY Procedure Laterality Date COLONOSCOPY SCREENING 2021 EGD W/O [facility] SPEC VARICIES INJ 2021 FAMILY HISTORY Adopted: Yes Social History Tobacco Use Smoking status: Never Smokeless tobacco: Never Vaping Use Vaping status: Never Used Substance Use Topics Alcohol use: Yes Comment: occasional Drug use: Never Current Outpatient Medications Medication Sig FLUoxetine (PROZAC) 20 mg capsule (Patient not taking: Reported on 07/15/2022) multivitamin tablet Take 1 tablet by mouth once daily. (Patient not taking: Reported on 04/13/2024) No current facility-administered medications for this visit. Allergies As of Date: 05/29/2024 Allergen Noted Reaction ADHESIVE 02/06/2022 Itching CIPRODEX [CIPROFLOXACIN-DEXAMETHA*10/27/2016 Swelling DEXAMETHASONE 05/30/2021 Swelling Fully Assessed 04/13/2024 REVIEW OF SYSTEMS See HPI. Expanded ROS: N/A Allergies and current medication updated:Yes SENSITIVE EXAM: The sensitive examination was discussed with the Patient or Patient's Authorized Police And Fire Dispatcher. As applicable, any other physician, advance practice provider, medical student, or other health professional student that will be observing or involved in the sensitive examination for educational or training purposes was discussed with the Patient or Authorized Police And Fire Dispatcher. The Patient or Authorized Police And Fire Dispatcher has agreed to proceed with the sensitive examination. (Sensitive examination includes inspection and/or palpation of the breasts, pelvis, prostate and anorectal regions). EXAM: BP 118/62 Wt 101 lb 12.8 oz (46.2kg) LMP 05/09/2024 GENERAL: pleasant, female in no apparent distress HEENT: Normocephalic, atraumatic, mucus membranes moist, and no lesions BREAST: soft, non-tender, symmetric, normal nipple-areolar complex, no lymphadenopathy, no nipple discharge, and dominant mass in the right outer quadrant- 3 x 3 cm mobile mass CHEST: Normal inspiratory effort NEURO: alert and oriented x3,exam grossly non-focal EXTREMITIES: normal ASSESSMENT AND PLAN: Assessment & Plan Mass of upper outer quadrant of right breast Orders: US BREAST LTD RIGHT; Ihsan Gurrola APRN.CNP Medical Decision Making: Problems: Moderate: New problem with uncertain prognosis Data: Unique test(s) ordered: 1 Risk: Low: Low risk from testing/treatment Medical Decision Making Level: 3 - Low documented in this encounterAs[facility] Evaluation note* Diagnosis Onset Date Resolution Status Admit Date Irritable bowel syndrome wit h constipation acute May 11, 2024 10:22am Acute upper abdominal pain inactive May 11, 2024 10:22am [facility] Work Phone: 1(212) 611-980203-03-2025 Evaluation note* Diagnosis Onset Date Resolution Status Admit Date Irritable bowel syndrome wit h constipation acute May 11, 2024 10:22am Acute upper abdominal pain inactive May 11, 2024 10:22am Abdominal mass, LUQ (left up per quadrant) acute August 14, 2024 1 0:51am Abdominal pain acute August 14, 2024 10:51am Constipation acute August 14 10:51am [facility] Work Phone: [phone]) [phone] Evaluation note* Diagnosis Onset Date Resolution Status Admit Date Irritable bowel syndrome wit h constipation acute May 11, 2024 10:22am Acute upper abdominal pain inactive May 11, 2024 10:22am Abdominal mass, LUQ (left up per quadrant) acute August 14, 2024 1 0:51am Abdominal pain acute August 14, 2024 10:51am Constipation chronic August 14 10:51am [facility] Work Phone: [phone]) 995-760103-03-2025 Evaluation note* Diagnosis Onset Date Resolution Status Admit Date Irritable bowel syndrome wit h constipation acute May 11, 2024 10:22am Acute upper abdominal pain inactive May 11, 2024 10:22am Abdominal mass, LUQ (left up per quadrant) acute August 14, 2024 1 0:51am Abdominal pain acute August 14, 2024 10:51am Constipation chronic August 14 10:51am Nausea chronic August 20 9:30am [facility] Work Phone: 1(416) 463-795602-03-2025 NoteHNO ID: [id number] Author: MARIA D EPPS MD Service: ? Author Type: Physician Type: Progress Notes Filed: 04/13/2024 14:40 Note Text: Assistant Refinery Operator offered: Patient declines. Pedro is a 19 year old who presents for an annual gynecologic exam with complaints, pain lump in outer right breast . First notice 2 months ago. Tender just before and during periods. Not changing in size. Does drink a moderated amount of caffeine. Works at [employer] Still get period: Yes LMP: 04/06/2024 Menses: irregular Menstrual flow: Moderate Bleeding amount bothersome: No Sexually active: No Contraception: Abstinence HPV vaccine: Yes HPV:N/A Last pap smear: never Last mammogram: never Sexually active: not currently. No male partners OB History No obstetric history on file. 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 No pertinent past medical history. PAST SURGICAL HISTORY Procedure Laterality Date COLONOSCOPY SCREENING 2021 EGD W/O [facility] SPEC VARICIES INJ 2021 FAMILY HISTORY Adopted: Yes SOCIAL HISTORY Social History Tobacco Use Smoking status: Never Smokeless tobacco: Never Vaping Use Vaping status: Never Used Substance Use Topics Alcohol use: Yes Comment: occasional Drug use: Never REVIEW OF SYSTEMS Abdomen: No abdominal pain, nausea, vomiting, diarrhea, or constipation. No bloating, early satiety, indigestion, or increased flatulence. Bladder: No dysuria, gross hematuria, urinary frequency, urinary urgency, or incontinence. Breast: No nipple d/c, overlying skin changes, redness or skin retraction and Breast lump(s) noted. Allergies and current medication updated:Yes SENSITIVE EXAM: The sensitive examination was discussed with the Patient or Patient's Authorized Police And Fire Dispatcher. As applicable, any other physician, advance practice provider, medical student, or other health professional student that will be observing or involved in the sensitive examination for educational or training purposes was discussed with the Patient or Authorized Police And Fire Dispatcher. The Patient or Authorized Police And Fire Dispatcher has agreed to proceed with the sensitive examination. (Sensitive examination includes inspection and/or palpation of the breasts, pelvis, prostate and anorectal regions). EXAM: BP 100/60 Ht 5' 0 (1.52m) Wt 102 lb (46.3kg) LMP 04/06/2024 BMI 19.92 kg/(m2). GENERAL: pleasant, female in no apparent distress HEENT: Normocephalic, atraumatic, mucus membranes moist, and no lesions NECK: Supple, full range of motion, no adenopathy, and thyroid normal DERMATOLOGY: Normal, without lesions, non-icteric, and non-hirsute BREAST: soft, non-tender, symmetric, no dominant mass, normal nipple-areolar complex, no lymphadenopathy, no nipple discharge, and 2 cm mobile nodule on outer breast. Non tender today CHEST: Normal inspiratory effort ABDOMEN: soft, non-tender, and no masses PELVIC: external genitalia normal, normal Bartholin's glands, urethra, Huey's glands, no vulvar lesions, no cervical lesions, good vaginal support, physiologic discharge present, normal appearing perineal body and perianal region BIMANUAL: uterus normal size, shape and consistency, no adnexal masses, and non-tender RECTOVAGINAL: deferred. NEURO: alert and oriented x3,exam grossly non-focal EXTREMITIES: normal ASSESSMENT/PLAN: 1) Health maintenance: Pap done with reflex HPV. Decrease caffeine intake. Vitamin E and primrose oil to help with breast tenderness 2) Contraception: none. Contraceptive options reviewed and information provided. 3) STD screening: Declined STD check. 4) Follow up one year or sooner as needed [facility] History of Present illness Narrative* Maria D Epps MD - 04/13/2024 2:07 PM EST Assistant Refinery Operator offered: Patient declines. Pedro is a 19 year old who presents for an annual gynecologic exam with complaints, pain lump in outer right breast . First notice 2 months ago. Tender just before and during periods. Not changing in size. Does drink a moderated amount of caffeine. Works at [employer] Still get period: Yes LMP: 04/06/2024 Menses: irregular Menstrual flow: Moderate Bleeding amount bothersome: No Sexually active: No Contraception: Abstinence HPV vaccine: Yes HPV:N/A Last pap smear: never Last mammogram: never Sexually active: not currently. No male partners OB History No obstetric history on file. 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 No pertinent past medical history. PAST SURGICAL HISTORY Procedure Laterality Date COLONOSCOPY SCREENING 2021 EGD W/O BRSH SPEC VARICIES INJ 2021 FAMILY HISTORY Adopted: Yes SOCIAL HISTORY Social History Tobacco Use Smoking status: Never Smokeless tobacco: Never Vaping Use Vaping status: Never Used Substance Use Topics Alcohol use: Yes Comment: occasional Drug use: Never REVIEW OF SYSTEMS Abdomen: No abdominal pain, nausea, vomiting, diarrhea, or constipation. No bloating, early satiety, indigestion, or increased flatulence. Bladder: No dysuria, gross hematuria, urinary frequency, urinary urgency, or incontinence. Breast: No nipple d/c, overlying skin changes, redness or skin retraction and Breast lump(s) noted. Allergies and current medication updated:Yes SENSITIVE EXAM: The sensitive examination was discussed with the Patient or Patient's Authorized Police And Fire Dispatcher. As applicable, any other physician, advance practice provider, medical student, or other health professional student that will be observing or involved in the sensitive examination for educational or training purposes was discussed with the Patient or Authorized Police And Fire Dispatcher. The Patient or Authorized Police And Fire Dispatcher has agreed to proceed with the sensitive examination. (Sensitive examination includes inspection and/or palpation of the breasts, pelvis, prostate and anorectal regions). EXAM: BP 100/60 Ht 5' 0 (1.52m) Wt 102 lb (46.3kg) LMP 04/06/2024 BMI 19.92 kg/(m^2). GENERAL: pleasant, female in no apparent distress HEENT: Normocephalic, atraumatic, mucus membranes moist, and no lesions NECK: Supple, full range of motion, no adenopathy, and thyroid normal DERMATOLOGY: Normal, without lesions, non-icteric, and non-hirsute BREAST: soft, non-tender, symmetric, no dominant mass, normal nipple-areolar complex, no lymphadenopathy, no nipple discharge, and 2 cm mobile nodule on outer breast. Non tender today CHEST: Normal inspiratory effort ABDOMEN: soft, non-tender, and no masses PELVIC: external genitalia normal, normal Bartholin's glands, urethra, Huey's glands, no vulvar lesions, no cervical lesions, good vaginal support, physiologic discharge present, normal appearing perineal body and perianal region BIMANUAL: uterus normal size, shape and consistency, no adnexal masses, and non-tender RECTOVAGINAL: deferred. NEURO: alert and oriented x3,exam grossly non-focal EXTREMITIES: normal ASSESSMENT/PLAN: 1) Health maintenance: Pap done with reflex HPV. Decrease caffeine intake. Vitamin E and primrose oil to help with breast tenderness 2) Contraception: none. Contraceptive options reviewed and information provided. 3) STD screening: Declined STD check. 4) Follow up one year or sooner as needed [facility] ORIGINAL EXAMINATION: TWO XRAY VIEWS OF THE ABDOMEN AND SINGLE XRAY VIEW OF THE CHEST03/28/2023 12:56 pm ABDOMEN, AAS COMPARISON: None HISTORY: ORDERING SYSTEM PROVIDED HISTORY: Reason for Exam: pain FINDINGS: CHEST: The cardiomediastinal contours are normal. There is no consolidation, vascular congestion, pleural effusion, or pneumothorax. ABDOMEN: The abdominal bowel gas pattern is nonobstructive. Moderate stool seen in the colon. No dilated bowel or air-fluid levels are identified. No pneumoperitoneum. Dextroconvex curvature seen of the thoracolumbar spine. Growth centers at the iliac crests are unfused. IMPRESSION: 1. No acute cardiopulmonary process. 2. Nonobstructive bowel gas pattern. Moderate stool in the colon Interpreted by: Edward Moore MD Preliminary Report By: Edward Moore MD Electronically signed By Edward Moore MD Dictated Date: 03/28/2023 2:04:20 PM Prelim Date: 03/28/2023 2:05:37 PM Sign Date: 03/28/2023 2:05:37 PM Ordering Provider: [facility]05-07-2023 History of Present illness Narrative* Randal Whelan APRN.ADA ACCOMMODATION CONSULTANT - 07/15/2022 12:42 PM EDT Subjective HPI HPI Pedro Cuevas is a 17 year old female who presents today for CC of st. This started 2 days ago.Has tried otc medication for relief. Symptoms are worsened by nothing. No known sick exposure. Denies possibility of being . nonsmoker. .Patient presents with: Sore Throat: swollen tonsils x 2 days No past medical history on file. No past surgical history on file. ALLERGIES Ciprodex [Ciprofloxacin-Dexamethasone] MEDICATIONS Drospirenone-Ethinyl Estradiol 3-0.03 mg per tablet TAKE 1 TABLET BY MOUTH EVERY DAY multivitamin tablet Take 1 tablet by mouth once daily. FLUoxetine (PROZAC) 20 mg capsule (Patient not taking: Reported on 07/15/2022) No family history on file. Social History Tobacco Use Smoking status: Never Smokeless tobacco: Never Review of Systems Constitutional: Negative for fever. HENT: Positive for sore throat. Negative for congestion, ear pain and nosebleeds. Respiratory: Negative for cough, shortness of breath and wheezing. Musculoskeletal: Negative for neck pain. Objective Blood pressure 108/70, pulse 88, temperature 36.3 C (97.4 F), resp. rate 16, weight 49 kg (108 lb),last menstrual period 10/21/2018, SpO2 99 %. Physical Exam Constitutional: General: She is not in acute distress. Appearance: She is not toxic-appearing or diaphoretic. HENT: Head: Normocephalic and atraumatic. Nose: Nose normal. Mouth/Throat: Pharynx: Uvula midline. Posterior oropharyngeal erythema present. No pharyngeal swelling, oropharyngeal exudate or uvula swelling. Eyes: General: Lids are normal. No scleral icterus. Right eye: No discharge. Left eye: No discharge. Conjunctiva/sclera: Conjunctivae normal. Pupils: Pupils are equal, round, and reactive to light. Neck: Trachea: Trachea normal. Cardiovascular: Rate and Rhythm: Normal rate and regular rhythm. Heart sounds: Normal heart sounds. Pulmonary: Effort: Pulmonary effort is normal. Breath sounds: Normal breath sounds. Musculoskeletal: Cervical back: Normal range of motion and neck supple. Lymphadenopathy: Cervical: No cervical adenopathy. Right cervical: No superficial cervical adenopathy. Left cervical: No superficial cervical adenopathy. Skin: Findings: No rash. Neurological: Mental Status: She is alert and oriented to person, place, and time. ASSESSMENT/PLAN: 1. Sore throat - ICD9: 462, ICD10: J02.9 - suspect viral - Alere Strep Test neg, no culture pending - antibiotic as written - Discussed supportive care treatment with fluids, rest and analgesia. - The patient should follow up in 3-5 days if symptoms persist or worsen -declines prednisone/viscous lidocain - STREP A MOLECULAR (POC) Randal Whelan APRN.CNP [facility] Future Appointments Appointment Date:03/30/2024 10:00:00 AM Scheduled Provider:LYRIC RAYA Location:[facility] Appointment Type: Wellness Annual [facility] evaluation note* Diagnosis Onset Date Resolution Status Constipation acute [facility] Work Phone: evaluation note* Diagnosis Onset Date Resolution Status Constipation acute Constipation acute H pylori ulcer acute IBD (inflammatory bowel disease) acute [facility] Work Phone: evaluation note* Diagnosis Onset Date Resolution Status Constipation acute H pylori ulcer acute Abdominal pain acute H pylori ulcer acute Intestinal cryptitis acute Terminal ileitis acute Gastric ulcer acute H pylori ulcer acute Irritable bowel syndrome with constipation acute [facility] Work Phone: evaluation note* Diagnosis Onset Date Resolution Status Irritable bowel syndrome with constipation acute Irritable bowel syndrome with constipation acute [facility] Work Phone: evalunolyz noteNo assessment information available [facility] Work Phone: evaluation note* Diagnosis Sore throat- Primary Acute pharyngitis documented in [facility]* Diagnosis Encounter for gynecological examination (general) (routine) without abnormal findings- Primary Screening for cervical cancer Screening for malignant neoplasm of the cervix Encounter for screening for human papillomavirus (HPV) Special screening examination for human papillomavirus (HPV) documented in this encounter [facility] note* Diagnosis Mass of upper outer quadrant of right breast- Primary documented in this encounter [facility] note* Diagnosis Abnormal mammogram- Primary Abnormal mammogram, unspecified documented in this encounter [facility] note* Diagnosis Abnormal mammogram- Primary Abnormal mammogram, unspecified [facility] Diagnosis Abnormal mammogram- Primary Abnormal mammogram, unspecified Abnormal mammogram Abnormal mammogram, unspecified documented in this encounter [facility] course Narrative No data available for this section [facility] Hospital Discharge instructions No data available for this section [facility] Instructions* Name Dates Details Patient Instructions Indication:Non-smoker Start:01-Sep-2020 Instruction Type:Provider Instructions for Treatment How to Access Health Informa tion Online using Patient Portal and [employer] Apps Indication:Non-smoker Start:01-Sep-2020 Instruction Type:Patient Education [facility]; [facility] Work Phone: instructions* Name Dates Details Patient Instructions Indication:Non-smoker Start:01-Sep-2020 Instruction Type:Provider Instructions for Treatment How to Access Health Informa tion Online using Patient Portal and [employer] Apps Indication:Non-smoker Start:01-Sep-2020 Instruction Type:Patient Education [facility]; [facility] Work Phone: instructions* Name Dates Details Patient Instructions Indication:Non-smoker Start:19-Dec-2020 Instruction Type:Provider Instructions for Treatment How to Access Health Informa tion Online using Patient Portal and [employer] Apps Indication:Non-smoker Start:19-Dec-2020 Instruction Type:Patient Education Patient Instructions Indication:Non-smoker Start:01-Sep-2020 Instruction Type:Provider Instructions for Treatment How to Access Health Informa tion Online using Patient Portal and [employer] Apps Indication:Non-smoker Start:01-Sep-2020 Instruction Type:Patient Education [facility]; [facility] Work Phone: instructions* Name Dates Details Patient Instructions Indication:Body mass index (BMI) of less than 5th percentile for age in patient 18 years to less than 21 years of age Start:20-Mar-2021 Instruction Type:Provider Instructions for Treatment How to Access Health Informa tion Online using Patient Portal and [employer] Apps Indication:Body mass index (BMI) of less than 5th percentile for age in patient 18 years to less than 21 years of age Start:20-Mar-2021 Instruction Type:Patient Education Patient Instructions Indication:Non-smoker Start:19-Dec-2020 Instruction Type:Provider Instructions for Treatment How to Access Health Informa tion Online using Patient Portal and [employer] Apps Indication:Non-smoker Start:19-Dec-2020 Instruction Type:Patient Education Patient Instructions Indication:Non-smoker Start:01-Sep-2020 Instruction Type:Provider Instructions for Treatment How to Access Health Informa tion Online using Patient Portal and [employer] Apps Indication:Non-smoker Start:01-Sep-2020 Instruction Type:Patient Education [facility]; [facility] Work Phone: [employer]Blue Mount [employer]ions* Name Dates Details Patient Instructions Indication:Body mass index (BMI) of less than 5th percentile for age in patient 18 years to less than 21 years of age Start:20-Mar-2021 Instruction Type:Provider Instructions for Treatment How to Access Health Informa tion Online using Patient Portal and [employer] Apps Indication:Body mass index (BMI) of less than 5th percentile for age in patient 18 years to less than 21 years of age Start:20-Mar-2021 Instruction Type:Patient Education Patient Instructions Indication:Non-smoker Start:19-Dec-2020 Instruction Type:Provider Instructions for Treatment How to Access Health Informa tion Online using Patient Portal and [employer] Apps Indication:Non-smoker Start:19-Dec-2020 Instruction Type:Patient Education Patient Instructions Indication:Non-smoker Start:01-Sep-2020 Instruction Type:Provider Instructions for Treatment How to Access Health Informa tion Online using Patient Portal and [employer] Apps Indication:Non-smoker Start:01-Sep-2020 Instruction Type:Patient Education [facility]; [facility] Work Phone: instructions* Name Dates Details Patient Instructions Indication:Body mass index (BMI) of less than 5th percentile for age in patient 18 years to less than 21 years of age Start:20-Mar-2021 Instruction Type:Provider Instructions for Treatment How to Access Health Informa tion Online using Patient Portal and [employer] Apps Indication:Body mass index (BMI) of less than 5th percentile for age in patient 18 years to less than 21 years of age Start:20-Mar-2021 Instruction Type:Patient Education Patient Instructions Indication:Non-smoker Start:19-Dec-2020 Instruction Type:Provider Instructions for Treatment How to Access Health Informa tion Online using Patient Portal and [employer] Apps Indication:Non-smoker Start:19-Dec-2020 Instruction Type:Patient Education Patient Instructions Indication:Non-smoker Start:01-Sep-2020 Instruction Type:Provider Instructions for Treatment How to Access Health Informa tion Online using Patient Portal and [employer] Apps Indication:Non-smoker Start:01-Sep-2020 Instruction Type:Patient Education [facility]; [facility] Work Phone: [employer]ions* Name Dates Details Patient Instructions Indication:Body mass index (BMI) of less than 5th percentile for age in patient 18 years to less than 21 years of age Start:20-Mar-2021 Instruction Type:Provider Instructions for Treatment How to Access Health Informa tion Online using Patient Portal and [employer] Apps Indication:Body mass index (BMI) of less than 5th percentile for age in patient 18 years to less than 21 years of age Start:20-Mar-2021 Instruction Type:Patient Education Patient Instructions Indication:Non-smoker Start:19-Dec-2020 Instruction Type:Provider Instructions for Treatment How to Access Health Informa tion Online using Patient Portal and [employer] Apps Indication:Non-smoker Start:19-Dec-2020 Instruction Type:Patient Education Patient Instructions Indication:Non-smoker Start:01-Sep-2020 Instruction Type:Provider Instructions for Treatment How to Access Health Informa tion Online using Patient Portal and [employer] Apps Indication:Non-smoker Start:01-Sep-2020 Instruction Type:Patient Education [facility]; [facility] Work Phone: [employer]* Name Dates Details Patient Instructions Indication:Body mass index (BMI) of less than 5th percentile for age in patient 18 years to less than 21 years of age Start:20-Mar-2021 Instruction Type:Provider Instructions for Treatment How to Access Health Informa tion Online using Patient Portal and [employer] Apps Indication:Body mass index (BMI) of less than 5th percentile for age in patient 18 years to less than 21 years of age Start:20-Mar-2021 Instruction Type:Patient Education Patient Instructions Indication:Non-smoker Start:19-Dec-2020 Instruction Type:Provider Instructions for Treatment How to Access Health Informa tion Online using Patient Portal and [employer] Apps Indication:Non-smoker Start:19-Dec-2020 Instruction Type:Patient Education Patient Instructions Indication:Non-smoker Start:01-Sep-2020 Instruction Type:Provider Instructions for Treatment How to Access Health Informa tion Online using Patient Portal and [employer] Apps Indication:Non-smoker Start:01-Sep-2020 Instruction Type:Patient Education [facility]; [facility] Work Phone: instructions* Name Dates Details Patient Instructions Indication:BMI less than 19,adult Start:18-Dec-2021 Instruction Type:Provider Instructions for Treatment How to Access Health Informa tion Online using Patient Portal and [employer] Apps Indication:BMI less than 19,adult Start:18-Dec-2021 Instruction Type:Patient Education Patient Instructions Indication:Body mass index (BMI) of less than 5th percentile for age in patient 18 years to less than 21 years of age Start:20-Mar-2021 Instruction Type:Provider Instructions for Treatment How to Access Health Informa tion Online using Patient Portal and [employer] Apps Indication:Body mass index (BMI) of less than 5th percentile for age in patient 18 years to less than 21 years of age Start:20-Mar-2021 Instruction Type:Patient Education Patient Instructions Indication:Non-smoker Start:19-Dec-2020 Instruction Type:Provider Instructions for Treatment How to Access Health Informa tion Online using Patient Portal and [employer] Apps Indication:Non-smoker Start:19-Dec-2020 Instruction Type:Patient Education Patient Instructions Indication:Non-smoker Start:01-Sep-2020 Instruction Type:Provider Instructions for Treatment How to Access Health Informa tion Online using Patient Portal and [employer] Apps Indication:Non-smoker Start:01-Sep-2020 Instruction Type:Patient Education [facility]; [facility] Work Phone: [employer]* Name Dates Details Patient Instructions Indication:BMI less than 19,adult Start:18-Dec-2021 Instruction Type:Provider Instructions for Treatment How to Access Health Informa tion Online using Patient Portal and [employer] Apps Indication:BMI less than 19,adult Start:18-Dec-2021 Instruction Type:Patient Education Patient Instructions Indication:Body mass index (BMI) of less than 5th percentile for age in patient 18 years to less than 21 years of age Start:20-Mar-2021 Instruction Type:Provider Instructions for Treatment How to Access Health Informa tion Online using Patient Portal and [employer] Apps Indication:Body mass index (BMI) of less than 5th percentile for age in patient 18 years to less than 21 years of age Start:20-Mar-2021 Instruction Type:Patient Education Patient Instructions Indication:Non-smoker Start:19-Dec-2020 Instruction Type:Provider Instructions for Treatment How to Access Health Informa tion Online using Patient Portal and [employer] Apps Indication:Non-smoker Start:19-Dec-2020 Instruction Type:Patient Education Patient Instructions Indication:Non-smoker Start:01-Sep-2020 Instruction Type:Provider Instructions for Treatment How to Access Health Informa tion Online using Patient Portal and [employer] Apps Indication:Non-smoker Start:01-Sep-2020 Instruction Type:Patient Education [facility]; [facility] Work Phone: Instructions* Name Dates Details Patient Instructions Indication:Non-smoker Start:18-Apr-2022 Instruction Type:Provider Instructions for Treatment How to Access Health Informa tion Online using Patient Portal and [employer] Apps Indication:Non-smoker Start:18-Apr-2022 Instruction Type:Patient Education Patient Instructions Indication:BMI less than 19,adult Start:25-Jan-2022 Instruction Type:Provider Instructions for Treatment How to Access Health Informa tion Online using Patient Portal and [employer] Apps Indication:BMI less than 19,adult Start:25-Jan-2022 Instruction Type:Patient Education Patient Instructions Indication:BMI less than 19,adult Start:18-Dec-2021 Instruction Type:Provider Instructions for Treatment How to Access Health Informa tion Online using Patient Portal and [employer] Apps Indication:BMI less than 19,adult Start:18-Dec-2021 Instruction Type:Patient Education Patient Instructions Indication:Body mass index (BMI) of less than 5th percentile for age in patient 18 years to less than 21 years of age Start:20-Mar-2021 Instruction Type:Provider Instructions for Treatment How to Access Health Informa tion Online using Patient Portal and [employer] Apps Indication:Body mass index (BMI) of less than 5th percentile for age in patient 18 years to less than 21 years of age Start:20-Mar-2021 Instruction Type:Patient Education Patient Instructions Indication:Non-smoker Start:19-Dec-2020 Instruction Type:Provider Instructions for Treatment How to Access Health Informa tion Online using Patient Portal and [employer] Apps Indication:Non-smoker Start:19-Dec-2020 Instruction Type:Patient Education Patient Instructions Indication:Non-smoker Start:01-Sep-2020 Instruction Type:Provider Instructions for Treatment How to Access Health Informa tion Online using Patient Portal and [employer] Apps Indication:Non-smoker Start:01-Sep-2020 Instruction Type:Patient Education [facility]; [facility] Work Phone: Instructions* Name Dates Details Patient Instructions Indication:BMI 21.0-21.9, adult Start:16-May-2022 Instruction Type:Provider Instructions for Treatment How to Access Health Informa tion Online using Patient Portal and [employer] Apps Indication:BMI 21.0-21.9, adult Start:16-May-2022 Instruction Type:Patient Education Patient Instructions Indication:Non-smoker Start:18-Apr-2022 Instruction Type:Provider Instructions for Treatment How to Access Health Informa tion Online using Patient Portal and [employer] Apps Indication:Non-smoker Start:18-Apr-2022 Instruction Type:Patient Education Patient Instructions Indication:BMI less than 19,adult Start:25-Jan-2022 Instruction Type:Provider Instructions for Treatment How to Access Health Informa tion Online using Patient Portal and [employer] Apps Indication:BMI less than 19,adult Start:25-Jan-2022 Instruction Type:Patient Education Patient Instructions Indication:BMI less than 19,adult Start:18-Dec-2021 Instruction Type:Provider Instructions for Treatment How to Access Health Informa tion Online using Patient Portal and [employer] Apps Indication:BMI less than 19,adult Start:18-Dec-2021 Instruction Type:Patient Education Patient Instructions Indication:Body mass index (BMI) of less than 5th percentile for age in patient 18 years to less than 21 years of age Start:20-Mar-2021 Instruction Type:Provider Instructions for Treatment How to Access Health Informa tion Online using Patient Portal and [employer]rd [employer] Apps Indication:Body mass index (BMI) of less than 5th percentile for age in patient 18 years to less than 21 years of age Start:20-Mar-2021 Instruction Type:Patient Education Patient Instructions Indication:Non-smoker Start:19-Dec-2020 Instruction Type:Provider Instructions for Treatment How to Access Health Informa tion Online using Patient Portal and [employer]rd [employer] Apps Indication:Non-smoker Start:19-Dec-2020 Instruction Type:Patient Education Patient Instructions Indication:Non-smoker Start:01-Sep-2020 Instruction Type:Provider Instructions for Treatment How to Access Health Informa tion Online using Patient Portal and [employer]rd [employer] Apps Indication:Non-smoker Start:01-Sep-2020 Instruction Type:Patient Education [facility] Work Phone: Instructions* Name Dates Details Patient Instructions Indication:BMI 20.0-20.9, adult Start:13-Jun-2022 Instruction Type:Provider Instructions for Treatment How to Access Health Informa tion Online using Patient Portal and 3rd [employer] Apps Indication:BMI 20.0-20.9, adult Start:13-Jun-2022 Instruction Type:Patient Education Patient Instructions Indication:BMI 21.0-21.9, adult Start:16-May-2022 Instruction Type:Provider Instructions for Treatment How to Access Health Informa tion Online using Patient Portal and 3rd [employer] Apps Indication:BMI 21.0-21.9, adult Start:16-May-2022 Instruction Type:Patient Education Patient Instructions Indication:Non-smoker Start:18-Apr-2022 Instruction Type:Provider Instructions for Treatment How to Access Health Informa tion Online using Patient Portal and [employer]rd [employer] Apps Indication:Non-smoker Start:18-Apr-2022 Instruction Type:Patient Education Patient Instructions Indication:BMI less than 19,adult Start:25-Jan-2022 Instruction Type:Provider Instructions for Treatment How to Access Health Informa tion Online using Patient Portal and [employer]rd [employer] Apps Indication:BMI less than 19,adult Start:25-Jan-2022 Instruction Type:Patient Education Patient Instructions Indication:BMI less than 19,adult Start:18-Dec-2021 Instruction Type:Provider Instructions for Treatment How to Access Health Informa tion Online using Patient Portal and 3rd [employer] Apps Indication:BMI less than 19,adult Start:18-Dec-2021 Instruction Type:Patient Education Patient Instructions Indication:Body mass index (BMI) of less than 5th percentile for age in patient 18 years to less than 21 years of age Start:20-Mar-2021 Instruction Type:Provider Instructions for Treatment How to Access Health Informa tion Online using Patient Portal and [employer]rd [employer] Apps Indication:Body mass index (BMI) of less than 5th percentile for age in patient 18 years to less than 21 years of age Start:20-Mar-2021 Instruction Type:Patient Education Patient Instructions Indication:Non-smoker Start:19-Dec-2020 Instruction Type:Provider Instructions for Treatment How to Access Health Informa tion Online using Patient Portal and [employer]rd [employer] Apps Indication:Non-smoker Start:19-Dec-2020 Instruction Type:Patient Education Patient Instructions Indication:Non-smoker Start:01-Sep-2020 Instruction Type:Provider Instructions for Treatment How to Access Health Informa tion Online using Patient Portal and [employer]rd [employer] Apps Indication:Non-smoker Start:01-Sep-2020 Instruction Type:Patient Education [facility]; [facility] Work Phone: Instructions* Name Dates Details Patient Instructions Indication:BMI 20.0-20.9, adult Start:13-Jun-2022 Instruction Type:Provider Instructions for Treatment How to Access Health Informa tion Online using Patient Portal and [employer]rd [employer] Apps Indication:BMI 20.0-20.9, adult Start:13-Jun-2022 Instruction Type:Patient Education Patient Instructions Indication:BMI 21.0-21.9, adult Start:16-May-2022 Instruction Type:Provider Instructions for Treatment How to Access Health Informa tion Online using Patient Portal and [employer]rd [employer] Apps Indication:BMI 21.0-21.9, adult Start:16-May-2022 Instruction Type:Patient Education Patient Instructions Indication:Non-smoker Start:18-Apr-2022 Instruction Type:Provider Instructions for Treatment How to Access Health Informa tion Online using Patient Portal and [employer]rd [employer] Apps Indication:Non-smoker Start:18-Apr-2022 Instruction Type:Patient Education Patient Instructions Indication:BMI less than 19,adult Start:25-Jan-2022 Instruction Type:Provider Instructions for Treatment How to Access Health Informa tion Online using Patient Portal and [employer]rd [employer] Apps Indication:BMI less than 19,adult Start:25-Jan-2022 Instruction Type:Patient Education Patient Instructions Indication:BMI less than 19,adult Start:18-Dec-2021 Instruction Type:Provider Instructions for Treatment How to Access Health Informa tion Online using Patient Portal and [employer]rd [employer] Apps Indication:BMI less than 19,adult Start:18-Dec-2021 Instruction Type:Patient Education Patient Instructions Indication:Body mass index (BMI) of less than 5th percentile for age in patient 18 years to less than 21 years of age Start:20-Mar-2021 Instruction Type:Provider Instructions for Treatment How to Access Health Informa tion Online using Patient Portal and [employer]rd [employer] Apps Indication:Body mass index (BMI) of less than 5th percentile for age in patient 18 years to less than 21 years of age Start:20-Mar-2021 Instruction Type:Patient Education Patient Instructions Indication:Non-smoker Start:19-Dec-2020 Instruction Type:Provider Instructions for Treatment How to Access Health Informa tion Online using Patient Portal and [employer]rd [employer] Apps Indication:Non-smoker Start:19-Dec-2020 Instruction Type:Patient Education Patient Instructions Indication:Non-smoker Start:01-Sep-2020 Instruction Type:Provider Instructions for Treatment How to Access Health Informa tion Online using Patient Portal and [employer]rd [employer] Apps Indication:Non-smoker Start:01-Sep-2020 Instruction Type:Patient Education [facility]; [facility] Work Phone: Instructions* Name Dates Details Patient Instructions Indication:BMI 20.0-20.9, adult Start:28-Jun-2022 Instruction Type:Provider Instructions for Treatment How to Access Health Informa tion Online using Patient Portal and [employer]rd [employer] Apps Indication:BMI 20.0-20.9, adult Start:28-Jun-2022 Instruction Type:Patient Education Patient Instructions Indication:BMI 20.0-20.9, adult Start:13-Jun-2022 Instruction Type:Provider Instructions for Treatment How to Access Health Informa tion Online using Patient Portal and [employer]rd [employer] Apps Indication:BMI 20.0-20.9, adult Start:13-Jun-2022 Instruction Type:Patient Education Patient Instructions Indication:BMI 21.0-21.9, adult Start:16-May-2022 Instruction Type:Provider Instructions for Treatment How to Access Health Informa tion Online using Patient Portal and [employer]rd [employer] Apps Indication:BMI 21.0-21.9, adult Start:16-May-2022 Instruction Type:Patient Education Patient Instructions Indication:Non-smoker Start:18-Apr-2022 Instruction Type:Provider Instructions for Treatment How to Access Health Informa tion Online using Patient Portal and [employer]rd [employer] Apps Indication:Non-smoker Start:18-Apr-2022 Instruction Type:Patient Education Patient Instructions Indication:BMI less than 19,adult Start:25-Jan-2022 Instruction Type:Provider Instructions for Treatment How to Access Health Informa tion Online using Patient Portal and [employer]rd [employer] Apps Indication:BMI less than 19,adult Start:25-Jan-2022 Instruction Type:Patient Education Patient Instructions Indication:BMI less than 19,adult Start:18-Dec-2021 Instruction Type:Provider Instructions for Treatment How to Access Health Informa tion Online using Patient Portal and [employer]rd [employer] Apps Indication:BMI less than 19,adult Start:18-Dec-2021 Instruction Type:Patient Education Patient Instructions Indication:Body mass index (BMI) of less than 5th percentile for age in patient 18 years to less than 21 years of age Start:20-Mar-2021 Instruction Type:Provider Instructions for Treatment How to Access Health Informa tion Online using Patient Portal and [employer]rd [employer] Apps Indication:Body mass index (BMI) of less than 5th percentile for age in patient 18 years to less than 21 years of age Start:20-Mar-2021 Instruction Type:Patient Education Patient Instructions Indication:Non-smoker Start:19-Dec-2020 Instruction Type:Provider Instructions for Treatment How to Access Health Informa tion Online using Patient Portal and [employer]rd [employer] Apps Indication:Non-smoker Start:19-Dec-2020 Instruction Type:Patient Education Patient Instructions Indication:Non-smoker Start:01-Sep-2020 Instruction Type:Provider Instructions for Treatment How to Access Health Informa tion Online using Patient Portal and [employer]rd [employer] Apps Indication:Non-smoker Start:01-Sep-2020 Instruction Type:Patient Education [facility]; [facility] Work Phone: Instructions* Name Dates Details Patient Instructions Indication:Attention deficit hyperactivity disorder (ADHD), combined type Start:20-Aug-2022 Instruction Type:Provider Instructions for Treatment How to Access Health Informa tion Online using Patient Portal and [employer]rd [employer] Apps Indication:Attention deficit hyperactivity disorder (ADHD), combined type Start:20-Aug-2022 Instruction Type:Patient Education Patient Instructions Indication:BMI 20.0-20.9, adult Start:28-Jun-2022 Instruction Type:Provider Instructions for Treatment How to Access Health Informa tion Online using Patient Portal and [employer]rd [employer] Apps Indication:BMI 20.0-20.9, adult Start:28-Jun-2022 Instruction Type:Patient Education Patient Instructions Indication:BMI 20.0-20.9, adult Start:13-Jun-2022 Instruction Type:Provider Instructions for Treatment How to Access Health Informa tion Online using Patient Portal and [employer]rd [employer] Apps Indication:BMI 20.0-20.9, adult Start:13-Jun-2022 Instruction Type:Patient Education Patient Instructions Indication:BMI 21.0-21.9, adult Start:16-May-2022 Instruction Type:Provider Instructions for Treatment How to Access Health Informa tion Online using Patient Portal and [employer]rd [employer] Apps Indication:BMI 21.0-21.9, adult Start:16-May-2022 Instruction Type:Patient Education Patient Instructions Indication:Non-smoker Start:18-Apr-2022 Instruction Type:Provider Instructions for Treatment How to Access Health Informa tion Online using Patient Portal and [employer]rd [employer] Apps Indication:Non-smoker Start:18-Apr-2022 Instruction Type:Patient Education Patient Instructions Indication:BMI less than 19,adult Start:25-Jan-2022 Instruction Type:Provider Instructions for Treatment How to Access Health Informa tion Online using Patient Portal and [employer]rd [employer] Apps Indication:BMI less than 19,adult Start:25-Jan-2022 Instruction Type:Patient Education Patient Instructions Indication:BMI less than 19,adult Start:18-Dec-2021 Instruction Type:Provider Instructions for Treatment How to Access Health Informa tion Online using Patient Portal and 3rd [employer] Apps Indication:BMI less than 19,adult Start:18-Dec-2021 Instruction Type:Patient Education Patient Instructions Indication:Body mass index (BMI) of less than 5th percentile for age in patient 18 years to less than 21 years of age Start:20-Mar-2021 Instruction Type:Provider Instructions for Treatment How to Access Health Informa tion Online using Patient Portal and 3rd [employer] Apps Indication:Body mass index (BMI) of less than 5th percentile for age in patient 18 years to less than 21 years of age Start:20-Mar-2021 Instruction Type:Patient Education Patient Instructions Indication:Non-smoker Start:19-Dec-2020 Instruction Type:Provider Instructions for Treatment How to Access Health Informa tion Online using Patient Portal and [employer]rd [employer] Apps Indication:Non-smoker Start:19-Dec-2020 Instruction Type:Patient Education Patient Instructions Indication:Non-smoker Start:01-Sep-2020 Instruction Type:Provider Instructions for Treatment How to Access Health Informa tion Online using Patient Portal and [employer]rd [employer] Apps Indication:Non-smoker Start:01-Sep-2020 Instruction Type:Patient Education [facility]; [facility] Work Phone: [phone]* Name Dates Details Patient Instructions Indication:Attention deficit hyperactivity disorder (ADHD), combined type Start:20-Aug-2022 Instruction Type:Provider Instructions for Treatment How to Access Health Informa tion Online using Patient Portal and 3rd [employer] Apps Indication:Attention deficit hyperactivity disorder (ADHD), combined type Start:20-Aug-2022 Instruction Type:Patient Education Patient Instructions Indication:BMI 20.0-20.9, adult Start:28-Jun-2022 Instruction Type:Provider Instructions for Treatment How to Access Health Informa tion Online using Patient Portal and [employer]rd [employer] Apps Indication:BMI 20.0-20.9, adult Start:28-Jun-2022 Instruction Type:Patient Education Patient Instructions Indication:BMI 20.0-20.9, adult Start:13-Jun-2022 Instruction Type:Provider Instructions for Treatment How to Access Health Informa tion Online using Patient Portal and 3rd [employer] Apps Indication:BMI 20.0-20.9, adult Start:13-Jun-2022 Instruction Type:Patient Education Patient Instructions Indication:BMI 21.0-21.9, adult Start:16-May-2022 Instruction Type:Provider Instructions for Treatment How to Access Health Informa tion Online using Patient Portal and 3rd [employer] Apps Indication:BMI 21.0-21.9, adult Start:16-May-2022 Instruction Type:Patient Education Patient Instructions Indication:Non-smoker Start:18-Apr-2022 Instruction Type:Provider Instructions for Treatment How to Access Health Informa tion Online using Patient Portal and 3rd [employer] Apps Indication:Non-smoker Start:18-Apr-2022 Instruction Type:Patient Education Patient Instructions Indication:BMI less than 19,adult Start:25-Jan-2022 Instruction Type:Provider Instructions for Treatment How to Access Health Informa tion Online using Patient Portal and 3rd [employer] Apps Indication:BMI less than 19,adult Start:25-Jan-2022 Instruction Type:Patient Education Patient Instructions Indication:BMI less than 19,adult Start:18-Dec-2021 Instruction Type:Provider Instructions for Treatment How to Access Health Informa tion Online using Patient Portal and 3rd [employer] Apps Indication:BMI less than 19,adult Start:18-Dec-2021 Instruction Type:Patient Education Patient Instructions Indication:Body mass index (BMI) of less than 5th percentile for age in patient 18 years to less than 21 years of age Start:20-Mar-2021 Instruction Type:Provider Instructions for Treatment How to Access Health Informa tion Online using Patient Portal and 3rd [employer] Apps Indication:Body mass index (BMI) of less than 5th percentile for age in patient 18 years to less than 21 years of age Start:20-Mar-2021 Instruction Type:Patient Education Patient Instructions Indication:Non-smoker Start:19-Dec-2020 Instruction Type:Provider Instructions for Treatment How to Access Health Informa tion Online using Patient Portal and 3rd [employer] Apps Indication:Non-smoker Start:19-Dec-2020 Instruction Type:Patient Education Patient Instructions Indication:Non-smoker Start:01-Sep-2020 Instruction Type:Provider Instructions for Treatment How to Access Health Informa tion Online using Patient Portal and 3rd [employer] Apps Indication:Non-smoker Start:01-Sep-2020 Instruction Type:Patient Education [facility]; [facility] Work Phone: Instructions* Name Dates Details Patient Instructions Indication:BMI 20.0-20.9, adult Start:28-Jun-2022 Instruction Type:Provider Instructions for Treatment How to Access Health Informa tion Online using Patient Portal and 3rd [employer] Apps Indication:BMI 20.0-20.9, adult Start:28-Jun-2022 Instruction Type:Patient Education Patient Instructions Indication:BMI 20.0-20.9, adult Start:13-Jun-2022 Instruction Type:Provider Instructions for Treatment How to Access Health Informa tion Online using Patient Portal and 3rd [employer] Apps Indication:BMI 20.0-20.9, adult Start:13-Jun-2022 Instruction Type:Patient Education Patient Instructions Indication:BMI 21.0-21.9, adult Start:16-May-2022 Instruction Type:Provider Instructions for Treatment How to Access Health Informa tion Online using Patient Portal and 3rd [employer] Apps Indication:BMI 21.0-21.9, adult Start:16-May-2022 Instruction Type:Patient Education Patient Instructions Indication:Non-smoker Start:18-Apr-2022 Instruction Type:Provider Instructions for Treatment How to Access Health Informa tion Online using Patient Portal and 3rd [employer] Apps Indication:Non-smoker Start:18-Apr-2022 Instruction Type:Patient Education Patient Instructions Indication:BMI less than 19,adult Start:25-Jan-2022 Instruction Type:Provider Instructions for Treatment How to Access Health Informa tion Online using Patient Portal and 3rd [employer] Apps Indication:BMI less than 19,adult Start:25-Jan-2022 Instruction Type:Patient Education Patient Instructions Indication:BMI less than 19,adult Start:18-Dec-2021 Instruction Type:Provider Instructions for Treatment How to Access Health Informa tion Online using Patient Portal and 3rd [employer] Apps Indication:BMI less than 19,adult Start:18-Dec-2021 Instruction Type:Patient Education Patient Instructions Indication:Body mass index (BMI) of less than 5th percentile for age in patient 18 years to less than 21 years of age Start:20-Mar-2021 Instruction Type:Provider Instructions for Treatment How to Access Health Informa tion Online using Patient Portal and 3rd [employer] Apps Indication:Body mass index (BMI) of less than 5th percentile for age in patient 18 years to less than 21 years of age Start:20-Mar-2021 Instruction Type:Patient Education Patient Instructions Indication:Non-smoker Start:19-Dec-2020 Instruction Type:Provider Instructions for Treatment How to Access Health Informa tion Online using Patient Portal and 3rd [employer] Apps Indication:Non-smoker Start:19-Dec-2020 Instruction Type:Patient Education Patient Instructions Indication:Non-smoker Start:01-Sep-2020 Instruction Type:Provider Instructions for Treatment How to Access Health Informa tion Online using Patient Portal and 3rd [employer] Apps Indication:Non-smoker Start:01-Sep-2020 Instruction Type:Patient Education [facility]; [facility] Work Phone: Progress note No data available for this section [facility] Reason for referral (narrative)No reason for referral information availableWWooster [facility] Work Phone: Summary Purpose Family History No Family History Records FoundNo Family History Records FoundNo Family History Records Found No data available for this section No Family History Records FoundNo Family History Records FoundNo Family History Records FoundNo Family History Records Found Advance Directives Advance Directive Response Recorded Date/ Time Living Will No May 26, 2021 2:53pm Power of Extruder Operator Multiple No May 26 2:53pm Advance Directive Response Recorded Date/ Time Living Will No August 31, 2021 1:03pm Power of Extruder Operator Multiple No August 31 1:03pm Advance Directive Response Recorded Date/ Time Living Will No August 31, 2021 12:03pm Power of Extruder Operator Multiple No August 31 12:03pm Advance Directive Response Recorded Date/ Time Living Will No May 10, 2024 3:21am Do you have a Healthcare Power of Extruder Operator Multiple? No May 10, 2024 3:21am Chief Complaint and Reason for Visit Chief Complaint Abdominal pain disscuss possible colonoscopy Reason for Visit Constipation Chief Complaint Abdominal pain disscuss possible colonoscopy 2 Week f/u E-ORDER Reason for Visit Constipation Constipation H pylori ulcer IBD (inflammatory bowel disease) Chief Complaint 2 Week f/u E-ORDER 2 WK FU TERM ILEITIS, CRYPTITIS, ABD PAIN (ENTEROGRAPHY) 6 WK FU E ORDER Reason for Visit Constipation H pylori ulcer Abdominal pain H pylori ulcer Intestinal cryptitis Terminal ileitis Gastric ulcer H pylori ulcer Irritable bowel syndrome with constipation Chief Complaint FU 2 MO FU Reason for Visit Irritable bowel synd venice with constipation Irritable bowel syndrome with constipation Chief Complaint Admit Date abd pain May 10, 2024 2:21 am Abdominal pain w/fever May 11, 2024 1 0:22am EARLY SATIETY June 05, 2024 12: 43pm Reason for Visit Admit Date Irritable bowel syndrome with constipati on May 11, 2024 10:22am Acute upper abdominal pain May 11 10:22am Chief Complaint Admit Date abd pain May 10, 2024 2:21 am Abdominal pain w/fever May 11, 2024 1 0:22am EARLY SATIETY June 05, 2024 12: 43pm GASTROPARESIS, PROLONGED 1HR GET June 162024 10:14am Chief Complaint Admit Date abd pain May 10, 2024 2:21 am Abdominal pain w/fever May 11, 2024 1 0:22am EARLY SATIETY June 05, 2024 12: 43pm GASTROPARESIS, PROLONGED 1HR GET June 162024 10:14am Test Result August 14, 2024 10:51 am INT LAB ORDERS August 14, 2024 11:34 am Reason for Visit Admit Date Irritable bowel syndrome with constipati on May 11, 2024 10:22am Acute upper abdominal pain May 11 10:22am Abdominal mass, LUQ (left upper quadrant ) August 14, 2024 10:51am Abdominal pain August 14, 2024 10:51 am Constipation August 14, 2024 10:51 am Chief Complaint Admit Date abd pain May 10, 2024 2:21 am Abdominal pain w/fever May 11, 2024 1 0:22am EARLY SATIETY June 05, 2024 12: 43pm GASTROPARESIS, PROLONGED 1HR GET June 162024 10:14am Test Result August 14, 2024 10:51 am INT LAB ORDERS August 14, 2024 11:34 am palpable mass LUQ abdomen distal rib Wesley e 2024 8:22am Chief Complaint Admit Date abd pain May 10, 2024 2:21 am Abdominal pain w/fever May 11, 2024 1 0:22am EARLY SATIETY June 05, 2024 12: 43pm GASTROPARESIS, PROLONGED 1HR GET June 162024 10:14am Test Result August 14, 2024 10:51 am INT LAB ORDERS August 14, 2024 11:34 am palpable mass LUQ abdomen distal rib Wesley e 2024 8:22am US. Results. August 20, 2024 9:30 am Reason for Visit Admit Date Irritable bowel syndrome with constipati on May 11, 2024 10:22am Acute upper abdominal pain May 11 10:22am Abdominal mass, LUQ (left upper quadrant ) August 14, 2024 10:51am Abdominal pain August 14, 2024 10:51 am Constipation August 14, 2024 10:51 am Nausea August 20, 2024 9:30 am Chief Complaint Admit Date Test Result August 14, 2024 10:51 am INT LAB ORDERS August 14, 2024 11:34 am palpable mass LUQ abdomen distal rib Wesley e 2024 8:22am US. Results. August 20, 2024 9:30 am ABDOMINAL PAIN GETTING WORSE DIARRHEA Au 2024 10:16am Reason for Visit Admit Date Abdominal mass, LUQ (left upper quadrant ) August 14, 2024 10:51am Abdominal pain August 14, 2024 10:51 am Constipation August 14, 2024 10:51 am Nausea August 20, 2024 9:30 am Abdominal pain October 20, 2024 10 :16am Diarrhea October 20, 2024 10 :16am Nausea October 20, 2024 10 :16am Additional Source Comments INFORMATION SOURCE (unrecogn ized section and content) DATE CREATED AUTHOR 09/04/2017 [facility] DATE CREATED AUTHOR AUTHOR'S ORGANIZ ATION 10/16/2019 [facility] DATE CREATED AUTHOR AUTHOR'S ORGANIZ ATION 07/19/2022 [facility] DATE CREATED AUTHOR AUTHOR'S ORGANIZ ATION 03/29/2023 [facility] ([place]) DATE CREATED AUTHOR AUTHOR'S ORGANIZ ATION 08/20/2024 [facility] DATE CREATED AUTHOR AUTHOR'S ORGANIZ ATION 09/27/2024 [facility] DATE CREATED AUTHOR AUTHOR'S ORGANIZ ATION 10/18/2024 [facility] Goals (unrecognized section and content) Goals may be documented in a n alternate sectionGoals may be documented in an alternate sectionGoals may be documented in an alternate sectionGoals may be documented in an alternate sectionGoals may be documented in an alternate section No data available for this sectionGoals may be documented in an alternate sectionGoals may be documented in an alternate sectionGoals may be documented in an alternate sectionGoals may be documented in an alternate sectionGoals may be documented in an alternate sectionGoals may be documented in an alternate sectionGoals may be documented in an alternate section Care Teams (unrecognized sec tion and content) Team Status: Active Member Role Status Dates Dr. Reji Lee MD Family Provider Active Dr. La Latif , DO Primary Care Provider Active Team Status: Inactive Member Role Status Dates Dr. La Latif , DO Primary Care Pr ovider, Attending Provider, Referring Provider Active Team Status: Inactive Member Role Status Dates Dr. La Latif , DO Primary Care Provider, Attend ing Provider Active Quantity Surveyor Relationship Specialty Start Date End Date Reji Parrish PCP - General Pediatrics 10/27/16 Quantity Surveyor Relationship Specialty Start Date End Date Reji Parrish MD PCP - General Pediatrics 10/27/16 Quantity Surveyor Relationship Specialty Start Date End Date Reji Parrish MD PCP - General Pediatrics 10/27/16 Team Status: Active Member Role Status Dates No Primary Care Physician Primary Care Provider Active Team Status: Inactive Member Role Status Dates Dr. Nestor Sr MD Attending Provider Active Start: May 10, 2024 End: May 10, 2024 Dr. Nestor Sr MD Emergency Provider Active Start: May 10, 2024 End: May 10, 2024 No Primary Care Physician Primary Care Provider Active Start: May 10, 2024 End: May 10, 2024 Team Status: Inactive Member Role Status Dates Dr. La Latif DO Referring Provider Active Start: May 11, 2024 End: May 11, 2024 Xena Osman CORE WINDING OPERATOR-C Attending Provider Active S tart: May 11, 2024 End: May 11, 2024 No Primary Care Physician Primary Care Provider Active Start: May 11, 2024 End: May 11, 2024 Team Status: Inactive Member Role Status Dates No Primary Care Physician Primary Care Provider Active Start: June 05, 2024 End: June 05, 2024 Xena Osman CORE WINDING OPERATOR-C Attending Provider Active S tart: June 05, 2024 End: June 05, 2024 Xena Osman CORE WINDING OPERATOR-C Referring Provider Active S tart: June 05, 2024 End: June 05, 2024 Team Status: Inactive Member Role Status Dates No Primary Care Physician Primary Care Provider Active Start: June 16, 2024 End: June 16, 2024 Xena Osman CORE WINDING OPERATOR-C Attending Provider Active S tart: June 16, 2024 End: June 16, 2024 Xena Osman CORE WINDING OPERATOR-C Referring Provider Active S tart: June 16, 2024 End: June 16, 2024 Quantity Surveyor Relationship Specialty Start Date End Date Reji Parrish MD PCP - General Pediatrics 10/27/16 Quantity Surveyor Relationship Specialty Start Date End Date Reji Parrish MD PCP - General Pediatrics 10/27/16 Quantity Surveyor Relationship Specialty Start Date End Date Reji Parrish MD PCP - General Pediatrics 10/27/16 Team Status: Inactive Member Role Status Dates No Primary Care Physician Primary Care Provider Active Start: August 14, 2024 End: August 14, 2024 No Primary Care Physician Referring Provider Active Start: August 14, 2024 End: August 14, 2024 Xena Osman NP-C Attending Provider Active S tart: August 14, 2024 End: August 14, 2024 Team Status: Active Member Role Status Dates No Primary Care Physician Primary Care Provider Active Start: August 14, 2024 Xena Osman NP-C Attending Provider Active S tart: August 14, 2024 ZAIN GurrolaC Referring Provider Active S tart: August 14, 2024 Quantity Surveyor Relationship Specialty Start Date End Date Reji Parrish MD PCP - General Pediatrics 10/27/16 08/10/24 Team Status: Inactive Member Role Status Dates No Primary Care Physician Primary Care Provider Active Start: August 14, 2024 End: August 14, 2024 Xena Osamn NP-C Attending Provider Active S tart: August 14, 2024 End: August 14, 2024 ZAIN GurrolaC Referring Provider Active S tart: August 14, 2024 End: August 14, 2024 Team Status: Active Member Role Status Dates No Primary Care Physician Primary Care Provider Active Start: August 17, 2024 Xena Osman NP-C Attending Provider Active S tart: August 17, 2024 Xena Osman NP-C Referring Provider Active S tart: August 17, 2024 Team Status: Inactive Member Role Status Dates No Primary Care Physician Primary Care Provider Active Start: August 20, 2024 End: August 20, 2024 No Primary Care Physician Referring Provider Active Start: August 20, 2024 End: August 20, 2024 Xena Osman NP-C Attending Provider Active S tart: August 20, 2024 End: August 20, 2024 Team Status: Inactive Member Role Status Dates No Primary Care Physician Primary Care Provider Active Start: August 17, 2024 End: August 17, 2024 Xena Osman NP-C Attending Provider Active S tart: August 17, 2024 End: August 17, 2024 Xena Osman CORE WINDING OPERATOR-C Referring Provider Active S tart: August 17, 2024 End: August 17, 2024 Quantity Surveyor Relationship Specialty Start Date End Date Reji Parrish MD PCP - General Pediatrics 10/27/16 08/10/24 Team Status: Active Member Role/Relationship Status Dates No Primary Care Physician Primary Care Provider Active Team Status: Inactive Member Role/Relationship Status Dates No Primary Care Physician Primary Care Provider Active Start: August 14, 2024 End: August 14, 2024 No Primary Care Physician Referring Provider Active Start: August 14, 2024 End: August 14, 2024 Xena Osman NP-C Attending Provider Active S tart: August 14, 2024 End: August 14, 2024 Team Status: Inactive Member Role/Relationship Status Dates No Primary Care Physician Primary Care Provider Active Start: August 14, 2024 End: August 14, 2024 Xena Osman NP-C Attending Provider Active S tart: August 14, 2024 End: August 14, 2024 Xena Osman NP-C Referring Provider Active S tart: August 14, 2024 End: August 14, 2024 Team Status: Inactive Member Role/Relationship Status Dates No Primary Care Physician Primary Care Provider Active Start: August 17, 2024 End: August 17, 2024 Xena Osman NP-C Attending Provider Active S tart: August 17, 2024 End: August 17, 2024 Xena Osman NP-C Referring Provider Active S tart: August 17, 2024 End: August 17, 2024 Team Status: Inactive Member Role/Relationship Status Dates No Primary Care Physician Primary Care Provider Active Start: August 20, 2024 End: August 20, 2024 No Primary Care Physician Referring Provider Active Start: August 20, 2024 End: August 20, 2024 Xena Osman NP-C Attending Provider Active S tart: August 20, 2024 End: August 20, 2024 Team Status: Inactive Member Role/Relationship Status Dates No Primary Care Physician Primary Care Provider Active Start: October 20, 2024 End: October 20, 2024 No Primary Care Physician Referring Provider Active Start: October 20, 2024 End: October 20, 2024 ARNOLDO Gurrola Attending Provider Active S tart: October 20, 2024 End: October 20, 2024 Source Comments (unrecognize d section and content) In the event this informatio n is protected by the Federal Confidentiality of Alcohol and Drug Abuse Patient Records regulations: The Federal rules restrict any use of the information to criminally investigate or prosecute any alcohol or drug abuse patient.[facility] the event this information is protected by the Federal Confidentiality of Alcohol and Drug Abuse Patient Records regulations: The Federal rules restrict any use of the information to criminally investigate or prosecute any alcohol or drug abuse patient.[facility] the event this information is protected by the Federal Confidentiality of Alcohol and Drug Abuse Patient Records regulations: The Federal rules restrict any use of the information to criminally investigate or prosecute any alcohol or drug abuse patient.[facility] the event this information is protected by the Federal Confidentiality of Alcohol and Drug Abuse Patient Records regulations: The Federal rules restrict any use of the information to criminally investigate or prosecute any alcohol or drug abuse patient.[facility] the event this information is protected by the Federal Confidentiality of Alcohol and Drug Abuse Patient Records regulations: The Federal rules restrict any use of the information to criminally investigate or prosecute any alcohol or drug abuse patient.[facility] the event this information is protected by the Federal Confidentiality of Alcohol and Drug Abuse Patient Records regulations: The Federal rules restrict any use of the information to criminally investigate or prosecute any alcohol or drug abuse patient.[facility] Center[facility] the event this information is protected by the Federal Confidentiality of Alcohol and Drug Abuse Patient Records regulations: The Federal rules restrict any use of the information to criminally investigate or prosecute any alcohol or drug abuse patient.[facility] the event this information is protected by the Federal Confidentiality of Alcohol and Drug Abuse Patient Records regulations: The Federal rules restrict any use of the information to criminally investigate or prosecute any alcohol or drug abuse patient.[facility] Reason for Visit (unrecogniz ed section and content) Reason Comments Sore Throat swollen tonsils x 2 days Reason Comments Well Woman Reason Comments Problem Visit Reason Comments Consult Rt breast mass Reason Comments Procedure Right breast bx Reason Comments Results Reason Comments Consult For removal of breas t tumor FOR RECORDS PERTAINING TO PATIENTS WHO ARE OR HAVE BEEN ENROLLED IN A CHEMICAL DEPENDENCY/SUBSTANCEABUSE PROGRAM, SOME INFORMATION MAY BE OMITTED. This clinical summary was aggregated from multiple sources. Caution should be exercised in using it in the provision of clinical care. This summary normalizes information from multiple sources, and as a consequence, information in this document may materially change the coding, format and clinical context of patient data. In addition, data may be omitted in some cases. CLINICAL DECISIONS SHOULD BE BASED ON THE PRIMARY CLINICAL RECORDS. [facility] [employer] [facility]. provides no warranty or guarantee of the accuracy or completeness of information in this document.
[2024-10-29 08:09] LABS: Calprotectin, Stool 92 ug/g (0-120); H. PYLORI STOOL AG Negative (Negative); Pancreatic Elastase, Fecal > 800 (>200)
== END | disposition home or self-care (01) ==
LOC: LABSPEC 13:49
DX: R10.13 Epigastric pain (principal); R11.0 Nausea; R19.7 Diarrhea, unspecified
CPT/HCPCS: 82653; 83993; 87338